=== PATIENT | male | born 1990 | race Caucasian/White ===

== ENCOUNTER 2018-01-08 21:09 | Emergency (ER) | payer OTHER, MEDICAID, SELFPAY ==
[2018-01-08 21:12] VITALS: BP 139/86; PULSE 100; RESP 16; TEMP 37.1; O2SAT 100; BMI 26.4
--- NOTE | 2018-01-08 21:18 | RAD_ITS ---
STUDY: X-RAY - LEFT FOOT CLINICAL: Male, 27 years old. Trauma. Twisted ankle. Pain TECHNIQUE: 3 view(s) of the foot. COMPARISON: None. FINDINGS: Normal talus, calcaneus, and tarsal bones. Normal visualized subtalar, talonavicular, calcaneocuboid, tarsal and tarsometatarsal articulations. Normal metatarsi. Normal metatarsophalangeal joint of the great toe. Normal tibial and fibular sesamoid bones. Normal interphalangeal joint of the great toe. Normal phalanges of the great toe. Normal second through fifth metatarsophalangeal joints. Normal interphalangeal joints and phalanges of the lesser toes. The soft tissue structures are unremarkable. RAD/Foot min 3 Views IMPRESSION: Normal x-ray examination of the foot. Electronically Signed: Zeferino Gant MD at 22:12 EDT Tel , Service support ,
[2018-01-08] MEDS: HYDROcodone Bitartrate/Apap 5/325 Tablet PO (21:25)
--- NOTE | 2018-01-08 21:30 | RAD_ITS ---
STUDY: X-RAY - LEFT ANKLE REASON FOR EXAM: Male, 27 years old. Trauma. Ankle pain TECHNIQUE: 3 view(s) of the ankle. COMPARISON: None. FINDINGS: Normal visualized distal tibia and fibula. Normal medial and lateral malleoli. Normal tibiotalar articulation and ankle mortise. Normal visualized talus and calcaneus. The visualized subtalar, talonavicular, calcaneocuboid and tarsal articulations are normal. The soft tissue structures are unremarkable. RAD/Ankle min 3 Views IMPRESSION: Normal x-ray examination of the ankle. Electronically Signed: Zeferino Gant MD at 22:03 EDT Tel , Service support ,
--- NOTE | 2018-01-08 21:56 | ED.VISSUMM ---
- ER Visit Summary Date of Service: 01/08/18 Chief Complaint: Left ankle injury History of Present Illness: The patient is a 27 M presents to the emergency department with left ankle injury. Patient was standing on a dumpster. He slipped down and inverted his left ankle. He did not fall or strike his head. Since then, he had a difficult time bearing weight because of pain. He has had prior neck fracture. He denies any other orthopedic injury. The patient is otherwise healthy and takes no daily medications. Physical Examination: Exam is relatively unremarkable. Patient has tenderness over the lateral malleolus. There is mild tenderness of the head of the fifth metatarsal. There is no proximal fibular pain. Pulses are 2+. Grajeda testing is negative. Skin is intact. Sensation is preserved distally. Test Results: [] Emergency Department Course and Treatment: The patient underwent plain films of the ankle and foot. There was no evidence of acute fracture dislocation. His pulses are normal. The patient was placed in an Aircast. Is given crutches. He will be given anti-inflammatories and outpatient orthopedic follow-up. He will be discharged home. Treatment Plan: [] Disposition: Charge Impression: 1. Left ankle sprain This note was generated with [employer] dictation software. It may contain incorrect words, spelling, and punctuation that were not noted in review of the chart prior to signing ED Disposition - Plan for ED Patient: Disposition: Home or Assisted Living Chief Complaint: Lower Extremity Injury Instructions: ED Sprain Ankle W X Ray Prescriptions: Naproxen [Naprosyn] 500 mg PO BID PRN #20 tab Referrals: Sam Olvera MD [Primary Care Provider] -
[2018-01-08 22:33] VITALS: BP 130/80; PULSE 85; RESP 16; O2SAT 98
== END 2018-01-08 22:34 | disposition home or self-care (01) ==
LOC: ED 21:42
PROVIDERS: Emergency Provider Emergency Medicine; Family Provider Family Medicine; PCP Family Medicine
DX: S93.402A Sprain of unspecified ligament of left ankle, initial encounter (principal); X50.1XXA Overexertion from prolonged static or awkward postures, initial encounter; Y93.89 Activity, other specified; Y92.89 Other specified places as the place of occurrence of the external cause; Y99.8 Other external cause status
CPT/HCPCS: 73610; 73630; 99284

== ENCOUNTER 2018-03-23 20:21 | Emergency (ER) | payer MEDICAID, SELFPAY ==
[2018-03-23 20:22] VITALS: BP 141/85; PULSE 107; RESP 18; TEMP 36.7; O2SAT 98; BMI 21.9
--- NOTE | 2018-03-23 22:02 | ED.VISSUMM ---
- ER Visit Summary Date of Service: 03/23/18 Chief Complaint: bruise on right arm History of Present Illness: The patient is a 28 M who presents for a bruise on his right upper arm of unknown origin. Patient states it has been there for about 2 weeks and has been gradually changing in color. He does not know how it happened. He is also been having intermittent episodes of dizziness when he stands for the last 3 weeks. He denies any other bruising. No bleeding gums. No blood in his urine or stool. He states he vomited today. He denies any fever, vision changes or any other symptoms. He is a daily drinker. He smokes tobacco. Denies drug use. No history of bleeding disorders. Physical Examination: Vital signs: afebrile, hemodynamically stable, no hypoxia on room air General: well nourished, well developed, in no distress Skin: warm, dry, no rash, no pallor, old yellowish brown bruise about the size of a thumb print on the inner right upper arm nontender, no other bruises or soft tissue injuries noted HEENT: normocephalic and atraumatic; PERRL, EOMI, moist mucous membranes Cardiovascular: regular rate and rhythm without murmurs, no peripheral edema, 2+ pulses all distal extremities Respiratory: No increased work of breathing, lungs are clear to auscultation bilaterally, no rales, rhonchi or wheezing Abdominal: Abdomen is soft, nontender with normoactive bowel sounds, no guarding or rebound, no masses MSK: Moves all extremities, no deformities, normal strength Neuro: Awake and alert, oriented ?4. No facial droop, sensation and motor function intact and symmetric Test Results: [] Emergency Department Course and Treatment: Patient was reassured that there was nothing concerning about the isolated bruise. The bruises in the end stages of healing. We discussed possible ways it could have happened, such as someone gripping his arm. Patient states that is possible that that happened 2 weeks ago. Patient's other symptoms are vague and intermittent over the last few weeks, and patient is very well-appearing at this time with normal vital signs and no findings on exam that are concerning for serious illness. Patient is to return if he notices further easy bruising or develops any worsening of his condition. Patient discharged home. Treatment Plan: [] Disposition: [] Impression: Right upper extremity contusion, healing This note was generated with [employer] dictation software. It may contain incorrect words, spelling, and punctuation that were not noted in review of the chart prior to signing ED Disposition - Plan for ED Patient: Disposition: Home or Assisted Living Chief Complaint: Weakness Instructions: ED Contusion Upper Ext Referrals: Sma Olvera MD [Primary Care Provider] - 3-5 Days if not improving Additional Instructions: Follow-up with your doctor as soon as possible or return to the emergency department if you begin to note bleeding gums, blood in your urine or stool, additional easy bruising without any injury, or any other concerning symptoms.
--- NOTE | 2018-03-23 22:05 | DCINST.ED_ITS ---
ED Disposition - Plan for ED Patient: Disposition: Home or Assisted Living Chief Complaint: Weakness Instructions: ED Contusion Upper Ext Referrals: Sam Olvera MD [Primary Care Provider] - 3-5 Days if not improving Additional Instructions: Follow-up with your doctor as soon as possible or return to the emergency department if you begin to note bleeding gums, blood in your urine or stool, additional easy bruising without any injury, or any other concerning symptoms.
[2018-03-23 22:22] VITALS: BP 146/77; PULSE 87; RESP 17; O2SAT 100
== END 2018-03-23 22:23 | disposition home or self-care (01) ==
PROVIDERS: Emergency Provider Emergency Medicine; Family Provider Family Medicine; PCP Family Medicine
DX: S40.021A Contusion of right upper arm, initial encounter (principal); F17.200 Nicotine dependence, unspecified, uncomplicated; X58.XXXA Exposure to other specified factors, initial encounter; Y93.9 Activity, unspecified; Y92.9 Unspecified place or not applicable; Y99.9 Unspecified external cause status
CPT/HCPCS: 99282

== ENCOUNTER 2019-04-23 10:24 | Emergency (ER) | payer OTHER, MEDICAID, SELFPAY ==
[2019-04-23 10:26] VITALS: BP 160/81; PULSE 85; RESP 16; TEMP 36.4; O2SAT 100; BMI 21.6
--- NOTE | 2019-04-23 10:27 | ED.RN ---
PAPER STATING INS[employer]ANCE [employer] REQUESTING DRUG SCREEN
--- NOTE | 2019-04-23 10:31 | ED.RN ---
[facility] STATES SHE WILL BE HERE IN APPROX 30 MIN
--- NOTE | 2019-04-23 10:40 | ED.VISSUMM ---
- ER Visit Summary Date of Service: 04/23/19 Chief Complaint: Hand lacerations x2 History of Present Illness: The patient is a 29 M right-hand dominant. No significant past medical or surgical history. States he was at work today was throwing out a trash can and he got caught on his hand causing a laceration to the left index finger all over the dorsum DIP joint region. And the left long finger on the palmar radial side proximally. He denies any other injuries. Tetanus is within the last year. Physical Examination: Well-appearing young male. Vital signs are stable afebrile. HEENT exam normal. Lungs clear. Heart regular rhythm no murmur. Abdomen soft nontender. Extremities moves all 4. Left wrist nontender. Normal radial pulse. Left hand he has a laceration on the dorsum of his left hand is diagonal over the PIP joint. No active bleeding. Left long finger on the medial radial side on the palmar aspect. Both involve skin and subcu tissue. There is no pulsatile bleeding. No signs of infection or foreign body. Both will need repaired. Neurologically is awake and alert with no focal motor deficits. Distally there is left index finger laceration on the radial side dorsum of the index fingertip there is decreased sensation past the laceration. He has full flexion extension however. The left long finger is neurovascularly intact with no decreased sensation. Test Results: The left index finger was deeper than I expected when with exploration. I then did a left index finger x-ray AP lateral view which showed no signs of fracture or air in the joint or joint involvement. Emergency Department Course and Treatment: Left hand laceration repair x2. Left index finger laceration over the dorsum PIP joint. Left index finger was cleaned with Shur-Clens explored and irrigated out with saline. Closed using 4 simple interrupted 5-0 Ethilon sutures. Proper hemostasis wound closure obtained. The depth of the wound was to the tendon sheath but did not lacerate tissue for the tendon. Did not involve the joint. His left long finger laceration was V-shaped. Approximately 3 cm. Involve the skin and subcu tissue. Was locally anesthetized, explored washed out. Closed using 4 simple interrupted 5-0 Ethilon sutures. Proper hemostasis wound closure was obtained. Treatment Plan: Wound care. Suture removal 10 days. Return with any signs of infection. He will be placed on Keflex 500 4 times daily for 5 days to try to prevent infection to the deeper wound on the index finger. Disposition: Discharge Impression: Left hand lacerations x2 Left long finger laceration repair 3 cm Left ring finger laceration repair 3 cm Left index finger nerve injury to the left distal index finger with paresthesia Worker's Comp. injuries This note was generated with [employer] dictation software. It may contain incorrect words, spelling, and punctuation that were not noted in review of the chart prior to signing ED Disposition - Plan for ED Patient: Referrals: Sam Olvera MD [NON-STAFF] -
--- NOTE | 2019-04-23 12:27 | RAD_ITS ---
STUDY: X-RAY - LEFT HAND, ATTENTION INDEX FINGER REASON FOR EXAM: Male, 29 years old. Laceration due to injury. TECHNIQUE: 3 view(s) of the finger were obtained. COMPARISON: None. FINDINGS: Normal metacarpal head. Normal metacarpophalangeal joint. Normal proximal phalanx. Findings suggestive of a tiny avulsion at the base of the middle phalanx. Normal distal phalanx. Normal proximal interphalangeal joint. Normal distal interphalangeal joint. Soft tissue swelling. RAD/Finger(s) Min 2 Views IMPRESSION: Findings suggestive of a tiny avulsion fracture at the base of the middle phalanx of the index finger with overlying soft tissue swelling Electronically Signed: Allan Lopez, at 12:46 EDT , Service support ,
--- NOTE | 2019-04-23 12:46 | ED.DEP ---
ED Disposition - Plan for ED Patient: Disposition: Home or Assisted Living Instructions: LACERATION, Hand Prescriptions: Cephalexin [Keflex] 500 mg PO Q6 #20 cap Prescription Printed Referrals: [facility] [GROUP OF PHYSICIANS] - 10 Day for suture removal Additional Instructions: Keep the finger clean and dry. Clean daily with proximal and water soap water apply antibiotic ointment. 10 days. Keflex 1 pill 4 times a day for 5 days to prevent infection. You probably have a nerve injury to the right index finger which is causing the numbness to the distal end of the right index finger. This may take months to heal and could potentially not heal and just leave it with some numbness there. Return if any signs of infection
[2019-04-23 13:08] VITALS: BP 135/74; PULSE 80; RESP 16; O2SAT 97
== END 2019-04-23 13:08 | disposition home or self-care (01) ==
PROVIDERS: Emergency Provider Emergency Medicine
DX: S61.213A Laceration without foreign body of left middle finger without damage to nail, initial encounter (principal); S61.211A Laceration without foreign body of left index finger without damage to nail, initial encounter; S61.215A Laceration without foreign body of left ring finger without damage to nail, initial encounter; R20.2 Paresthesia of skin; Z72.0 Tobacco use; W26.8XXA Contact with other sharp object(s), not elsewhere classified, initial encounter; Y93.89 Activity, other specified; Y92.89 Other specified places as the place of occurrence of the external cause; Y99.0 Civilian activity done for income or pay
CPT/HCPCS: 12002; 73140; 99284

== ENCOUNTER 2019-06-11 09:29 | Emergency (ER) | payer MEDICAID, SELFPAY ==
[2019-05-14 11:54] VITALS: BMI 21.6
[2019-06-11 09:30] VITALS: BP 113/76; PULSE 121; RESP 16; TEMP 36.6; O2SAT 100; BMI 23.1
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
[2019-06-11] MEDS: 0.9% Normal Saline 1,000 ML 1000 ML IV (10:22)
[2019-06-11] MEDS: Ondansetron 4 MG/2 ML Vial IV (10:23)
[2019-06-11] MEDS: Dicyclomine 20 MG/2 ML Vial IM (10:23)
[2019-06-11 11:15] VITALS: BP 114/74; PULSE 89; RESP 16; O2SAT 100
== END 2019-06-11 11:16 | disposition home or self-care (01) ==
PROVIDERS: Emergency Provider Emergency Medicine; PCP Family Medicine
DX: R19.7 Diarrhea, unspecified (principal); R11.2 Nausea with vomiting, unspecified; Z87.891 Personal history of nicotine dependence
CPT/HCPCS: 96361; 96372; 96374; 99283; J7030; A4216; J2405

== ENCOUNTER 2019-06-28 14:30 | Outpatient (RCR) | payer OTHER, SELFPAY ==
[2019-05-14 11:54] VITALS: BMI 21.6
--- NOTE | 2019-06-05 16:16 | HP.OTEVAL_ITS ---
Patient's Visit Information MAXWELL GODDARD is a 29 year old M, referred to Occupational Therapy by Ronaldo Street DO, with a diagnosis of left IF middle phalanx fx/laceration. Date of Evaluation: 05/30/19 Occupational Therapist: CARMELO Hurt/Luke, CHT - Subjective Subjective: This 29 year old male was seen for OT eval with dx of IF laceration. Pt states injury happened at work on 04/23/19. pts incision is healed and he is concerned with ROM and his strength. PT states he is limited with work tasks exspecially when objects he is moving are cold. pt states he does not tolerate cold temps with his left hand. - ADLs Comments: pt reports IND with ADLs and IADls- more concerns with work tasks as moving supplies, weakness and limited ROM - Pain left IF 4 Pain Intensity Range: 1, 6 - ROM MP: right IF 95 left 90 PIP: right IF +5/110 left -15/ 95 DIP: right IF 0/ 60 left IF 0/20 ROM Comments: pt demo with a decrease in left IF PIP and DIP ROM - Strength Salvage Supervisor: right 100# left 70# Lateral Pinch: right 14# left 10# Tripod Pinch: right 18# left 10# - Edema PIP: right 6.2 left 7.0 - Quick DASH-Disab of Arm,Shoulder& Hand Quick DASH Score: 11.6650 - Goals Goal:: pt will demo a incrase in left distance learning coordinator strength by 25# or greater to return pt to PLOF with work tasks by d/c. Goal:: pt will demo the ability to form a composite fist for ind. work tasks by d/c Goal:: pt will report no pain greater than 1/10 with use of left hand with work tasks by d/c Goal:: pt will demo understanding of scar mtg by end of 2nd session to decrease scar adhesions - Rehabilitation General Assessment: PT demo with a decrease in left IF ROM and strength limiting pts with work tasks. Pt would benefit from skilled OT services 1-2x week for 4 weeks to increase his strength, decrease sensitivity and return pt to his PLOF with work tasks. Today pt was ed. on end range stretch, scar mtg and desensitization. Therapy will initiate PRE next visit pt demo understanding and agree to POC. Rehabilitation Potential: Excellent - Anticipated Interventions Anticipated Interventions: A/AAROM/PROM, Strengthening, Scar Care, Desensi tization, Modalities, Orthoses, Joint Protection/Energy Conservation - Visit Plan Frequency: 1-2x /Week Duration: 4 Weeks General Plan: please ed. pt on scar desensitization, and start BTE TEXT: Thank you for the opportunity to evaluate your patient. For Medicare and Medicare HMO plans, please review the plan of care and approve it. It will need to be FAXED BACK to us at [phone] for Medicare purposes. Please let me know if there are questions or concerns regarding this plan of care. Physician Signature: Date:
--- NOTE | 2019-06-28 14:48 | HP.OTDCSUM_ITS ---
HP - OT D/C Summary It has been my pleasure to treat MAXWELL GODDARD under orders from Ronaldo Street DO, for the diagnosis of left IF middle phalanx fx/laceration for a total of 7 visit(s). Please see the following information for a summary of their discharge status. - Overall Improvement % Improvement: 60 - Objective Objective/Function: d/c OT pOC pt making great progress. - Goals Patient Goals: Regain Mobility, Regain Strength, Return to Work, Improve Fine Motor Skills, Use Hand/Wrist/Arm Normally Again Goal:: pt will demo a incrase in left vice president mission integration strength by 25# or greater to return pt to PLOF with work tasks by d/c. Goal:: pt will demo the ability to form a composite fist for ind. work tasks by d/c Goal:: pt will report no pain greater than 1/10 with use of left hand with work tasks by d/c Goal:: pt will demo understanding of scar mtg by end of 2nd session to decrease scar adhesions - Plan Plan: D/C OT POC - D/C Information Discharge Comments: Pt making great progress with OT goals. Pt vice president mission integration strength L hand 100#. Pt able to make composit fist L hand w/o any pain. Pt states 0/10 pain before and after exercises. Pt IF PIP flexion 100' before exercises and 104 after exercises. Pt no longer requires skilled OT services. Pt agress with OT. D/C OT POC. If there are questions or concerns regarding this patient's occupational therapy, please fell free to call me at [phone]. Thank you for the referral of this patient. Sincerely, Stacia Flores
== END 2019-06-28 19:00 | disposition home or self-care (01) ==
LOC: OT 14:30
PROVIDERS: Referring Provider Orthopaedic Surgery; Visit Provider Orthopaedic Surgery
DX: S62.651D Nondisplaced fracture of middle phalanx of left index finger, subsequent encounter for fracture with routine healing (principal); S61.412D Laceration without foreign body of left hand, subsequent encounter; S61.215D Laceration without foreign body of left ring finger without damage to nail, subsequent encounter; S61.213D Laceration without foreign body of left middle finger without damage to nail, subsequent encounter; S61.211D Laceration without foreign body of left index finger without damage to nail, subsequent encounter; S62.621D Displaced fracture of middle phalanx of left index finger, subsequent encounter for fracture with routine healing
CPT/HCPCS: 97110; 97166; 97530

== ENCOUNTER 2019-08-04 05:27 | Emergency (ER) | payer MEDICAID, SELFPAY ==
[2019-06-28 14:55] VITALS: BMI 23.1
[2019-08-04 05:27] VITALS: BP 97/45; PULSE 87; RESP 16; TEMP 36.4; O2SAT 96; BMI 25.0
--- NOTE | 2019-08-04 05:32 | ED.VIS.GEN ---
History of Present Illness Chief Complaint: Laceration Informant: Patient Narrative: Stated he injured the webspace between his fourth and fifth toe just prior to arrival. He accidentally kicked a plastic baby gate. Happened just before he came in. He suffered a laceration. Tetanus is up-to-date. Current severity is mild. Denies any toe pain. - Past Medical History (1) Acute pancreatitis Status: Acute (2) Fracture of middle phalanx of left index finger Status: Acute (3) Hematochezia Status: Acute (4) Laceration without foreign body of left hand, initial encounter Status: Acute (5) Laceration without foreign body of left index finger without damage to nail, initial encounter Status: Acute (6) Laceration without foreign body of left middle finger without damage to nail, initial encounter Status: Acute (7) Laceration without foreign body of left ring finger without damage to nail, initial encounter Status: Acute (8) Alcohol consumption binge drinking Status: Chronic (9) Family history of alcoholism Status: Chronic (10) Nicotine dependence Status: Chronic Past Medical History - Allergies and Home Meds Allergies/Adverse Reactions: Allergies Penicillins Allergy (Verified 08/04/19 05:30) Hives Primary Care Physician: Sam Olvera MD [Primary Care Provider] - Prior records reviewed: Yes Past Medical History: - - See problem list Surgical History: noncontributory, - Lives: With Family Smoking Status: Former smoker Alcohol: None Drugs: None - Family History Maternal Family History: Reports: - - there is a FH of Alcoholism Review of Systems General: Denies: Chills, Fever, Sweats Eyes: Denies: Visual changes - bilaterally, Diplopia ENT: Denies: Rhinorrhea, Sore throat Cardiovascular: Denies: Chest pain, Palpitations Respiratory: Denies: Dyspnea, Cough, Dyspnea on exertion Gastrointestinal: Denies: Abdominal pain, Nausea, Vomiting, Diarrhea, Melena, Hematochezia Genitourinary: Denies: Dysuria, Hematuria, Frequency Musculoskeletal: Denies: Back pain, Extremity Pain Skin: Reports: Rash, Wounds Neurological: Denies: Headache, Weakness, Numbness Physical Exam Vital Signs/Narrative: Vital Signs Temp Pulse Resp BP Pulse Ox 08/04/19 05:27 97.6 F L 87 16 97/45 L 96 General: Well nourished, Well developed, No Acute Distress Head: Normocephalic, Atraumatic Eyes: Perrl, EOMI ENT: Moist mucous membranes, No rhinorrhea Neck: Supple, Nontender Cardiovascular: Regular rate, Regular rhythm, No murmurs Respiratory: No distress, CTA bilaterally, Chest nontender Abdomen: Soft, Nontender, Nondistended, Normal bowel sounds Back: Nontender, Normal Inspection Extremities: Nontender, No edema Skin: - - 1 cm laceration in the webspace between the fourth and fifth toes on the right.. Negative for: Normal color, No rash Neurological: Alert, Oriented x3, Cranial nerves II-XII grossly intact, Normal Strength, Normal Sensation Psychological: Normal affect, Normal Mood Diagnostic/Tx/Re-eval - Medical Decision Making Wound was cleansed with chlorhexidine. Anesthetized with 1 cc of 1% lidocaine. Washed with 500 cc of saline. Closed with simple suture x3. Wound cleansed again. Bacitracin applied. Sutures will come out in 2 weeks as this will likely dehisce if it comes out sooner ED Disposition - Plan for ED Patient: Disposition: Home or Assisted Living Diagnosis: Toe laceration Instructions: LACERATION, All Referrals: Sam Olvera MD [Primary Care Provider] - Additional Instructions: Stitches out in 2 weeks
[2019-08-04] MEDS: BACITRACIN 15 GM Tube 1 APPLIC TOPICAL (05:49)
[2019-08-04 05:58] VITALS: BP 97/45; PULSE 87; RESP 18; O2SAT 97
== END 2019-08-04 06:00 | disposition home or self-care (01) ==
LOC: ED 06:00
PROVIDERS: Emergency Provider Emergency Medicine; Family Provider Family Medicine; PCP Family Medicine
DX: S91.311A Laceration without foreign body, right foot, initial encounter (principal); Z87.891 Personal history of nicotine dependence; W26.8XXA Contact with other sharp object(s), not elsewhere classified, initial encounter; Y93.89 Activity, other specified; Y92.009 Unspecified place in unspecified non-institutional (private) residence as the place of occurrence of the external cause; Y99.8 Other external cause status
CPT/HCPCS: 12001; 99284

== ENCOUNTER 2019-08-28 07:08 | Emergency (ER) | payer MEDICAID, SELFPAY ==
[2019-08-28 07:09] VITALS: BP 153/75; PULSE 93; RESP 16; TEMP 36.4; O2SAT 100; BMI 21.6
--- NOTE | 2019-08-28 07:23 | RAD_ITS ---
STUDY: X-RAY - LEFT SHOULDER REASON FOR EXAM: Male, 29 years old. fell on left shoulder yesterday, pain TECHNIQUE: 3 view(s) of the shoulder. COMPARISON: None. FINDINGS: Normal glenohumeral articulation. Normal acromioclavicular joint. Normal acromion. Normal humeral head and visualized proximal humerus. The soft tissue structures are unremarkable. Normal visualized pulmonary apex. RAD/Shoulder min 2 Views IMPRESSION: Normal x-ray examination of the shoulder. Electronically Signed: Parveen Villegas MD at 8:16 EST Tel , Service support ,
--- NOTE | 2019-08-28 08:11 | ED.VISSUMM ---
- ER Visit Summary Date of Service: 08/28/19 Chief Complaint: [Injury to left shoulder] History of Present Illness: The patient is a 29 M [presents to the emergency department chief complaint of injury to the left shoulder that occurred last evening around 10 PM. Patient states that he tripped over a box and try to brace himself as he went over the box injuring his left shoulder. Patient believes that he landed on the left shoulder. He denies striking his head or loss of consciousness. He denies any neck pain. Patient today having pain with range of motion. He denies any other injuries. He has no medical history. Patient is right-hand dominant.] Physical Examination: [HEENT-PERRLA, EOMI. Cranial nerves II through XII grossly intact. TMs clear. Mucous membranes moist. No adenopathy. Cardiovascular-regular rate and rhythm without murmur or ectopy Lungs-clear to auscultation, chest wall stable without crepitus or subcu emphysema Abdomen-normoactive bowel sounds, soft, nontender, no rebound or rigidity, no peritoneal signs. Extremities-intact ?4, normal range of motion, normal pulses, atraumatic. Left shoulder-there is no evidence of dislocation such as sulcus sign. No obvious deformity. She got diminished range of motion with pain attempting to place his hand behind his back and pain with abduction at the shoulder. He is neurovascular intact distally. No significant pain at the elbow. No deformity at the elbow and he has normal range of motion of the elbow.] Test Results: [X-rays of the left shoulder read by myself as no acute fractures or dislocations. Official report pending from radiology.] Emergency Department Course and Treatment: [Patient will be given a sling. Patient will be given a prescription for naproxen.] Treatment Plan: [Follow-up with primary care physician in 5 to 7 days.] Disposition: [Discharged home in stable condition] Impression: [Left shoulder sprain-possible internal derangement] This note was generated with [employer] dictation software. It may contain incorrect words, spelling, and punctuation that were not noted in review of the chart prior to signing ED Disposition - Plan for ED Patient: Referrals: Sam Olvera MD [Primary Care Provider] -
--- NOTE | 2019-08-28 08:14 | DCINST.ED_ITS ---
ED Disposition - Plan for ED Patient: Instructions: Shoulder Sprain Prescriptions: Naproxen [Naprosyn] 500 mg PO BID PRN #20 tab Transmission Status: Pending to [id number] Referrals: Sam Olvera MD [Primary Care Provider] - 5-7 Days
== END 2019-08-28 09:05 | disposition home or self-care (01) ==
LOC: ED 07:41
PROVIDERS: Emergency Provider Emergency Medicine; PCP Family Medicine
DX: S43.402A Unspecified sprain of left shoulder joint, initial encounter (principal); Z72.0 Tobacco use; W01.0XXA Fall on same level from slipping, tripping and stumbling without subsequent striking against object, initial encounter; Y93.89 Activity, other specified; Y92.89 Other specified places as the place of occurrence of the external cause; Y99.8 Other external cause status
CPT/HCPCS: 73030; 99283

== ENCOUNTER 2019-12-12 14:22 | Emergency (ER) | payer MEDICAID, SELFPAY ==
[2019-12-12 14:23] VITALS: BP 142/80; PULSE 77; PULSE 82; RESP 17; RESP 18; TEMP 36.6; O2SAT 100; BMI 24.6
--- NOTE | 2019-12-12 14:47 | RAD_ITS ---
STUDY: X-RAY - RIGHT HAND REASON FOR EXAM: Male, 29 years old. injury to right hand, crushed -- pain 3-5 MCP area TECHNIQUE: 3 view(s) of the hand. COMPARISON: None. FINDINGS: Normal radiocarpal articulation. Normal distal radioulnar joint. Normal visualized carpal bones. Normal carpal articulations Normal carpometacarpal articulation of the thumb. Normal second through fifth carpometacarpal joints. Normal metacarpi. Normal metacarpophalangeal joint of the thumb. Normal interphalangeal joint of the thumb. Normal proximal and distal phalanges of the thumb. Normal metacarpophalangeal joints of the second through fifth fingers. Normal proximal and distal interphalangeal joints of the second through fifth fingers. Normal phalanges of the second through fifth fingers. The soft tissue structures are unremarkable. RAD/Hand Min 3 Views IMPRESSION: Normal x-ray examination of the hand. Electronically Signed: Zeferino Gant, at 15:41 EDT Tel , Service support ,
--- NOTE | 2019-12-12 14:48 | ED.DCSUM_ITS ---
- ER Visit Summary Date of Service: 12/12/19 Chief Complaint: [Injury to right hand] History of Present Illness: The patient is a 29 M [presents the emergency department with complaint of an injury to the right hand that occurred yesterday. 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 Patient is right- hand dominant. He has no medical history.] Physical Examination: [Right hand-patient has soft tissue swelling as well as erythema some faint bruising noted over the dorsum of the third fourth and fifth MCP joints. No obvious deformity. He is got good range of motion of flexion- extension of the digits. He is neurovascular intact distally.] Test Results: [X-rays obtained of the right hand showed no evidence of fracture as read by myself.] Emergency Department Course and Treatment: [Patient will be given an Raul wrap. Patient advised use ibuprofen or Tylenol for discomfort. He is advised to use ice to the area for the next 2 days.] Treatment Plan: [Follow-up with primary care physician in 5 to 7 days.] Disposition: [Discharged home in stable condition] Impression: [Contusion right hand] This note was generated with [employer] dictation software. It may contain incorrect words, spelling, and punctuation that were not noted in review of the chart prior to signing ED Disposition - Plan for ED Patient: Referrals: Sam Olvera MD [Primary Care Provider] -
--- NOTE | 2019-12-12 15:10 | ED.DEP ---
ED Disposition - Plan for ED Patient: Instructions: ED HAND CONTUSION Referrals: Sam Olvera MD [Primary Care Provider] - 5-7 Days
[2019-12-12 15:18] VITALS: PULSE 73; RESP 14; O2SAT 99
== END 2019-12-12 15:18 | disposition home or self-care (01) ==
PROVIDERS: Emergency Provider Emergency Medicine; PCP Family Medicine
DX: S60.221A Contusion of right hand, initial encounter (principal); W23.0XXA Caught, crushed, jammed, or pinched between moving objects, initial encounter; Z72.0 Tobacco use
CPT/HCPCS: 73130; 99282

== ENCOUNTER 2020-01-16 09:03 | Emergency (ER) | payer MEDICAID, SELFPAY ==
[2020-01-16 09:04] VITALS: BP 156/69; PULSE 110; RESP 18; TEMP 36.4; O2SAT 97; BMI 24.8
--- NOTE | 2020-01-16 09:14 | EKG12_ITS ---
Test Reason : GEN ILLNESS Blood Pressure : / mmHG Vent. Rate : 101 BPM Atrial Rate : 101 BPM P-R Int : 118 ms QRS Dur : 086 ms QT Int : 310 ms P-R-T Axes : 080 080 059 degrees QTc Int : 401 ms Sinus tachycardia Otherwise normal ECG Confirmed by LUC SILVA ([id number]), image editor NAT MARTINEZ ([id number]) on 01/22/2020 8:03:04 AM Referred By: Confirmed By:LUC SILVA
--- NOTE | 2020-01-16 09:14 | RAD_ITS ---
STUDY: X-RAY CHEST REASON FOR EXAM: Male, 29 years old. COUGH X 3 DAYS W/ GENERAL ILLNESS TECHNIQUE: Single AP portable view of the chest. COMPARISON: 2011 FINDINGS: The lungs are clear and expanded. There is no demonstrated pleural abnormality. Normal size heart. Normal mediastinum and oanh. Normal visualized pulmonary arteries. Normal visualized aortic arch and descending thoracic aorta. Normal visualized thoracic spine. Normal visualized ribs, clavicles, and shoulders. There is no demonstrated abnormality of the visualized soft tissue structures of the upper abdomen. RAD/Chest 1 View (Portable) IMPRESSION: Normal x-ray examination of the chest. Electronically Signed: Sumit Knight MD at 10:13 EDT , Service support ,
--- NOTE | 2020-01-16 09:16 | ED.DCSUM_ITS ---
- ER Visit Summary Date of Service: 01/16/20 Chief Complaint: Fever, cough, diarrhea History of Present Illness: The patient is a 29 M presenting with multiple complaints. Patient complains of subjective fever and chills. He complains of sore throat with no difficulty swallowing. He has had a nonproductive cough. He has abdominal cramping and nausea. He denies vomiting. He has had diarrhea with dark-colored stools. He had 2 episodes of diarrhea today and 6 episodes of diarrhea yesterday. He has felt dizzy with no syncope. Denies chest pain or shortness of breath. Denies sick contacts. Physical Examination: Vitals are stable. Patient is afebrile. Alert no acute distress. HEENT exam mild pharyngeal erythema with no exudate, uvula midline Neck is supple. No meningismus Lungs are clear and equal bilaterally. Heart is regular rate and rhythm. Abdomen is soft mild LUQ tenderness with no rebound or guarding Extremities are unremarkable. Skin is warm and dry. No focal neurologic deficit. Remainder of exam is unremarkable. Emergency Department Course and Treatment: Patient was given IV fluids, Zofran. EKG is sinus tachycardia rate of 101. Chest x-ray shows no acute process. CBC, chemistries unremarkable. Liver lipase are normal. Rapid strep is negative. Stool is guaiac negative. On reevaluation he is feeling improved. He is concerned about possibility of COVID. He is unsure if he has had exposure. He was tested for COVID and this is pending. He is advised to follow-up with his primary care physician. Advised to continue wearing a mask and social distancing. Advised to return to the ED for worsening complaints. Disposition: Discharge home Impression: Viral syndrome, diarrhea This note was generated with [employer] dictation software. It may contain incorrect words, spelling, and punctuation that were not noted in review of the chart prior to signing ED Disposition - Plan for ED Patient: Referrals: Sam Olvera MD [Primary Care Provider] -
[2020-01-16] MEDS: 0.9% Normal Saline 1,000 ML 1000 ML IV (09:35)
[2020-01-16] MEDS: Ondansetron 4 MG/2 ML Vial IV (09:35)
[2020-01-16 09:42] LABS: Absolute Lymphocyte Count 0.47 X10^3/uL (0.83-4.51); Absolute Neutrophil Count 7.1 X10^3/uL (2.0-7.7); Basophil# 0.03 X10^3/uL; Basophil% 0.4 % (0-1); Eosinophil# 0.12 X10^3/uL; Eosinophils% 1.4 % (0-5); Hematocrit 41.8 % (40-54); Hemoglobin 14.3 g/dL (13.0-16.5); Lymphocyte # 0.47 X10^3/ul (4.0); Lymphocyte % 5.6 % (19-41); Mean Corp Hgb Conc 34.2 g/dL (32-36); Mean Corpuscular Hgb 29.4 pg (27.0-32.0); Mean Platelet Vol. 9.2 fl (6.2-12.0); Monocyte# 0.66 X10^3/uL; Monocyte% 7.8 % (0-10); NRBC Flagged by Analyzer 0 % (0-5); Neutrophil # 7.12 X10^3/uL (2.7-7.7); Neutrophil % 84.6 % (47-70); POSITIVE DIFFERENTIAL YES; Platelet Count 178 K/mm3 (150-450); RBC Distribution Width CV 11.6 % (11.6-14.6); RBC Distribution Width SD 36.3 fl (35.1-43.9); Red Blood Count 4.86 M/mm3 (4.6-6.2); White Blood Count 8.4 K/mm3 (4.4-11.0)
[2020-01-16 09:43] LABS: Differential Indicated SCAN CRITERIA MET
[2020-01-16 09:58] LABS: ALB/GLOB Ratio 1.2 RATIO (0.9-2.4); AST(SGOT) 11 U/L (15-37); Alanine Aminotransfer ALT/SGPT 19 U/L (16-61); Alkaline Phosphatase 66 U/L (45-117); Anion Gap 2 (5-15); BUN 15 mg/dL (7-18); BUN/Creat Ratio 14.6 RATIO (10-20); Calcium,Total 8.8 mg/dL (8.5-10.1); Chloride 108 mmol/L (98-107); Creatinine, Serum 1.03 mg/dL (0.70-1.30); EST Glomerular Filtration Rate 92 mL/min (>60); Est Glom Filt Rate - Afr Amer 111 mL/min (>60); Estimated Creatinine Clearance 97.21 ml/min; Globulin 3.2 g/dL (2.2-4.2); Glucose 97 mg/dL (74-106); Lipase 181 U/L (73-393); Potassium 4.1 mmol/L (3.5-5.1); Protein, Total 7.2 g/dL (6.4-8.2); Sodium Level 140 mmol/L (136-145)
[2020-01-16 10:36] LABS: Differential Comment SCANNED
--- NOTE | 2020-01-16 11:18 | ED.DEP ---
ED Disposition - Plan for ED Patient: Instructions: ED Viral Syndrome Referrals: Sma Olvera MD [Primary Care Provider] -
[2020-01-16 11:29] VITALS: BP 131/65; PULSE 74; RESP 16; O2SAT 98
[2020-01-16 12:44] LABS: Probe Check PASS; Specimen Processing Control PASS
== END 2020-01-16 11:30 | disposition home or self-care (01) ==
LOC: ED 09:44
PROVIDERS: Emergency Provider Emergency Medicine; PCP Family Medicine
DX: B34.9 Viral infection, unspecified (principal); R19.7 Diarrhea, unspecified; Z72.0 Tobacco use
CPT/HCPCS: 71045; 80053; 82274; 83690; 85025; 87635; 87880; 93005; 96361; 96374; 99283; G2023; J7030; A4216; J2405; U0003

== ENCOUNTER 2020-06-30 10:17 | Emergency (ER) | payer MEDICAID, SELFPAY ==
[2020-06-30 10:18] VITALS: BP 147/95; PULSE 85; RESP 18; TEMP 36.6; O2SAT 100; BMI 23.6
--- NOTE | 2020-06-30 10:34 | ED.VIS.GEN ---
History of Present Illness Chief Complaint: Shortness of Breath Informant: Patient Onset: Days Context: Gradual Onset Timing: Continuous Current Severity: Moderate Maximum Severity: Moderate Narrative: Patient is a 30-year-old male is otherwise healthy who presents to the emergency department multiple complaints. Patient states that for the past 3 days, he has had some generalized malaise. He states he has had some abdominal cramping and some loose watery diarrhea. Today, he states he woke with a mild sore throat and scant cough. He denies any sick contacts. He does not think he had fever or chills. He has no history of immunosuppression. He is otherwise been in his normal state of health. Prior similar symptoms: No Recent Illness/Hospitalization: No Past Medical History - Allergies and Home Meds Allergies/Adverse Reactions: Allergies Penicillins Allergy (Verified 06/30/20 10:20) Hives Primary Care Physician: Sam Olvera MD [Primary Care Provider] - Prior records reviewed: Yes Past Medical History: None Surgical History: noncontributory, - Smoking Status: Current some day smoker - Family History Maternal Family History: Reports: - - there is a FH of Alcoholism Review of Systems General: Denies: Chills, Fever, Sweats Eyes: Denies: Visual changes - bilaterally, Diplopia ENT: Reports: Sore throat. Denies: Rhinorrhea Cardiovascular: Denies: Chest pain, Palpitations Respiratory: Reports: Cough. Denies: Dyspnea, Dyspnea on exertion Gastrointestinal: Reports: Nausea, Diarrhea. Denies: Abdominal pain, Vomiting, Melena, Hematochezia Genitourinary: Denies: Dysuria, Hematuria, Frequency Musculoskeletal: Denies: Back pain, Extremity Pain Skin: Denies: Rash, Wounds Neurological: Denies: Headache, Weakness, Numbness Physical Exam Vital Signs/Narrative: Vital Signs Temp Pulse Resp BP Pulse Ox 06/30/20 10:18 97.9 F 85 18 147/95 H 100 Inital Vital Signs reviewed: Yes General: Well nourished, Well developed, No Acute Distress Head: Normocephalic, Atraumatic Eyes: Perrl, EOMI ENT: Moist mucous membranes, No rhinorrhea Neck: Supple, Nontender Cardiovascular: Regular rate, Regular rhythm, No murmurs Respiratory: No distress, CTA bilaterally, Chest nontender Abdomen: Soft, Nontender, Nondistended, Normal bowel sounds Back: Nontender, Normal Inspection Extremities: Nontender, No edema Skin: Normal color, No rash Neurological: Alert, Oriented x3, Cranial nerves II-XII grossly intact, Normal Strength, Normal Sensation Psychological: Normal affect, Normal Mood Diagnostic/Tx/Re-eval - Medical Decision Making Patient presents with mild fatigue, sore throat, nausea, and abdominal cramping. In light of the pandemic, Covid was obtained. This was negative. Rapid strep was also obtained. This is negative. Patient is not hypoxic, febrile, or tachycardic. He was treated with oral medications with improvement. At this point, I do feel that he safe for outpatient therapy. He was counseled on concerning symptoms and reasons to return. He will be discharged home. Impression 1. Viral illness ED Disposition - Plan for ED Patient: Instructions: ED Viral Syndrome (Adult) Prescriptions: Dicyclomine HCl [Bentyl] 20 mg PO TIDAC #20 cap Prescription Printed Ondansetron [Zofran Odt] 4 mg PO Q8H PRN PRN #10 tab PRN Reason: Nausea Prescription Printed Referrals: Sam Olvera MD [Primary Care Provider] -
[2020-06-30] MEDS: Dicyclomine 10 MG Capsule 20 MG PO (11:10)
[2020-06-30] MEDS: Ondansetron ODT 4 MG Tablet PO (11:10)
[2020-06-30 13:00] VITALS: RESP 17
== END 2020-06-30 13:01 | disposition home or self-care (01) ==
LOC: ED 10:58
PROVIDERS: Emergency Provider Emergency Medicine; PCP Family Medicine
DX: J06.9 Acute upper respiratory infection, unspecified (principal); F17.200 Nicotine dependence, unspecified, uncomplicated
CPT/HCPCS: 87426; 87880; 99283

== ENCOUNTER 2020-12-31 10:39 | Emergency (ER) | payer MEDICAID, SELFPAY ==
[2020-12-31 10:40] VITALS: BP 134/81; PULSE 89; RESP 15; TEMP 37; O2SAT 96; BMI 21.9
[2020-12-31 10:42] VITALS: BP 134/81; PULSE 89; RESP 15; TEMP 37; O2SAT 96
--- NOTE | 2020-12-31 11:05 | EDS_ITS ---
HPI History of Present Illness Chief Complaint: Nausea/Vomiting Informant: patient Onset/Context/Timing Onset: Yesterday Context: Gradual Onset Timing: Intermittent Quality: Cramping, stabbing Location: Diffuse Worsened by: Nothing Relieved by: Nothing Narrative Narrative: Patient presents with abdominal pain, chest pain, shortness of breath, nausea, and vomiting that began yesterday. Patient states he had a fever of 101 yesterday at home. Patient also admits to some blurred vision, rhinorrhea, and sore throat. Patient states his pain is diffuse over his stomach. Patient states he also has a frontal headache. Patient admits to nausea and vomiting. Patient denies any hematemesis or coffee-ground emesis. Patient denies any diarrhea, melena, or hematochezia. Patient denies any dysuria or hematuria. PFSH PFS Home Medications NK 12/31/20 [History Last Taken Unknown] Allergy/AdvReac Type Severity Reaction Status Date / Time Penicillins Allergy Hives Verified 12/31/20 10:42 Social History Smoking Status: Current some day smoker tobacco type: cigarettes and e- cigarettes alcohol intake: current ROS ROS ED Constitutional Constitutional ED: Reports fever(s); Denies chills Eyes Eyes: Reports blurry vision and change in vision ENT ENT ED: Reports rhinorrhea and sore throat Cardiovascular Cardiovascular: Reports chest pain; Denies palpitations Respiratory/Chest Respiratory/Chest: Reports cough and dyspnea Gastrointestinal Gastrointestinal: Reports abdominal pain, nausea and vomiting Genitourinary Genitourinary ED: Denies dysuria or hematuria Musculoskeletal Musculoskeletal: Reports neck pain; Denies back pain Integumentary Denies abscess or rash Neurologic Neurologic: Reports headache(s); Denies weakness Allergic/Immunologic Allergic/Immunologic ED: Denies mouth swelling or urticaria EXAM Physical Exam Const Vital Signs: 12/31/20 10:40 12/31/20 10:42 Temperature 98.6 F 98.6 F Temperature Source Oral Oral Pulse Rate 89 89 Respiratory Rate 15 15 Blood Pressure 134/81 H 134/81 H Blood Pressure Mean 98 98 Pulse Ox 96 96 Oxygen Delivery Method Room Air Room Air Positive well nourished, well developed and obese General Appearance ED: well developed Nutritional Appearance: obese HEENT normocephalic and atraumatic Eyes PERRL and EOMs intact bilaterally Neck supple and no JVD Chest Wall palpation of chest normal Resp normal respiratory effort and clear to auscultation bilaterally Effort and Inspection: Negative for respiratory distress Cardio regular rate, regular rhythm and no murmurs GI normal to inspection, nondistended, normoactive bowel sounds, soft to palpation and non-distended Palpation: soft and tender periumbilical; Negative for guarding or rebound tenderness present Extremity normal to inspection General Extremety ED: Negative for edema or tenderness General Extremity: Negative for edema Neuro oriented x3, CN's II-XII intact bilaterally and no sensory deficits noted Sensorium / Orientation: awake and alert Motor Exam: strength 5/5 throughout Psych mental status grossly normal MDM MDM MDM Narrative Medical decision making narrative: Patient was given IV fluids and Zofran. COVID-19 rapid antigen was obtained and was negative. CBC and comprehensive metabolic profile were within normal limits. Patient is feeling better on reevaluation. Patient was instructed to drink plenty of fluids. Patient was instructed to follow-up with a primary care physician in 5 to 7 days. Patient understood and was agreeable with the plan. All questions were answered. Lab Data Attestation: I reviewed the patient's lab results. Labs: Laboratory Results - last 24 hr 12/31/20 12/31/20 11:15 11:15 WBC 5.5 RBC 5.10 Hgb 14.7 Hct 42.7 MCV 83.7 MCH 28.8 MCHC 34.4 RDW Std Deviation 36.1 RDW Coeff of [place] 11.9 Plt Count 204 MPV 8.7 Immature Gran % (Auto) 0.200 Neut % (Auto) 61.9 Lymph % (Auto) 27.5 [place] % (Auto) 7.9 Eos % (Auto) 2.0 Baso % (Auto) 0.5 Absolute Neuts (auto) 3.4 Absolute Lymphs (auto) 1.50 Nucleated RBC % 0 Sodium 143 Potassium 4.0 Chloride 108 H Carbon Dioxide 32.0 Anion Gap 3 L BUN 10 Creatinine 1.09 Estim Creat Clear Calc 88.04 Est GFR (MDRD) Af Amer 103 Est GFR (MDRD) Non-Af 85 BUN/Creatinine Ratio 9.2 L Glucose 95 Calcium 8.8 Total Bilirubin 0.50 AST 10 L ALT 18 Alkaline Phosphatase 66 Total Protein 6.9 Albumin 3.9 Globulin 3.0 Albumin/Globulin Ratio 1.3 Discharge Plan Triage Chief Complaint: Nausea/Vomiting ED Provider: Rhett Yung Dx/Rx/DC Orders Clinical Impression: Viral illness Instructions: ED Viral Syndrome (Adult) Prescriptions: No Action NK RF: 0 Stand Alone Forms: ED Work / School Excuse Primary Care Provider: Care Physician,No Primary Referrals: Sam Olvera MD [[facility]] - 5-7 Days Disposition Disposition: Home, self care
[2020-12-31] MEDS: Ondansetron 4 MG/2 ML Vial IV (11:25)
[2020-12-31] MEDS: 0.9% Normal Saline 1,000 ML 1000 ML IV (11:25)
[2020-12-31 11:26] LABS: Absolute Neutrophil Count 3.4 X10^3/uL (2.0-7.7); Basophil# 0.03 X10^3/uL; Basophil% 0.5 % (0-1); Eosinophil# 0.11 X10^3/uL; Hematocrit 42.7 % (40-54); Hemoglobin 14.7 g/dL (13.0-16.5); Lymphocyte % 27.5 % (19-41); Mean Corp Hgb Conc 34.4 g/dL (32-36); Mean Corpuscular Hgb 28.8 pg (27.0-32.0); Mean Corpuscular Volume 83.7 fL (80-94); Mean Platelet Vol. 8.7 fl (6.2-12.0); Monocyte# 0.43 X10^3/uL; Monocyte% 7.9 % (0-10); NRBC Flagged by Analyzer 0 % (0-5); Neutrophil # 3.38 X10^3/uL (2.7-7.7); Neutrophil % 61.9 % (47-70); Platelet Count 204 K/mm3 (150-450); RBC Distribution Width CV 11.9 % (11.6-14.6); RBC Distribution Width SD 36.1 fl (35.1-43.9); White Blood Count 5.5 K/mm3 (4.4-11.0)
[2020-12-31 11:41] LABS: ALB/GLOB Ratio 1.3 RATIO (0.9-2.4); AST(SGOT) 10 U/L (15-37); Alanine Aminotransfer ALT/SGPT 18 U/L (16-61); Albumin, Serum 3.9 g/dL (3.2-5.0); Alkaline Phosphatase 66 U/L (45-117); Anion Gap 3 (5-15); BUN 10 mg/dL (7-18); BUN/Creat Ratio 9.2 RATIO (10-20); Calcium,Total 8.8 mg/dL (8.5-10.1); Chloride 108 mmol/L (98-107); Creatinine, Serum 1.09 mg/dL (0.70-1.30); EST Glomerular Filtration Rate 85 mL/min (>60); Est Glom Filt Rate - Afr Amer 103 mL/min (>60); Estimated Creatinine Clearance 88.04 ml/min; Glucose 95 mg/dL (74-106); Protein, Total 6.9 g/dL (6.4-8.2); Sodium Level 143 mmol/L (136-145)
[2020-12-31 13:23] VITALS: PULSE 92; RESP 16; O2SAT 98
== END 2020-12-31 13:24 | disposition home or self-care (01) ==
PROVIDERS: Emergency Provider Emergency Medicine
DX: B34.9 Viral infection, unspecified (principal); F17.210 Nicotine dependence, cigarettes, uncomplicated; E66.9 Obesity, unspecified
CPT/HCPCS: 80053; 85025; 87426; 96361; 96374; 99283; J7030; A4216; J2405

== ENCOUNTER 2021-02-24 14:46 | Emergency (ER) | payer OTHER, MEDICAID, SELFPAY ==
[2021-02-24 14:47] VITALS: BP 134/79; PULSE 86; RESP 16; TEMP 36.6; O2SAT 98; BMI 22.6
--- NOTE | 2021-02-24 14:57 | EDS_ITS ---
HPI History of Present Illness Chief Complaint: Upper Extremity Injury Informant: patient Narrative Narrative: 30-year-old male states that last night he was at work lifting boxes from the ground to chest height when he began to have pain in the right bicep tendon region. He notes more painful today. He notes painful range of motion. No direct trauma to the area from a fall [facility] Home Medications naproxen 500 mg PO BID #20 tab 02/24/21 [Rx Last Taken Unknown] Allergy/AdvReac Type Severity Reaction Status Date / Time Penicillins Allergy Hives Verified 02/24/21 14:49 Social History Smoking Status: Current some day smoker tobacco type: cigarettes and e- cigarettes alcohol intake: current ROS ROS ED Constitutional Constitutional ED: Denies chills or weight loss Eyes Eyes: Denies change in vision or diplopia ENT ENT ED: Denies ear pain, rhinorrhea or sore throat Cardiovascular Cardiovascular: Denies chest pain, orthopnea, palpitations or racing heartbeat Respiratory/Chest Respiratory/Chest: Denies cough, dyspnea or orthopnea Gastrointestinal Gastrointestinal: Denies abdominal pain, diarrhea, nausea or vomiting Genitourinary Genitourinary ED: Denies dysuria, hematuria or urinary frequency Musculoskeletal Musculoskeletal: Reports other Details: See history of present illness ; Denies arthralgias or myalgias Integumentary Denies abscess or rash Neurologic Neurologic: Denies headache(s) or weakness Psychiatric Psychiatric: Denies anxiety, depression, suicidal ideation or suicidal thoughts Endocrine Endocrinology: Denies polydipsia, polyphagia or polyuria Allergic/Immunologic Allergic/Immunologic ED: Denies mouth swelling, tongue swelling or urticaria EXAM Physical Exam Const Vital Signs: 02/24/21 14:47 Temperature 98 F Temperature Source Temporal Pulse Rate 86 Respiratory Rate 16 Blood Pressure 134/79 H Blood Pressure Mean 97 Pulse Ox 98 Oxygen Delivery Method Room Air Positive well nourished and well developed General Appearance ED: well developed HEENT Reports normocephalic, head/scalp atraumatic and moist mucous membranes normocephalic and atraumatic Eyes PERRL and EOMs intact bilaterally Neck no lymphadenopathy, supple and no JVD Resp normal respiratory effort and clear to auscultation bilaterally Cardio regular rate, regular rhythm and no murmurs GI normal to inspection, nondistended, normoactive bowel sounds and non-tender Palpation: soft Back/Spine no CVA tenderness and normal ROM Extremity Extremity Narrative: Patient is limited range of motion secondary to pain. His point tenderness over the short head of the biceps tendon and coracobrachialis tendon. General Extremety ED: Negative for edema General Extremity: Negative for edema Neuro oriented x3 and CN's II-XII intact bilaterally Sensorium / Orientation: alert Motor Exam: strength 5/5 throughout Psych mental status grossly normal Mood & Affect: Negative for depressed or tearful Skin no rashes or lesions noted and no wounds MDM MDM MDM Narrative Medical decision making narrative: Patient be given a shot of Kenalog. Would recommend anti-inflammatories. Work restrictions will be given. Follow-up with Workmen's Comp. Discharge Plan Triage Chief Complaint: Upper Extremity Injury ED Provider: Jose Trinidad Dx/Rx/DC Orders Clinical Impression: Biceps tendinitis of right shoulder Instructions: Biceps Tendonitis Proximal Prescriptions: New naproxen 500 MG tablet 500 mg PO BID Qty: 20 RF: 0 Primary Care Provider: Care Physician,No Primary Referrals: Care Physician,No Primary [Primary Care Provider] - Clinic,NOW [NON-STAFF] - As soon as possible Disposition Disposition: Home, Self Care
[2021-02-24] MEDS: Triamcinolone Acetonide 40 MG/ML Vial IM (15:05)
[2021-02-24 15:11] VITALS: RESP 16
--- NOTE | 2021-02-24 15:20 | ED.RN ---
SHOT TIME OBSERVED FOR 15 MIN NO REACTION NOTED BY THIS RN, PT D/C.
== END 2021-02-24 15:21 | disposition home or self-care (01) ==
LOC: ED 15:15
PROVIDERS: Emergency Provider Emergency Medicine
DX: M75.21 Bicipital tendinitis, right shoulder (principal); F17.210 Nicotine dependence, cigarettes, uncomplicated
CPT/HCPCS: 96372; 99283

== ENCOUNTER 2021-04-11 11:24 | Emergency (ER) | payer MEDICAID, SELFPAY ==
[2021-04-11 11:24] VITALS: BP 129/85; PULSE 53; RESP 16; TEMP 36.6; O2SAT 95; BMI 19.9
--- NOTE | 2021-04-11 11:42 | EDS_ITS ---
HPI History of Present Illness Chief Complaint: General Illness Informant: patient Onset/Context/Timing Onset: Yesterday Context: Gradual Onset Timing: Continuous Quality: fatigue Location: all over Current Severity: Severe Maximum Severity: Severe Worsened by: nothing Relieved by: nothing Associated Symptoms Associated Symptoms: subj fevers, cough, sore throat, lost taste/smell, myalgias Associated Symptoms ED: cough Narrative Narrative: Patient started having symptoms yesterday. He is on vaccinated for Covid. [place], so he was in contact with a lot of people there but no known Covid contacts that he knows of. He is healthy otherwise. [facility] Medical History (Updated 04/11/21 @ 12:[address] Lasha Rand MD) Acute pancreatitis Family history of alcoholism History of cervical fracture Home Medications NK 04/11/21 [History Last Taken Unknown] Allergy/AdvReac Type Severity Reaction Status Date / Time Penicillins Allergy Hives Verified 02/27/21 16:06 Social History Smoking Status: Current some day smoker tobacco type: cigarettes and e- cigarettes alcohol intake: current ROS ROS ED Constitutional Constitutional ED: Reports body ache(s), chills, fatigue, fever(s), headache(s) and malaise Eyes Eyes: Denies change in vision or diplopia ENT ENT ED: Denies rhinorrhea or sore throat Cardiovascular Cardiovascular: Denies chest pain or palpitations Respiratory/Chest Respiratory/Chest: Reports cough; Denies dyspnea Gastrointestinal Gastrointestinal: Reports diarrhea; Denies abdominal pain, nausea or vomiting Genitourinary Genitourinary ED: Denies dysuria or hematuria Musculoskeletal Musculoskeletal: Denies back pain or neck pain Integumentary Denies abscess or rash Neurologic Neurologic: Reports headache(s); Denies paresthesias or weakness Psychiatric Psychiatric: Denies anxiety or suicidal thoughts EXAM Physical Exam Const Vital Signs: 04/11/21 11:24 04/11/21 12:22 Temperature 97.9 F Temperature Source Temporal Pulse Rate 53 L Respiratory Rate 16 Respiratory Effort Normal Respiratory Pattern Normal Blood Pressure 129/85 H Blood Pressure Mean 99 Pulse Ox 95 Oxygen Delivery Method Room Air Positive well nourished and well developed Constitutional Narrative: Well-appearing, no distress General Appearance ED: well developed and NAD HEENT Reports moist mucous membranes normocephalic and atraumatic Eyes PERRL and EOMs intact bilaterally Neck full ROM and supple Resp normal respiratory effort and clear to auscultation bilaterally Cardio regular rate, regular rhythm and no murmurs Rate: Negative for tachycardic GI non-tender and non-distended Auscultation: normoactive bowel sounds Palpation: soft Back/Spine no CVA tenderness General Back: other FROM Extremity normal to inspection and no calf tenderness General Extremety ED: Negative for edema, pulses abnormal or tenderness General Extremity: Negative for edema or pulses abnormal Neuro oriented x3, CN's II-XII intact bilaterally and no sensory deficits noted Sensorium / Orientation: awake and alert Motor Exam: strength 5/5 throughout Skin no rashes or lesions noted and no wounds MDM MDM MDM Narrative Medical decision making narrative: Rapid Covid returned negative. My suspicion is that this is a false negative, I am highly suspicious for this to be Covid. He was still advised to isolate, we sent off a send out PCR, he was advised to isolate until that returns and if negative he may return to work if they will allow it. Supportive care advised, his vital signs are normal. Discharge Plan Triage Chief Complaint: General Illness ED Provider: Lasha Rand Dx/Rx/DC Orders Clinical Impression: Viral URI with cough, Suspected 2019-nCoV infection Prescriptions: No Action NK RF: 0 Stand Alone Forms: ED Work / School Excuse Primary Care Provider: Care Physician,No Primary Referrals: Virginia Casey [NON-STAFF] - 10-14 Days if not better Care Physician,No Primary [Primary Care Provider] - Disposition Disposition: Home, Self Care
[2021-04-11] MEDS: Ondansetron ODT 4 MG Tablet 8 MG PO (11:57)
[2021-04-11] MEDS: Mag Hydrox/Al Hydrox/Simeth 30 ML UDC PO (11:57)
--- NOTE | 2021-04-11 13:32 | ED.RN ---
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 ADDRESS IS CORRECT WITHIN SYSTEM. VERIFIED WITH PT.
[2021-04-11 13:37] VITALS: PULSE 77; RESP 16; O2SAT 100
== END 2021-04-11 13:39 | disposition home or self-care (01) ==
PROVIDERS: Emergency Provider Emergency Medicine
DX: J06.9 Acute upper respiratory infection, unspecified (principal); F17.210 Nicotine dependence, cigarettes, uncomplicated
CPT/HCPCS: 87426; 87635; 99282; U0005; U0003

== ENCOUNTER 2021-05-12 10:57 | Emergency (ER) | payer OTHER, MEDICAID, SELFPAY ==
[2021-05-12 10:58] VITALS: BP 115/74; PULSE 95; RESP 18; TEMP 36.1; O2SAT 97; BMI 23.6
--- NOTE | 2021-05-12 11:09 | RAD_ITS ---
STUDY: X-RAY - THORACIC SPINE REASON FOR EXAM: Male, 31 years old. Pain from lifting injury TECHNIQUE: 3 view(s) of the thoracic spine were obtained. COMPARISON: None. FINDINGS: Normal kyphosis of the thoracic spine. There is no substantial scoliosis. There is multilevel endplate spondylosis of the thoracic vertebrae. There is multilevel disc space narrowing of the thoracic spine. The soft tissue structures are unremarkable. RAD/Thoracic Spine 3 Views IMPRESSION: Multilevel disc space narrowing and spondylosis. Electronically Signed: Allan Lopez MD at 11:30 EDT , Service support ,
--- NOTE | 2021-05-12 11:29 | ED.RN ---
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
--- NOTE | 2021-05-12 14:12 | EDS_ITS ---
HPI History of Present Illness Chief Complaint: Back Narrative Narrative: Patient is a 31-year-old male who states he was at work this afternoon when he was lifting a heavy box off the top of a shelf. He reports the box began to slip and he bent and twisted and awkward direction to try to keep it from falling. He states when he did this he noticed pain in his left low back. He denies any loss of bowel or bladder control or IV drug use. He denies any hematuria or dysuria. He reports he has pain with motion and with concern for injury to his back was sent in for evaluation. [facility] Medical History Acute pancreatitis Family history of alcoholism History of cervical fracture Home Medications methocarbamol 500 mg PO Q6H PRN #40 tab 05/12/21 [Rx Last Taken Unknown] Allergy/AdvReac Type Severity Reaction Status Date / Time Penicillins Allergy Hives Verified 05/12/21 10:58 Social History Smoking Status: Current some day smoker tobacco type: cigarettes and e- cigarettes alcohol intake: current ROS ROS ED Constitutional Constitutional ED: Denies chills or fever(s) ENT ENT ED: Denies sore throat Cardiovascular Cardiovascular: Denies chest pain Respiratory/Chest Respiratory/Chest: Denies cough or dyspnea Gastrointestinal Gastrointestinal: Denies abdominal pain, diarrhea, nausea or vomiting Genitourinary Genitourinary ED: Denies dysuria Musculoskeletal Musculoskeletal: Reports back pain; Denies myalgias Integumentary Denies rash Neurologic Neurologic: Denies headache(s) Hematologic/Lymphatic Hematologic/Lymphatic: Denies easy bleeding or easy bruising EXAM Physical Exam Const Vital Signs: 05/12/21 10:58 Temperature 97 F L Temperature Source Temporal Pulse Rate 95 Respiratory Rate 18 Blood Pressure 115/74 Blood Pressure Mean 87 Pulse Ox 97 Oxygen Delivery Method Room Air Positive well nourished and well developed General Appearance ED: well developed Eyes PERRL and EOMs intact bilaterally Neck supple Resp normal respiratory effort and clear to auscultation bilaterally Cardio regular rate and regular rhythm GI non-tender, non-distended and no masses Auscultation: normoactive bowel sounds Palpation: soft Back/Spine Back/Spine Narrative: No bony deformity or step-off of the thoracic or lumbar spine. However there is midline pain with palpation of the lower thoracic/upper lumbar region. There is also tenderness and spasm noted in the left paralumbar region that worsens with extension and rotation. Negative straight leg raise. No clonus or Babinski. No saddle anesthesia. Patellar reflexes are plus 2 out of 4 bilaterally Extremity normal to inspection Neuro oriented x3 and CN's II-XII intact bilaterally Sensorium / Orientation: alert Motor Exam: strength 5/5 throughout Psych mental status grossly normal Skin no rashes or lesions noted MDM MDM MDM Narrative Medical decision making narrative: Patient presented to the ER with a extension/twisting injury. He had no obvious bony deformity or step-off of his thoracic or lumbar spine and no signs of cauda equina or epidural abscess. However with concern for possible compression fracture x-rays were obtained. X- rays were negative and therefore his symptoms are most consistent with a lumbosacral strain. He will be placed on Robaxin for symptom control and is otherwise safe for discharge Radiography Diagnostic Testing: Clinical Impression(s) from Imaging Studies Thoracic Spine X-Ray 05/12/21 11:09 IMPRESSION: Multilevel disc space narrowing and spondylosis. Electronically Signed: Allan Lopez MD at 11:30 EDT , Service support , Lumbar Spine X-Ray 05/12/21 14:35 IMPRESSION: Exaggeration of the lumbar lordosis. Electronically Signed: Allan Lopez MD at 14:46 EDT , Service support , Discharge Plan Triage Chief Complaint: Back ED Provider: Vincent Nazraio Dx/Rx/DC Orders Clinical Impression: Acute lumbosacral myofascial strain Instructions: Back Safety: Lifting, ED Back Sprain/Strain Prescriptions: New methocarbamol 500 mg tablet 500 mg PO Q6H PRN (Reason: Muscle pain/spasm) Qty: 40 RF: 0 Primary Care Provider: Care Physician,No Primary Referrals: Care Physician,No Primary [Primary Care Provider] - Clinic,NOW [NON-STAFF] - 1-2 Days if not improving Disposition Disposition: Home, Self Care
--- NOTE | 2021-05-12 14:35 | RAD_ITS ---
STUDY: X-RAY - LUMBAR SPINE REASON FOR EXAM: Male, 31 years old. Pain TECHNIQUE: 2 view(s) of the lumbar spine were obtained. COMPARISON: None FINDINGS: There is an exaggerated lumbar lordosis. There is a minimal dextroscoliosis of the lumbar spine. There is a normal alignment of the vertebrae. Normal vertebral bodies and endplates. Normal disc space heights. The soft tissue structures are unremarkable. RAD/Lumbar Spine 2 or 3 Views IMPRESSION: Exaggeration of the lumbar lordosis. Electronically Signed: Allan Lopez MD at 14:46 EDT , Service support ,
== END 2021-05-12 15:54 | disposition home or self-care (01) ==
PROVIDERS: Emergency Provider Emergency Medicine
DX: S39.012A Strain of muscle, fascia and tendon of lower back, initial encounter (principal); F17.210 Nicotine dependence, cigarettes, uncomplicated; X50.1XXA Overexertion from prolonged static or awkward postures, initial encounter; Y93.89 Activity, other specified; Y92.89 Other specified places as the place of occurrence of the external cause; Y99.0 Civilian activity done for income or pay
CPT/HCPCS: 72072; 72100; 99281; 99282

== ENCOUNTER 2021-07-06 13:21 | Emergency (ER) | payer MEDICAID, SELFPAY ==
[2021-07-06 13:22] VITALS: BP 110/89; PULSE 104; RESP 14; TEMP 36.5; O2SAT 97; BMI 21.7
--- NOTE | 2021-07-06 16:16 | EDS_ITS ---
HPI HPI - URI History of Present Illness Chief Complaint: Cough Detail of Chief Complaint: Onset of illness 2 days ago, upper respiratory and GI Informant: patient Onset/Context/Timing Onset: Days (Onset 2 days ago) Context: Sudden Onset Timing: Continuous Quality: Upper respiratory and GI Location: Upper respiratory, GI and generalized Current Severity: Moderate Maximum Severity: Severe Worsened by: Not Worsened By Swallowing, Eating Solids and Drinking Liquids Relieved by: Not Relieved By Tylenol and NSAIDs Associated Symptoms Associated Symptoms: Positive for Nasal Congestion, Headache, Myalgias, Nausea, Vomiting, Shortness of Breath and Nonproductive cough; Negative for Sinus Pr essure, Diarrhea, Chest Pain, Hemoptysis and Productive Cough Narrative Narrative: Patient is a 31-year-old male who works at [employer]. He presents because of upper respiratory and GI symptoms with systemic complaints as well. He reports headache without photophobia, neck pain or neck stiffness. He denies ringing in his ears, decreased hearing or drainage from his ears. He does report rhinorrhea, congestion postnasal drainage. He does report sore throat. He denies loss of taste or smell. He does have a cough which is nonproductive. He denies dyspnea on exertion. Denies chest pain. He does complain of mild abdominal pain with nausea and vomiting. He denies urologic symptoms. He denies rash. He does report myalgias and arthralgias. Onset of his symptoms 2 days ago. He has no ill contacts to his knowledge. Prior similar symptoms: No Recent Illness/Hospitalization: No ROS ROS ED Constitutional Constitutional ED: Reports fever(s) and subjective; Denies chills, sweats or weight loss Eyes Eyes: Denies blurry vision or change in vision ENT ENT ED: Denies ear pain, rhinorrhea or sore throat Cardiovascular Cardiovascular: Reports palpitations; Denies chest pain, orthopnea, paroxysmal nocturnal dyspnea or racing heartbeat Respiratory/Chest Respiratory/Chest: Reports cough and dyspnea; Denies dyspnea on exertion, orthopnea, paroxysmal nocturnal dyspnea or sputum Gastrointestinal Gastrointestinal: Reports abdominal pain, nausea and vomiting; Denies constipation or diarrhea Genitourinary Genitourinary ED: Denies dysuria, hematuria or urinary frequency Musculoskeletal Musculoskeletal: Denies arthralgias, myalgias or neck pain Integumentary Denies rash Neurologic Neurologic: Reports weakness; Denies headache(s) or paresthesias Endocrine Endocrinology: Denies polydipsia, polyphagia or polyuria [facility] Medical History Acute pancreatitis Family history of alcoholism History of cervical fracture Home Medications methocarbamol 500 mg PO Q6H PRN #40 tab 05/12/21 [Rx Last Taken Unknown] Allergy/AdvReac Type Severity Reaction Status Date / Time Penicillins Allergy Hives Verified 07/06/21 13:22 Social History (Updated 07/06/21 @ 16:[address] Abelardo Beverly MD) household members: none Smoking Status: Current some day smoker tobacco type: cigarettes and e- cigarettes alcohol intake: current substance use type: does not use EXAM Physical Exam Const Vital Signs: 07/06/21 13:22 Temperature 97.7 F L Temperature Source Temporal Pulse Rate 104 H Respiratory Rate 14 Blood Pressure 110/89 H Blood Pressure Mean 96 Pulse Ox 97 Oxygen Delivery Method Room Air Positive well nourished and well developed General Appearance ED: well developed and other Patient appears ill. He does not appear toxic. ; Negative for cyanotic, diaphoretic, NAD or pallor HEENT Reports TM's clear and dry mucous membranes normocephalic and atraumatic Face and Sinus: Negative for sinus tenderness or facial tenderness External Ear: external ears normal and no preauricular adenopathy; Negative for mastoids normal External Auditory Canal: EAC's normal Tympanic Membrane ED: Yes TM's clear Mouth ED: Yes dry mucous membranes Mouth: dry mucous membranes Eyes PERRL and EOMs intact bilaterally General Eye ED: Negative for pale conjunctiva or scleral icterus Neck no lymphadenopathy, supple, no meningeal signs and no JVD General: Negative for anterior neck swelling or lymphadenopathy Resp normal respiratory effort and clear to auscultation bilaterally Cardio S1 normal heart sound, S2 normal heart sound and no murmurs Rate: regular rate Rhythm: regular rhythm GI non-tender, non-distended and no masses Auscultation: normoactive bowel sounds Palpation: soft Back/Spine no CVA tenderness and normal ROM Extremity normal to inspection and full ROM General Extremety ED: Negative for cyanosis General Extremity: Negative for cyanosis Neuro oriented x3, CN's II-XII intact bilaterally and no sensory deficits noted Sensorium / Orientation: alert Motor Exam: strength 5/5 throughout Psych mental status grossly normal Skin General Skin Exam: Negative for jaundice or pallor Lesions: no lesions Rashes: no rashes MDM MDM MDM Narrative Medical decision making narrative: Patient has symptoms consistent with upper viral respiratory infection. Covid test was obtained. Covid test is positive. Patient was informed of his results. Is given a work excuse. Discharge Plan Triage Chief Complaint: Cough ED Provider: Abelardo Beverly Dx/Rx/DC Orders Clinical Impression: COVID-19 virus infection Instructions: Coronavirus Disease 2019 (COVID-19): Caring for Yourself or Others Prescriptions: No Action methocarbamol 500 mg tablet 500 mg PO Q6H PRN (Reason: Muscle pain/spasm) Qty: 40 RF: 0 Primary Care Provider: Care Physician,No Primary Referrals: Virginia Casey [NON-STAFF] - As Needed Care Physician,No Primary [Primary Care Provider] - Disposition Disposition: Home, Self Care
== END 2021-07-06 16:35 | disposition home or self-care (01) ==
PROVIDERS: Emergency Provider Emergency Medicine
DX: U07.1 COVID-19 (principal); F17.210 Nicotine dependence, cigarettes, uncomplicated
CPT/HCPCS: 87426; 99282

== ENCOUNTER 2022-02-01 05:56 | Observation (INO) | payer MEDICAID, SELFPAY ==
[2022-02-01] VITALS (7 sets, daily range): BP systolic 116–130; BP diastolic 57–79; PULSE 53–95; RESP 16; TEMP 35.8–37.3; O2SAT 99–100; BMI 21.9; BMI 21.5
--- NOTE | 2022-02-01 06:05 | CT_ITS ---
STUDY: CT ABDOMEN AND PELVIS WITH CONTRAST REASON FOR EXAM: Male, 31 years old. Abd pain RADIATION DOSAGE (If Supplied By Facility): CTDIvol = ( 7.5 ) mGy, DLP = ( 232.01 ) mGycm TECHNIQUE: Transaxial images were obtained from the dome of the diaphragm to the symphysis pubis without oral contrast. IV 100mL Isovue-300 was administered. Sagittal and coronal images were reconstructed. Individualized dose optimization techniques were used for this CT. COMPARISON: July 21, 2012 CT abdomen and pelvis FINDINGS: The visualized lung bases are unremarkable. The visualized portions of the heart are within normal limits. Normal liver. Normal gallbladder and extrahepatic biliary system. Normal spleen. Normal pancreas. Normal bilateral adrenal glands. Normal right kidney. Normal left kidney. Normal visualized stomach. Normal small intestine. There is abundant stool in the colon. The appendix is visualized and appears normal. Normal abdominal aorta. Normal inferior vena cava. Normal retroperitoneum. Normal urinary bladder. Normal visualized prostate gland. Normal abdominal wall. There is visualized wedging and Schmorl''s nodes at the level of T11-T12 and L1. CT/Abdomen/Pelvis W IV Cont ONLY IMPRESSION: Constipation. No appendicitis. Stable wedging and Schmorl''s node of the lower thoracic spine compatible with Scheuermann''s disease. Electronically Signed: Michelle Gee MD at 6:58 EDT ,
--- NOTE | 2022-02-01 06:09 | ED.VIS.GI ---
HPI HPI - GI History of Present Illness Chief Complaint: Abd Pain Informant: patient Narrative Narrative: Progressive pain left side abdomen radiating to his left thigh since yesterday evening. States pain is sharp in nature. Nausea vomit x1 with streaks of blood. Normal bowel movement this morning. No fevers. No urinary symptoms. He does admit to occasional alcohol use. He had pancreatitis in the past however he cannot recall when. No abdominal surgeries in the past. Allergies to penicillin. Denies taking daily medicines. Reports pain is a 9.7 out of 10. Denies any family history of Crohn's disease or ulcerative colitis. Prior similar symptoms: No PFSH PFSH Medical History Acute pancreatitis Family history of alcoholism History of cervical fracture Smoker Allergy/AdvReac Type Severity Reaction Status Date / Time Penicillins Allergy Hives Verified 07/06/21 13:22 Social History (Updated 07/06/21 @ 16:[address] Abelardo Beverly MD) household members: none Smoking Status: Current some day smoker tobacco type: cigarettes and e-cigarettes alcohol intake: current substance use type: does not use ROS ROS ED Constitutional Constitutional ED: Denies chills, fever(s) or sweats Eyes Eyes: Denies change in vision ENT ENT ED: Denies dysphagia or sore throat Cardiovascular Cardiovascular: Denies chest pain, leg edema, palpitations or racing heartbeat Respiratory/Chest Respiratory/Chest: Denies cough, dyspnea or dyspnea on exertion Gastrointestinal Gastrointestinal: Reports abdominal pain, nausea and vomiting; Denies diarrhea Genitourinary Genitourinary ED: Denies dysuria, hematuria or urinary frequency Musculoskeletal Musculoskeletal: Denies back pain, extremity pain or neck pain Integumentary Denies rash or wounds Neurologic Neurologic: Denies headache(s), paresthesias or weakness EXAM Physical Exam Const Vital Signs: 02/01/22 05:56 02/01/22 06:08 Temperature 96.4 F L Temperature Source Temporal Pulse Rate 65 66 Respiratory Rate 16 16 Blood Pressure 130/73 H 127/71 H Blood Pressure Mean 92 89 Pulse Ox 99 99 Oxygen Delivery Method Room Air Room Air Positive well nourished and well developed General Appearance ED: well developed and NAD HEENT Reports moist mucous membranes normocephalic and atraumatic Eyes PERRL, EOMs intact bilaterally and conjunctivae normal General Eye ED: Yes normal appearance of both eyes Neck no lymphadenopathy and supple General: Negative for tenderness Chest Wall Chest: Negative for tenderness Resp normal respiratory effort and normal air movement Effort and Inspection: symmetric chest movement; Negative for respiratory distress Cardio regular rate, regular rhythm and no murmurs Peripheral Pulses: pulses 2+ throughout GI normal to inspection, nondistended, normoactive bowel sounds GI Narrative: Tenderness mid epigastric region. Negative Greene's or McBurney's tenderness. Palpation: Negative for guarding or rebound tenderness present Back/Spine no CVA tenderness and no thoracic nor lumbar tenderness Extremity normal to inspection General Extremety ED: Negative for edema or tenderness General Extremity: Negative for edema Neuro oriented x3 and no sensory deficits noted Sensorium / Orientation: awake and alert Skin no rashes or lesions noted and no wounds MDM MDM MDM Narrative Medical decision making narrative: Patient with mid abdominal tenderness. Vital stable. Reports pain is 9.7 hours of 10. Will check abdominal labs, will obtain a CT scan for further evaluation. Morphine Zofran Pepcid ordered for symptom control. IV fluids ordered. Labs positive for acute pancreatitis lipase 1176. Liver enzymes normal. White count normal. CT scan results normal appendix, no acute process noted. Reevaluation symptoms were improving however still there. We will continue IV fluids. Will discuss with hospitalist service for admission. 0705: Discussed with Dr. Simona Horta for admission. Lab Data Attestation: I reviewed the patient's lab results. Labs: Laboratory Results - last 24 hr 02/01/22 02/01/22 06:12 06:12 WBC 7.3 RBC 4.58 L Hgb 13.5 Hct 39.9 L MCV 87.1 MCH 29.5 MCHC 33.8 RDW Std Deviation 38.5 RDW Coeff of [place] 12.1 Plt Count 206 MPV 8.8 Immature Gran % (Auto) 0.300 Neut % (Auto) 69.0 Lymph % (Auto) 22.9 [place] % (Auto) 6.0 Eos % (Auto) 1.4 Baso % (Auto) 0.4 Absolute Neuts (auto) 5.0 Absolute Lymphs (auto) 1.67 Nucleated RBC % 0 Sodium 144 Potassium 4.0 Chloride 110 H Carbon Dioxide 30.0 Anion Gap 4 L BUN 17 Creatinine 0.79 Estim Creat Clear Calc 120.60 Est GFR (MDRD) Af Amer 149 Est GFR (MDRD) Non-Af 123 BUN/Creatinine Ratio 21.6 H Glucose 102 Calcium 8.6 Total Bilirubin 0.20 Direct Bilirubin 0.08 AST 11 L ALT 20 Alkaline Phosphatase 53 Total Protein 6.4 Albumin 3.4 Globulin 3.0 Lipase 1176 H Radiography Diagnostic Testing: Clinical Impression(s) from Imaging Studies Abdomen/Pelvis CT 02/01/22 06:05 IMPRESSION: Constipation. No appendicitis. Stable wedging and Schmorl''s node of the lower thoracic spine compatible with Scheuermann''s disease. Electronically Signed: Michelle Gee MD at 6:58 EDT , Discharge Plan Dx/Rx/DC Orders Clinical Impression: Acute alcoholic pancreatitis, Abdominal pain, Nausea & vomiting Disposition Disposition: Acute Care [facility]
[2022-02-01] MEDS: Morphine 4 MG/ML Syringe IV (06:13)
[2022-02-01] MEDS: Ondansetron 4 MG/2 ML Vial IV (06:13)
[2022-02-01] MEDS: 0.9% Normal Saline 1,000 ML 1000 ML IV (06:13)
[2022-02-01] MEDS: Famotidine 200 MG/20 ML MDV 20 MG in 0.9% Normal Saline (Pres. free 8 ML 300 MG IV (06:16)
[2022-02-01 06:45] LABS: AST(SGOT) 11 U/L (15-37); Alanine Aminotransfer ALT/SGPT 20 U/L (16-61); Albumin, Serum 3.4 g/dL (3.2-5.0); Alkaline Phosphatase 53 U/L (45-117); Anion Gap 4 (5-15); BUN 17 mg/dL (7-18); BUN/Creat Ratio 21.6 RATIO (10-20); Bilirubin, Direct 0.08 mg/dL (0.00-0.30); Calcium,Total 8.6 mg/dL (8.5-10.1); Chloride 110 mmol/L (98-107); Creatinine, Serum 0.79 mg/dL (0.70-1.30); EST Glomerular Filtration Rate 123 mL/min (>60); Est Glom Filt Rate - Afr Amer 149 mL/min (>60); Glucose 102 mg/dL (74-106); Lipase 1176 U/L (73-393); Protein, Total 6.4 g/dL (6.4-8.2); Sodium Level 144 mmol/L (136-145)
[2022-02-01 06:46] LABS: Absolute Lymphocyte Count 1.67 X10^3/uL (0.83-4.51); Basophil# 0.03 X10^3/uL; Basophil% 0.4 % (0-1); Eosinophils% 1.4 % (0-5); Hematocrit 39.9 % (40-54); Hemoglobin 13.5 g/dL (13.0-16.5); Lymphocyte # 1.67 X10^3/ul (0.83-4.51); Lymphocyte % 22.9 % (19-41); Mean Corp Hgb Conc 33.8 g/dL (32-36); Mean Corpuscular Hgb 29.5 pg (27.0-32.0); Mean Corpuscular Volume 87.1 fL (80-94); Mean Platelet Vol. 8.8 fl (6.2-12.0); Monocyte# 0.44 X10^3/uL; NRBC Flagged by Analyzer 0 % (0-5); Neutrophil # 5.03 X10^3/uL (2.7-7.7); Platelet Count 206 K/mm3 (150-450); RBC Distribution Width CV 12.1 % (11.6-14.6); RBC Distribution Width SD 38.5 fl (35.1-43.9); Red Blood Count 4.58 M/mm3 (4.6-6.2); White Blood Count 7.3 K/mm3 (4.4-11.0)
--- NOTE | 2022-02-01 07:14 | HP.PCM.HOS_ITS ---
HPI - General General Date of Admission: 02/01/22 Date of Service: 02/01/22 Chief Complaint: Abdominal pain/nausea/vomiting HPI Narrative MAXWELL GODDARD, is a 31 M who presented to the emergency department [facility] on 02/01/2022 with a chief complaint of abdominal pain/nausea/vomiting. The patient reports that his pain started last evening and is predominantly in the epigastrium and left upper quadrant however he compl ains of diffuse abdominal pain. He has had persistent nausea since that time it started with 1 episode of emesis this morning. He does report he had a red color to his emesis. He denies fever or chills. His last bowel movement was the morning of admission. He admitted to alcohol use and states he drinks about 4 beers on Tuesday prior to admission. He does have a previous pancreatitis in 2014 which was prompted by heavy alcohol use. His pain is currently improved since being given pain medication in the emergency department. Vital signs upon presentation showed a temperature of 97.9, blood pressure 116/79, pulse is 87, respiratory rate of 16, oxygen saturations 100% on room air. CBC is overall unremarkable with a normal white count hemoglobin, and platelet count. Chemistry panel showed mildly elevated chloride but a normal BUN and creatinine, liver functions. His lipase was elevated 1176. CT of his abdomen pelvis showed constipation, no appendicitis, stable wedging and Schmorl nodes in the lower thoracic spine. No evidence of pancreatitis was noted on the CT scan. In the emergency department he was aggressively hydrated and treated with pain medications and antiemetics. Patient was admitted as observation as I do anticipate likely a quick recovery based on severity of presentation. PFSH Medical History COVID-19 virus infection Family history of alcoholism Fracture of middle phalanx of left index finger History of cervical fracture Pancreatitis Smoker Allergy/AdvReac Type Severity Reaction Status Date / Time Penicillins Allergy Hives Verified 07/06/21 13:22 no significant family history no surgical history Social History (Updated 02/01/22 @ 07:[address] Erma Horta DO) household members: family and none current occupational status: employed current occupation: [employer] Smoking Status: Current some day smoker tobacco type: e-cigarettes alcohol intake: current alcohol intake frequency: a few times a week substance use type: does not use ROS Constitutional Constitutional: Denies anorexia, change in weight, chills, fatigue, fever(s), malaise, night sweats, weakness or other Eyes Eyes: Denies blurry vision, change in eye color, change in vision, discharge from eye(s), double vision, erythema, eye pain, loss of vision or other ENT HEENT: Denies abnormal hearing, dysphagia, ear pain, epistaxis, headache(s), he aring loss, nasal congestion, nasal discharge, post nasal drip, sinus pressure, sore throat or other Cardiovascular Cardiovascular: Denies chest pain, claudication, dyspnea on exertion, edema, lightheadedness, orthopnea, palpitations, paroxysmal nocturnal dyspnea, rapid heart rate, syncope or other Respiratory/Chest Respiratory/Chest: Denies cough, dyspnea, excessive phlegm production, hemoptysis, productive cough, shortness of breath at rest, shortness of breath with exertion, wheezing or other Gastrointestinal Gastrointestinal: Reports abdominal pain, hematemesis, nausea and vomiting; Denies coffee ground emesis, constipation, diarrhea, dyspepsia, hematochezia, loose stools, melena or other Genitourinary Genitourinary: Denies burning urination, difficulty urinating, dysuria, hematuria, nocturia, urinary frequency, urinary hesitancy, urinary incontinence, urinary urgency or other Musculoskeletal Musculoskeletal: Denies arthralgias, back pain, joint pain, joint stiffness, joint swelling, myalgias, neck pain or other Neurologic Neurologic: Denies abnormal gait, abnormal speech, confusion, disequilibrium, dizziness, focal weakness, headache(s), numbness, paresthesias, seizure-like activity, seizures, syncope, tingling, tremor(s) or other Psychiatric Psychiatric: Denies anxiety, depression, homicidal ideation, suicidal ideation or other Endocrine Endocrinology: Denies change in body appearance, cold intolerance, excessive sweating, heat intolerance, polydipsia, polyuria or other Hematologic/Lymphatic Hematologic/Lymphatic: Denies anemia, easy bleeding, easy bruising, lymphadenopathy or other Allergic/Immunologic Allergic/Immunologic: Denies rhinitis, hives, eczemia, asthma or other Vital Signs Vital Signs Vital Signs: 02/01/22 05:56 02/01/22 06:08 Temperature 96.4 F L Temperature Source Temporal Pulse Rate 65 66 Respiratory Rate 16 16 Blood Pressure 130/73 H 127/71 H Blood Pressure Mean 92 89 Pulse Ox 99 99 Oxygen Delivery Method Room Air Room Air Weight Weight: 61.8 kg Body Mass Index (BMI) 21.9 Physical Exam Const alert, oriented x3, no apparent distress, average body habitus, healthy appearin g and well nourished Constitutional Narrative: Young white male sitting up in bed, currently appears comfortable nontoxic General Appearance: cooperative HEENT normocephalic, head/scalp atraumatic and hearing grossly normal bilaterally HEENT Narrative: Dentition is good, Mallampati 2, no thrush Eyes PERRL, EOMs intact bilaterally and conjunctivae normal Eyes Narrative: No scleral icterus Neck no lymphadenopathy, supple and no JVD Neck Narrative: Acute midline, no thyroid enlargement Resp normal respiratory effort, no retractions, no use of accessory muscles and clear to auscultation bilaterally Auscultation: Negative for crackles, rales, rhonchi or wheezes Cardio regular rate, regular rhythm, S1 normal heart sound, S2 normal heart sound, no murmurs, no rub, no gallops, no clicks and no JVD GI soft to palpation and non-distended; Negative for hepatosplenomegaly GI Narrative: Bowel sounds are slightly hypoactive, tenderness diffusely but most prominent in the epigastric and left upper quadrant region Palpation: tender Extremity no clubbing, cyanosis or edema Extremity Narrative: 2+ pedal pulses Skin no rashes or lesions noted, no wounds, skin turgor normal, no jaundice, no petechiae and no mottling Neuro oriented x3, CN's II-XII intact bilaterally, moves all extremities and no focal motor deficits Sensorium / Orientation: awake, alert, oriented to person, oriented to place and oriented to time Motor Exam: strength 5/5 throughout Psych affect normal Psych Narrative: Very pleasant, good eye contact, appropriately interactive Results Lab / Micro Data Attestation: I reviewed the patient's lab results. Result Diagrams: 02/01/22 06:12 02/01/22 06:12 Labs: Laboratory Results - last 24 hr 02/01/22 06:12: Sodium 144, Potassium 4.0, Chloride 110 H, Carbon Dioxide 30.0, Anion Gap 4 L, BUN 17, Creatinine 0.79, Estim Creat Clear Calc 120.60, Est GFR (MDRD) Af Amer 149, Est GFR (MDRD) Non-Af 123, BUN/Creatinine Ratio 21.6 H, Glucose 102, Calcium 8.6, Total Bilirubin 0.20, Direct Bilirubin 0.08, AST 11 L, ALT 20, Alkaline Phosphatase 53, Total Protein 6.4, Albumin 3.4, Globulin 3.0, Lipase 1176 H 02/01/22 06:12: WBC 7.3, RBC 4.58 L, Hgb 13.5, Hct 39.9 L, MCV 87.1, MCH 29.5, MCHC 33.8, RDW Std Deviation 38.5, RDW Coeff of [place] 12.1, Plt Count 206, MPV 8.8, Immature Gran % (Auto) 0.300, Neut % (Auto) 69.0, Lymph % (Auto) 22.9, [place] % (Auto) 6.0, Eos % (Auto) 1.4, Baso % (Auto) 0.4, Absolute Neuts (auto) 5.0, Absolute Lymphs (auto) 1.67, Nucleated RBC % 0 Radiology Impression Abdomen/Pelvis CT 02/01/22 06:05 IMPRESSION: Constipation. No appendicitis. Stable wedging and Schmorl''s node of the lower thoracic spine compatible with Scheuermann''s disease. Electronically Signed: Michelle Gee MD at 6:58 EDT Reading Location ID and State: [facility] / [place] Tel , Service support , Assessment & Plan Assessment/Plan (1) Acute pancreatitis: (2) Nicotine dependence: (3) Hematochezia: (4) Abdominal pain: (5) Nausea & vomiting: (6) Hematemesis: (7) Constipation: PLAN: Plan Mild acute pancreatitis -No suggestion of pancreatitis on imaging however lipase is markedly elevated -Lipase on admission 1176 -Has had 1 previous episode of pancreatitis in 2014 -Admits to drinking approximately 4 beers on Tuesday -Start aggressive hydration with LR 200 cc/h -IV pain medication -N.p.o. except for p.o. meds -LFTs normal on admission will repeat in a.m. -Check lipids Constipation -CT is suggestive of constipation -Start MiraLAX twice daily Hematemesis -Patient reports 1 episode of emesis and reported it was red -Hemoglobin is stable -Repeat H&H later today -May need to consider GI consult if hemoglobin drops or recurrent episodes occur -Add IV PPI while patient is n.p.o. Tobacco abuse -Patient's medical states he smokes intermittently but not cigarettes -Denies need for nicotine replacement therapy at this time -Recommend cessation DVT prophylaxis -Low risk -Early ambulation protocol CODE STATUS Full code Charges/Coding Visit Charges OBSV E&M: 24760 Initial observation care L3
[2022-02-01] MEDS: 0.9% Normal Saline 1,000 ML 150 ML IV (07:43)
[2022-02-01 08:26] LABS: Cholesterol 139 mg/dL (200); High Density Lipoprotein 52 mg/dL; Triglycerides 55 mg/dL; Very Low Density Lipoprotein 11 mg/dL (5-40)
[2022-02-01] MEDS: Polyethylene Glycol 3350 17 GM PACKET PO ×2 (09:45→21:55)
[2022-02-01] MEDS: Lactated Ringers 1,000 ML 200 ML IV ×3 (09:46→19:47)
[2022-02-01 12:33] LABS: Hemoglobin 13.6 g/dL (13.0-16.5)
[2022-02-01 15:51] LABS: Mucous, Urine 0 SEEN /hpf (<or=2+); Red Blood Cells-Urine 0 SEEN /hpf (0-5); Squamous Epithelial Cells - UA 0 SEEN /hpf (0-5); White Blood Cells 0 SEEN /hpf (0-5)
[2022-02-01 16:03] LABS: Color, Urine Yellow (Yellow); Glucose, Dipstick Normal (Normal); Ketone-Dipstick Negative (Negative); Leukocyte Esterase-Dipstick Negative /ul (Negative); Nitrite-Dipstick Negative (Negative); Occult Blood-Urine Negative /ul (Negative); Protein-Dipstick Negative (Negative); Specific Gravity, Urine 1.015 (1.002-1.030); Urine Bilirubin Dipstick Negative (Negative); Urine Clarity Clear (Clear); Urine Urobilinogen Normal (Normal); Urine pH 6.5 (5.0 - 8.0)
[2022-02-01 16:10] LABS: Bacteria 1+ /hpf (None Seen)
[2022-02-01] MEDS: HYDROmorphone 1 MG/ML Syringe IV (19:47)
[2022-02-02] MEDS: Lactated Ringers 1,000 ML 200 ML IV ×3 (01:19→10:59)
[2022-02-02 02:00] VITALS: BP 114/71; PULSE 59; RESP 16; TEMP 36.8; O2SAT 98
[2022-02-02 04:37] LABS: Absolute Lymphocyte Count 1.79 X10^3/uL (0.83-4.51); Absolute Neutrophil Count 3.3 X10^3/uL (2.0-7.7); Basophil# 0.03 X10^3/uL; Basophil% 0.5 % (0-1); Eosinophil# 0.09 X10^3/uL; Eosinophils% 1.6 % (0-5); Hematocrit 39.2 % (40-54); Hemoglobin 13.5 g/dL (13.0-16.5); Lymphocyte # 1.79 X10^3/ul (0.83-4.51); Mean Corp Hgb Conc 34.4 g/dL (32-36); Mean Corpuscular Hgb 29.5 pg (27.0-32.0); Mean Corpuscular Volume 85.6 fL (80-94); Mean Platelet Vol. 8.6 fl (6.2-12.0); Monocyte# 0.39 X10^3/uL; NRBC Flagged by Analyzer 0 % (0-5); Neutrophil # 3.27 X10^3/uL (2.7-7.7); Neutrophil % 58.5 % (47-70); Platelet Count 152 K/mm3 (150-450); RBC Distribution Width CV 11.9 % (11.6-14.6); RBC Distribution Width SD 37.2 fl (35.1-43.9); Red Blood Count 4.58 M/mm3 (4.6-6.2); White Blood Count 5.6 K/mm3 (4.4-11.0)
[2022-02-02 05:30] LABS: ALB/GLOB Ratio 1.2 RATIO (0.9-2.4); AST(SGOT) 14 U/L (15-37); Alanine Aminotransfer ALT/SGPT 18 U/L (16-61); Albumin, Serum 3.1 g/dL (3.2-5.0); Alkaline Phosphatase 54 U/L (45-117); Anion Gap 6 (5-15); BUN 10 mg/dL (7-18); BUN/Creat Ratio 11.1 RATIO (10-20); Calcium,Total 8.2 mg/dL (8.5-10.1); Chloride 106 mmol/L (98-107); EST Glomerular Filtration Rate 105 mL/min (>60); Est Glom Filt Rate - Afr Amer 127 mL/min (>60); Estimated Creatinine Clearance 103.81 ml/min; Globulin 2.5 g/dL (2.2-4.2); Glucose 78 mg/dL (74-106); Magnesium 1.9 mg/dL (1.6-2.6); Phosphorus 3.8 mg/dL (2.5-4.9); Potassium 3.7 mmol/L (3.5-5.1); Protein, Total 5.6 g/dL (6.4-8.2); Sodium Level 141 mmol/L (136-145); Thyroid Stim Hormone (TSH) 4.07 uIU/mL (0.358-3.74)
[2022-02-02 08:02] VITALS: BP 135/74; PULSE 71; RESP 16; TEMP 36.9; O2SAT 99
[2022-02-02] MEDS: Polyethylene Glycol 3350 17 GM PACKET PO (08:36)
--- NOTE | 2022-02-02 11:22 | PCM.DC.SUM ---
Providers Date of Admission: 02/01/22 Date of Discharge: 02/02/22 Primary Care Physician: No Primary Care Phys Reason For Visit: PANCREATITIS Diagnosis Discharge Diagnosis (1) Acute pancreatitis: Status: Acute Code(s): K85.90 - Acute pancreatitis without necrosis or infection, unspecified (2) Nicotine dependence: Status: Chronic Code(s): F17.200 - Nicotine dependence, unspecified, uncomplicated (3) Hematochezia: Status: Deleted Code(s): K92.1 - Melena (4) Abdominal pain: Status: Acute Code(s): R10.9 - Unspecified abdominal pain (5) Nausea & vomiting: Status: Acute Code(s): R11.2 - Nausea with vomiting, unspecified (6) Hematemesis: Status: Acute Code(s): K92.0 - Hematemesis (7) Constipation: Status: Acute Code(s): K59.00 - Constipation, unspecified Medications at Discharge Home Medications polyethylene glycol 3350 17 gram oral powder packet 17 g PO DAILY #100 ea 02/02/22 Hospital Course Operations None Procedures - (CT abdomen pelvis) Summary of Care Provided Minutes Spent on Discharge: 38 Hospital Course: Mr. Uribe is a 31-year-old white male who presented to the emergency department at [facility] on 02/01/2022 with a chief complaint of abdominal pain/nausea/vomiting. The patient reported that his pain started last evening and was predominantly in the epigastrium and left upper quadrant although he did complain of diffuse abdominal pain. He indicated he had persistent nausea since the time it started and 1 episode of emesis on the morning of admission. He did report he had some red color to his emesis but his hemoglobin was stable throughout his hospitalization. He denied fever or chills and his last bowel movement was reportedly the morning of admission. He admitted to alcohol use on Tuesday and reported that he drank proximately 3-4 beers. He had a history of previous pancreatitis with mild lipase elevations in the thousands in 2014 which was prompted by heavy alcohol use. His vital signs upon presentation showed a temperature of 97.9, blood pressure 116/79, pulse is 87, respiratory rate of 16, oxygen saturations 100% on room air.? CBC is overall unremarkable with a normal white count hemoglobin, and platelet count.? Chemistry panel showed mildly elevated chloride but a normal BUN and creatinine, liver functions.? His lipase was elevated 1176.? CT of his abdomen pelvis showed constipation, no appendicitis, stable wedging and Schmorl nodes in the lower thoracic spine.? No evidence of pancreatitis was noted on the CT scan. He was admitted to the medical floor and aggressively hydrated, treated with pain medication and antiemetics. He had no emesis and improved nausea through the night and was started on a clear liquid diet on the a.m. of 02/02/2022 and tolerated this without any issues. His diet was then advanced to a regular diet he had no issues. His CT showed significant constipation and therefore we started him on MiraLAX 17 g daily to be continued until he is having daily bowel movements that are soft but not liquid. I suspect any residual abdominal pain that he was complaining of of the day of discharge was more related to constipation especially since his CT did not show any signs of pancreatitis. I recommend he follow-up with an outpatient primary care physician but he has not yet established with one. Discharge diagnoses: Mild acute pancreatitis Constipation Hematemesis-stable hemoglobin Tobacco abuse Physical Exam Narrative Patient complains of only left lower quadrant pain with resolved epigastric pain. Considerable constipation noted on CT of his chest. No bowel movement since admission. No further nausea or vomiting. Const alert, no apparent distress, average body habitus and no limitations Constitutional Narrative: Young white male standing up in his room girlfriend is in his bed, appears comfortable nontoxic General Appearance: cooperative, comfortable, well kempt and well developed Orientation / Consciousness: awake Exam Limitations: no limitations HEENT normocephalic, head/scalp atraumatic, hearing grossly normal bilaterally and moist oral mucous membranes HEENT Narrative: Dentition is good, Mallampati 2, no thrush Eyes PERRL, EOMs intact bilaterally and conjunctivae normal Eyes Narrative: No scleral icterus Neck no lymphadenopathy, supple and no JVD Neck Narrative: Trachea midline, no thyroid enlargement Resp normal respiratory effort, no retractions, no use of accessory muscles and clear to auscultation bilaterally Auscultation: Negative for crackles, rales, rhonchi or wheezes Cardio regular rhythm, S1 normal heart sound, S2 normal heart sound, no murmurs, no rub, no gallops, no clicks and no JVD GI normal to inspection, nondistended, normoactive bowel sounds, soft to palpation and non-distended; Negative for hepatosplenomegaly GI Narrative: Very mild tenderness left lower quadrant Extremity no clubbing, cyanosis or edema Extremity Narrative: Bilateral inguinal lymph nodes palpated but no significant enlargement and symmetrical Skin no rashes or lesions noted, no wounds, skin turgor normal and no jaundice Neuro oriented x3, CN's II-XII intact bilaterally, moves all extremities, no focal motor deficits and no sensory deficits noted Sensorium / Orientation: awake, alert, oriented to person, oriented to place and oriented to time Speech: speech normal Motor Exam: strength 5/5 throughout Psych affect normal Weight / BMI Weight Weight: 60.6 kg Body Mass Index (BMI) 21.5 ABG / Lab / Microbiology Data Result Diagrams: 02/02/22 04:28 02/02/22 04:28 Laboratory: Laboratory Results - last 24 hr 02/01/22 12:20: Hgb 13.6 02/01/22 15:40: Urine Color Yellow, Urine Clarity Clear, Urine pH 6.5, Ur Specific [place] 1.015, Urine Protein Negative, Urine Glucose (UA) Normal, Urine Ketones Negative, Urine Occult Blood Negative, Urine Nitrite Negative, Urine Bilirubin Negative, Urine Urobilinogen Normal, Ur Leukocyte Esterase Negative, Urine RBC 0 SEEN, Urine WBC 0 SEEN, Ur Squamous Epith Cells 0 SEEN, Urine Bacteria 1+, Urine Mucus 0 SEEN 02/02/22 04:28: WBC 5.6, RBC 4.58 L, Hgb 13.5, Hct 39.2 L, MCV 85.6, MCH 29.5, MCHC 34.4, RDW Std Deviation 37.2, RDW Coeff of [place] 11.9, Plt Count 152, MPV 8.6, Immature Gran % (Auto) 0.400, Neut % (Auto) 58.5, Lymph % (Auto) 32.0, [place] % (Auto) 7.0, Eos % (Auto) 1.6, Baso % (Auto) 0.5, Absolute Neuts (auto) 3.3, Absolute Lymphs (auto) 1.79, Nucleated RBC % 0 02/02/22 04:28: Sodium 141, Potassium 3.7, Chloride 106, Carbon Dioxide 29.0, Anion Gap 6, BUN 10, Creatinine 0.90, Estim Creat Clear Calc 103.81, Est GFR (MDRD) Af Amer 127, Est GFR (MDRD) Non-Af 105, BUN/Creatinine Ratio 11.1, Glucose 78, Calcium 8.2 L, Phosphorus 3.8, Magnesium 1.9, Total Bilirubin 0.50, AST 14 L, ALT 18, Alkaline Phosphatase 54, Total Protein 5.6 L, Albumin 3.1 L, Globulin 2.5, Albumin/Globulin Ratio 1.2, TSH 4.07 H D/C Instructions Discharge Diet: No restrictions Meaningful Use Info Meaningful Use Diagnoses (Choose all that apply): None applicable Discharge Plan Admission Admit Date/Time: 02/01/22 07:07 Primary Reason for Your Visit: Abdominal pain Attending Provider: Erma Horta Primary Care Provider: Care PhysicianMary Primary Instructions Forms: Work / School Excuse Additional Instructions / Restrictions: 1. Your CAT scan showed significant constipation. Continue MiraLAX daily until having daily soft formed bowel movements and increase fruits and vegetables in your diet. Discharge Orders/Prescriptions Prescriptions: New polyethylene glycol 3350 17 gram Powder In Packet 17 g PO DAILY Qty: 100 0RF Rx Instructions: Take daily until having soft formed bowel movements on a daily basis Referrals / Follow Up: Care Physician,No Primary [Primary Care Provider] - Disposition Disposition (needs filled in before D/C Order can be placed): Home, Self Care Charges/Coding Visit Charges Inpatient E&M: 82921 Disch Hosp
== END 2022-02-02 12:06 | disposition home or self-care (01) ==
LOC: ED 07:02 → MS3 07:44
PROVIDERS: Admitting Provider Internal Medicine; Emergency Provider Emergency Medicine; Visit Provider Internal Medicine
DX: K85.90 Acute pancreatitis without necrosis or infection, unspecified (principal); K92.0 Hematemesis; F17.210 Nicotine dependence, cigarettes, uncomplicated; K59.00 Constipation, unspecified; Z86.16 Personal history of COVID-19
CPT/HCPCS: 36415; 74177; 80048; 80053; 80061; 80076; 81001; 83690; 83735; 84100; 84443; 85018; 85025; 96361; 96365; 96366; 96375; 99218; 99251; 99284; 99406; J7030; J7120; Q9967; A4216; G0378; G0463; J2405; J3490

== ENCOUNTER 2022-02-04 12:32 | Emergency (ER) | payer MEDICAID, SELFPAY ==
[2022-02-04 12:33] VITALS: BP 140/79; PULSE 104; RESP 16; TEMP 37.2; O2SAT 96; BMI 22.6
--- NOTE | 2022-02-04 12:43 | EX.ED.DYSGE1 ---
HPI <RODERICK Carlos - Last Filed: 02/04/22 13:28> History of Present Illness Chief Complaint: Abd Pain Narrative Narrative: Patient was just discharged on 02/02 after his second bout of pancreatitis. 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 He has no fever or chills. Normal bladder and bowel movements. Has denies drinking alcohol since he left. PFSH <RODERICK Carlos - Last Filed: 02/04/22 13:28> PFSH Medical History Alcohol abuse COVID-19 virus infection Depression Family history of alcoholism Fracture of middle phalanx of left index finger History of cervical fracture Pancreatitis Smoker Allergy/AdvReac Type Severity Reaction Status Date / Time Penicillins Allergy Hives Verified 02/04/22 12:34 Social History (Updated 02/01/22 @ 07:[address] Erma Horta, DO) household members: family and none current occupational status: employed current occupation: [employer] Smoking Status: Current some day smoker tobacco type: e-cigarettes alcohol intake: current alcohol intake frequency: a few times a week substance use type: does not use ROS <RODERICK Carlso Last Filed: 02/04/22 13:28> ROS ED ROS Narrative Constitutional: Negative for fever, chills, malaise. Eyes: Negative for visual change. ENT: Negative for sore throat, ear pain, rhinorrhea. CVS: Negative for palpitations, chest pain, syncope. Respiratory: Negative for shortness of breath, cough, orthopnea. GI: Positive for abdominal pain. Negative for nausea, vomiting, diarrhea, constipation, melena, hematochezia. : Negative for dysuria, hematuria or frequency. Neuro: Negative for headache, motor/sensory dysfunction. Skin: Negative for rash, abscess, or wound. Musc: Negative for joint pain, swelling, trauma. Heme: Negative for easy bruising, bleeding, lymphadenopathy. EXAM <RODERICK Carlos Last Filed: 02/04/22 13:28> Physical Exam Narrative Exam Narrative: CONST: Patient sitting in no acute distress. EYES: Normal inspection. NECK: Normal inspection. RESP: No respiratory distress, CTAB. CVS: Regular rate and rhythm, no murmur, no gallop. ABD: Soft with mild midline epigastric tenderness, no guarding or rebound. No RUQ tenderness/negative Greene sign. SKIN: Color normal, no rash, warm, dry, intact. EXTREMITIES: Normal appearance, no pedal edema. NEURO: Oriented x4. PSYCH: Normal affect. Const Vital Signs: 02/04/22 12:33 02/04/22 13:05 Temperature 98.9 F Temperature Source Temporal Pulse Rate 104 H 95 Respiratory Rate 16 16 Blood Pressure 140/79 H 128/73 H Blood Pressure Mean 99 91 Pulse Ox 96 97 Oxygen Delivery Method Room Air Room Air <Dr. Girma Burnham DO - Last Filed: 02/04/22 13:31> Physical Exam Const Vital Signs: 02/04/22 12:33 02/04/22 13:05 Temperature 98.9 F Temperature Source Temporal Pulse Rate 104 H 95 Respiratory Rate 16 16 Blood Pressure 140/79 H 128/73 H Blood Pressure Mean 99 91 Pulse Ox 96 97 Oxygen Delivery Method Room Air Room Air MDM <RODERICK Carlos - Last Filed: 02/04/22 13:28> [facility] Narrative Medical decision making narrative: Patient was discharged after having pancreatitis 2 days ago and today after lifting at work had increased epigastric pain. He has been able to eat a normal diet and had no vomiting or pain with eating. He appears well and nontoxic. Vital signs unremarkable. He does have slight midline epigastric and left upper quadrant tenderness but no guarding or rebound. Labs overall look normal lipase significantly improved at 138. Prior was over 1100. He was treated with Toradol and is feeling better here and comfortable taking [id number] analgesia. He was discharged in stable condition. 1. Abdominal pain I have personally performed a face to face assessment of the patient and have reviewed the PATRICK Note. I performed a substantive portion of the visit including all aspects of the following. My ellis findings include: History is [patient presents with abdominal pain that started today while at work. Patient describes pain in the upper left side of his abdomen. Patient states he was discharged 2 days ago from our hospital and was treated for pancreatitis. Patient had had pancreatitis prior. 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 Patient states that he did vomit once while at work. He denies any fever. Currently rates his pain a 6 out of 10. Patient denies urinary symptoms. Patient has not had prior abdominal surgeries.] Exam is [HEENT-PERRLA, EOMI. Cranial nerves II through XII grossly intact. TMs clear. Mucous membranes moist. No adenopathy. Cardiovascular-regular rate and rhythm without murmur or ectopy Lungs-clear to auscultation, chest wall stable without crepitus or subcu emphysema Abdomen-normoactive bowel sounds, soft. Patient has tenderness palpation over the epigastric region and left upper quadrant. There is no rebound, rigidity, or previous signs. Extremities-intact ?4, normal range of motion, normal pulses, atraumatic] Medical Decison Making [ ] Other additions or changes: [None] Lab Data Labs: Laboratory Results - last 24 hr 02/04/22 02/04/22 12:43 12:43 WBC 7.8 RBC 4.92 Hgb 14.6 Hct 40.9 MCV 83.1 MCH 29.7 MCHC 35.7 RDW Std Deviation 36.0 RDW Coeff of [place] 11.9 Plt Count 234 MPV 8.9 Immature Gran % (Auto) 0.400 Neut % (Auto) 74.0 H Lymph % (Auto) 19.5 Brooks % (Auto) 4.9 Eos % (Auto) 0.8 Baso % (Auto) 0.4 Absolute Neuts (auto) 5.7 Absolute Lymphs (auto) 1.51 Nucleated RBC % 0 Sodium 139 Potassium 3.8 Chloride 105 Carbon Dioxide 30.0 Anion Gap 4 L BUN 9 Creatinine 0.96 Estim Creat Clear Calc 101.98 Est GFR (MDRD) Af Amer 118 Est GFR (MDRD) Non-Af 98 BUN/Creatinine Ratio 9.4 L Glucose 117 H Calcium 9.4 Total Bilirubin 0.60 AST 21 ALT 21 Alkaline Phosphatase 64 Total Protein 7.4 Albumin 4.0 Globulin 3.4 Albumin/Globulin Ratio 1.2 Lipase 138 <Dr. Girma Burnham, DO - Last Filed: 02/04/22 13:31> [facility] Narrative Medical decision making narrative: Patient was discharged after having pancreatitis 2 days ago and today after lifting at work had increased epigastric pain. He has been able to eat a normal diet and had no vomiting or pain with eating. He appears well and nontoxic. Vital signs unremarkable. He does have slight midline epigastric and left upper quadrant tenderness but no guarding or rebound. Labs overall look normal lipase significantly improved at 138. Prior was over 1100. He was treated with Toradol and is feeling better here and comfortable taking [id number]-jtn-[id number] analgesia. He was discharged in stable condition. 1. Abdominal pain I have personally performed a face to face assessment of the patient and have reviewed the PATRICK Note. I performed a substantive portion of the visit including all aspects of the following. My ellis findings include: History is [patient presents with abdominal pain that started today while at work. Patient describes pain in the upper left side of his abdomen. Patient states he was discharged 2 days ago from our hospital and was treated for pancreatitis. Patient had had pancreatitis prior. 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 Patient states that he did vomit once while at work. He denies any fever. Currently rates his pain a 6 out of 10. Patient denies urinary symptoms. Patient has not had prior abdominal surgeries.] Exam is [HEENT-PERRLA, EOMI. Cranial nerves II through XII grossly intact. TMs clear. Mucous membranes moist. No adenopathy. Cardiovascular-regular rate and rhythm without murmur or ectopy Lungs-clear to auscultation, chest wall stable without crepitus or subcu emphysema Abdomen-normoactive bowel sounds, soft. Patient has tenderness palpation over the epigastric region and left upper quadrant. There is no rebound, rigidity, or previous signs. Extremities-intact ?4, normal range of motion, normal pulses, atraumatic] Medical Decison Making [patient had lab work performed which showed normal white count as well as normal LFTs and normal lipase. Patient had a CT scan of the abdomen pelvis 3 days ago and will feel any further imaging is indicated given normal labs. Suspect patient may have an abdominal wall strain from work today. Patient will take Tylenol at home. He did have Toradol given to him in the department and that seemed to help his pain. Patient will be advised to return if worsening pain, fever, vomiting, or condition should worsen anyway.] Other additions or changes: [None] Lab Data Labs: Laboratory Results - last 24 hr 02/04/22 02/04/22 12:43 12:43 WBC 7.8 RBC 4.92 Hgb 14.6 Hct 40.9 MCV 83.1 MCH 29.7 MCHC 35.7 RDW Std Deviation 36.0 RDW Coeff of [place] 11.9 Plt Count 234 MPV 8.9 Immature Gran % (Auto) 0.400 Neut % (Auto) 74.0 H Lymph % (Auto) 19.5 Brooks % (Auto) 4.9 Eos % (Auto) 0.8 Baso % (Auto) 0.4 Absolute Neuts (auto) 5.7 Absolute Lymphs (auto) 1.51 Nucleated RBC % 0 Sodium 139 Potassium 3.8 Chloride 105 Carbon Dioxide 30.0 Anion Gap 4 L BUN 9 Creatinine 0.96 Estim Creat Clear Calc 101.98 Est GFR (MDRD) Af Amer 118 Est GFR (MDRD) Non-Af 98 BUN/Creatinine Ratio 9.4 L Glucose 117 H Calcium 9.4 Total Bilirubin 0.60 AST 21 ALT 21 Alkaline Phosphatase 64 Total Protein 7.4 Albumin 4.0 Globulin 3.4 Albumin/Globulin Ratio 1.2 Lipase 138 Discharge Plan Triage Chief Complaint: Abd Pain ED Midlevel Provider: Ines Aggarwal ED Provider: Girma Burnham Dx/Rx/DC Orders Clinical Impression: Abdominal pain Instructions: Abdominal Pain Primary Care Provider: Care Physician,No Primary Referrals: Care Physician,No Primary [Primary Care Provider] - Activity Restrictions/Additional Instructions: Take Tylenol ibuprofen as needed and follow-up with your primary care doctor Disposition Disposition: Home, Self Care
[2022-02-04] MEDS: Ketorolac 15 MG/ML Vial IV (12:47)
[2022-02-04 13:02] LABS: Absolute Lymphocyte Count 1.51 X10^3/uL (0.83-4.51); Absolute Neutrophil Count 5.7 X10^3/uL (2.0-7.7); Basophil# 0.03 X10^3/uL; Basophil% 0.4 % (0-1); Eosinophil# 0.06 X10^3/uL; Eosinophils% 0.8 % (0-5); Hematocrit 40.9 % (40-54); Hemoglobin 14.6 g/dL (13.0-16.5); Lymphocyte # 1.51 X10^3/ul (0.83-4.51); Lymphocyte % 19.5 % (19-41); Mean Corp Hgb Conc 35.7 g/dL (32-36); Mean Corpuscular Hgb 29.7 pg (27.0-32.0); Mean Corpuscular Volume 83.1 fL (80-94); Mean Platelet Vol. 8.9 fl (6.2-12.0); Monocyte# 0.38 X10^3/uL; Monocyte% 4.9 % (0-10); NRBC Flagged by Analyzer 0 % (0-5); Neutrophil # 5.74 X10^3/uL (2.7-7.7); Platelet Count 234 K/mm3 (150-450); RBC Distribution Width CV 11.9 % (11.6-14.6); Red Blood Count 4.92 M/mm3 (4.6-6.2); White Blood Count 7.8 K/mm3 (4.4-11.0)
[2022-02-04 13:05] VITALS: BP 128/73; PULSE 95; RESP 16; O2SAT 97
[2022-02-04 13:19] LABS: ALB/GLOB Ratio 1.2 RATIO (0.9-2.4); AST(SGOT) 21 U/L (15-37); Alanine Aminotransfer ALT/SGPT 21 U/L (16-61); Alkaline Phosphatase 64 U/L (45-117); Anion Gap 4 (5-15); BUN 9 mg/dL (7-18); BUN/Creat Ratio 9.4 RATIO (10-20); Calcium,Total 9.4 mg/dL (8.5-10.1); Chloride 105 mmol/L (98-107); Creatinine, Serum 0.96 mg/dL (0.70-1.30); EST Glomerular Filtration Rate 98 mL/min (>60); Est Glom Filt Rate - Afr Amer 118 mL/min (>60); Estimated Creatinine Clearance 101.98 ml/min; Globulin 3.4 g/dL (2.2-4.2); Glucose 117 mg/dL (74-106); Lipase 138 U/L (73-393); Potassium 3.8 mmol/L (3.5-5.1); Protein, Total 7.4 g/dL (6.4-8.2); Sodium Level 139 mmol/L (136-145)
[2022-02-04 13:55] VITALS: PULSE 92; RESP 16; O2SAT 97
== END 2022-02-04 13:56 | disposition home or self-care (01) ==
PROVIDERS: Physician Assistant; Emergency Provider Emergency Medicine; Visit Provider Emergency Medicine
DX: K85.90 Acute pancreatitis without necrosis or infection, unspecified (principal); F17.210 Nicotine dependence, cigarettes, uncomplicated; F10.10 Alcohol abuse, uncomplicated
CPT/HCPCS: 80053; 83690; 85025; 96374; 99283; A4216

== ENCOUNTER 2022-04-21 14:18 | Emergency (ER) | payer MEDICAID, SELFPAY ==
[2022-04-21 14:18] VITALS: BP 135/54; PULSE 95; PULSE 97; RESP 15; RESP 16; TEMP 36.2; O2SAT 100; O2SAT 98; BMI 22.8
--- NOTE | 2022-04-21 14:48 | EX.ED.DYSGE1 ---
HPI History of Present Illness Chief Complaint: Anxiety Informant: patient Onset/Context/Timing Onset: Today Context: Sudden Onset Timing: Intermittent and Lasts (Approximately 15 minutes) Quality: Sharp Location: Chest Worsened by: Nothing Relieved by: Nothing Narrative Narrative: Patient presents with anxiety attack that occurred today while he was at work. Patient states it came on rather suddenly. Patient states it lasted approximately 15 minutes. Patient admits to some sharp pain in his left chest. Patient states nothing makes it worse and nothing makes it better. Patient states it has improved since she arrived here in the emergency department. Patient states that he works with his ex-girlfriend which caused the panic attack today. Patient denies any suicidal homicidal ideations. Patient is on fluoxetine for anxiety and depression. PFSH PFSH Medical History Alcohol abuse Constipation COVID-19 virus infection Depression Family history of alcoholism Fracture of middle phalanx of left index finger History of cervical fracture Nicotine dependence Pancreatitis Smoker Home Medications fluoxetine 20 mg capsule 20 mg PO DAILY 04/21/22 [History Last Taken Unknown] Allergy/AdvReac Type Severity Reaction Status Date / Time Penicillins Allergy Hives Verified 04/21/22 14:24 Social History household members: family and none current occupational status: employed current occupation: [email or web address] Smoking Status: Current some day smoker tobacco type: e-cigarettes alcohol intake: current alcohol intake frequency: a few times a week substance use type: does not use ROS ROS ED Constitutional Constitutional ED: Denies chills or fever(s) Eyes Eyes: Denies blurry vision or change in vision ENT ENT ED: Reports sore throat; Denies rhinorrhea Cardiovascular Cardiovascular: Reports chest pain; Denies palpitations Respiratory/Chest Respiratory/Chest: Reports dyspnea; Denies cough Gastrointestinal Gastrointestinal: Denies nausea or vomiting Genitourinary Genitourinary ED: Denies dysuria or hematuria Musculoskeletal Musculoskeletal: Reports neck pain; Denies back pain Integumentary Denies abscess or rash Neurologic Neurologic: Denies headache(s) or weakness Psychiatric Psychiatric: Reports anxiety; Denies suicidal ideation or suicidal thoughts Allergic/Immunologic Allergic/Immunologic ED: Denies mouth swelling or urticaria EXAM Physical Exam Const Vital Signs: 04/21/22 14:18 04/21/22 14:18 04/21/22 15:35 Temperature 97.2 F L Temperature Source Oral Pulse Rate 97 95 Pulse Rate [Sitting (for 1 minute prior to obtaining)] 78 Pulse Rate [Standing (for 1 minute prior to obtaining)] 96 Respiratory Rate 16 15 Blood Pressure 135/54 H 135/54 H Blood Pressure [Lying] 116/59 L Blood Pressure [Sitting (for 1 minute prior to obtaining)] 127/66 H Blood Pressure [Standing (for 1 minute prior to obtaining)] 123/69 H Blood Pressure Mean 81 81 Blood Pressure Mean [Lying] 78 Blood Pressure Mean [Sitting (for 1 minute prior to obtaining)] 86 Blood Pressure Mean [Standing (for 1 minute prior to obtaining)] 87 Pulse Ox 98 100 Oxygen Delivery Method Room Air Room Air Positive well nourished and well developed General Appearance ED: well developed and NAD HEENT Reports moist mucous membranes Neck supple and no JVD Resp normal respiratory effort and clear to auscultation bilaterally Cardio regular rate, regular rhythm and no murmurs GI normal to inspection, nondistended, normoactive bowel sounds and non-tender Palpation: soft Extremity normal to inspection General Extremety ED: Negative for edema or tenderness General Extremity: Negative for edema Neuro oriented x3, CN's II-XII intact bilaterally and no sensory deficits noted Sensorium / Orientation: alert Motor Exam: strength 5/5 throughout Psych mental status grossly normal Skin no rashes or lesions noted MDM MDM MDM Narrative Medical decision making narrative: EKG was obtained. On my interpretation, it showed a normal sinus rhythm with a rate of 76. [place] interval, QRS interval, and QTc intervals were all normal. [place] was normal. There are no acute ST or T wave changes. Patient was given a dose of Vistaril here. Patient is feeling better on reevaluation. Patient was instructed to continue his fluoxetine as prescribed. Patient was instructed to follow-up with his primary care physician for further management of his panic attacks. Patient understood and was agreeable with the plan. All questions were answered. Discharge Plan Triage Chief Complaint: Anxiety ED Provider: Rhett Yung Dx/Rx/DC Orders Clinical Impression: Panic attack, Anxiety Instructions: ED Panic Attack Prescriptions: No Action fluoxetine 20 mg capsule 20 mg PO DAILY Primary Care Provider: Care Physician,No Primary Referrals: Virginia Casey [Non-Staff] - 3-5 Days Care Physician,No Primary [Primary Care Provider] - Disposition Disposition: Home, Self Care
--- NOTE | 2022-04-21 14:50 | EKG12_ITS ---
Test Reason : CP Blood Pressure : / mmHG Vent. Rate : 076 BPM Atrial Rate : 076 BPM P-R Int : 118 ms QRS Dur : 088 ms QT Int : 348 ms P-R-T Axes : 083 089 075 degrees QTc Int : 391 ms Normal sinus rhythm Normal ECG Confirmed by ELVA GARDNER, XU ([id number]), newspaper managing editor NAT MARTINEZ ([id number]) on 04/22/2022 1:00:35 PM Referred By: Confirmed By:EUNICE STEVENSON MD
[2022-04-21] MEDS: hydrOXYzine PAM 25 MG Capsule PO (15:23)
[2022-04-21 15:35] VITALS: BP 116/59; BP 123/69; BP 127/66; PULSE 78; PULSE 96
[2022-04-21 15:38] VITALS: BP 123/69; PULSE 71; RESP 15; O2SAT 100
== END 2022-04-21 15:38 | disposition home or self-care (01) ==
PROVIDERS: Emergency Provider Emergency Medicine; Visit Provider Emergency Medicine
DX: F41.0 Panic disorder [episodic paroxysmal anxiety] (principal); F32.A Depression, unspecified; F17.290 Nicotine dependence, other tobacco product, uncomplicated
CPT/HCPCS: 93005; 99284

== ENCOUNTER 2022-11-16 06:05 | Emergency (ER) | payer MEDICAID, SELFPAY ==
[2022-11-16 06:05] VITALS: BP 132/63; PULSE 83; RESP 18; TEMP 36.6; O2SAT 96; BMI 22.1
[2022-11-16] MEDS: 0.9% Normal Saline 1,000 ML 999 ML IV (06:33)
[2022-11-16] MEDS: Mag Hydrox/Al Hydrox/Simeth 30 ML UDC PO (06:33)
[2022-11-16] MEDS: Ondansetron 4 MG/2 ML Vial IV (06:33)
[2022-11-16] MEDS: Famotidine 200 MG/20 ML MDV 20 MG in 0.9% Normal Saline (Pres. free 8 ML 300 MG IV (06:35)
--- NOTE | 2022-11-16 06:36 | EX.ED.DYSGE1 ---
HPI History of Present Illness Chief Complaint: Abd Pain Informant: patient Narrative Narrative: Patient is a 32-year-old male with remote history of pancreatitis secondary to alcohol abuse. He states that beginning Tuesday he developed upper abdominal pain with bouts of nausea vomiting and loose stool/diarrhea. He denies any known sick contacts. He states he has remote history of pancreatitis but otherwise denies any history of intestinal disorder such as ulcerative colitis Crohn's disease or IBS. He states he was evaluated in urgent care where he was placed on Zofran which has helped reduce his nausea and vomiting. However he was advised that if symptoms persist he should go to an ER for further evaluation. Patient states that symptoms have improved but not completely resolved and he will have intermittent bouts of upper abdominal pain and secondary to this comes in for evaluation. Patient states that there has been no recent drinking episodes that could have led to a possible pancreatitis PFSH PFSH Medical History Alcohol abuse Constipation COVID-19 virus infection Depression Family history of alcoholism Fracture of middle phalanx of left index finger History of cervical fracture Nicotine dependence Pancreatitis Smoker Home Medications fluoxetine 20 mg capsule 20 mg PO DAILY 04/21/22 [History Last Taken Unknown] famotidine 20 mg tablet (Pepcid) 20 mg PO BID #60 tabs 11/16/22 [Rx Last Taken Unknown] promethazine 25 mg tablet 25 mg PO TID PRN nausea and vomiting #21 tabs 11/16/22 [Rx Last Taken Unknown] sucralfate 1 gram tablet (Carafate) 1 g PO TID 10 days #30 tabs 11/16/22 [Rx Last Taken Unknown] Allergy/AdvReac Type Severity Reaction Status Date / Time Penicillins Allergy Hives Verified 04/21/22 14:24 Social History household members: family and none current occupational status: employed current occupation: [employer] Smoking Status: Current some day smoker tobacco type: e-cigarettes alcohol intake: current alcohol intake frequency: a few times a week substance use type: does not use ROS ROS ED Constitutional Constitutional ED: Denies chills or fever(s) ENT ENT ED: Denies sore throat Cardiovascular Cardiovascular: Denies chest pain Respiratory/Chest Respiratory/Chest: Denies cough or dyspnea Gastrointestinal Gastrointestinal: Reports abdominal pain, diarrhea, nausea and vomiting Genitourinary Genitourinary ED: Denies dysuria or hematuria Musculoskeletal Musculoskeletal: Denies myalgias Integumentary Denies rash Neurologic Neurologic: Denies headache(s) Hematologic/Lymphatic Hematologic/Lymphatic: Denies easy bleeding or easy bruising EXAM Physical Exam Const Vital Signs: 11/16/22 06:05 Temperature 97.8 F Temperature Source Temporal Pulse Rate 83 Respiratory Rate 18 Blood Pressure 132/63 H Blood Pressure Mean 86 Pulse Ox 96 Oxygen Delivery Method Room Air Positive well nourished and well developed General Appearance ED: well developed HEENT Reports moist mucous membranes HEENT Narrative: No signs of infection noted in the posterior pharynx Eyes PERRL and EOMs intact bilaterally General Eye ED: Negative for scleral icterus Neck supple Resp normal respiratory effort and clear to auscultation bilaterally Cardio regular rate and regular rhythm Rate: other Other Details: Radial pulses are plus 2 out of 4 bilaterally are equal and symmetric GI non-distended GI Narrative: Abdomen is soft and nondistended with hyperactive bowel sounds. There is pain with palpation in the midepigastric and right upper quadrant region. No voluntary guarding or rigidity. No pulsatile mass. No fluid wave. Negative Greene sign. No hernia palpated Auscultation: hyperactive bowel sounds Palpation: soft Extremity normal to inspection Neuro oriented x3 and CN's II-XII intact bilaterally Sensorium / Orientation: alert Psych Psych Narrative: Patient has a nervous/anxious affect Skin no rashes or lesions noted General Skin Exam: Negative for jaundice MDM MDM MDM Narrative Medical decision making narrative: Patient presented to the ER with stable vitals and a soft nonsurgical abdomen. Therefore I felt no need for emergent imaging studies. Differential includes viral gastroenteritis pancreatitis biliary colic or infectious versus inflammatory colitis. With the location of his pain being greatest in the midepigastric region there is concern he could have repeat pancreatitis however patient denies any recent alcohol use which could have exacerbated his symptoms. There is also pain present over the right upper quadrant but he is not jaundiced there is no scleral icterus and the pain is randomly intermittent and does not correlate with food ingestion going against possible biliary colic. Basic blood work will be obtained looking for elevated lipase or liver enzymes or electrolyte derangement. Patient be given a liter of fluid IV Zofran and Pepcid and a GI cocktail. The patient reported resolution of symptoms with treatment and since work-up is negative he is otherwise safe for discharge History & Record Review Discussion w/independent historian: Patient Lab Data Attestation: I reviewed the patient's lab results. Labs: Laboratory Results - last 24 hr 11/16/22 11/16/22 06:10 06:10 WBC 6.4 RBC 5.01 Hgb 14.6 Hct 42.8 MCV 85.4 MCH 29.1 MCHC 34.1 RDW Std Deviation 37.5 RDW Coeff of [place] 12.0 Plt Count 228 MPV 8.7 Immature Gran % (Auto) 0.300 Neut % (Auto) 64.4 Lymph % (Auto) 23.1 [place] % (Auto) 9.3 Eos % (Auto) 2.4 Baso % (Auto) 0.5 Absolute Neuts (auto) 4.1 Absolute Lymphs (auto) 1.47 Nucleated RBC % 0 Sodium 139 Potassium 3.8 Chloride 107 Carbon Dioxide 29.0 Anion Gap 3 L BUN 9 Creatinine 0.92 Estim Creat Clear Calc 103.62 Est GFR (MDRD) Af Amer 123 Est GFR (MDRD) Non-Af 102 BUN/Creatinine Ratio 9.8 L Glucose 100 Calcium 8.6 Total Bilirubin 0.20 Direct Bilirubin 0.09 AST 12 L ALT 23 Alkaline Phosphatase 76 Total Protein 6.9 Albumin 3.6 Globulin 3.3 Lipase 39 Discharge Plan Triage Chief Complaint: Abd Pain ED Provider: Vincent Nazario Dx/Rx/DC Orders Clinical Impression: Nausea vomiting and diarrhea, Gastritis Instructions: ED Gastritis (Adult), ED Gastroenteritis, Viral (Adult) Prescriptions: New promethazine 25 mg tablet 25 mg PO TID PRN (Reason: nausea and vomiting) Qty: 21 0RF famotidine [Pepcid] 20 mg tablet 20 mg PO BID Qty: 60 0RF sucralfate [Carafate] 1 gram tablet 1 g PO TID 10 Days Qty: 30 0RF No Action fluoxetine 20 mg capsule 20 mg PO DAILY Stand Alone Forms: ED Work / School Excuse Primary Care Provider: Sam Olvera Referrals: Sam Olvera MD [Primary Care Provider] - Activity Restrictions/Additional Instructions: Please keep yourself well-hydrated. Your history and exam indicates that you have a viral stomach infection which will last on average 3 days and this is led to increased stomach acid causing increased intermittent bouts of abdominal pain. Take the medication as directed to help control your symptoms and return to the ER should you have any further concerns Disposition Disposition: Home, Self Care
[2022-11-16 06:37] LABS: Absolute Lymphocyte Count 1.47 X10^3/uL (0.83-4.51); Absolute Neutrophil Count 4.1 X10^3/uL (2.0-7.7); Basophil# 0.03 X10^3/uL; Basophil% 0.5 % (0-1); Eosinophil# 0.15 X10^3/uL; Eosinophils% 2.4 % (0-5); Hematocrit 42.8 % (40-54); Hemoglobin 14.6 g/dL (13.0-16.5); Lymphocyte # 1.47 X10^3/ul (0.83-4.51); Lymphocyte % 23.1 % (19-41); Mean Corp Hgb Conc 34.1 g/dL (32-36); Mean Corpuscular Hgb 29.1 pg (27.0-32.0); Mean Corpuscular Volume 85.4 fL (80-94); Mean Platelet Vol. 8.7 fl (6.2-12.0); Monocyte# 0.59 X10^3/uL; Monocyte% 9.3 % (0-10); NRBC Flagged by Analyzer 0 % (0-5); Neutrophil # 4.09 X10^3/uL (2.7-7.7); Neutrophil % 64.4 % (47-70); Platelet Count 228 K/mm3 (150-450); RBC Distribution Width SD 37.5 fl (35.1-43.9); Red Blood Count 5.01 M/mm3 (4.6-6.2); White Blood Count 6.4 K/mm3 (4.4-11.0)
[2022-11-16 06:52] LABS: AST(SGOT) 12 U/L (15-37); Alanine Aminotransfer ALT/SGPT 23 U/L (16-61); Albumin, Serum 3.6 g/dL (3.2-5.0); Alkaline Phosphatase 76 U/L (45-117); Anion Gap 3 (5-15); BUN 9 mg/dL (7-18); BUN/Creat Ratio 9.8 RATIO (10-20); Bilirubin, Direct 0.09 mg/dL (0.00-0.30); Calcium,Total 8.6 mg/dL (8.5-10.1); Chloride 107 mmol/L (98-107); Creatinine, Serum 0.92 mg/dL (0.70-1.30); EST Glomerular Filtration Rate 102 mL/min (>60); Est Glom Filt Rate - Afr Amer 123 mL/min (>60); Estimated Creatinine Clearance 103.62 ml/min; Globulin 3.3 g/dL (2.2-4.2); Glucose 100 mg/dL (74-106); Lipase 39 U/L (13-75); Potassium 3.8 mmol/L (3.5-5.1); Protein, Total 6.9 g/dL (6.4-8.2); Sodium Level 139 mmol/L (136-145)
[2022-11-16 08:39] VITALS: BP 127/80; PULSE 82; RESP 16; O2SAT 100
== END 2022-11-16 08:41 | disposition home or self-care (01) ==
PROVIDERS: Emergency Provider Emergency Medicine; PCP Family Medicine; Visit Provider Emergency Medicine
DX: K29.70 Gastritis, unspecified, without bleeding (principal); F17.290 Nicotine dependence, other tobacco product, uncomplicated
CPT/HCPCS: 80048; 80076; 83690; 85025; 96361; 96374; 96375; 99284; J7030; A4216; J2405; J3490

== ENCOUNTER 2022-12-10 11:38 | Emergency (ER) | payer MEDICAID, SELFPAY ==
[2022-12-10 11:38] VITALS: BP 116/56; PULSE 85; RESP 16; TEMP 36.8; O2SAT 98; BMI 22.8
--- NOTE | 2022-12-10 12:00 | EX.ED.DYSGE1 ---
HPI <RODERICK Rabago - Last Filed: 12/10/22 15:33> History of Present Illness Chief Complaint: Chest Other Narrative Narrative: Patient presenting today with concerns that he pulled a muscle in his abdomen yesterday while at work. He reports pain in his right and left upper quadrants with bending, lifting, and sitting up. He denies having any symptoms while lying still. He denies any injury to the area, chest pain, shortness of breath, nausea, vomiting, and diarrhea. PFSH <RODERICK Rabago - Last Filed: 12/10/22 15:33> PFSH Medical History Alcohol abuse Constipation COVID-19 virus infection Depression Family history of alcoholism Fracture of middle phalanx of left index finger History of cervical fracture Nicotine dependence Pancreatitis Smoker Home Medications fluoxetine 20 mg capsule 20 mg PO DAILY 04/21/22 [History Last Taken Unknown] famotidine 20 mg tablet (Pepcid) 20 mg PO BID #60 tabs 11/16/22 [Rx Last Taken Unknown] promethazine 25 mg tablet 25 mg PO TID PRN nausea and vomiting #21 tabs 11/16/22 [Rx Last Taken Unknown] sucralfate 1 gram tablet (Carafate) 1 g PO TID 10 days #30 tabs 11/16/22 [Rx Last Taken Unknown] naproxen 500 mg tablet (Naprosyn) 500 mg PO BID PRN pain #14 tabs 12/10/22 [Rx Last Taken Unknown] Allergy/AdvReac Type Severity Reaction Status Date / Time Penicillins Allergy Hives Verified 12/10/22 11:40 Social History household members: family and none current occupational status: employed current occupation: [employer] Smoking Status: Current some day smoker tobacco type: e-cigarettes alcohol intake: current alcohol intake frequency: a few times a week substance use type: does not use ROS <RODERICK Rabago - Last Filed: 12/10/22 15:33> ROS ED Constitutional Constitutional ED: Denies chills or fever(s) Cardiovascular Cardiovascular: Denies chest pain Respiratory/Chest Respiratory/Chest: Denies cough or dyspnea Gastrointestinal Gastrointestinal: Denies abdominal pain, diarrhea, nausea or vomiting Musculoskeletal Musculoskeletal: Reports myalgias; Denies arthralgias or back pain Integumentary Denies rash Neurologic Neurologic: Denies weakness EXAM <RODERICK Rabago - Last Filed: 12/10/22 15:33> Physical Exam Const Vital Signs: 12/10/22 11:38 Temperature 98.3 F Temperature Source Temporal Pulse Rate 85 Respiratory Rate 16 Blood Pressure 116/56 L Blood Pressure Mean 76 Pulse Ox 98 Oxygen Delivery Method Room Air Positive well nourished, well developed and no apparent distress General Appearance ED: well developed HEENT Reports normocephalic and head/scalp atraumatic Mouth ED: Yes moist mucous membranes normal Eyes PERRL and EOMs intact bilaterally Neck full ROM and supple Chest Wall inspection of chest normal Resp normal respiratory effort and clear to auscultation bilaterally Cardio regular rate and regular rhythm GI soft to palpation, non-tender, non-distended and no masses Back/Spine normal ROM and normal to inspection Extremity normal to inspection and full ROM Neuro oriented x3, CN's II-XII intact bilaterally, moves all extremities, no focal motor deficits and no sensory deficits noted Sensorium / Orientation: awake and alert Psych mental status grossly normal and thought process normal Skin no rashes or lesions noted and no wounds <Lewis Hednrickson MD - Last Filed: 12/10/22 15:37> Physical Exam Const Vital Signs: 12/10/22 11:38 Temperature 98.3 F Temperature Source Temporal Pulse Rate 85 Respiratory Rate 16 Blood Pressure 116/56 L Blood Pressure Mean 76 Pulse Ox 98 Oxygen Delivery Method Room Air MDM <RODERICK Rabago - Last Filed: 12/10/22 15:33> [facility] Narrative Medical decision making narrative: Patient presenting today with concerns that he pulled a muscle in his abdomen as he is reporting left upper quadrant and right upper quadrant pain that is worse on the left side. He is well-appearing and in no acute distress, vital signs are unremarkable. He has this pain with sitting up, bending, and lifting items. He states that he just started a job at [email or web address] recently and does a lot of heavy lifting with boxes. He is well-appearing and in no acute distress. Patient does have reproducible pain in his left upper quadrant and right upper quadrant with sitting up in the examination bed. Otherwise, his abdomen is soft and nontender, I do not feel that there is any acute abdominal etiology. Symptoms are consistent with muscle strain of the abdominal wall. He has been given supportive care measures as well as a prescription for naproxen. He has asked for a work note for today and tomorrow. He has been given return instructions. He will be discharged home in stable condition and is comfortable with plan. <Lewis Hendrickson MD - Last Filed: 12/10/22 15:37> [facility] Narrative Medical decision making narrative: Patient presenting today with concerns that he pulled a muscle in his abdomen as he is reporting left upper quadrant and right upper quadrant pain that is worse on the left side. He is well-appearing and in no acute distress, vital signs are unremarkable. He has this pain with sitting up, bending, and lifting items. He states that he just started a job at [employer] and does a lot of heavy lifting with boxes. He is well-appearing and in no acute distress. Patient does have reproducible pain in his left upper quadrant and right upper quadrant with sitting up in the examination bed. Otherwise, his abdomen is soft and nontender, I do not feel that there is any acute abdominal etiology. Symptoms are consistent with muscle strain of the abdominal wall. He has been given supportive care measures as well as a prescription for naproxen. He has asked for a work note for today and tomorrow. He has been given return instructions. He will be discharged home in stable condition and is comfortable with plan. I have personally performed a face to face assessment of the patient and have reviewed the PATRICK Note. I performed a substantive portion of the visit including all aspects of the following. My ellis findings include: History is left upper quadrant abdominal pain and abdominal wall pain, worse with movement since yesterday. No nausea or vomiting, no fevers or chills, no dysuria or hematuria or problems with bowel movements Exam is afebrile. Vital signs noted. Tenderness to palpation along the abdominal wall musculature on left and at insertion. Abdomen soft otherwise with normal active bowel sounds. Positive pain with half sit up. Medical Decision Making I do not feel laboratory testing is indicated nor do I feel that imaging is indicated. I do feel that he has more of a mechanical abdominal wall strain based on his history, he does have a mechanism for this. He will be prescribed analgesics and muscle relaxers and given a note to be off work today and tomorrow. He will follow-up with a primary care provider. Return instructions to the emergency department were reviewed. I do not feel that he requires observation either. I do not feel he requires narcotic pain medication. Disposition is discharged home in stable condition. Other additions or changes: [None] Discharge Plan Triage Chief Complaint: Chest Other ED Midlevel Provider: Marcie Barajas ED Provider: Lewis Hendrickson Dx/Rx/DC Orders Clinical Impression: Muscle strain Instructions: Self-Care for Strains and Sprains Prescriptions: New naproxen [Naprosyn] 500 mg tablet 500 mg PO BID PRN (Reason: pain) Qty: 14 0RF No Action fluoxetine 20 mg capsule 20 mg PO DAILY promethazine 25 mg tablet 25 mg PO TID PRN (Reason: nausea and vomiting) Qty: 21 0RF famotidine [Pepcid] 20 mg tablet 20 mg PO BID Qty: 60 0RF sucralfate [Carafate] 1 gram tablet 1 g PO TID 10 Days Qty: 30 0RF Stand Alone Forms: ED Work / School Excuse Primary Care Provider: Sam Olvera Referrals: Sam Olvera MD [Primary Care Provider] - 3-5 Days if not improving Activity Restrictions/Additional Instructions: Follow-up with your PCP and return for any worsening of symptoms. You can take anti-inflammatories to help with the pain. Disposition Disposition: Home, Self Care Discharge Date/Time: 12/10/22 12:27
== END 2022-12-10 12:27 | disposition home or self-care (01) ==
PROVIDERS: Emergency Provider Emergency Medicine; PCP Family Medicine; Visit Provider Emergency Medicine
DX: S39.011A Strain of muscle, fascia and tendon of abdomen, initial encounter (principal); F17.290 Nicotine dependence, other tobacco product, uncomplicated; X50.0XXA Overexertion from strenuous movement or load, initial encounter; Y99.0 Civilian activity done for income or pay
CPT/HCPCS: 99282

== ENCOUNTER 2023-02-11 08:38 | Emergency (ER) | payer MEDICAID, SELFPAY ==
[2023-02-11 08:39] VITALS: BP 126/75; PULSE 77; RESP 14; TEMP 36.6; O2SAT 98; BMI 22.8
--- NOTE | 2023-02-11 09:15 | RAD_ITS ---
STUDY: X-RAY - RIGHT SHOULDER REASON FOR EXAM: Male, 32 years old. Injury. Pain. TECHNIQUE: 4 view(s) of the shoulder. COMPARISON: None. FINDINGS: Normal glenohumeral articulation. Normal acromioclavicular joint. Normal acromion. Deformity of the distal clavicle from prior injury. Normal humeral head and visualized proximal humerus. Normal soft tissues. Normal visualized pulmonary apex. RAD/Shoulder min 2 Views IMPRESSION: No acute abnormality or erosive changes. Electronically Signed: Alejo Torres MD at 9:36 EDT ,
--- NOTE | 2023-02-11 09:15 | RAD_ITS ---
STUDY: X-RAY - RIGHT ELBOW REASON FOR EXAM: Male, 32 years old. Injury. Pain. TECHNIQUE: 3 view(s) of the elbow. COMPARISON: None. FINDINGS: Separate ossification center for the coronoid process with cortication. Normal radiocapitellar and ulnotrochlear articulations. Normal soft tissues. RAD/Elbow min 3 Views IMPRESSION: No acute abnormality or erosive changes of the right elbow. Electronically Signed: lAejo Torres MD at 9:29 EDT ,
--- NOTE | 2023-02-11 11:23 | EDS_ITS ---
HPI History of Present Illness Chief Complaint: Upper Extremity Injury Narrative Narrative: 32-year-old male presenting with right shoulder pain. He states he slipped and fell yesterday walking into a restaurant. He denies head injury or LOC. He states he landed on his right shoulder. He has pain with motion of the right shoulder. He has not tried any ibuprofen or Tylenol. He has not tried ice or heat. No numbness or tingling. PFSH PFSH Medical History Alcohol abuse Constipation COVID-19 virus infection Depression Family history of alcoholism Fracture of middle phalanx of left index finger History of cervical fracture Nicotine dependence Pancreatitis Smoker Home Medications fluoxetine 20 mg capsule 20 mg PO DAILY 04/21/22 [History Last Taken Unknown] famotidine 20 mg tablet (Pepcid) 20 mg PO BID #60 tabs 11/16/22 [Rx Last Taken Unknown] promethazine 25 mg tablet 25 mg PO TID PRN nausea and vomiting #21 tabs 11/16/22 [Rx Last Taken Unknown] sucralfate 1 gram tablet (Carafate) 1 g PO TID 10 days #30 tabs 11/16/22 [Rx Last Taken Unknown] naproxen 500 mg tablet (Naprosyn) 500 mg PO BID PRN pain #14 tabs 12/10/22 [Rx Last Taken Unknown] cyclobenzaprine 10 mg tablet 10 mg PO TID PRN Muscle Spasm #20 TABLETS 02/11/23 [Rx Last Taken Unknown] Allergy/AdvReac Type Severity Reaction Status Date / Time Penicillins Allergy Hives Verified 02/11/23 08:39 Social History household members: family and none current occupational status: employed current occupation: [employer] Smoking Status: Current some day smoker tobacco type: e-cigarettes alcohol intake: current alcohol intake frequency: a few times a week substance use type: does not use ROS ROS ED Constitutional Constitutional ED: Denies chills, fever(s) or sweats Eyes Eyes: Denies blurry vision or change in vision ENT ENT ED: Denies ear pain or sore throat Cardiovascular Cardiovascular: Denies chest pain, palpitations or racing heartbeat Respiratory/Chest Respiratory/Chest: Denies cough, dyspnea or sputum Gastrointestinal Gastrointestinal: Denies abdominal pain, constipation, diarrhea, nausea or vomiting Genitourinary Genitourinary ED: Denies dysuria, hematuria or urinary frequency Musculoskeletal Musculoskeletal: Reports other Details: Right shoulder pain ; Denies arthralgias, myalgias or neck pain Integumentary Denies abscess, Abrasions or rash Neurologic Neurologic: Denies headache(s), paresthesias or weakness Psychiatric Psychiatric: Denies anxiety, depression, suicidal ideation or suicidal thoughts Endocrine Endocrinology: Denies polydipsia or polyuria EXAM Physical Exam Const Vital Signs: 02/11/23 08:39 Temperature 98 F Temperature Source Temporal Pulse Rate 77 Respiratory Rate 14 Blood Pressure 126/75 H Blood Pressure Mean 92 Pulse Ox 98 Oxygen Delivery Method Room Air Positive well nourished General Appearance ED: NAD HEENT Reports moist mucous membranes normocephalic and atraumatic Eyes PERRL and EOMs intact bilaterally Neck full ROM Resp normal respiratory effort Cardio regular rate and regular rhythm Extremity Extremity Narrative: Tenderness to palpation of the right trapezius and AC joint. Right shoulder is tender to palpation over the deltoid however there is no bruising, swelling, deformity. Patient able to range the right shoulder without difficulty. This does elicit pain Neuro oriented x3 and CN's II-XII intact bilaterally Sensorium / Orientation: alert Psych mental status grossly normal MDM MDM MDM Narrative Medical decision making narrative: Patient has right shoulder contusion from falling. He does state that the symptoms radiate into the elbow although his elbow exam is normal. I obtained images of the right shoulder elbow which show no acute fracture my interpretation. Patient counseled findings. 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 He was given cyclobenzaprine and counseled to use Tylenol ibuprofen at home. Return precautions discussed. Impression: 1. Mechanical fall 2. Right shoulder contusion 3. Right elbow contusion Radiography Diagnostic Testing: Clinical Impression(s) from Imaging Studies Elbow X-Ray 02/11/23 09:15 IMPRESSION: No acute abnormality or erosive changes of the right elbow. Electronically Signed: Alejo Torres MD at 9:29 EDT , Shoulder X-Ray 02/11/23 09:15 IMPRESSION: No acute abnormality or erosive changes. Electronically Signed: Alejo Torres MD at 9:36 EDT , Discharge Plan Triage Chief Complaint: Upper Extremity Injury ED Provider: Tony Blum Dx/Rx/DC Orders Instructions: ED Shoulder Sprain Prescriptions: New cyclobenzaprine 10 mg tablet 10 mg PO TID PRN (Reason: Muscle Spasm) Qty: 20 0RF No Action fluoxetine 20 mg capsule 20 mg PO DAILY promethazine 25 mg tablet 25 mg PO TID PRN (Reason: nausea and vomiting) Qty: 21 0RF famotidine [Pepcid] 20 mg tablet 20 mg PO BID Qty: 60 0RF sucralfate [Carafate] 1 gram tablet 1 g PO TID 10 Days Qty: 30 0RF naproxen [Naprosyn] 500 mg tablet 500 mg PO BID PRN (Reason: pain) Qty: 14 0RF Stand Alone Forms: ED Work / School Excuse Primary Care Provider: Sam Olvera Referrals: Sam Olvera MD [Primary Care Provider] - Disposition Disposition: Home, Self Care Discharge Date/Time: 02/11/23 10:46
== END 2023-02-11 10:46 | disposition home or self-care (01) ==
PROVIDERS: Emergency Provider Student in an Organized Health Care Education/Training Program; PCP Family Medicine; Visit Provider Student in an Organized Health Care Education/Training Program
DX: S40.011A Contusion of right shoulder, initial encounter (principal); S50.01XA Contusion of right elbow, initial encounter; F17.290 Nicotine dependence, other tobacco product, uncomplicated; W01.0XXA Fall on same level from slipping, tripping and stumbling without subsequent striking against object, initial encounter; Y92.511 Restaurant or cafe as the place of occurrence of the external cause
CPT/HCPCS: 73030; 73080; 99282

== ENCOUNTER 2023-03-18 13:13 | Emergency (ER) | payer MEDICAID, SELFPAY ==
[2023-03-18 13:16] VITALS: BP 122/84; PULSE 99; RESP 22; TEMP 36; O2SAT 99
--- NOTE | 2023-03-18 13:18 | RAD_ITS ---
STUDY: X-RAY CHEST REASON FOR EXAM: Male, 32 years old. Chest pain. TECHNIQUE: Single frontal view of the chest. COMPARISON: Chest dated December 2019. FINDINGS: The lungs are clear and expanded. There is no demonstrated pleural abnormality. Normal size heart. Normal mediastinum and oanh. Normal visualized pulmonary arteries. Normal visualized aortic arch and descending thoracic aorta. Normal visualized thoracic spine. Normal visualized ribs, clavicles, and shoulders. No abnormality of the visualized soft tissue structures of the upper abdomen. RAD/Chest 1 View (Portable) IMPRESSION: No interval change. Normal chest. Electronically Signed: Alejo Torres MD at 14:01 EDT ,
--- NOTE | 2023-03-18 13:31 | ED.RN ---
PT. ANXIOUS AND HYPERVENTILATING IN TRIAGE 2. 2L NC PLACED FOR COMFORT, PT. SITTING UP WITH BREATHING BETTER CONTROLLED. STATES CHEST PAIN AND SOB IS GETTING BETTER.
[2023-03-18 13:39] LABS: Absolute Neutrophil Count 6.7 X10^3/uL (2.0-7.7); Basophil# 0.04 X10^3/uL; Basophil% 0.4 % (0-1); Eosinophil# 0.09 X10^3/uL; Eosinophils% 0.9 % (0-5); Hematocrit 42.7 % (40-54); Hemoglobin 15.4 g/dL (13.0-16.5); Lymphocyte % 27.9 % (19-41); Mean Corp Hgb Conc 36.1 g/dL (32-36); Mean Corpuscular Hgb 30.1 pg (27.0-32.0); Mean Corpuscular Volume 83.6 fL (80-94); Mean Platelet Vol. 8.6 fl (6.2-12.0); Monocyte# 0.68 X10^3/uL; Monocyte% 6.5 % (0-10); NRBC Flagged by Analyzer 0 % (0-5); Neutrophil # 6.66 X10^3/uL (2.7-7.7); Neutrophil % 64.1 % (47-70); Platelet Count 287 K/mm3 (150-450); RBC Distribution Width CV 11.6 % (11.6-14.6); RBC Distribution Width SD 35.3 fl (35.1-43.9); Red Blood Count 5.11 M/mm3 (4.6-6.2); White Blood Count 10.4 K/mm3 (4.4-11.0)
[2023-03-18 13:57] LABS: Anion Gap 5 (5-15); BUN 14 mg/dL (7-18); BUN/Creat Ratio 12.1 RATIO (10-20); Chloride 105 mmol/L (98-107); Creatinine, Serum 1.16 mg/dL (0.70-1.30); EST Glomerular Filtration Rate 78 mL/min (>60); Est Glom Filt Rate - Afr Amer 94 mL/min (>60); Glucose 111 mg/dL (74-106); Sodium Level 138 mmol/L (136-145); Troponin-I HS (w/2H Reflex) < 3 pg/mL (3.0-78.0)
--- NOTE | 2023-03-18 14:11 | EDS_ITS ---
HPI History of Present Illness Chief Complaint: Chest Pain Informant: patient Narrative Narrative: 32-year-old male presenting with left lower rib cage pain mostly anteriorly that started yesterday gradually, much worse today hurts to move and breathe. Denies any coughing or tierney dyspnea. He states yesterday it started when he was chasing a bat out of his apartment. He states he may have bumped into something is really not quite sure, but pain was not severe suddenly, it really became worse today. No history of DVT or PE, no leg pain or swelling or recent travel out of the area or long immobilization, no recent surgery or hospitalization. PFSH PFSH Medical History Alcohol abuse Constipation COVID-19 virus infection Depression Family history of alcoholism Fracture of middle phalanx of left index finger History of cervical fracture Nicotine dependence Pancreatitis Smoker Home Medications fluoxetine 20 mg capsule 20 mg PO DAILY 04/21/22 [History Last Taken Unknown] famotidine 20 mg tablet (Pepcid) 20 mg PO BID #60 tabs 11/16/22 [Rx Last Taken Unknown] promethazine 25 mg tablet 25 mg PO TID PRN nausea and vomiting #21 tabs 11/16/22 [Rx Last Taken Unknown] sucralfate 1 gram tablet (Carafate) 1 g PO TID 10 days #30 tabs 11/16/22 [Rx Last Taken Unknown] cyclobenzaprine 10 mg tablet 10 mg PO TID PRN Muscle Spasm #20 TABLETS 02/11/23 [Rx Last Taken Unknown] naproxen 500 mg tablet (Naprosyn) 500 mg PO BID PRN pain #14 tabs 03/18/23 [Rx Last Taken Unknown] Allergy/AdvReac Type Severity Reaction Status Date / Time Penicillins Allergy Hives Verified 02/11/23 08:39 Social History household members: family and none current occupational status: employed current occupation: [employer] Smoking Status: Current some day smoker tobacco type: e-cigarettes alcohol intake: current alcohol intake frequency: a few times a week substance use type: does not use ROS ROS ED Constitutional Constitutional ED: Denies chills or fever(s) Eyes Eyes: Denies change in vision or diplopia ENT ENT ED: Denies rhinorrhea or sore throat Cardiovascular Cardiovascular: Reports as per HPI and chest pain; Denies palpitations Respiratory/Chest Respiratory/Chest: Denies cough or dyspnea Gastrointestinal Gastrointestinal: Denies abdominal pain, diarrhea, nausea or vomiting Genitourinary Genitourinary ED: Denies dysuria or hematuria Musculoskeletal Musculoskeletal: Denies back pain or neck pain Integumentary Denies abscess or rash Neurologic Neurologic: Denies headache(s), paresthesias or weakness Psychiatric Psychiatric: Denies suicidal ideation or suicidal thoughts EXAM Physical Exam Const Vital Signs: 03/18/23 13:16 Temperature 96.8 F L Temperature Source Temporal Pulse Rate 99 Respiratory Rate 22 H Blood Pressure 122/84 H Blood Pressure Mean 96 Pulse Ox 99 Oxygen Delivery Method Room Air Positive well nourished and well developed General Appearance ED: well developed and NAD HEENT Reports moist mucous membranes normocephalic and atraumatic Eyes PERRL and EOMs intact bilaterally Neck full ROM and supple Chest Wall inspection of chest normal Chest Narrative: Tender throughout left lower anterior chest wall, and into the left upper quadrant superficially. The area of tenderness includes the lower 5 palpable ribs, and intercostal spaces, including a patch of chest wall that is approxi mately 6 inches in diameter. No crepitance, subcutaneous emphysema, or flail or any other abnormal palpation. Resp normal respiratory effort and clear to auscultation bilaterally Cardio regular rate, regular rhythm and no murmurs GI non-tender and non-distended Auscultation: normoactive bowel sounds Palpation: soft Back/Spine no CVA tenderness General Back: other FROM Extremity normal to inspection General Extremety ED: Negative for edema, pulses abnormal or tenderness General Extremity: Negative for edema or pulses abnormal Neuro oriented x3, CN's II-XII intact bilaterally and no sensory deficits noted Sensorium / Orientation: awake and alert Motor Exam: strength 5/5 throughout Psych Mood & Affect: anxious and tearful Skin no rashes or lesions noted and no wounds Heart Score History: Slightly/Non-Suspicious ECG: Normal Age: </= 45 years Risk Factors: 1 or 2 Risk Factors (vaping) Troponin: </= Normal Limit Score: 1 MDM MDM MDM Narrative Medical decision making narrative: This is clearly chest wall pain. He is oxygenation is excellent, he is not tachycardic, and I do not think he needs further work-up for pulmonary embolus. I can reproduce all of his symptoms with light palpation and he is extremely anxious about it. We will place him on NSAIDs so that he can continue to work, which is where he came from today for the evaluation of this. He also wants to make sure he gets a work note. Chest x-ray 1 view on my interpretation shows no signs of pneumothorax or rib fracture in the ribs that are visualized which is almost all of them, except for the lower posterior ones. Radiology interpretation noted. His EKG is normal, his troponin is normal, and he is stable for discharge. Lab Data Attestation: I reviewed the patient's lab results. Labs: Laboratory Results - last 24 hr 03/18/23 13:29 WBC 10.4 RBC 5.11 Hgb 15.4 Hct 42.7 MCV 83.6 MCH 30.1 MCHC 36.1 H RDW Std Deviation 35.3 RDW Coeff of [place] 11.6 Plt Count 287 MPV 8.6 Immature Gran % (Auto) 0.200 Neut % (Auto) 64.1 Lymph % (Auto) 27.9 [place] % (Auto) 6.5 Eos % (Auto) 0.9 Baso % (Auto) 0.4 Absolute Neuts (auto) 6.7 Absolute Lymphs (auto) 2.90 Nucleated RBC % 0 Sodium 138 Potassium 4.0 Chloride 105 Carbon Dioxide 28.0 Anion Gap 5 BUN 14 Creatinine 1.16 Est GFR (MDRD) Af Amer 94 Est GFR (MDRD) Non-Af 78 BUN/Creatinine Ratio 12.1 Glucose 111 H Calcium 10.0 Troponin I High Sens < 3 L Radiography Diagnostic Testing: Clinical Impression(s) from Imaging Studies Chest X-Ray 03/18/23 13:18 IMPRESSION: No interval change. Normal chest. Electronically Signed: Alejo Torres MD at 14:01 EDT , Rhythm Strip Rhythm Strip: Sinus Rhythm Rate: 90 Ectopy: None EKG Initial EKG: Attestation: I personally reviewed and interpreted this EKG as follows: Interpretation: Sinus Rhythm and No Acute Injury Pattern Comments: nml EKG Discharge Plan Triage Chief Complaint: Chest Pain ED Provider: Keyona,Lasha Dx/Rx/DC Orders Clinical Impression: Chest wall muscle strain Instructions: ED Chest Wall Strain Prescriptions: Continued fluoxetine 20 mg capsule 20 mg PO DAILY promethazine 25 mg tablet 25 mg PO TID PRN (Reason: nausea and vomiting) Qty: 21 0RF famotidine [Pepcid] 20 mg tablet 20 mg PO BID Qty: 60 0RF sucralfate [Carafate] 1 gram tablet 1 g PO TID 10 Days Qty: 30 0RF cyclobenzaprine 10 mg tablet 10 mg PO TID PRN (Reason: Muscle Spasm) Qty: 20 0RF naproxen [Naprosyn] 500 mg tablet 500 mg PO BID PRN (Reason: pain) Qty: 14 0RF Stand Alone Forms: Work / School Excuse Primary Care Provider: Sam Olvera Referrals: Sam Olvera MD [Primary Care Provider] - 3-5 Days if not improving Disposition Disposition: Home, Self Care
[2023-03-18] MEDS: Ketorolac 30 MG/ML Syringe IV (14:20)
[2023-03-18 14:22] VITALS: BP 134/84; PULSE 69; RESP 16; O2SAT 98
[2023-03-18 14:35] VITALS: BP 141/84; PULSE 85; RESP 16; O2SAT 99
[2023-03-18 15:32] LABS: Reflex Troponin-HS? (from REC) Y
== END 2023-03-18 14:36 | disposition home or self-care (01) ==
PROVIDERS: Emergency Provider Emergency Medicine; PCP Family Medicine; Visit Provider Emergency Medicine
DX: S29.011A Strain of muscle and tendon of front wall of thorax, initial encounter (principal); F17.290 Nicotine dependence, other tobacco product, uncomplicated; X58.XXXA Exposure to other specified factors, initial encounter
CPT/HCPCS: 71045; 80048; 84484; 85025; 93005; 96374; 99285; A4216

== ENCOUNTER 2023-04-21 13:52 | Emergency (ER) | payer MEDICAID, SELFPAY ==
[2023-04-21 13:54] VITALS: BP 148/83; PULSE 98; RESP 18; TEMP 36.5; O2SAT 96; BMI 22.6
== END 2023-04-21 14:48 | disposition left against medical advice (07) ==
LOC: ED 14:48
PROVIDERS: PCP Family Medicine
DX: Z53.21 Procedure and treatment not carried out due to patient leaving prior to being seen by health care provider (principal)

== ENCOUNTER 2023-04-22 07:58 | Emergency (ER) | payer MEDICAID, SELFPAY ==
[2023-04-22 07:59] VITALS: BP 133/76; PULSE 85; RESP 16; TEMP 36.7; O2SAT 97; BMI 21.6
--- NOTE | 2023-04-22 08:12 | EDS_ITS ---
HPI History of Present Illness Chief Complaint: Chest Other Informant: patient Narrative Narrative: Patient seen 3 or 4 weeks ago, for the same thing. Symptoms persistent. Pain in the left lower anterolateral ribs, he states he was chasing a bat out of his apartment and he accidentally backed into a shelf that hit this area. He states whenever he he bends over or lifts something heavy, it increases the pain acutely, it makes him feel a little dyspneic as a result. Other than that, he has had no dyspnea without trigger, or other symptoms except for yesterday after eating he was nauseated and vomited but it did not give him any abdominal pain or changes in the rib pain. He was seen in urgent care initially, he states because of issues with lifting his job keeps encouraging him to get evaluated again, urgent care referred him here. PFSH PFSH Medical History Alcohol abuse Constipation COVID-19 virus infection Depression Family history of alcoholism Fracture of middle phalanx of left index finger History of cervical fracture Nicotine dependence Pancreatitis Smoker Home Medications fluoxetine 20 mg capsule 20 mg PO DAILY 04/21/22 [History Last Taken Unknown] famotidine 20 mg tablet (Pepcid) 20 mg PO BID #60 tabs 11/16/22 [Rx Last Taken Unknown] promethazine 25 mg tablet 25 mg PO TID PRN nausea and vomiting #21 tabs 11/16/22 [Rx Last Taken Unknown] sucralfate 1 gram tablet (Carafate) 1 g PO TID 10 days #30 tabs 11/16/22 [Rx Last Taken Unknown] cyclobenzaprine 10 mg tablet 10 mg PO TID PRN Muscle Spasm #20 TABLETS 02/11/23 [Rx Last Taken Unknown] naproxen 500 mg tablet (Naprosyn) 500 mg PO BID PRN pain #14 tabs 03/18/23 [Rx Last Taken Unknown] Allergy/AdvReac Type Severity Reaction Status Date / Time Penicillins Allergy Hives Verified 04/21/23 13:53 Social History household members: family and none current occupational status: employed current occupation: [employer] Smoking Status: Current some day smoker tobacco type: e-cigarettes alcohol intake: current alcohol intake frequency: a few times a week substance use type: does not use ROS ROS ED Constitutional Constitutional ED: Denies chills or fever(s) Eyes Eyes: Denies change in vision or diplopia ENT ENT ED: Denies rhinorrhea or sore throat Cardiovascular Cardiovascular: Reports as per HPI and chest pain; Denies palpitations Respiratory/Chest Respiratory/Chest: Reports as per HPI and dyspnea; Denies cough Gastrointestinal Gastrointestinal: Denies abdominal pain, diarrhea, nausea or vomiting Genitourinary Genitourinary ED: Denies dysuria or hematuria Musculoskeletal Musculoskeletal: Denies back pain or neck pain Integumentary Denies abscess or rash Neurologic Neurologic: Denies headache(s), paresthesias or weakness Psychiatric Psychiatric: Denies anxiety or suicidal thoughts EXAM Physical Exam Const Vital Signs: 04/22/23 07:59 04/22/23 08:54 Temperature 98.1 F Temperature Source Oral Pulse Rate 85 Respiratory Rate 16 Respiratory Effort Normal Non-Labored Blood Pressure 133/76 H Blood Pressure Mean 95 Pulse Ox 97 Oxygen Delivery Method Room Air Positive well nourished and well developed General Appearance ED: well developed and NAD HEENT Reports moist mucous membranes normocephalic and atraumatic Eyes PERRL and EOMs intact bilaterally Neck full ROM and supple Chest Wall inspection of chest normal Chest Narrative: Point tender in one of the ribs in the left lower mid axillary line along with the intercostal space just above and below that particular area, as well as the costal margin anteriorly. No abdominal tenderness. Mild tenderness in the ribs 1 and 2 levels below/posterior to this. No subcutaneous emphysema. No signs of hematoma or step-off palpable, equal breath sounds bilaterally Resp normal respiratory effort and clear to auscultation bilaterally Cardio regular rate, regular rhythm and no murmurs Rate: Negative for tachycardic GI non-tender and non-distended Auscultation: normoactive bowel sounds Palpation: soft Back/Spine General Back: other FROM Extremity normal to inspection General Extremety ED: Negative for edema, pulses abnormal or tenderness General Extremity: Negative for edema or pulses abnormal Neuro oriented x3, CN's II-XII intact bilaterally and no sensory deficits noted Sensorium / Orientation: awake and alert Motor Exam: strength 5/5 throughout Skin no rashes or lesions noted and no wounds MDM MDM MDM Narrative Medical decision making narrative: This clearly is chest wall in etiology. Patient is very thin, I can see and palpate his ribs, and it is very easy to reproduce the pain and it is at specific points in his chest wall. His symptoms of dyspnea are only when he has a sudden increase in pain, he has no symptoms of pneumothorax, hemothorax, or GI injury. I suspect that he probably has a nondisplaced rib fracture that did not show up on the initial plain chest x-ray which would explain his persistent symptoms in this timeframe. We performed a left rib series with the PA chest. 5 views on my interpretation appears to show a minimally displaced single rib fracture. This explains the patient's symptoms. He is reassured, continue supportive care is advised and I am happy to give him lifting restrictions for work that are temporary. Later radiology interpretation was reviewed, reviewed as unremarkable. I discussed with the radiologist, he thinks this might be artifact from overlying clothing. I think the patient has the most appropriate information, as I do feel this is chest wall in etiology and should resolve with time. Radiography Diagnostic Testing: Clinical Impression(s) from Imaging Studies Ribs w/Chest X-Ray 04/22/23 08:38 IMPRESSION: RIBS: Normal x-ray examination of the ribs. CHEST: Increased markings in the left mid lung suggestive of either atelectasis and/or infiltrate. Electronically Signed: Allan Lopez MD at 9:07 EDT , Management Discussion w/another healthcare provider: Radiologist Discharge Plan Triage Chief Complaint: Chest Other ED Provider: Lasha Rand Dx/Rx/DC Orders Clinical Impression: Closed fracture of rib of left side Instructions: Rib Fracture (Broken Rib) Prescriptions: No Action fluoxetine 20 mg capsule 20 mg PO DAILY promethazine 25 mg tablet 25 mg PO TID PRN (Reason: nausea and vomiting) Qty: 21 0RF famotidine [Pepcid] 20 mg tablet 20 mg PO BID Qty: 60 0RF sucralfate [Carafate] 1 gram tablet 1 g PO TID 10 Days Qty: 30 0RF cyclobenzaprine 10 mg tablet 10 mg PO TID PRN (Reason: Muscle Spasm) Qty: 20 0RF naproxen [Naprosyn] 500 mg tablet 500 mg PO BID PRN (Reason: pain) Qty: 14 0RF Stand Alone Forms: Work Status Form Primary Care Provider: Sam Olvera Referrals: Sam Olvera MD [Primary Care Provider] - Disposition Disposition: Home, Self Care Discharge Date/Time: 04/22/23 09:09
--- NOTE | 2023-04-22 08:38 | RAD_ITS ---
STUDY: X-RAY - UNILATERAL RIBS ( LEFT ) WITH CHEST REASON FOR EXAM: Male, 33 years old. Pain, injury 3 wks ago TECHNIQUE - RIBS: 4 view(s) of the ribs. TECHNIQUE - CHEST: Comparison is made with prior chest radiograph dated March 18, 2023. COMPARISON: None. FINDINGS - RIBS: Normal visualized ribs without a demonstrated fracture. FINDINGS - CHEST: Focal increased markings in the left midlung. This may represent either an infiltrate and/or atelectasis. There is no demonstrated pleural abnormality. Normal size heart. Normal mediastinum and oanh. Normal visualized pulmonary arteries. Normal visualized aortic arch and descending thoracic aorta. Normal visualized thoracic spine. Normal visualized ribs, clavicles, and shoulders. There is no demonstrated abnormality of the visualized soft tissue structures of the upper abdomen. RAD/Ribs Uni Min 3V w/PA Chest IMPRESSION: RIBS: Normal x-ray examination of the ribs. CHEST: Increased markings in the left mid lung suggestive of either atelectasis and/or infiltrate. Electronically Signed: Allan Lopez MD at 9:07 EDT ,
== END 2023-04-22 09:09 | disposition home or self-care (01) ==
PROVIDERS: Emergency Provider Emergency Medicine; PCP Family Medicine; Visit Provider Emergency Medicine
DX: S22.32XA Fracture of one rib, left side, initial encounter for closed fracture (principal); R06.00 Dyspnea, unspecified; F17.290 Nicotine dependence, other tobacco product, uncomplicated; R11.2 Nausea with vomiting, unspecified; X58.XXXA Exposure to other specified factors, initial encounter
CPT/HCPCS: 71101; 99282

== ENCOUNTER 2023-09-23 01:30 | Emergency (ER) | payer SELFPAY ==
[2023-09-23 01:31] VITALS: BP 143/79; PULSE 97; RESP 15; TEMP 37.3; O2SAT 100; BMI 23.6
--- OUTSIDE RECORDS SUMMARY | 2023-09-23 02:01 | XMS RPT_ITS | CCD ---
Author Name Unknown Address [address] [place] [address] Organization [facility] Care Team Providers Care Material Crew Supervisor Name Role Phone Meghan [employer].Nilsa BUCK Primary Care Provider NILSA GROVES Primary Care Unavailable NILSA GROVES Primary Care Unavailable NILSA GROVES Primary Care Unavailable NILSA GROVES Primary Care Unavailable NILSA GROVES Primary Care Unavailable Meghan [employer].Nilsa BUCK Primary Care Provider NILSA GROVES Referring Unavailable NILSA GROVES Attending Unavailable NILSA GROVES Primary Care Unavailable Allergies Allergy Classification Reported Allergen(s) Allergy Type Date of Onset Reaction(s) Facility (17 sources) Penicillins; Translations: [PENICILLINS] Drug Allergy 05-24-2005 [facility] (17 sources) raNITIdine; Translations: [RANITIDINE] Drug Allergy 06-10-2005 [facility] Medications Completed/Discontinued Medications Medication Drug Class(es) Dates Sig (Normalized) Sig (Original) FLUoxetine 40 mg oral capsule (19 sources) Serotonin Reuptake Inhibitor Start: 05-26-2023 take 1 capsule by mouth once daily FLUoxetine (PROZAC) 40 mg capsule Take 1 capsule by mouth once daily. 90 capsule 0 06/23/2023 Active Problems Active Problems Problem Classification Problem Date Documented Da te Episodic/Chronic Administrative/social admission (1 source) Repeated prescription; Translations: [Encounter for issue of repeat prescription] 06-23-2023 Episodic Conditions associated with dizziness or vertigo (1 source) Lightheadedness; Translations: [Dizziness and giddiness] 04-21-2023 Episodic Mood disorders (20 sources) Severe recurrent major depression without psychotic features; Translations: [Major depressive disorder, recurrent severe without psychotic features] Onset: 10-31-2008 Chronic Nausea and vomiting (1 source) Nausea and vomiting; Translations: [Nausea with vomiting, unspecified] Episodic Other lower respiratory disease (1 source) Dyspnea; Translations: [Shortness of breath] 04-21-2023 Episodic Other lower respiratory disease (1 source) Rib pain; Translations: [Pleurodynia] 04-21-2023 Episodic Other upper respiratory infections (1 source) Pharyngitis; Translations: [Acute pharyngitis, unspecified] Episodic Viral infection (1 source) Viral disease; Translations: [Viral infection, unspecified] Episodic Past or Other Problems Problem Classification Problem Date Documented Da te Episodic/Chronic Immunizations and screening for infectious disease (12 sources) Patient encounter status; Translations: [Encounter for screening for other viral diseases] Onset: 10-07-2022 Episodic Other fractures (15 sources) Fracture of cervical spine; Translations: [Fracture of neck, unspecified, initial encounter] Onset: 04-05-2014 04-05-2014 Episodic Other screening for suspected conditions (not mental disorders or infectious disease) (4 sources) Encounter for screening for diseases of the blood and blood-forming organs and certain disorders involving the immune mechanism; Translations: [Encounter for screening for diabetes mellitus] Onset: 10-07-2022 Episodic Results Test Name Value Interpretation Reference Range Facil ity Vital Signs Date Time Vital Sign Value Performing Clinician Gerald willoughby 06-23-2023 14:59-0500 Body temperature 97.39 [degF] Kaila Espinoza APRN.PEER COUNSELOR Work Phone: [facility] 06-23-2023 14:59-0500 Body weight 64.05 kg Kaila Espinoza APRN.PEER COUNSELOR Work Phone: [facility] 06-23-2023 14:59-0500 Diastolic blood pressure 77 mm[Hg] Kaila Espinoza APRN.PEER COUNSELOR Work Phone: [facility] 06-23-2023 14:59-0500 Heart rate 110 /min Kaila Espinoza APRNLARRY Work Phone: [facility] 06-23-2023 14:59-0500 Respiratory rate 18 /min Kaila Espinoza [employer]PEER COUNSELOR Work Phone: [facility] 06-23-2023 14:59-0500 SaO2% (BldA) [Mass fraction] 97 % Kaila Espinoza [employer].PEER COUNSELOR Work Phone: [facility] 06-23-2023 14:59-0500 Systolic blood pressure 121 mm[Hg] Kaila Espinoza [employer].PEER COUNSELOR Work Phone: [facility] 11-13-2022 14:13-0400 Body temperature 97.2 [degF] Mary Federico [employer].PEER COUNSELOR Work Phone: [facility] 11-13-2022 14:13-0400 Body weight 62.23 kg Mary Federico [employer]PEER COUNSELOR Work Phone: [facility] 11-13-2022 14:13-0400 Diastolic blood pressure 82 mm[Hg] Mary Federico [employer]PEER COUNSELOR Work Phone: [facility] 11-13-2022 14:13-0400 Heart rate 64 /min Mary Federico [employer]PEER COUNSELOR Work Phone: [facility] 11-13-2022 14:13-0400 Respiratory rate 20 /min Mary Federico [employer]PEER COUNSELOR Work Phone: [facility] 11-13-2022 14:13-0400 SaO2% (BldA) [Mass fraction] 100 % Mary Federico [employer].PEER COUNSELOR Work Phone: [facility] 11-13-2022 14:13-0400 Systolic blood pressure 140 mm[Hg] Mary Federico [employer].PEER COUNSELOR Work Phone: [facility] 10-07-2022 13:28-0400 Body height 171.5 cm Nilsa Meghan [employer].PEER COUNSELOR Work Phone: [facility] 10-07-2022 13:28-0400 Body temperature 98.2 [degF] Nilsa Meghan [employer].PEER COUNSELOR Work Phone: [facility] 10-07-2022 13:28-0400 Body weight 61.69 kg Nilsa Meghan [employer].PEER COUNSELOR Work Phone: [facility] 10-07-2022 13:28-0400 Diastolic blood pressure 66 mm[Hg] Nilsa Meghan [employer].PEER COUNSELOR Work Phone: [facility] 10-07-2022 13:28-0400 Heart rate 75 /min Nilsa Meghan [employer].PEER COUNSELOR Work Phone: [facility] 10-07-2022 13:28-0400 Respiratory rate 16 /min Nilsa Meghan [employer].PEER COUNSELOR Work Phone: [facility] 10-07-2022 13:28-0400 SaO2% (BldA) [Mass fraction] 99 % Nilsa Meghan [employer].PEER COUNSELOR Work Phone: [facility] 10-07-2022 13:28-0400 Systolic blood pressure 118 mm[Hg] Nilsa Meghan [employer].PEER COUNSELOR Work Phone: [facility] 07-28-2022 15:01-0500 Body temperature 99.5 [degF] Sam Pendlebury [employer].PEER COUNSELOR Work Phone: [facility] 07-28-2022 15:01-0500 Body weight 59.69 kg Sam Pendlebury [employer]PEER COUNSELOR Work Phone: [facility] 07-28-2022 15:01-0500 Diastolic blood pressure 72 mm[Hg] Sam Pendlebury [employer]PEER COUNSELOR Work Phone: [facility] 07-28-2022 15:01-0500 Heart rate 94 /min Sam Pendlebury [employer].PEER COUNSELOR Work Phone: [facility] 07-28-2022 15:01-0500 Respiratory rate 18 /min Sam Pendlebury [employer]PEER COUNSELOR Work Phone: [facility] 07-28-2022 15:01-0500 SaO2% (BldA) [Mass fraction] 98 % Sam Pendlebury [employer].PEER COUNSELOR Work Phone: [facility] 07-28-2022 15:01-0500 Systolic blood pressure 120 mm[Hg] Sam Fuller [employer].PEER COUNSELOR Work Phone: [facility] 04-08-2022 13:09-0400 Body height 171.5 cm Nilsa Meghan [employer].PEER COUNSELOR Work Phone: [facility] 04-08-2022 13:09-0400 Body temperature 98.2 [degF] Nilsa Meghan [employer].PEER COUNSELOR Work Phone: [facility] 04-08-2022 13:09-0400 Body weight 60.42 kg Nilsa Meghan [employer].PEER COUNSELOR Work Phone: [facility] 04-08-2022 13:09-0400 Diastolic blood pressure 70 mm[Hg] Nilsa Meghan [employer].PEER COUNSELOR Work Phone: [facility] 04-08-2022 13:09-0400 Heart rate 69 /min Nilsa Meghan [employer].PEER COUNSELOR Work Phone: [facility] 04-08-2022 13:09-0400 Respiratory rate 18 /min Nilsa Meghan [employer].PEER COUNSELOR Work Phone: [facility] 04-08-2022 13:09-0400 SaO2% (BldA) [Mass fraction] 99 % Nilsa Meghan [employer].PEER COUNSELOR Work Phone: [facility] 04-08-2022 13:09-0400 Systolic blood pressure 110 mm[Hg] Nilsa Meghan [employer].PEER COUNSELOR Work Phone: [facility] 03-01-2022 14:50-0400 Body height 171.5 cm Nilsa Meghan [employer].PEER COUNSELOR Work Phone: [facility] 03-01-2022 14:50-0400 Body temperature 97.2 [degF] Nilsa Meghan [employer].PEER COUNSELOR Work Phone: [facility] 03-01-2022 14:50-0400 Body weight 60.06 kg Nilsa Meghan [employer].PEER COUNSELOR Work Phone: [facility] 03-01-2022 14:50-0400 Diastolic blood pressure 70 mm[Hg] Nilsa Groves APRN.PEER COUNSELOR Work Phone: [facility] 03-01-2022 14:50-0400 Heart rate 80 /min Nilsa Groves APRN.PEER COUNSELOR Work Phone: [facility] 03-01-2022 14:50-0400 Respiratory rate 18 /min Nilsa Groves APRN.PEER COUNSELOR Work Phone: [facility] 03-01-2022 14:50-0400 SaO2% (BldA) [Mass fraction] 97 % Nilsa Groves APRN.PEER COUNSELOR Work Phone: [facility] 03-01-2022 14:50-0400 Systolic blood pressure 128 mm[Hg] Nilsa Groves APRN.PEER COUNSELOR Work Phone: [facility] Encounters Encounter Date Encounter Type Care Provider Facility Start: 06-30-2023 Telephone encounter Nilsa Groves APRN.HEBER Work Phone: [facility] Procedures Date Procedure Procedure Detail Performing Clinician Start: 07-28-2022 COVID WITH FLUA+B, ROUTINE Sam Fuller APRN.CNP Work Phone: Start: 07-28-2022 STREP A MOLECULAR (POC) Sam Fuller APRN.CNP Work Phone: Plan of Treatment Date Care Activity Detail Author Start: 10-08-2023 Urine microalbumin profile [facility] Immunizations Immunization Date Immunization Notes Care Provider Fa cili 03-10-2009 meningococcal polysaccharide (groups A, C, Y and W-135) diphtheria toxoid conjugate vaccine (MCV4P) Nilsa Groves APRN.PEER COUNSELOR Work Phone: [facility] 03-10-2009 tetanus toxoid, redu eren diphtheria toxoid, and acellular pertussis vaccine, adsorbed Nilsa Groves APRN.PEER COUNSELOR Work Phone: [facility] 03-15-2005 measles, mumps and rubella virus vaccine Nilsa Meghan [employer]PEER COUNSELOR Work Phone: [facility] 01-01-1997 diphtheria, tetanus toxoids and acellular pertussis vaccine, unspecified formulation Nilsa Meghan [employer].PEER COUNSELOR Work Phone: [facility] 01-01-1997 trivalent poliovirus vaccine, live, oral Nilsa Meghan [employer].PEER COUNSELOR Work Phone: [facility] 09-21-1993 diphtheria, tetanus toxoids and acellular pertussis vaccine, unspecified formulation Nilsa Meghan [employer].PEER COUNSELOR Work Phone: [facility] 09-21-1993 trivalent poliovirus vaccine, live, oral Nilsa Meghan [employer].PEER COUNSELOR Work Phone: [facility] 06-22-1993 haemophilus influenz ae type b vaccine, conjugate unspecified formulation Nilsa Meghan [employer].PEER COUNSELOR Work Phone: [facility] 06-22-1993 measles, mumps and rubella virus vaccine Nilsa Meghan [employer].PEER COUNSELOR Work Phone: [facility] 1992 hepatitis B vaccine, pediatric or pediatric/adolescent dosage Nilsa Meghan [employer].PEER COUNSELOR Work Phone: [facility] 1992 diphtheria, tetanus toxoids and pertussis vaccine Nilsa Meghan [employer].PEER COUNSELOR Work Phone: [facility] 1992 haemophilus influenz ae type b vaccine, conjugate unspecified formulation Nilsa Meghan [employer].PEER COUNSELOR Work Phone: [facility] 1992 diphtheria, tetanus toxoids and pertussis vaccine Nilsa Meghan [employer].PEER COUNSELOR Work Phone: [facility] 1992 haemophilus influenz ae type b vaccine, conjugate unspecified formulation Nilsa Meghan [employer].PEER COUNSELOR Work Phone: [facility] 1992 trivalent poliovirus vaccine, live, oral Nilsa Meghan [employer].PEER COUNSELOR Work Phone: [facility] 1992 diphtheria, tetanus toxoids and pertussis vaccine Nilsa Groves [employer].PEER COUNSELOR Work Phone: [facility] 1992 haemophilus influenz ae type b vaccine, conjugate unspecified formulation Nilsa Groves [employer].PEER COUNSELOR Work Phone: [facility] 1992 trivalent poliovirus vaccine, live, oral Nilsaalicia Groves [employer].PEER COUNSELOR Work Phone: [facility] 1992 hepatitis B vaccine, pediatric or pediatric/adolescent dosage Nilsa Meghan [employer].PEER COUNSELOR Work Phone: [facility] 1992 hepatitis B vaccine, pediatric or pediatric/adolescent dosage Nilsa Meghan [employer].PEER COUNSELOR Work Phone: [facility] Payers Date Payer Category Payer Medicaid [id number] 2022 Medicaid [id number] 2016 Medicaid [id number] 2016 Medicaid [id number] Social History Date Type Detail Facility Start: 02-09-2019 End: 07-28-2022 Tobacco smoking status NHIS Ex-smoker [facility] History of tobacco use Current smoker [facility] [place] History of tobacco use Cigarette Smoker [facility] Start: 02-09-2019 End: 10-07-2022 Tobacco use and exposure Smokeless tobacco non-user [facility] Start: 03-04-2022 Alcohol intake Lifetime non-d teri (finding) [facility] Start: 1990 Sex Assigned At Not on file [facility] Start: 02-19-2022 End: 04-08-2022 Exposure to SARS-CoV-2 (event) Not sure [facility] Start: 04-08-2022 End: 06-23-2023 Alcohol intake Current drinker of alcohol (finding) [facility] Start: 04-08-2022 History SDOH Alcohol Comment social [facility] Start: 07-28-2022 Tobacco Comment Father smokes outsid e [facility] Start: 10-07-2022 Tobacco smoking stat us NHIS Smokes tobacco daily [facility] Start: 11-13-2022 End: 06-30-2023 History of Social function [facility] Start: 11-13-2022 End: 06-30-2023 Tobacco use panel [facility] Adult Depression Scr eening Assessment 5 [facility] Clinical Notes 03-01-2022 to 06-30-2023 Telephone Encounter - Maria L Ambrosio - 06/30/2023 11:24 AM Kaila Zayas APRN.CNP - 06/23/2023 3:05 PM ESTTelephone Encounter - Rosalind Nava - 05/27/2023 11:19 AM EDTPatient Instructions Note Date & Type Note Facility 06-30-2023 Miscellaneous Notes No Show Documentation Isma Uribe no showed for an appointment on 06/30/23 with Nilsa Groves APRN.PEER COUNSELOR at 11:00 am. He was scheduled for a follow up appointment. I called and spoke with the patient regarding his missed appointment. Isma stated the reason that he missed his appointment was because the patient wants to renew his insurance . Resources discussed/offered to patient: to call to reschedule when ready. No show determined to be fault of patient: Yes This is the patients first no show in the last 12 months. Patient was rescheduled for n/a. Letter mailed : Yes Is this the Third or Fourth No Show ? No Maria L Ambrosio June 30, 2023 11:24 AM documented in this encounter [facility] 06-23-2023 Note HNO ID: [id number] Author: Kaila Espinoza APRN.CNP Service: ? Author Type: Nurse Practitioner Type: Progress Notes Filed: 06/23/2023 3:12 PM Note Text: This note was created using Atoshoriter. Subjective Isma Uribe is a 33 year old male. 33 year old male with PMH depression presents for complaints of medication refill. Acute onset of symptoms was yesterday States that he takes Prozac daily for his depression Has taken for a year. Prozac 40 mg daily, prescribed by CHIDI Groves. Endorses his last dosage was yesterday. States that the pharmacy endorses he has no refill. Referred to come here Denies increase anxiety, depression Denies suicidal thoughts The history is provided by the patient. No language instructor was used. PAST MEDICAL HISTORY Diagnosis Date Depression Fracture of C6 vertebra, closed (HCC) 02/22/2014 Fracture of left knee region 02/22/2014 Nasal fracture 02/22/2014 PTSD (post-traumatic stress disorder) PAST SURGICAL HISTORY Procedure Laterality Date REPAIR NASAL SEPTAL FRACTURE 02/2014 ALLERGIES Penicillins and Ranitidine MEDICATIONS FLUoxetine (PROZAC) 40 mg capsule Take 1 capsule by mouth once daily. FLUoxetine (PROZAC) 40 mg capsule Take 1 capsule by mouth once daily. ondansetron orally disintegrating (ZOFRAN ODT) 8 mg disintegrating tablet Take 1 tablet by mouth every 8 hours as needed for nausea/vomiting. (Patient not taking: Reported on 06/23/2023) polyethylene glycol 3350 (MIRALAX, GLYCOLAX) 17 gram packet DISSOLVE 1 (ONE) PACKET (17G) DIRECTED ONCE DAILY UNTIL SOFT FORMED BOWEL MOVEMENTS ON A DAILY BASIS (Patient not taking: Reported on 06/23/2023) FAMILY HISTORY Problem Relation Age of Onset No Known Problems Father Social History Tobacco Use Smoking status: Every Day Types: Cigarettes Smokeless tobacco: Never Tobacco comments: Father smokes outside Substance Use Topics Alcohol use: Yes Comment: social Drug use: Never Review of Systems Constitutional: Negative for activity change, appetite change, chills and diaphoresis. Eyes: Negative for pain, discharge and itching. Respiratory: Negative for apnea, choking and chest tightness. Cardiovascular: Negative for chest pain, palpitations and leg swelling. Gastrointestinal: Negative for abdominal pain, diarrhea, nausea and vomiting. Musculoskeletal: Negative for arthralgias and back pain. Skin: Negative for color change and pallor. Allergic/Immunologic: Negative for environmental allergies, food allergies and immunocompromised state. Neurological: Negative for dizziness, facial asymmetry and headaches. Hematological: Negative for adenopathy. Does not bruise/bleed easily. Psychiatric/Behavioral: Negative for agitation and behavioral problems. Objective BP 121/77 Pulse 110 Temp 36.3 ?C (97.4 ?F) Resp 18 Wt 64 kg (141 lb 3.2 oz) SpO2 97% BMI 21.79 kg/m? Physical Exam Vitals and nursing note reviewed. Constitutional: General: He is not in acute distress. Appearance: Normal appearance. He is not ill-appearing, toxic-appearing or diaphoretic. HENT: Head: Normocephalic and atraumatic. Right Ear: External ear normal. Left Ear: External ear normal. Nose: Nose normal. No congestion or rhinorrhea. Mouth/Throat: Mouth: Mucous membranes are moist. Pharynx: Oropharynx is clear. No oropharyngeal exudate or posterior oropharyngeal erythema. Eyes: General: Right eye: No discharge. Left eye: No discharge. Extraocular Movements: Extraocular movements intact. Conjunctiva/sclera: Conjunctivae normal. Pupils: Pupils are equal, round, and reactive to light. Cardiovascular: Rate and Rhythm: Normal rate and regular rhythm. Pulses: Normal pulses. Heart sounds: Normal heart sounds. No murmur heard. No friction rub. No gallop. Pulmonary: Effort: Pulmonary effort is normal. No respiratory distress. Breath sounds: Normal breath sounds. No stridor. No wheezing, rhonchi or rales. Chest: Chest wall: No tenderness. Abdominal: General: Abdomen is flat. There is no distension. Palpations: Abdomen is soft. There is no mass. Tenderness: There is no abdominal tenderness. There is no guarding or rebound. Hernia: No hernia is present. Musculoskeletal: General: No swelling, tenderness, deformity or signs of injury. Normal range of motion. Cervical back: Normal range of motion and neck supple. No rigidity or tenderness. Right lower leg: No edema. Left lower leg: No edema. Lymphadenopathy: Cervical: No cervical adenopathy. Skin: General: Skin is warm and dry. Capillary Refill: Capillary refill takes less than 2 seconds. Coloration: Skin is not jaundiced or pale. Findings: No bruising, lesion or rash. Neurological: General: No focal deficit present. Mental Status: He is alert and oriented to person, place, and time. Cranial Nerves: No cranial nerve deficit. Sensory: No sensory deficit. Motor: No weakness. Co (more content not included)... [facility] 06-23-2023 History of Presen t illness Narrative This note was created using NoteWriter. Subjective Isma Uribe is a 33 year old male. 33 year old male with PMH depression presents for complaints of medication refill. Acute onset of symptoms was yesterday States that he takes Prozac daily for his depression Has taken for a year. Prozac 40 mg daily, prescribed by CHIDI Groves. Endorses his last dosage was yesterday. States that the pharmacy endorses he has no refill. Referred to come here Denies increase anxiety, depression Denies suicidal thoughts The history is provided by the patient. No language instructor was used. PAST MEDICAL HISTORY Diagnosis Date Depression Fracture of C6 vertebra, closed (HCC) 02/22/2014 Fracture of left knee region 02/22/2014 Nasal fracture 02/22/2014 PTSD (post-traumatic stress disorder) PAST SURGICAL HISTORY Procedure Laterality Date REPAIR NASAL SEPTAL FRACTURE 02/2014 ALLERGIES Penicillins and Ranitidine MEDICATIONS FLUoxetine (PROZAC) 40 mg capsule Take 1 capsule by mouth once daily. FLUoxetine (PROZAC) 40 mg capsule Take 1 capsule by mouth once daily. ondansetron orally disintegrating (ZOFRAN ODT) 8 mg disintegrating tablet Take 1 tablet by mouth every 8 hours as needed for nausea/vomiting. (Patient not taking: Reported on 06/23/2023) polyethylene glycol 3350 (MIRALAX, GLYCOLAX) 17 gram packet DISSOLVE 1 (ONE) PACKET (17G) DIRECTED ONCE DAILY UNTIL SOFT FORMED BOWEL MOVEMENTS ON A DAILY BASIS (Patient not taking: Reported on 06/23/2023) FAMILY HISTORY Problem Relation Age of Onset No Known Problems Father Social History Tobacco Use Smoking status: Every Day Types: Cigarettes Smokeless tobacco: Never Tobacco comments: Father smokes outside Substance Use Topics Alcohol use: Yes Comment: social Drug use: Never Review of Systems Constitutional: Negative for activity change, appetite change, chills and diaphoresis. Eyes: Negative for pain, discharge and itching. Respiratory: Negative for apnea, choking and chest tightness. Cardiovascular: Negative for chest pain, palpitations and leg swelling. Gastrointestinal: Negative for abdominal pain, diarrhea, nausea and vomiting. Musculoskeletal: Negative for arthralgias and back pain. Skin: Negative for color change and pallor. Allergic/Immunologic: Negative for environmental allergies, food allergies and immunocompromised state. Neurological: Negative for dizziness, facial asymmetry and headaches. Hematological: Negative for adenopathy. Does not bruise/bleed easily. Psychiatric/Behavioral: Negative for agitation and behavioral problems. Objective BP 121/77 Pulse 110 Temp 36.3 C (97.4 F) Resp 18 Wt 64 kg (141 lb 3.2 oz) SpO2 97% BMI 21.79 kg/m Physical Exam Vitals and nursing note reviewed. Constitutional: General: He is not in acute distress. Appearance: Normal appearance. He is not ill-appearing, toxic-appearing or diaphoretic. HENT: Head: Normocephalic and atraumatic. Right Ear: External ear normal. Left Ear: External ear normal. Nose: Nose normal. No congestion or rhinorrhea. Mouth/Throat: Mouth: Mucous membranes are moist. Pharynx: Oropharynx is clear. No oropharyngeal exudate or posterior oropharyngeal erythema. Eyes: General: Right eye: No discharge. Left eye: No discharge. Extraocular Movements: Extraocular movements intact. Conjunctiva/sclera: Conjunctivae normal. Pupils: Pupils are equal, round, and reactive to light. Cardiovascular: Rate and Rhythm: Normal rate and regular rhythm. Pulses: Normal pulses. Heart sounds: Normal heart sounds. No murmur heard. No friction rub. No gallop. Pulmonary: Effort: Pulmonary effort is normal. No respiratory distress. Breath sounds: Normal breath sounds. No stridor. No wheezing, rhonchi or rales. Chest: Chest wall: No tenderness. Abdominal: General: Abdomen is flat. There is no distension. Palpations: Abdomen is soft. There is no mass. Tenderness: There is no abdominal tenderness. There is no guarding or rebound. Hernia: No hernia is present. Musculoskeletal: General: No swelling, tenderness, deformity or signs of injury. Normal range of motion. Cervical back: Normal range of motion and neck supple. No rigidity or tenderness. Right lower leg: No edema. Left lower leg: No edema. Lymphadenopathy: Cervical: No cervical adenopathy. Skin: General: Skin is warm and dry. Capillary Refill: Capillary refill takes less than 2 seconds. Coloration: Skin is not jaundiced or pale. Findings: No bruising, lesion or rash. Neurological: General: No focal deficit present. Mental Status: He is alert and oriented to person, place, and time. Cranial Nerves: No cranial nerve deficit. Sensory: No sensory deficit. Motor: No weakness. Coordination: Coordination normal. Gait: Gait normal. Deep Tendon Reflexes: Reflexes normal. Psychiatric: Mood and Affect: Mood normal. Behavior: Behavior normal. Thought Content: Thought content normal. Assessment and Plan ASSESSMENT/PLAN: 1. Encounter for medication refill - ICD9: V68.1, ICD10: Z76.0 Requesting refill Prozac Has been on for a year related to his hx depression Last dosage yesterday Endorses he went to pharmacy, but they state no refill EXTRACTOR PULLER Meghan oversees his medicines X 90 day refill provided Follow up with PCP Kaila Espinoza APRN.PEER COUNSELOR documented in this encounter [facility] 05-27-2023 Miscellaneous Notes Spoke with pt to schedule a gun barrel finisher appt. Gave pt date and time of new appt . Pt agreed documented in this encounter [facility] 04-26-2023 Note Patient Outreach (AG FAMPLE) ISMA URIBE ([id number]) 1990 M Date Time Provider Department 04/26/23 PEG CHANDRA During your visit today, we recorded the following information about you: Peg Chandra MA 04/26/2023 9:10 AM Signed ED Follow Up: Patient discharged from [facility] ED on 04/22/2023. 1. How are you feeling since your ED visit? NA Have your symptoms improved or resolved? Not applicable 2. Were you prescribed any medications while in the ED or advised to stop any medication? Not applicable - If yes, were you able to fill your prescriptions? Not applicable -if stopped medication, what was the medication? NA 3. Were you advised to schedule a follow up appointment with your provider? Not applicable - If no, Do you feel like you need an appointment scheduled? Not applicable - If yes, Do you need this scheduled now or has this already been scheduled? Not applicable 4. Were you able to contact the office or home care liaison provider prior to your ED visit? Not applicable 5. Is there anything else I can do for you today? Not applicable Called lm on pt. Vm to contact office if he needs anything or would like to make a follow up apt. Peg Chandra MA Allergies As of Date: 04/26/2023 Noted Allergy Reaction PENICILLINS 05/24/2005 4 - Hives RANITIDINE 06/10/2005 4 - Hives Date Reviewed: 11/13/2022 Reviewed by: Mary Caballero APRN.PEER COUNSELOR - Fully Assessed Reason for Visit: ED OUTREACH [Other] Cmt: ED OUTREACH Prescriptions as of 04/26/2023 - ondansetron orally disintegrating (ZOFRAN ODT) 8 mg disintegrating tablet Take 1 tablet by mouth every 8 hours as needed for nausea/vomiting. - FLUoxetine (PROZAC) 20 mg capsule Take 1 capsule by mouth once daily. - polyethylene glycol 3350 (MIRALAX, GLYCOLAX) 17 gram packet DISSOLVE 1 (ONE) PACKET (17G) DIRECTED ONCE DAILY UNTIL SOFT FORMED BOWEL MOVEMENTS ON A DAILY BASIS Problem List As Of Date 04/26/2023 Noted Resolved Cervical spine fracture (HCC) [S12.9XXA] 04/05/2014 Encounter for wellness examination [Z00.00] 03/01/2022 Depression [F32.A] 03/01/2022 Depressive disorder, not elsewhere classified [*10/31/2008 Encounter Status:Closed by PEG CHANDRA on 04/26/23 [facility] 04-26-2023 Note HNO ID: [id number] Author: Peg Chandra MA Service: ? Author Type: Tank Operator Type: Progress Notes Filed: 04/26/2023 9:10 AM Note Text: ED Follow Up: Patient discharged from [facility] ED on 04/22/2023. 1. How are you feeling since your ED visit? NA Have your symptoms improved or resolved? Not applicable 2. Were you prescribed any medications while in the ED or advised to stop any medication? Not applicable - If yes, were you able to fill your prescriptions? Not applicable -if stopped medication, what was the medication? NA 3. Were you advised to schedule a follow up appointment with your provider? Not applicable - If no, Do you feel like you need an appointment scheduled? Not applicable - If yes, Do you need this scheduled now or has this already been scheduled? Not applicable 4. Were you able to contact the office or home care liaison provider prior to your ED visit? Not applicable 5. Is there anything else I can do for you today? Not applicable Called lm on pt. Vm to contact office if he needs anything or would like to make a follow up apt. Peg Chandra MA [facility] 04-22-2023 Note HNO ID: [id number] Author: Estefania Jimenez PA-C Service: ? Author Type: Physician Field Horticultural Specialty Grower Type: Progress Notes Filed: 04/22/2023 7:57 AM Note Text: Patient presented again today for left-sided chest pain, shortness of breath and lightheadedness. He feels like he may pass out. He was sent to the ER yesterday from here from triage and went over there for 3 hours. He was not seen there, he eloped. I discussed with patient again that we do not evaluate chest pain with lightheadedness and feeling syncopal here. He also was seen there on 03/18 for this chest pain. Had not followed up with primary doctor. Discussed follow-up with PCP or ER. Patient upset saying so you're just going to let me pass out here. I said if you are feeling like you need to pass out especially need to be seen in the emergency department. Patient then left. [facility] 04-21-2023 Note HNO ID: [id number] Author: Brian Brandon APRN.HEBER Service: ? Author Type: Nurse Practitioner Type: Progress Notes Filed: 04/21/2023 2:01 PM Note Text: Patient triaged at [facility]. Here today with worsening left cp/rib pain, lightheaded, and sob since left rib injury few weeks ago. I will refer to ER. Patient in no visible distress at time of triage. [facility] 04-21-2023 History of Presen t illness Narrative Patient triaged at [facility]. Here today with worsening left cp/rib pain, lightheaded, and sob since left rib injury few weeks ago. I will refer to ER. Patient in no visible distress at time of triage. documented in this encounter [facility] 2023 Note Patient Outreach (AG INTMLW) ISMA URIBE ([id number]) 1990 M Date Time Provider Department 03/22/23 ZENOBIA MENCHACA AGINTMLW During your visit today, we recorded the following information about you: Zenobia Menchaca MA 2023 10:49 AM Signed ED Follow Up: Patient discharged from [facility] ED on 03/18/23. 1. How are you feeling since your ED visit? Pt is feeling better Have your symptoms improved or resolved? Yes 2. Were you prescribed any medications while in the ED or advised to stop any medication? No - If yes, were you able to fill your prescriptions? Not applicable -if stopped medication, what was the medication? NA 3. Were you advised to schedule a follow up appointment with your provider? Yes - If no, Do you feel like you need an appointment scheduled? Not applicable - If yes, Do you need this scheduled now or has this already been scheduled? No 4. Were you able to contact the office or home care liaison provider prior to your ED visit? No 5. Is there anything else I can do for you today? No Allergies As of Date: 2023 Noted Allergy Reaction PENICILLINS 05/24/2005 4 - Hives RANITIDINE 06/10/2005 4 - Hives Date Reviewed: 11/13/2022 Reviewed by: Mary Caballero APRN.PEER COUNSELOR - Fully Assessed Prescriptions as of 2023 - ondansetron orally disintegrating (ZOFRAN ODT) 8 mg disintegrating tablet Take 1 tablet by mouth every 8 hours as needed for nausea/vomiting. - FLUoxetine (PROZAC) 20 mg capsule Take 1 capsule by mouth once daily. - polyethylene glycol 3350 (MIRALAX, GLYCOLAX) 17 gram packet DISSOLVE 1 (ONE) PACKET (17G) DIRECTED ONCE DAILY UNTIL SOFT FORMED BOWEL MOVEMENTS ON A DAILY BASIS Problem List As Of Date 2023 Noted Resolved Cervical spine fracture (HCC) [S12.9XXA] 04/05/2014 Encounter for wellness examination [Z00.00] 03/01/2022 Depression [F32.A] 03/01/2022 Depressive disorder, not elsewhere classified [*10/31/2008 Encounter Status:Closed by ZENOBIA MENCHACA on 03/22/23 [facility] 2023 Note HNO ID: [id number] Author: Zenobia Menchaca MA Service: ? Author Type: Tank Operator Type: Progress Notes Filed: 2023 10:49 AM Note Text: ED Follow Up: Patient discharged from [facility] ED on 03/18/23. 1. How are you feeling since your ED visit? Pt is feeling better Have your symptoms improved or resolved? Yes 2. Were you prescribed any medications while in the ED or advised to stop any medication? No - If yes, were you able to fill your prescriptions? Not applicable -if stopped medication, what was the medication? NA 3. Were you advised to schedule a follow up appointment with your provider? Yes - If no, Do you feel like you need an appointment scheduled? Not applicable - If yes, Do you need this scheduled now or has this already been scheduled? No 4. Were you able to contact the office or home care liaison provider prior to your ED visit? No 5. Is there anything else I can do for you today? No [facility] 2023 History of Presen t illness Narrative ED Follow Up: Patient discharged from [facility] ED on 03/18/23. 1. How are you feeling since your ED visit? Pt is feeling better Have your symptoms improved or resolved? Yes 2. Were you prescribed any medications while in the ED or advised to stop any medication? No - If yes, were you able to fill your prescriptions? Not applicable -if stopped medication, what was the medication? NA 3. Were you advised to schedule a follow up appointment with your provider? Yes - If no, Do you feel like you need an appointment scheduled? Not applicable - If yes, Do you need this scheduled now or has this already been scheduled? No 4. Were you able to contact the office or home care liaison provider prior to your ED visit? No 5. Is there anything else I can do for you today? No documented in this encounter [facility] 02-14-2023 Note HNO ID: [id number] Author: Peg Chandra MA Service: ? Author Type: Tank Operator Type: Progress Notes Filed: 02/14/2023 3:45 PM Note Text: ED Follow Up: Patient discharged from [facility] ED on 02/11/2023 . 1. How are you feeling since your ED visit? Fine Have your symptoms improved or resolved? Yes 2. Were you prescribed any medications while in the ED or advised to stop any medication? No - If yes, were you able to fill your prescriptions? Not applicable -if stopped medication, what was the medication? na 3. Were you advised to schedule a follow up appointment with your provider? Yes - If no, Do you feel like you need an appointment scheduled? No - If yes, Do you need this scheduled now or has this already been scheduled? No 4. Were you able to contact the office or home care liaison provider prior to your ED visit? Not applicable 5. Is there anything else I can do for you today? No Patient declined apt. At this time . States he is better. Peg Chandra MA [facility] 02-14-2023 Note Patient Outreach (AG FAMPLE) ISMA URIBE ([id number]) 1990 M Date Time Provider Department 02/14/23 PEG CHANDRA During your visit today, we recorded the following information about you: Peg Chandra MA 02/14/2023 3:45 PM Signed ED Follow Up: Patient discharged from [facility] ED on 02/11/2023 . 1. How are you feeling since your ED visit? Fine Have your symptoms improved or resolved? Yes 2. Were you prescribed any medications while in the ED or advised to stop any medication? No - If yes, were you able to fill your prescriptions? Not applicable -if stopped medication, what was the medication? na 3. Were you advised to schedule a follow up appointment with your provider? Yes - If no, Do you feel like you need an appointment scheduled? No - If yes, Do you need this scheduled now or has this already been scheduled? No 4. Were you able to contact the office or home care liaison provider prior to your ED visit? Not applicable 5. Is there anything else I can do for you today? No Patient declined apt. At this time . States he is better. Peg Chandra MA Allergies As of Date: 02/14/2023 Noted Allergy Reaction PENICILLINS 05/24/2005 4 - Hives RANITIDINE 06/10/2005 4 - Hives Date Reviewed: 11/13/2022 Reviewed by: Mary Caballero APRN.PEER COUNSELOR - Fully Assessed Reason for Visit: ED OUTREACH [Other] Cmt: ED OUTREACH Prescriptions as of 02/14/2023 - ondansetron orally disintegrating (ZOFRAN ODT) 8 mg disintegrating tablet Take 1 tablet by mouth every 8 hours as needed for nausea/vomiting. - FLUoxetine (PROZAC) 20 mg capsule Take 1 capsule by mouth once daily. - polyethylene glycol 3350 (MIRALAX, GLYCOLAX) 17 gram packet DISSOLVE 1 (ONE) PACKET (17G) DIRECTED ONCE DAILY UNTIL SOFT FORMED BOWEL MOVEMENTS ON A DAILY BASIS Problem List As Of Date 02/14/2023 Noted Resolved Cervical spine fracture (HCC) [S12.9XXA] 04/05/2014 Encounter for wellness examination [Z00.00] 03/01/2022 Depression [F32.A] 03/01/2022 Depressive disorder, not elsewhere classified [*10/31/2008 Encounter Status:Closed by PEG CHANDRA on 02/14/23 [facility] 02-14-2023 Miscellaneous Notes Received 02/11/2023 from [facility]. Placed in provider's inbox for review. Route to SD for scanning. Impression Mechanical fall Right shoulder contusion Right elbow contusion Elbow x-ray No acute abnormality or erosive changes of the right elbow. Right shoulder No acute abnormality or erosive changes Shoulder sprain Cyclobenzaprine 10 mg TID PRN Discharge home documented in this encounter [facility] 12-17-2022 Note Patient Outreach (AG INTMLW) ISMA URIBE ([id number]) 1990 M Date Time Provider Department 12/17/22 NILSA GROVES AGINTMLW During your visit today, we recorded the following information about you: Jermaine Daily MA 12/17/2022 12:00 PM Signed ED Follow Up: Patient discharged from [facility] ED on 12/10/22. 1. How are you feeling since your ED visit? States it is doing better Have your symptoms improved or resolved? Yes 2. Were you prescribed any medications while in the ED or advised to stop any medication? Yes - If yes, were you able to fill your prescriptions? Yes -if stopped medication, what was the medication? N/A 3. Were you advised to schedule a follow up appointment with your provider? Yes - If no, Do you feel like you need an appointment scheduled? Not applicable - If yes, Do you need this scheduled now or has this already been scheduled? No and declined appointment 4. Were you able to contact the office or home care liaison provider prior to your ED visit? No 5. Is there anything else I can do for you today? Not applicable Jermaine Daily MA Allergies As of Date: 12/17/2022 Noted Allergy Reaction PENICILLINS 05/24/2005 4 - Hives RANITIDINE 06/10/2005 4 - Hives Date Reviewed: 11/13/2022 Reviewed by: Mary Caballero APRN.PEER COUNSELOR - Fully Assessed Reason for Visit: ER F/U [41] Prescriptions as of 12/17/2022 - ondansetron orally disintegrating (ZOFRAN ODT) 8 mg disintegrating tablet Take 1 tablet by mouth every 8 hours as needed for nausea/vomiting. - FLUoxetine (PROZAC) 20 mg capsule Take 1 capsule by mouth once daily. - polyethylene glycol 3350 (MIRALAX, GLYCOLAX) 17 gram packet DISSOLVE 1 (ONE) PACKET (17G) DIRECTED ONCE DAILY UNTIL SOFT FORMED BOWEL MOVEMENTS ON A DAILY BASIS Problem List As Of Date 12/17/2022 Noted Resolved Cervical spine fracture (HCC) [S12.9XXA] 04/05/2014 Encounter for wellness examination [Z00.00] 03/01/2022 Depression [F32.A] 03/01/2022 Depressive disorder, not elsewhere classified [*10/31/2008 Encounter Status:Closed by JERMAINE DAILY on 12/17/22 [facility] 12-17-2022 Note HNO ID: [id number] Author: Jermaine Daily MA Service: ? Author Type: Tank Operator Type: Progress Notes Filed: 12/17/2022 12:00 PM Note Text: ED Follow Up: Patient discharged from [facility] ED on 12/10/22. 1. How are you feeling since your ED visit? States it is doing better Have your symptoms improved or resolved? Yes 2. Were you prescribed any medications while in the ED or advised to stop any medication? Yes - If yes, were you able to fill your prescriptions? Yes -if stopped medication, what was the medication? N/A 3. Were you advised to schedule a follow up appointment with your provider? Yes - If no, Do you feel like you need an appointment scheduled? Not applicable - If yes, Do you need this scheduled now or has this already been scheduled? No and declined appointment 4. Were you able to contact the office or home care liaison provider prior to your ED visit? No 5. Is there anything else I can do for you today? Not applicable Jermaine Daily MA [facility] 11-22-2022 Note HNO ID: [id number] Author: Jermaine Daily MA Service: ? Author Type: Tank Operator Type: Progress Notes Filed: 11/22/2022 3:59 PM Note Text: ED Follow Up: Patient discharged from [facility] ED on 11/16/22. 1. How are you feeling since your ED visit? Left message inquiring how patient is doing since recent ER visit and recommended calling back if he needs anything. Have your symptoms improved or resolved? Left message 2. Were you prescribed any medications while in the ED or advised to stop any medication? Left message - If yes, were you able to fill your prescriptions? Left message -if stopped medication, what was the medication? Left message 3. Were you advised to schedule a follow up appointment with your provider? Left message - If no, Do you feel like you need an appointment scheduled? Left message - If yes, Do you need this scheduled now or has this already been scheduled? Left message 4. Were you able to contact the office or home care liaison provider prior to your ED visit? left message 5. Is there anything else I can do for you today? Left message Jermaine Daily MA [facility] 11-22-2022 History of Presen t illness Narrative ED Follow Up: Patient discharged from [facility] ED on 11/16/22. 1. How are you feeling since your ED visit? Left message inquiring how patient is doing since recent ER visit and recommended calling back if he needs anything. Have your symptoms improved or resolved? Left message 2. Were you prescribed any medications while in the ED or advised to stop any medication? Left message - If yes, were you able to fill your prescriptions? Left message -if stopped medication, what was the medication? Left message 3. Were you advised to schedule a follow up appointment with your provider? Left message - If no, Do you feel like you need an appointment scheduled? Left message - If yes, Do you need this scheduled now or has this already been scheduled? Left message 4. Were you able to contact the office or home care liaison provider prior to your ED visit? left message 5. Is there anything else I can do for you today? Left message Jermaine Daily MA documented in this encounter [facility] 05-01-2023 Note Patient Outreach (AG INTMLW) ISMA URIBE ([id number]) 1990 M Date Time Provider Department 11/22/22 NILSA GROVES AGINTMLW During your visit today, we recorded the following information about you: Jermaine Daily MA 11/22/2022 3:59 PM Signed ED Follow Up: Patient discharged from [facility] ED on 11/16/22. 1. How are you feeling since your ED visit? Left message inquiring how patient is doing since recent ER visit and recommended calling back if he needs anything. Have your symptoms improved or resolved? Left message 2. Were you prescribed any medications while in the ED or advised to stop any medication? Left message - If yes, were you able to fill your prescriptions? Left message -if stopped medication, what was the medication? Left message 3. Were you advised to schedule a follow up appointment with your provider? Left message - If no, Do you feel like you need an appointment scheduled? Left message - If yes, Do you need this scheduled now or has this already been scheduled? Left message 4. Were you able to contact the office or home care liaison provider prior to your ED visit? left message 5. Is there anything else I can do for you today? Left message Jermaine Daily MA Allergies As of Date: 11/22/2022 Noted Allergy Reaction PENICILLINS 05/24/2005 4 - Hives RANITIDINE 06/10/2005 4 - Hives Date Reviewed: 11/13/2022 Reviewed by: Mary Caballero APRN.PEER COUNSELOR - Fully Assessed Reason for Visit: ER F/U [41] Prescriptions as of 11/22/2022 - ondansetron orally disintegrating (ZOFRAN ODT) 8 mg disintegrating tablet Take 1 tablet by mouth every 8 hours as needed for nausea/vomiting. - FLUoxetine (PROZAC) 20 mg capsule Take 1 capsule by mouth once daily. - polyethylene glycol 3350 (MIRALAX, GLYCOLAX) 17 gram packet DISSOLVE 1 (ONE) PACKET (17G) DIRECTED ONCE DAILY UNTIL SOFT FORMED BOWEL MOVEMENTS ON A DAILY BASIS Problem List As Of Date 11/22/2022 Noted Resolved Cervical spine fracture (HCC) [S12.9XXA] 04/05/2014 Encounter for wellness examination [Z00.00] 03/01/2022 Depression [F32.A] 03/01/2022 Depressive disorder, not elsewhere classified [*10/31/2008 Encounter Status:Closed by JERMAINE DAILY on 11/22/22 [facility] 11-13-2022 Note HNO ID: [id number] Author: Mary Caballero APRN.PEER COUNSELOR Service: ? Author Type: Nurse Practitioner Type: Progress Notes Filed: 11/13/2022 2:29 PM Note Text: Subjective The history is provided by the patient. No language instructor was used. HPI Isma Uribe is a 32 year old male who presents today for CC of nausea and vomiting this morning. States he has had 3 episodes. States he was kept some liquids down, voiding twice in 8 hours. He denies any bloody stool or emesis, no abdominal surgeries, or recent antibiotic use. No known exposure to farm or zoo animals BP 140/82 Pulse 64 Temp 36.2 ?C (97.2 ?F) Resp 20 Wt 62.2 kg (137 lb 3.2 oz) SpO2 100% BMI 21.17 kg/m? Social History Tobacco Use Smoking status: Every Day Types: Cigarettes Smokeless tobacco: Never Tobacco comments: Father smokes outside Substance Use Topics Alcohol use: Yes Comment: social Drug use: Never PAST MEDICAL HISTORY Diagnosis Date Depression Fracture of C6 vertebra, closed (HCC) 02/22/2014 Fracture of left knee region 02/22/2014 Nasal fracture 02/22/2014 PTSD (post-traumatic stress disorder) I have confirmed and edited as necessary, the [facility] Review of Systems Constitutional: Negative for chills, fever and malaise/fatigue. HENT: Negative for congestion and sore throat. Respiratory: Negative for cough. Gastrointestinal: Positive for nausea and vomiting. Negative for abdominal pain and diarrhea (looser than normal). Genitourinary: Negative for dysuria, flank pain, frequency, hematuria and urgency. Objective Physical Exam Vitals and nursing note reviewed. Constitutional: Appearance: He is not toxic-appearing. HENT: Head: Normocephalic and atraumatic. Right Ear: Tympanic membrane, ear canal and external ear normal. Left Ear: Tympanic membrane, ear canal and external ear normal. Nose: No mucosal edema, congestion or rhinorrhea. Right Sinus: No maxillary sinus tenderness or frontal sinus tenderness. Left Sinus: No maxillary sinus tenderness or frontal sinus tenderness. Mouth/Throat: Pharynx: Uvula midline. No oropharyngeal exudate or posterior oropharyngeal erythema. Tonsils: No tonsillar abscesses. Cardiovascular: Rate and Rhythm: Normal rate and regular rhythm. Heart sounds: Normal heart sounds. Pulmonary: Effort: Pulmonary effort is normal. Breath sounds: Normal breath sounds. No decreased breath sounds, wheezing, rhonchi or rales. Abdominal: General: Abdomen is flat. Bowel sounds are increased. There is no distension. Tenderness: There is generalized abdominal tenderness. Lymphadenopathy: Head: Right side of head: No submental, submandibular, tonsillar or preauricular adenopathy. Left side of head: No submental, submandibular, tonsillar or preauricular adenopathy. Cervical: No cervical adenopathy. Right cervical: No superficial cervical adenopathy. Left cervical: No superficial cervical adenopathy. Neurological: Mental Status: He is alert. ASSESSMENT/PLAN: 1. Nausea and vomiting, unspecified vomiting type - ICD9: 787.01, ICD10: R11.2 Zofran as discussed Clear liquids, advance diet as tolerated, as discussed see patient instructions. When to seek higher level of care discussed. Diagnosis and treatment plan were discussed and questions were answered to the patient's satisfaction. Pt acknowledged understanding of concepts and follow up plan. Specific signs and symptoms that would indicate the need for higher level of care were discussed in detail warranting prompt ER evaluation. Mary Caballero APRN.CNP [facility] 11-13-2022 Instructions Mary Caballero APRN.HEBER - 11/13/2022 2:24 PM EDT Zofran 8 mg ODT - wait 30 min to eat after taking Drink small sips of clear fluids to begin with. Advance to other liquids as tolerated. If tolerating liquids for several hours without vomiting, then you can try bland foods such as toast, crackers, etc. Advance to full diet when nausea/vomiting has completely resolved but avoid greasy, fatty, spicy foods for next several days. To ER for worsening symptoms, increased pain, fevers, vomiting, decreased urine output, blood in her urine blood in her stools or dark tarry stools. documented in this encounter [facility] 11-13-2022 History of Presen t illness Narrative Subjective The history is provided by the patient. No language instructor was used. HPI Isma Uribe is a 32 year old male who presents today for CC of nausea and vomiting this morning. States he has had 3 episodes. States he was kept some liquids down, voiding twice in 8 hours. He denies any bloody stool or emesis, no abdominal surgeries, or recent antibiotic use. No known exposure to farm or zoo animals BP 140/82 Pulse 64 Temp 36.2 C (97.2 F) Resp 20 Wt 62.2 kg (137 lb 3.2 oz) SpO2 100% BMI 21.17 kg/m Social History Tobacco Use Smoking status: Every Day Types: Cigarettes Smokeless tobacco: Never Tobacco comments: Father smokes outside Substance Use Topics Alcohol use: Yes Comment: social Drug use: Never PAST MEDICAL HISTORY Diagnosis Date Depression Fracture of C6 vertebra, closed (HCC) 02/22/2014 Fracture of left knee region 02/22/2014 Nasal fracture 02/22/2014 PTSD (post-traumatic stress disorder) I have confirmed and edited as necessary, the [facility] Review of Systems Constitutional: Negative for chills, fever and malaise/fatigue. HENT: Negative for congestion and sore throat. Respiratory: Negative for cough. Gastrointestinal: Positive for nausea and vomiting. Negative for abdominal pain and diarrhea (looser than normal). Genitourinary: Negative for dysuria, flank pain, frequency, hematuria and urgency. Objective Physical Exam Vitals and nursing note reviewed. Constitutional: Appearance: He is not toxic-appearing. HENT: Head: Normocephalic and atraumatic. Right Ear: Tympanic membrane, ear canal and external ear normal. Left Ear: Tympanic membrane, ear canal and external ear normal. Nose: No mucosal edema, congestion or rhinorrhea. Right Sinus: No maxillary sinus tenderness or frontal sinus tenderness. Left Sinus: No maxillary sinus tenderness or frontal sinus tenderness. Mouth/Throat: Pharynx: Uvula midline. No oropharyngeal exudate or posterior oropharyngeal erythema. Tonsils: No tonsillar abscesses. Cardiovascular: Rate and Rhythm: Normal rate and regular rhythm. Heart sounds: Normal heart sounds. Pulmonary: Effort: Pulmonary effort is normal. Breath sounds: Normal breath sounds. No decreased breath sounds, wheezing, rhonchi or rales. Abdominal: General: Abdomen is flat. Bowel sounds are increased. There is no distension. Tenderness: There is generalized abdominal tenderness. Lymphadenopathy: Head: Right side of head: No submental, submandibular, tonsillar or preauricular adenopathy. Left side of head: No submental, submandibular, tonsillar or preauricular adenopathy. Cervical: No cervical adenopathy. Right cervical: No superficial cervical adenopathy. Left cervical: No superficial cervical adenopathy. Neurological: Mental Status: He is alert. ASSESSMENT/PLAN: 1. Nausea and vomiting, unspecified vomiting type - ICD9: 787.01, ICD10: R11.2 Zofran as discussed Clear liquids, advance diet as tolerated, as discussed see patient instructions. When to seek higher level of care discussed. Diagnosis and treatment plan were discussed and questions were answered to the patient's satisfaction. Pt acknowledged understanding of concepts and follow up plan. Specific signs and symptoms that would indicate the need for higher level of care were discussed in detail warranting prompt ER evaluation. Mary Caballero APRN.HEBER documented in this encounter [facility] 10-07-2022 Note HNO ID: [id number] Author: Nilsa Groves APRN.CNP Service: ? Author Type: Nurse Practitioner Type: Progress Notes Filed: 10/12/2022 7:38 AM Note Text: This note was created using Atoshoriter. Subjective Isma Uribe is a 32 year old male here today for follow up on his depression and anxiety. Patient denies changes in health since last office visit. Reports feeling well. Denies concerns or complaints today. Depression and anxiety: He was started on prozac 10 mg 03/01/22 and was increased to 20 mg at last ov on 04/08/22. He reports he has been feeling great. Much better than he did at last ov. States he feels the prozac is very effective. He denies thoughts of suicide. Denies feeling depressed. Anxiety well controlled. Reports he is sleeping better. He is able to concentrate better now too. I reviewed her past medical, surgical, social, and family histories today and updated chart. Allergies, chronic medications, and supplements were also reviewed and her list is now up to date. ALLERGIES Allergen Reactions Penicillins Hives Ranitidine Hives Current Outpatient Medications Medication Sig Dispense Refill FLUoxetine (PROZAC) 20 mg capsule Take 1 capsule by mouth once daily. 30 capsule 5 polyethylene glycol 3350 (MIRALAX, GLYCOLAX) 17 gram packet DISSOLVE 1 (ONE) PACKET (17G) DIRECTED ONCE DAILY UNTIL SOFT FORMED BOWEL MOVEMENTS ON A DAILY BASIS methocarbamol (ROBAXIN) 500 mg tablet Take 1 tablet by mouth every 6 hours as needed. predniSONE (DELTASONE) 20 mg tablet Take 1 tablet by mouth once daily. (Patient not taking: No sig reported) 5 tablet 0 No current facility-administered medications for this visit. ACTIVE PROBLEM LIST Cervical Spine Fracture ([facility]) Encounter for Wellness Examination Depression Depressive Disorder, Not Elsewhere Classified PAST MEDICAL HISTORY Diagnosis Date Depression Fracture of C6 vertebra, closed ([facility]) 02/22/2014 Fracture of left knee region 02/22/2014 Nasal fracture 02/22/2014 PTSD (post-traumatic stress disorder) PAST SURGICAL HISTORY Procedure Laterality Date REPAIR NASAL SEPTAL FRACTURE 02/2014 Social History Tobacco Use Smoking status: Every Day Types: Cigarettes Smokeless tobacco: Never Tobacco comments: Father smokes outside Substance Use Topics Alcohol use: Yes Comment: social Drug use: Never Family History Problem Relation Age of Onset No Known Problems Father Feeling nervous, anxious, or on edge 0 Not at all sure Not being able to stop or control worrying 0 Not at all sure Worrying too much about different things 0 Not at all sure Trouble relaxing 1 Several days Being so restless that it's hard to sit still 0 Not at all sure Being easily annoyed or irritable 2 Over half the days Feeling afraid as if something awful might happen 0 Not at all sure OTILIO-7 Anxiety Score 3 If you checked off any problems, how difficult have these problems made it for you to do your work, take care of things at home, or get along with other people? Not difficult at all THE LAST 2 WEEKS, HAVE YOU BEEN BOTHERED BY ANY OF THE FOLLOWING? - Little interest or pleasure in doing things 0 NOT AT ALL Feeling down, depressed, or hopeless 1 Trouble falling or staying asleep, or sleeping too much 0 Feeling tired or having little energy 0 Poor appetite or overeating 0 Feeling bad yourself-you are a failure or have let yourself or others 0 Trouble concentrating, like reading the paper or watching TV 0 Moving/speaking slowly (others notice) OR being more fidgety/restless 0 Thoughts that you would be better off or of hurting yourself 0 PHQ TOTAL SCORE = 1 PHQ problems effect on difficulty of work, home, and social activity: 1 - NOT DIFFICULT AT ALL Review of Systems Constitutional: Negative for activity change, appetite change, chills, diaphoresis, fatigue, fever and unexpected weight change. Respiratory: Negative for cough, shortness of breath and wheezing. Cardiovascular: Negative for chest pain, palpitations and leg swelling. Gastrointestinal: Negative for diarrhea, nausea and vomiting. Genitourinary: Negative. Musculoskeletal: Negative. Neurological: Negative for dizziness and headaches. Psychiatric/Behavioral: Negative for behavioral problems, confusion, dysphoric mood, self-injury, sleep disturbance and suicidal ideas. The patient is not nervous/anxious. Objective BP 118/66 Pulse 75 Temp 36.8 ?C (98.2 ?F) Resp 16 Ht 171.5 cm (5' 7.5 ) Wt 61.7 kg (136 lb) SpO2 99% BMI 20.99 kg/m? Physical Exam Vitals and nursing note reviewed. Constitutional: Appearance: Normal appearance. HENT: Head: Normocephalic and atraumatic. Cardiovascular: Rate and Rhythm: Normal rate and regular rhythm. Pulses: Normal pulses. Heart sounds: Normal heart sounds. No murmur heard. Pulmonary: Effort: Pulmonary effort is normal. No respiratory distress. Breath sounds: Normal breath sounds (more content not included)... [facility] 10-07-2022 History of Presen t illness Narrative This note was created using Atoshoriter. Subjective Isma Uribe is a 32 year old male here today for follow up on his depression and anxiety. Patient denies changes in health since last office visit. Reports feeling well. Denies concerns or complaints today. Depression and anxiety: He was started on prozac 10 mg 03/01/22 and was increased to 20 mg at last ov on 04/08/22. He reports he has been feeling great. Much better than he did at last ov. States he feels the prozac is very effective. He denies thoughts of suicide. Denies feeling depressed. Anxiety well controlled. Reports he is sleeping better. He is able to concentrate better now too. I reviewed her past medical, surgical, social, and family histories today and updated chart. Allergies, chronic medications, and supplements were also reviewed and her list is now up to date. ALLERGIES Allergen Reactions Penicillins Hives Ranitidine Hives Current Outpatient Medications Medication Sig Dispense Refill FLUoxetine (PROZAC) 20 mg capsule Take 1 capsule by mouth once daily. 30 capsule 5 polyethylene glycol 3350 (MIRALAX, GLYCOLAX) 17 gram packet DISSOLVE 1 (ONE) PACKET (17G) DIRECTED ONCE DAILY UNTIL SOFT FORMED BOWEL MOVEMENTS ON A DAILY BASIS methocarbamol (ROBAXIN) 500 mg tablet Take 1 tablet by mouth every 6 hours as needed. predniSONE (DELTASONE) 20 mg tablet Take 1 tablet by mouth once daily. (Patient not taking: No sig reported) 5 tablet 0 No current facility-administered medications for this visit. ACTIVE PROBLEM LIST Cervical Spine Fracture (Hcc) Encounter for Wellness Examination Depression Depressive Disorder, Not Elsewhere Classified PAST MEDICAL HISTORY Diagnosis Date Depression Fracture of C6 vertebra, closed ([facility]) 02/22/2014 Fracture of left knee region 02/22/2014 Nasal fracture 02/22/2014 PTSD (post-traumatic stress disorder) PAST SURGICAL HISTORY Procedure Laterality Date REPAIR NASAL SEPTAL FRACTURE 02/2014 Social History Tobacco Use Smoking status: Every Day Types: Cigarettes Smokeless tobacco: Never Tobacco comments: Father smokes outside Substance Use Topics Alcohol use: Yes Comment: social Drug use: Never Family History Problem Relation Age of Onset No Known Problems Father Review of Systems Constitutional: Negative for activity change, appetite change, chills, diaphoresis, fatigue, fever and unexpected weight change. Respiratory: Negative for cough, shortness of breath and wheezing. Cardiovascular: Negative for chest pain, palpitations and leg swelling. Gastrointestinal: Negative for diarrhea, nausea and vomiting. Genitourinary: Negative. Musculoskeletal: Negative. Neurological: Negative for dizziness and headaches. Psychiatric/Behavioral: Negative for behavioral problems, confusion, dysphoric mood, self-injury, sleep disturbance and suicidal ideas. The patient is not nervous/anxious. Objective BP 118/66 Pulse 75 Temp 36.8 C (98.2 F) Resp 16 Ht 171.5 cm (5' 7.5 ) Wt 61.7 kg (136 lb) SpO2 99% BMI 20.99 kg/m Physical Exam Vitals and nursing note reviewed. Constitutional: Appearance: Normal appearance. HENT: Head: Normocephalic and atraumatic. Cardiovascular: Rate and Rhythm: Normal rate and regular rhythm. Pulses: Normal pulses. Heart sounds: Normal heart sounds. No murmur heard. Pulmonary: Effort: Pulmonary effort is normal. No respiratory distress. Breath sounds: Normal breath sounds. No wheezing, rhonchi or rales. Skin: General: Skin is warm and dry. Neurological: Mental Status: He is alert and oriented to person, place, and time. Psychiatric: Attention and Perception: Attention and perception normal. Mood and Affect: Mood normal. Affect is flat. Speech: Speech normal. Behavior: Behavior normal. Behavior is cooperative. Thought Content: Thought content normal. Cognition and Memory: Cognition and memory normal. Judgment: Judgment normal. Comments: Poor eye contact ASSESSMENT/PLAN: 1. Moderate episode of recurrent major depressive disorder (HCC) - ICD9: 296.32, ICD10: F33.1 (primary diagnosis) - Chronic, controlled on Prozac 20 mg daily. Support provided. Instructed to call if syptoms persist or worsen or thoughts of suicide. - FLUOXETINE 20 MG CAPSULE 2. Screening for deficiency anemia - ICD9: V78.1, ICD10: Z13.0 - CBC 3. Encounter for screening for diabetes mellitus - ICD9: V77.1, ICD10: Z13.1 - COMP METABOLIC PANEL 4. Screening for lipid disorders - ICD9: V77.91, ICD10: Z13.220 - LIPID PANEL BASIC 5. Screening for thyroid disorder - ICD9: V77.0, ICD10: Z13.29 - TSH BLD 6. Screening for HIV (human immunodeficiency virus) - ICD9: V73.89, ICD10: Z11.4 - HIV 1 2 COMBO(AG/AB),WITH REFLEX TO DIFFERENTIATION 7. Encounter for hepatitis C screening test for low risk patient - ICD9: V73.89, ICD10: Z11.59 - HEP C AB IA W/CONF SCRN Nilsa Groves APRN.PEER COUNSELOR documented in this encounter [facility] 07-29-2022 Miscellaneous Notes Faxed covid results to patient's employer- [employer], per patient request. documented in this encounter [facility] 07-28-2022 Influenza virus A and B RNA and SARS-CoV-2 (COVID-19) N gene panel PAKO+probe (Resp) COVID 19 RESULT: SARS-CoV-2 (Agent of COVID-19) Detected by RT-PCR or equivalent method. [id number] (JACQUELINE)_EUA This test was developed and its performance characteristics determined by [facility] [place]. This test has been authorized by FDA under an Emergency Use Authorization (EUA). This test has been validated in accordance with the FDA's Guidance Document Policy for Diagnostics Testing in Laboratories Certified to Perform High Complexity Testing under CLIA prior to Emergency use Authorization for Coronavirus Disease 2019 during the Public Health Emergency issued on September 22, 2019. Test performed by [facility], [facility] [place], [address] [place] [address]. INFLUENZA A PCR: Negative for Influenza A by RT-PCR INFLUENZA B PCR: Negative for Influenza B by RT-PCR [facility] Diagnosis Moderate episode of recurrent major depressive disorder (HCC)- Primary [facility]* Diagnosis Pharyngitis, unspecified etiology- Primary Viral illness Unspecified viral infection, in conditions classified elsewhere and of unspecified site [facility]* Diagnosis Moderate episode of recurrent major depressive disorder (HCC)- Primary Screening for deficiency anemia Screening for other and unspecified deficiency anemia Encounter for screening for diabetes mellitus Screening for diabetes mellitus Screening for lipid disorders Screening for thyroid disorder Screening for HIV (human immunodeficiency virus) Special screening examination for other specified viral diseases Encounter for hepatitis C screening test for low risk patient [facility] Diagnosis Nausea and vomiting, unspecified vomiting type- Primary documented in this encounter [facility] note* Diagnosis SOB (shortness of breath)- Primary Shortness of breath Light headed Dizziness and giddiness Rib pain on left side Chest pain, unspecified [facility] Diagnosis Encounter for medication refill- Primary Issue of repeat prescriptions documented in this encounter [facility] Reason for Referral Specialty Diagnoses / Procedures Referred By Contac t Referred To Contact Diagnoses Severe episode of recurrent major depressive disorder, without psychotic features (HCC) Procedures CONSULT TO PSYCHIATRY OFFICE/OUTPATIENT [facility] 60-74 MINUTES Nilsa Groves APRN.PEER COUNSELOR [address] [place] [address] Referral ID Status Reason Start Date Expiration Date Visits Requested Visits Authorized [id number] Pending Review PCP Requested Referral 03/01/2022 03/01/2023 1 1 Specialty Diagnoses / Procedures Referred By Contac t Referred To Contact Diagnoses Severe episode of recurrent major depressive disorder, without psychotic features (HCC) Nilsa Groves APRN.PEER COUNSELOR [address] [place] [address] Referral ID Status Reason Start Date Expiration Date Visits Re quested Visits Authorized [id number] Closed 1 1 Specialty Diagnoses / Procedures Referred By Contac t Referred To Contact Diagnoses Moderate episode of recurrent major depressive disorder (HCC) Nilsa Groves APRN.PEER COUNSELOR [address] [place] [address] Referral ID Status Reason Start Date Expiration Date V isits Requested Visits Authorized [id number] Pending Review 1 1 Health Concerns Infection Onset Date Last Indicated Resolved Time COVID-19 Rule-Out 07/28/2022 07/28/2022 07/29/2022 2:43 AM EST Infection Onset Date Last Indicated Resolved Time COVID-19 Rule-Out 07/28/2022 07/28/2022 07/29/2022 2:43 AM EST COVID-19 Confirmed 07/28/2022 07/28/2022 Summary Purpose Family History No Family History Records FoundNo Family History Records Found Advance Directives No Advanced Directives Records FoundNo Advanced Directives Records Found Additional Source Comments Source Comments (unrecognize d section and content) In the event this informatio n is protected by the Federal Confidentiality of Alcohol and Drug Abuse Patient Records regulations: The Federal rules restrict any use of the information to criminally investigate or prosecute any alcohol or drug abuse patient.[facility] the event this information is protected by the Federal Confidentiality of Alcohol and Drug Abuse Patient Records regulations: The Federal rules restrict any use of the information to criminally investigate or prosecute any alcohol or drug abuse patient.[facility] the event this information is protected by the Federal Confidentiality of Alcohol and Drug Abuse Patient Records regulations: The Federal rules restrict any use of the information to criminally investigate or prosecute any alcohol or drug abuse patient.[facility] the event this information is protected by the Federal Confidentiality of Alcohol and Drug Abuse Patient Records regulations: The Federal rules restrict any use of the information to criminally investigate or prosecute any alcohol or drug abuse patient.[facility] the event this information is protected by the Federal Confidentiality of Alcohol and Drug Abuse Patient Records regulations: The Federal rules restrict any use of the information to criminally investigate or prosecute any alcohol or drug abuse patient.[facility] the event this information is protected by the Federal Confidentiality of Alcohol and Drug Abuse Patient Records regulations: The Federal rules restrict any use of the information to criminally investigate or prosecute any alcohol or drug abuse patient.[facility] the event this information is protected by the Federal Confidentiality of Alcohol and Drug Abuse Patient Records regulations: The Federal rules restrict any use of the information to criminally investigate or prosecute any alcohol or drug abuse patient.[facility] the event this information is protected by the Federal Confidentiality of Alcohol and Drug Abuse Patient Records regulations: The Federal rules restrict any use of the information to criminally investigate or prosecute any alcohol or drug abuse patient.[facility] the event this information is protected by the Federal Confidentiality of Alcohol and Drug Abuse Patient Records regulations: The Federal rules restrict any use of the information to criminally investigate or prosecute any alcohol or drug abuse patient.[facility] the event this information is protected by the Federal Confidentiality of Alcohol and Drug Abuse Patient Records regulations: The Federal rules restrict any use of the information to criminally investigate or prosecute any alcohol or drug abuse patient.[facility] the event this information is protected by the Federal Confidentiality of Alcohol and Drug Abuse Patient Records regulations: The Federal rules restrict any use of the information to criminally investigate or prosecute any alcohol or drug abuse patient.[facility] the event this information is protected by the Federal Confidentiality of Alcohol and Drug Abuse Patient Records regulations: The Federal rules restrict any use of the information to criminally investigate or prosecute any alcohol or drug abuse patient.[facility] the event this information is protected by the Federal Confidentiality of Alcohol and Drug Abuse Patient Records regulations: The Federal rules restrict any use of the information to criminally investigate or prosecute any alcohol or drug abuse patient.[facility] the event this information is protected by the Federal Confidentiality of Alcohol and Drug Abuse Patient Records regulations: The Federal rules restrict any use of the information to criminally investigate or prosecute any alcohol or drug abuse patient.[facility] the event this information is protected by the Federal Confidentiality of Alcohol and Drug Abuse Patient Records regulations: The Federal rules restrict any use of the information to criminally investigate or prosecute any alcohol or drug abuse patient.[facility] Reason for Visit (unrecogniz ed section and content) Reason Comments Referral Request Behavioral Health Reason Onset Date Comments ER F/U 04/30/2022 Reason Comments Sore Throat HULL, vomiting x1 day Reason Comments Faxed results Reason Comments F/U 6 Month Depression and anxie ty Reason Comments Vomiting Fever x 1 day Reason Onset Date Comments ER F/U 11/22/2022 Reason Comments Received Outside Medical Records [facility] ER Summary 02/11/2023 Slipped and fell landed on right shoulder Reason Comments Appointment Reason Comments Medication Request Prozac 40mg Reason Comments No Show First no show in 365 days. Care Teams (unrecognized sec tion and content) Material Crew Supervisor Relationship Specialty Start Date End Date Nilsa Groves, [employer]PEER COUNSELOR [address] [facility] [place] [address] PCP - General Internal Medicine 03/01/22 Material Crew Supervisor Relationship Specialty Start Date End Date Nilas Groves, [employer] COUNSELOR [address] [facility] [place] [address] PCP - General Internal Medicine 03/01/22 Material Crew Supervisor Relationship Specialty Start Date End Date Nilsa Groves, [employer] COUNSELOR [address] [facility] [place] [address] PCP - General Internal Medicine 03/01/22 Material Crew Supervisor Relationship Specialty Start Date End Date Nilsa Groves, [employer] COUNSELOR [address] [facility] [place] [address] PCP - General Internal Medicine 03/01/22 Material Crew Supervisor Relationship Specialty Start Date End Date Nilsa Groves, [employer] COUNSELOR [address] [facility] [place] [address] PCP - General Internal Medicine 03/01/22 Material Crew Supervisor Relationship Specialty Start Date End Date Nilsa Groves, [employer].PEER COUNSELOR [address] [place] [address] PCP - General Internal Medicine 03/01/22 Material Crew Supervisor Relationship Specialty Start Date End Date Nilsa Groves, [employer].PEER COUNSELOR [address] [place] [address] PCP - General Internal Medicine 03/01/22 Material Crew Supervisor Relationship Specialty Start Date End Date Nilsa Groves, [employer].PEER COUNSELOR [address] [place], [place] [id number] PCP - General Internal Medicine 03/01/22 Material Crew Supervisor Relationship Specialty Start Date End Date Nilsa Groves, [employer].PEER COUNSELOR [address] [place], [place] [id number] PCP - General Internal Medicine 03/01/22 Material Crew Supervisor Relationship Specialty Start Date End Date Nilsa Groves, [employer].PEER COUNSELOR [address] [place] [address] PCP - General Internal Medicine 03/01/22 Material Crew Supervisor Relationship Specialty Start Date End Date Nilsa Groves, [employer].PEER COUNSELOR [address] [place] [address] PCP - General Internal Medicine 03/01/22 Material Crew Supervisor Relationship Specialty Start Date End Date Nilsa Groves, [employer].PEER COUNSELOR [address] [place] [address] PCP - General Internal Medicine 03/01/22 (unrecognized sect ion and content) No Status Records FoundNo Status Records Found INFORMATION SOURCE (unrecogn ized section and content) DATE CREATED AUTHOR AUTHOR'S ORGANIZ ATION 07/02/2023 [facility] FOR RECORDS PERTAINING TO PATIENTS WHO ARE OR HAVE BEEN ENROLLED IN A CHEMICAL DEPENDENCY/SUBSTANCEABUSE PROGRAM, SOME INFORMATION MAY BE OMITTED. This clinical summary was aggregated from multiple sources. Caution should be exercised in using it in the provision of clinical care. This summary normalizes information from multiple sources, and as a consequence, information in this document may materially change the coding, format and clinical context of patient data. In addition, data may be omitted in some cases. CLINICAL DECISIONS SHOULD BE BASED ON THE PRIMARY CLINICAL RECORDS. [facility]. provides no warranty or guarantee of the accuracy or completeness of information in this document.
[2023-09-23 02:05] LABS: Absolute Lymphocyte Count 1.07 X10^3/uL (0.83-4.51); Absolute Neutrophil Count 3.9 X10^3/uL (2.0-7.7); Basophil# 0.03 X10^3/uL; Basophil% 0.5 % (0-1); Eosinophil# 0.04 X10^3/uL; Eosinophils% 0.7 % (0-5); Hemoglobin 12.7 g/dL (13.0-16.5); Lymphocyte # 1.07 X10^3/ul (0.83-4.51); Lymphocyte % 19.6 % (19-41); Mean Corp Hgb Conc 34.3 g/dL (32-36); Mean Corpuscular Hgb 29.1 pg (27.0-32.0); Mean Corpuscular Volume 84.7 fL (80-94); Mean Platelet Vol. 8.7 fl (6.2-12.0); Monocyte# 0.45 X10^3/uL; Monocyte% 8.2 % (0-10); NRBC Flagged by Analyzer 0 % (0-5); Neutrophil # 3.86 X10^3/uL (2.7-7.7); Neutrophil % 70.6 % (47-70); Platelet Count 220 K/mm3 (150-450); RBC Distribution Width CV 11.7 % (11.6-14.6); RBC Distribution Width SD 35.8 fl (35.1-43.9); Red Blood Count 4.37 M/mm3 (4.6-6.2); White Blood Count 5.5 K/mm3 (4.4-11.0)
--- NOTE | 2023-09-23 02:13 | EDS_ITS ---
HPI History of Present Illness Chief Complaint: Mental Health Narrative Narrative: Patient is a 33-year-old male with reported past medical history of anxiety/depression. He states that he stopped taking his mental health medications quite a while ago . This evening he reports that he was hearing things around his apartment and secondary to this he called 911. According to EMS he had called 911 multiple times and secondary to the recurrent call she was brought in for evaluation. The patient denies any alcohol or illicit drug use. He denies any homicidal or suicidal ideations. PFSH PFSH Medical History Alcohol abuse Constipation COVID-19 virus infection Depression Family history of alcoholism Fracture of middle phalanx of left index finger History of cervical fracture Nicotine dependence Pancreatitis Smoker Home Medications fluoxetine 20 mg capsule 20 mg PO DAILY 04/21/22 [History Last Taken Unknown] famotidine 20 mg tablet (Pepcid) 20 mg PO BID #60 tabs 11/16/22 [Rx Last Taken Unknown] promethazine 25 mg tablet 25 mg PO TID PRN nausea and vomiting #21 tabs 11/16/22 [Rx Last Taken Unknown] sucralfate 1 gram tablet (Carafate) 1 g PO TID 10 days #30 tabs 11/16/22 [Rx Last Taken Unknown] cyclobenzaprine 10 mg tablet 10 mg PO TID PRN Muscle Spasm #20 TABLETS 02/11/23 [Rx Last Taken Unknown] naproxen 500 mg tablet (Naprosyn) 500 mg PO BID PRN pain #14 tabs 03/18/23 [Rx Last Taken Unknown] Allergy/AdvReac Type Severity Reaction Status Date / Time Penicillins Allergy Hives Verified 09/23/23 01:31 Social History household members: family and none current occupational status: employed current occupation: [employer] Smoking Status: Current some day smoker tobacco type: e-cigarettes alcohol intake: current alcohol intake frequency: a few times a week substance use type: does not use ROS ROS ED Constitutional Constitutional ED: Denies chills or fever(s) Eyes Eyes: Denies change in vision ENT ENT ED: Denies sore throat Cardiovascular Cardiovascular: Denies chest pain Respiratory/Chest Respiratory/Chest: Denies cough or dyspnea Gastrointestinal Gastrointestinal: Denies abdominal pain, diarrhea, nausea or vomiting Genitourinary Genitourinary ED: Denies dysuria Musculoskeletal Musculoskeletal: Denies myalgias Integumentary Denies rash Neurologic Neurologic: Denies headache(s) Psychiatric Psychiatric: Denies suicidal ideation or suicidal thoughts Hematologic/Lymphatic Hematologic/Lymphatic: Denies easy bleeding or easy bruising EXAM Physical Exam Const Vital Signs: 09/23/23 01:31 09/23/23 03:31 Temperature 99.2 F H Temperature Source Temporal Pulse Rate 97 Respiratory Rate 15 15 Blood Pressure 143/79 H Blood Pressure Mean 100 Pulse Ox 100 Oxygen Delivery Method Room Air Positive well nourished and well developed General Appearance ED: well developed; Negative for pallor HEENT Reports moist mucous membranes HEENT Narrative: No signs of infection noted in the posterior pharynx No airway edema or compromise No signs of depressed or basilar skull fracture Eyes EOMs intact bilaterally Eyes Narrative: Pupils are dilated and sluggish to respond to light Neck supple Neck Narrative: No nuchal rigidity or meningeal signs Resp normal respiratory effort and clear to auscultation bilaterally Cardio regular rate and regular rhythm GI normal to inspection, nondistended, normoactive bowel sounds, non-tender, non- distended and no masses Auscultation: normoactive bowel sounds Palpation: soft Extremity normal to inspection Neuro oriented x3 and CN's II-XII intact bilaterally Sensorium / Orientation: alert Psych Psych Narrative: Patient has a depressed/flat affect but denies homicidal or suicidal ideation Skin no rashes or lesions noted General Skin Exam: Negative for jaundice or pallor MDM MDM MDM Narrative Medical decision making narrative: Patient arrived to the ER overall with stable vitals. He reported hearing noises at his apartment which reportedly were not there according to EMS. Based on his paranoia/delusions and dilated pupils there is concern for alcohol use/abuse versus drug ingestion as a cause. A basic workup was obtained that showed his alcohol level was normal but that his toxin is positive for marijuana/THC. His paranoia and dilated pupils and flat affect can definitely be related to THC use or toxicity. As he is not homicidal or suicidal I did not feel there was emergent need to contact crisis center. Patient was watched in the ER for multiple hours and on repeat evaluation he has had improvement in his mental status and at this time he does acknowledge that he used a gummy last night. Therefore his paranoia and hallucinations dilated pupils and slowness to respond to questions all correlate with THC overdose. As the THC is now metabolized throughout his system and he has had improvement in his mental status and he is not homicidal or suicidal and his paranoia/delusions have resolved I do not feel the need to contact crisis center or admit the patient and he otherwise safe for discharge History & Record Review Discussion w/independent historian: EMS personnel and Patient Lab Data Attestation: I reviewed the patient's lab results. Labs: Laboratory Results - last 24 hr 09/23/23 09/23/23 01:55 02:57 WBC 5.5 RBC 4.37 L Hgb 12.7 L Hct 37.0 L MCV 84.7 MCH 29.1 MCHC 34.3 RDW Std Deviation 35.8 RDW Coeff of [place] 11.7 Plt Count 220 MPV 8.7 Immature Gran % (Auto) 0.400 Neut % (Auto) 70.6 H Lymph % (Auto) 19.6 [place] % (Auto) 8.2 Eos % (Auto) 0.7 Baso % (Auto) 0.5 Absolute Neuts (auto) 3.9 Absolute Lymphs (auto) 1.07 Nucleated RBC % 0 Sodium 142 Potassium 4.0 Chloride 111 H Carbon Dioxide 29.0 Anion Gap 2 L BUN 13 Creatinine 0.98 Estim Creat Clear Calc 98.56 Est GFR (MDRD) Af Amer 115 Est GFR (MDRD) Non-Af 95 BUN/Creatinine Ratio 13.3 Glucose 109 H Calcium 8.7 Total Bilirubin 0.30 AST 13 L ALT 16 Alkaline Phosphatase 67 Total Protein 6.8 Albumin 3.6 Globulin 3.2 Albumin/Globulin Ratio 1.1 Salicylates < 1.7 L Urine Opiates Screen NEGATIVE Urine Methadone Screen NEGATIVE Acetaminophen < 2.0 L Ur Barbiturates Screen NEGATIVE Ur Phencyclidine Scrn NEGATIVE Ur Amphetamines Screen NEGATIVE MDMA (Ecstasy) Screen NEGATIVE U Benzodiazepines Scrn NEGATIVE Urine Cocaine Screen NEGATIVE U Cannabinoids Screen POSITIVE H Ur Drug Screen Comment Ethyl Alcohol < 3.0 Discharge Plan Triage Chief Complaint: Mental Health ED Provider: Vincent Nazario Dx/Rx/DC Orders Clinical Impression: Accidental marijuana overdose Instructions: Understanding Synthetic Marijuana, ED Marijuana Abuse Prescriptions: No Action fluoxetine 20 mg capsule 20 mg PO DAILY promethazine 25 mg tablet 25 mg PO TID PRN (Reason: nausea and vomiting) Qty: 21 0RF famotidine [Pepcid] 20 mg tablet 20 mg PO BID Qty: 60 0RF sucralfate [Carafate] 1 gram tablet 1 g PO TID 10 Days Qty: 30 0RF cyclobenzaprine 10 mg tablet 10 mg PO TID PRN (Reason: Muscle Spasm) Qty: 20 0RF naproxen [Naprosyn] 500 mg tablet 500 mg PO BID PRN (Reason: pain) Qty: 14 0RF Primary Care Provider: Sam Olvera Referrals: Sam Olvera MD [Primary Care Provider] - Disposition Disposition: Home, Self Care
[2023-09-23 02:24] LABS: ALB/GLOB Ratio 1.1 RATIO (0.9-2.4); AST(SGOT) 13 U/L (15-37); Alanine Aminotransfer ALT/SGPT 16 U/L (16-61); Albumin, Serum 3.6 g/dL (3.2-5.0); Alkaline Phosphatase 67 U/L (45-117); Anion Gap 2 (5-15); BUN 13 mg/dL (7-18); BUN/Creat Ratio 13.3 RATIO (10-20); Calcium,Total 8.7 mg/dL (8.5-10.1); Chloride 111 mmol/L (98-107); Creatinine, Serum 0.98 mg/dL (0.70-1.30); EST Glomerular Filtration Rate 95 mL/min (>60); Est Glom Filt Rate - Afr Amer 115 mL/min (>60); Estimated Creatinine Clearance 98.56 ml/min; Globulin 3.2 g/dL (2.2-4.2); Glucose 109 mg/dL (74-106); Protein, Total 6.8 g/dL (6.4-8.2); Sodium Level 142 mmol/L (136-145)
[2023-09-23 02:31] LABS: Acetaminophen (Tylenol) Level < 2.0 ug/mL (10.0-30.0); Alcohol, Blood (Medical)-Serum < 3.0 mg/dL; Salicylate < 1.7 mg/dL (2.8-20.0)
[2023-09-23 03:21] LABS: Amphetamine Urine VISTA NEGATIVE (<1000 ng/mL); Barbiturate Urine VISTA NEGATIVE (< 200 ng/mL); Benzodiazepine Urine VISTA NEGATIVE (< 200 ng/mL); Cocaine Urine VISTA NEGATIVE (< 300 ng/mL); Ecstacy Urine VISTA NEGATIVE (< 500 ng/mL); Methadone Urine VISTA NEGATIVE (< 300 ng/mL); PCP Urine VISTA NEGATIVE (< 25 ng/mL); THC Urine VISTA POSITIVE (< 50 ng/mL); Vista UDS pH Range 6
[2023-09-23 03:31] VITALS: RESP 15
[2023-09-23 05:00] VITALS: RESP 14
[2023-09-23 06:31] VITALS: BP 121/63; PULSE 81; RESP 17; O2SAT 98
== END 2023-09-23 06:47 | disposition home or self-care (01) ==
PROVIDERS: Emergency Provider Emergency Medicine; PCP Family Medicine; Visit Provider Emergency Medicine
DX: H57.04 Mydriasis (principal); F22 Delusional disorders; F17.290 Nicotine dependence, other tobacco product, uncomplicated; F41.9 Anxiety disorder, unspecified; F32.A Depression, unspecified; T40.711A Poisoning by cannabis, accidental (unintentional), initial encounter
CPT/HCPCS: 80053; 80307; 80320; 80329; 85025; 87811; 99282; G0480

== ENCOUNTER 2023-11-22 18:37 | Emergency (ER) | payer SELFPAY ==
[2023-11-22 18:37] VITALS: BP 130/83; PULSE 109; RESP 18; TEMP 36.1; O2SAT 96; BMI 22.7
--- NOTE | 2023-11-22 18:53 | RAD_ITS ---
STUDY: X-RAY - RIGHT ANKLE REASON FOR EXAM: Male, 33 years old. Pain TECHNIQUE: 3 view(s) of the ankle. COMPARISON: None. FINDINGS: Normal visualized distal tibia and fibula. Normal medial and lateral malleoli. Normal tibiotalar articulation and ankle mortise. Normal visualized talus and calcaneus. The visualized subtalar, talonavicular, calcaneocuboid and tarsal articulations are normal. The soft tissue structures are unremarkable. RAD/Ankle min 3 Views IMPRESSION: Normal x-ray examination of the ankle. Electronically Signed: Suresh Oliver MD at 19:13 EDT ,
--- NOTE | 2023-11-22 19:41 | ED.VIS.LOWEX ---
HPI History of Present Illness Chief Complaint: Lower Extremity Injury Detail of Chief Complaint: Injury to right ankle Informant: patient Onset/Context/Timing Onset: Days (2 days ago) Context: Sudden Onset Timing: Continuous Quality of Pain: Throbbing Location: Lateral right ankle Current Severity: Mild Maximum Severity: Moderate Worsened by: Movement and weightbearing Relieved by: Nothing Associated Symptoms Associated Symptoms: Negative for Parasthesia, Weakness or Loss of Funtion Narrative Narrative: Patient is a 33-year-old male had a plantar inversion mechanism injury 2 days ago. States this occurred at work. He denies paresthesia, anesthesia medics. Denies prior history of trauma. Prior similar symptoms: No Recent Illness/Hospitalization: No PFSH PFSH Medical History Alcohol abuse Constipation COVID-19 virus infection Depression Family history of alcoholism Fracture of middle phalanx of left index finger History of cervical fracture Nicotine dependence Pancreatitis Smoker Home Medications fluoxetine 20 mg capsule 20 mg PO DAILY 04/21/22 [History Last Taken Unknown] famotidine 20 mg tablet (Pepcid) 20 mg PO BID #60 tabs 11/16/22 [Rx Last Taken Unknown] promethazine 25 mg tablet 25 mg PO TID PRN nausea and vomiting #21 tabs 11/16/22 [Rx Last Taken Unknown] sucralfate 1 gram tablet (Carafate) 1 g PO TID 10 days #30 tabs 11/16/22 [Rx Last Taken Unknown] cyclobenzaprine 10 mg tablet 10 mg PO TID PRN Muscle Spasm #20 TABLETS 02/11/23 [Rx Last Taken Unknown] naproxen 500 mg tablet (Naprosyn) 500 mg PO BID PRN pain #14 tabs 03/18/23 [Rx Last Taken Unknown] Allergy/AdvReac Type Severity Reaction Status Date / Time Penicillins Allergy Hives Verified 11/22/23 18:38 Social History household members: family and none current occupational status: employed current occupation: [employer] Smoking Status: Current some day smoker tobacco type: e-cigarettes alcohol intake: current alcohol intake frequency: a few times a week substance use type: does not use ROS ROS ED Musculoskeletal Musculoskeletal: Denies arthralgias or myalgias Neurologic Neurologic: Denies paresthesias or weakness Hematologic/Lymphatic Hematologic/Lymphatic: Denies easy bleeding or easy bruising EXAM Physical Exam Const Vital Signs: 11/22/23 18:37 Temperature 97 F L Temperature Source Temporal Pulse Rate 109 H Respiratory Rate 18 Blood Pressure 130/83 H Blood Pressure Mean 98 Pulse Ox 96 Oxygen Delivery Method Room Air Positive well nourished and well developed General Appearance ED: well developed and NAD HEENT normocephalic and atraumatic Resp normal respiratory effort Cardio regular rate and regular rhythm Extremity full ROM; Negative for normal to inspection Extremity Narrative: Patient has pain outpatient with the anterior talofibular wound with mild swelling. There is minimal discomfort of the lateral malleolus. Is no pain posterior lateral malleolus. There is no pain to palpation over the medial malleolus. No pain to palpation over the base of the fifth metatarsal. There is no laxity with drawer testing. DP pulses palpable. Neuro oriented x3 and CN's II-XII intact bilaterally Sensorium / Orientation: alert Psych mental status grossly normal Skin no wounds Lesions: no lesions Rashes: no rashes MDM MDM MDM Narrative Medical decision making narrative: X-ray per nurse protocol was obtained. Differential is sprain versus fracture. Radiography Chest X-Ray - ED: Read by ED Physician (Three-view x-ray of the right ankle reveals no fracture, subluxation dislocation. There is no soft tissue swelling. There is no widening of the mortise. This is a medically reviewed interpreted by me.) Diagnostic Testing: Clinical Impression(s) from Imaging Studies Ankle X-Ray 11/22/23 18:53 IMPRESSION: Normal x-ray examination of the ankle. Electronically Signed: Suresh Oliver MD at 19:13 EDT , Discharge Plan Triage Chief Complaint: Lower Extremity Injury ED Provider: Abelardo Beverly Dx/Rx/DC Orders Clinical Impression: Sprain of anterior talofibular ligament of right ankle Instructions: ED Ankle Sprain (Adult) Prescriptions: No Action fluoxetine 20 mg capsule 20 mg PO DAILY promethazine 25 mg tablet 25 mg PO TID PRN (Reason: nausea and vomiting) Qty: 21 0RF famotidine [Pepcid] 20 mg tablet 20 mg PO BID Qty: 60 0RF sucralfate [Carafate] 1 gram tablet 1 g PO TID 10 Days Qty: 30 0RF cyclobenzaprine 10 mg tablet 10 mg PO TID PRN (Reason: Muscle Spasm) Qty: 20 0RF naproxen [Naprosyn] 500 mg tablet 500 mg PO BID PRN (Reason: pain) Qty: 14 0RF Primary Care Provider: Sam Olvera Referrals: Sam Olvera MD [Primary Care Provider] - 1 Week if not improving Activity Restrictions/Additional Instructions: 1. Apply ice 6-10 times a day to your right ankle 2. Draw the alphabet with your foot 4-6 times a day. 3. Take either ibuprofen or Aleve for your pain Disposition Disposition: Home, Self Care
[2023-11-22 19:47] VITALS: BP 135/99; PULSE 80; RESP 16; TEMP 36.3; O2SAT 100
== END 2023-11-22 19:49 | disposition home or self-care (01) ==
PROVIDERS: Emergency Provider Emergency Medicine; PCP Family Medicine; Visit Provider Emergency Medicine
DX: S93.491A Sprain of other ligament of right ankle, initial encounter (principal); F17.200 Nicotine dependence, unspecified, uncomplicated; X50.9XXA Other and unspecified overexertion or strenuous movements or postures, initial encounter; Y99.0 Civilian activity done for income or pay
CPT/HCPCS: 73610; 99282

== ENCOUNTER 2024-02-13 09:54 | Emergency (ER) | payer MEDICAID, SELFPAY ==
[2024-02-13 09:55] VITALS: BP 113/60; PULSE 86; RESP 16; TEMP 36.3; O2SAT 99; BMI 22.1
--- NOTE | 2024-02-13 10:27 | EX.ED.DYSGE1 ---
HPI History of Present Illness Chief Complaint: Dizziness Informant: patient and spouse/S.O. Narrative Narrative: 33-year-old male presenting to the emergency room with muscle cramps and possible dehydration. Patient states that he spent the weekend camping at a music festival in [place] ([facility]). He states that he thought he was drinking enough water family states no. He states that last night he was shaking complaining of significant discomfort in the left posterior leg. He states he feels exhausted. He feels lightheaded when he ambulates and moves. He states he is not on any medications. He notes that he only drank about 2 beers all weekend. [facility] Medical History Alcohol abuse Depression Constipation Pancreatitis Smoker COVID-19 virus infection History of cervical fracture Fracture of middle phalanx of left index finger Family history of alcoholism Nicotine dependence Home Medications ?Medication ?Instructions ?Recorded ?Last Taken ?Type NK 02/13/24 Unknown History Allergy/AdvReac Type Severity Reaction Status Date / Time Penicillins Allergy Hives Verified 02/13/24 09:54 Social History household members: family and none current occupational status: employed current occupation: [employer] Smoking Status: Current some day smoker tobacco type: e-cigarettes alcohol intake: current alcohol intake frequency: a few times a week substance use type: does not use ROS ROS ED ROS Narrative Lightheadedness muscle cramps Constitutional Constitutional ED: Reports chills and sweats; Denies fever(s) or weight loss Eyes Eyes: Denies change in vision or diplopia ENT ENT ED: Denies ear pain, rhinorrhea or sore throat Cardiovascular Cardiovascular: Denies chest pain, orthopnea, palpitations or racing heartbeat Respiratory/Chest Respiratory/Chest: Denies cough, dyspnea or orthopnea Gastrointestinal Gastrointestinal: Denies abdominal pain, diarrhea, nausea or vomiting Genitourinary Genitourinary ED: Denies dysuria, hematuria or urinary frequency Musculoskeletal Musculoskeletal: Denies arthralgias or myalgias Integumentary Denies abscess or rash Neurologic Neurologic: Denies headache(s) or weakness Psychiatric Psychiatric: Denies anxiety, depression, suicidal ideation or suicidal thoughts Endocrine Endocrinology: Denies polydipsia, polyphagia or polyuria Allergic/Immunologic Allergic/Immunologic ED: Denies mouth swelling, tongue swelling or urticaria EXAM Physical Exam Narrative Exam Narrative: Patient appears fatigued Const Vital Signs: 02/13/24 09:55 02/13/24 11:54 02/13/24 13:00 Temperature 97.3 F L Temperature Source Temporal Pulse Rate 86 76 82 Respiratory Rate 16 16 18 Blood Pressure 113/60 136/82 H 138/86 H Blood Pressure Mean 77 100 103 Pulse Ox 99 98 99 Oxygen Delivery Method Room Air Room Air Room Air Positive well nourished and well developed General Appearance ED: well developed HEENT Reports normocephalic, head/scalp atraumatic and moist mucous membranes Eyes PERRL and EOMs intact bilaterally Neck no lymphadenopathy, supple and no JVD Resp normal respiratory effort and clear to auscultation bilaterally Cardio regular rate, regular rhythm and no murmurs GI normal to inspection, nondistended, normoactive bowel sounds and non-tender Palpation: soft Back/Spine no CVA tenderness and normal ROM Extremity normal to inspection General Extremety ED: Negative for edema General Extremity: Negative for edema Neuro oriented x3 and CN's II-XII intact bilaterally Sensorium / Orientation: alert Motor Exam: strength 5/5 throughout Psych mental status grossly normal Mood & Affect: Negative for depressed or tearful Skin no rashes or lesions noted and no wounds MDM MDM MDM Narrative Medical decision making narrative: Differential diagnosis includes but not limited to dehydration electrolyte abnormalities rhabdomyolysis anemia renal failure liver dysfunction Patient received 2 L of IV fluids. CBC BMP magnesium liver enzymes within normal limits. Urinalysis showed a specific gravity 1.025 no overt infection. Negative for occult blood making rhabdomyolysis unlikely. Patient overall feels better. She will be discharged home with supportive care return if worsening or concerns History & Record Review Discussion w/independent historian: Patient and Significant other Lab Data Attestation: I reviewed the patient's lab results. Labs: Laboratory Results - last 24 hr 02/13/24 02/13/24 10:35 11:40 WBC 7.5 RBC 4.51 L Hgb 13.2 Hct 38.4 L MCV 85.1 MCH 29.3 MCHC 34.4 RDW Std Deviation 36.2 RDW Coeff of [place] 11.9 Plt Count 207 MPV 8.6 Immature Gran % (Auto) 0.100 Neut % (Auto) 73.1 H Lymph % (Auto) 18.8 L [place] % (Auto) 6.3 Eos % (Auto) 1.3 Baso % (Auto) 0.4 Absolute Neuts (auto) 5.5 Absolute Lymphs (auto) 1.41 Nucleated RBC % 0 Sodium 143 Potassium 3.9 Chloride 106 Carbon Dioxide 33.0 H Anion Gap 4 L BUN 18 Creatinine 1.04 Estim Creat Clear Calc 90.66 Est GFR (MDRD) Af Amer 107 Est GFR (MDRD) Non-Af 88 BUN/Creatinine Ratio 17.3 Glucose 91 Calcium 8.7 Magnesium 2.3 Total Bilirubin 0.20 Direct Bilirubin 0.11 AST 11 L ALT 18 Alkaline Phosphatase 70 Total Protein 6.6 Albumin 3.5 Globulin 3.1 Urine Color Yellow Urine Clarity Clear Urine pH 6.0 Ur Specific [place] 1.025 Urine Protein 30 H Urine Glucose (UA) Normal Urine Ketones 5 H Urine Occult Blood Negative Urine Nitrite Negative Urine Bilirubin Negative Urine Urobilinogen 1 H Ur Leukocyte Esterase 25 H Urine RBC 0 SEEN Urine WBC 0-5 SEEN Ur Squamous Epith Cells 0 SEEN Calcium Oxalate Crystal 1+ Urine Bacteria 1+ Urine Mucus 1+ Discharge Plan Triage Chief Complaint: Dizziness ED Provider: Jose Trinidad Dx/Rx/DC Orders Clinical Impression: Acute dehydration, Muscle cramps Instructions: ED Dehydration (Adult), ED Heat Cramps Prescriptions: No Action NK Primary Care Provider: Sam Olvera Referrals: Sam Olvera MD [Primary Care Provider] - As Needed Print Language: Indonesian Disposition Disposition: Home, Self Care
[2024-02-13] MEDS: 0.9% Normal Saline (1000mL) 1,000 ML 1000 ML IV ×2 (10:40→11:23)
[2024-02-13 10:44] LABS: Absolute Lymphocyte Count 1.41 X10^3/uL (0.83-4.51); Absolute Neutrophil Count 5.5 X10^3/uL (2.0-7.7); Basophil# 0.03 X10^3/uL; Basophil% 0.4 % (0-1); Eosinophils% 1.3 % (0-5); Hematocrit 38.4 % (40-54); Hemoglobin 13.2 g/dL (13.0-16.5); Lymphocyte # 1.41 X10^3/ul (0.83-4.51); Lymphocyte % 18.8 % (19-41); Mean Corp Hgb Conc 34.4 g/dL (32-36); Mean Corpuscular Hgb 29.3 pg (27.0-32.0); Mean Corpuscular Volume 85.1 fL (80-94); Mean Platelet Vol. 8.6 fl (6.2-12.0); Monocyte# 0.47 X10^3/uL; Monocyte% 6.3 % (0-10); NRBC Flagged by Analyzer 0 % (0-5); Neutrophil # 5.47 X10^3/uL (2.7-7.7); Neutrophil % 73.1 % (47-70); Platelet Count 207 K/mm3 (150-450); RBC Distribution Width CV 11.9 % (11.6-14.6); RBC Distribution Width SD 36.2 fl (35.1-43.9); Red Blood Count 4.51 M/mm3 (4.6-6.2); White Blood Count 7.5 K/mm3 (4.4-11.0)
[2024-02-13 11:17] LABS: AST(SGOT) 11 U/L (15-37); Alanine Aminotransfer ALT/SGPT 18 U/L (16-61); Albumin, Serum 3.5 g/dL (3.2-5.0); Alkaline Phosphatase 70 U/L (45-117); Anion Gap 4 (5-15); BUN 18 mg/dL (7-18); BUN/Creat Ratio 17.3 RATIO (10-20); Bilirubin, Direct 0.11 mg/dL (0.00-0.30); Calcium,Total 8.7 mg/dL (8.5-10.1); Chloride 106 mmol/L (98-107); Creatinine, Serum 1.04 mg/dL (0.70-1.30); EST Glomerular Filtration Rate 88 mL/min (>60); Est Glom Filt Rate - Afr Amer 107 mL/min (>60); Estimated Creatinine Clearance 90.66 ml/min; Globulin 3.1 g/dL (2.2-4.2); Glucose 91 mg/dL (74-106); Magnesium 2.3 mg/dL (1.6-2.6); Potassium 3.9 mmol/L (3.5-5.1); Protein, Total 6.6 g/dL (6.4-8.2); Sodium Level 143 mmol/L (136-145)
[2024-02-13 11:46] LABS: Red Blood Cells-Urine 0 SEEN /hpf (0-5); Squamous Epithelial Cells - UA 0 SEEN /hpf (0-5)
[2024-02-13 11:51] LABS: Color, Urine Yellow (Yellow); Glucose, Dipstick Normal (Normal); Ketone-Dipstick 5 mg/dl (Negative); Leukocyte Esterase-Dipstick 25 /ul (Negative); Nitrite-Dipstick Negative (Negative); Occult Blood-Urine Negative /ul (Negative); Protein-Dipstick 30 mg/dl (Negative); Specific Gravity, Urine 1.025 (1.002-1.030); Urine Bilirubin Dipstick Negative (Negative); Urine Clarity Clear (Clear); Urine Urobilinogen 1 mg/dl (Normal)
[2024-02-13 11:54] VITALS: BP 136/82; PULSE 76; RESP 16; O2SAT 98
[2024-02-13 11:58] LABS: Bacteria 1+ /hpf (None Seen); Calcium Oxalate Crystals Ur 1+ /hpf (<or=2+); Mucous, Urine 1+ /hpf (<or=2+); White Blood Cells 0-5 SEEN /hpf (0-5)
[2024-02-13 13:00] VITALS: BP 138/86; PULSE 82; RESP 18; O2SAT 99
[2024-02-13 13:09] VITALS: BP 127/92; PULSE 85; RESP 16; TEMP 36.9; O2SAT 99
== END 2024-02-13 13:10 | disposition home or self-care (01) ==
PROVIDERS: Emergency Provider Emergency Medicine; PCP Family Medicine; Visit Provider Emergency Medicine
DX: E86.0 Dehydration (principal); R42 Dizziness and giddiness; F17.290 Nicotine dependence, other tobacco product, uncomplicated; R25.2 Cramp and spasm
CPT/HCPCS: 80048; 80076; 81001; 83735; 85025; 96360; 96361; 99283; J7030; A4216

== ENCOUNTER 2024-06-12 20:08 | Emergency (ER) | payer SELFPAY ==
[2024-06-12 20:09] VITALS: BP 148/83; PULSE 94; RESP 16; TEMP 37.7; O2SAT 99; BMI 22.8
[2024-06-12 20:59] LABS: Absolute Neutrophil Count 5.6 X10^3/uL (2.0-7.7); Basophil# 0.04 X10^3/uL; Basophil% 0.5 % (0-1); Eosinophil# 0.14 X10^3/uL; Eosinophils% 1.7 % (0-5); Hematocrit 39.2 % (40-54); Hemoglobin 13.8 g/dL (13.0-16.5); Lymphocyte % 18.5 % (19-41); Mean Corp Hgb Conc 35.2 g/dL (32-36); Mean Corpuscular Hgb 29.1 pg (27.0-32.0); Mean Corpuscular Volume 82.7 fL (80-94); Mean Platelet Vol. 8.6 fl (6.2-12.0); Monocyte# 0.83 X10^3/uL; Monocyte% 10.2 % (0-10); NRBC Flagged by Analyzer 0 % (0-5); Neutrophil # 5.58 X10^3/uL (2.7-7.7); Neutrophil % 68.9 % (47-70); Platelet Count 200 K/mm3 (150-450); RBC Distribution Width CV 11.6 % (11.6-14.6); RBC Distribution Width SD 35.4 fl (35.1-43.9); Red Blood Count 4.74 M/mm3 (4.6-6.2); White Blood Count 8.1 K/mm3 (4.4-11.0)
[2024-06-12 21:22] LABS: AST(SGOT) 14 U/L (15-37); Alanine Aminotransfer ALT/SGPT 13 U/L (16-61); Albumin, Serum 3.6 g/dL (3.2-5.0); Alkaline Phosphatase 64 U/L (45-117); Anion Gap 3 (5-15); BUN 15 mg/dL (7-18); BUN/Creat Ratio 15.9 RATIO (10-20); Calcium,Total 8.7 mg/dL (8.5-10.1); Chloride 107 mmol/L (98-107); Creatinine, Serum 0.94 mg/dL (0.70-1.30); EST Glomerular Filtration Rate 99 mL/min (>60); Est Glom Filt Rate - Afr Amer 119 mL/min (>60); Estimated Creatinine Clearance 101.81 ml/min; Globulin 3.5 g/dL (2.2-4.2); Glucose 117 mg/dL (74-106); Protein, Total 7.1 g/dL (6.4-8.2); Sodium Level 138 mmol/L (136-145)
[2024-06-12 21:30] VITALS: BP 133/77; PULSE 82; RESP 16; TEMP 36.8; O2SAT 98
[2024-06-12 22:00] VITALS: BP 142/80; PULSE 70; RESP 16; TEMP 36.9; O2SAT 99
[2024-06-12] MEDS: 0.9% Normal Saline (1000mL) 1,000 ML 999 ML IV (22:41)
[2024-06-12 22:44] LABS: Bacteria 0 SEEN /hpf (None Seen); Mucous, Urine 0 SEEN /hpf (<or=2+); Red Blood Cells-Urine 0 SEEN /hpf (0-5); Squamous Epithelial Cells - UA 0 SEEN /hpf (0-5)
[2024-06-12] MEDS: Ondansetron 4 MG/2 ML Vial IV (22:57)
[2024-06-12] MEDS: dexAMETHasone 10 MG/ML Vial IV (22:57)
[2024-06-12] MEDS: Ketorolac 30 MG/ML Syringe IV (22:57)
[2024-06-12 23:00] VITALS: BP 124/82; PULSE 89; RESP 16; TEMP 36.9; O2SAT 99
[2024-06-12 23:01] LABS: Color, Urine Yellow (Yellow); Glucose, Dipstick Normal (Normal); Ketone-Dipstick 5 mg/dl (Negative); Leukocyte Esterase-Dipstick Negative /ul (Negative); Nitrite-Dipstick Negative (Negative); Occult Blood-Urine Negative /ul (Negative); Protein-Dipstick 30 mg/dl (Negative); Specific Gravity, Urine 1.015 (1.002-1.030); Urine Bilirubin Dipstick Negative (Negative); Urine Clarity Clear (Clear); Urine Urobilinogen 4 mg/dl (Normal)
[2024-06-12 23:10] LABS: White Blood Cells 0-5 SEEN /hpf (0-5)
--- NOTE | 2024-06-12 23:34 | EDS_ITS ---
HPI History of Present Illness Chief Complaint: GI Bleed Informant: patient and spouse/S.O. Narrative Narrative: Patient is a 34-year-old male who states that over the last 3 days he has had fatigue with lightheadedness and nausea. He reports today he developed bouts of vomiting as well as left-sided abdominal discomfort and had a bowel movement that was normal except for there was mixed in bright red blood. He states that he does not have a history of bleeding disorder nor does he take blood thinners. He denies any known sick contacts. He states there has been no recent travel outside the country livestock exposure or antibiotic use. He states that he feels ago symptoms have worsened and secondary to that comes in for evaluation [facility] Medical History Alcohol abuse Depression Constipation Pancreatitis Smoker COVID-19 virus infection History of cervical fracture Fracture of middle phalanx of left index finger Family history of alcoholism Nicotine dependence Home Medications ?Medication ?Instructions ?Recorded ?Last Taken ?Type dicyclomine 20 mg tablet 20 mg PO 4X/DAY PRN Abdominal 06/12/24 Unknown Rx pain/spasm #28 tabs ondansetron 4 mg disintegrating 4 mg PO TID PRN nausea and 06/12/24 Unknown Rx tablet vomiting #21 tabs Allergy/AdvReac Type Severity Reaction Status Date / Time Penicillins Allergy Hives Verified 06/12/24 20:11 Social History household members: family and none current occupational status: employed current occupation: [employer] Smoking Status: Current every day smoker tobacco type: e-cigarettes alcohol intake: current alcohol intake frequency: a few times a week substance use type: does not use ROS ROS ED Constitutional Constitutional ED: Denies chills or fever(s) ENT ENT ED: Denies sore throat Cardiovascular Cardiovascular: Denies chest pain Respiratory/Chest Respiratory/Chest: Denies cough or dyspnea Gastrointestinal Gastrointestinal: Reports abdominal pain, nausea, vomiting and other Details: Positive hematochezia ; Denies diarrhea Genitourinary Genitourinary ED: Denies dysuria or hematuria Musculoskeletal Musculoskeletal: Denies myalgias Integumentary Denies rash Neurologic Neurologic: Denies headache(s) Hematologic/Lymphatic Hematologic/Lymphatic: Denies easy bleeding or easy bruising EXAM Physical Exam Const Vital Signs: 06/12/24 20:09 06/12/24 21:30 06/12/24 22:00 Temperature 100 F H 98.3 F 98.5 F Temperature Source Oral Oral Oral Pulse Rate 94 82 70 Respiratory Rate 16 16 16 Blood Pressure 148/83 H 133/77 H 142/80 H Blood Pressure Mean 104 95 100 Pulse Ox 99 98 99 Oxygen Delivery Method Room Air Room Air Room Air 06/12/24 23:00 06/12/24 23:40 Temperature 98.4 F 98.4 F Temperature Source Oral Pulse Rate 89 67 Respiratory Rate 16 16 Blood Pressure 124/82 H 124/82 H Blood Pressure Mean 96 96 Pulse Ox 99 99 Oxygen Delivery Method Room Air Positive well nourished and well developed General Appearance ED: well developed; Negative for pallor HEENT Reports dry mucous membranes HEENT Narrative: Mucous membranes are dry and tacky No tongue or lip swelling no oral lesions no airway edema or compromise Mouth ED: Yes dry mucous membranes Mouth: dry mucous membranes Eyes PERRL and EOMs intact bilaterally General Eye ED: Negative for scleral icterus Neck supple Resp normal respiratory effort and clear to auscultation bilaterally Cardio regular rate and regular rhythm Rate: other Other Details: Regular rate and rhythm without murmurs rubs or gallops Radial and carotid pulses are equal and symmetric GI non-distended and no masses GI Narrative: Abdomen is soft and nondistended with hyperactive bowel sounds. There is pain on palpation along the left upper to mid abdomen without voluntary guarding or rigidity or pulsatile mass. Auscultation: hyperactive bowel sounds Palpation: soft Narrative: Patient deferred Back/Spine no CVA tenderness Extremity normal to inspection Neuro oriented x3, CN's II-XII intact bilaterally and no sensory deficits noted Sensorium / Orientation: alert Motor Exam: strength 5/5 throughout Psych mental status grossly normal Skin no rashes or lesions noted Skin Narrative: Skin turgor is slightly increased General Skin Exam: Negative for jaundice or pallor MDM MDM MDM Narrative Medical decision making narrative: Patient presented to the ER with a soft nonsurgical abdomen. He reported increasing left-sided abdominal discomfort with bright red blood mixed in with a normal bowel movement. We discussed that this could be related to an internal versus external hemorrhoid versus anal fissure and he states that his sign ificant other already looked and he does not want me to check at this time. As there is also concern this could be a systemic infection such as colitis/diverticulitis or with the bleed he could have acute blood loss anemia I did like to perform basic laboratory studies. White count was normal at 8.1 without left shift going against a stomach infection and H&H is stable. Also his BUN is normal going against internal bleeding. His physical exam did show mild dehydration and he had ketones in his urine consistent with this. After receiving IV hydration and Zofran ER he had no bouts of vomiting and reported feeling better. On reevaluation his abdomen remains soft and nonsurgical. He does have a history of alcohol abuse but his pain is of the left abdomen not midepigastric going against pancreatitis. Also with a history of myalgias and lightheadedness I feel this is most likely viral in nature. As the stomach is soft and nonsurgical and vital stable and he has not had any further bouts of vomiting in the ER I do not feel there is need for further workup and he can be discharged home with symptomatic care History & Record Review Discussion w/independent historian: Patient Lab Data Attestation: I reviewed the patient's lab results. Labs: Laboratory Results - last 24 hr 06/12/24 06/12/24 20:51 22:28 WBC 8.1 RBC 4.74 Hgb 13.8 Hct 39.2 L MCV 82.7 MCH 29.1 MCHC 35.2 RDW Std Deviation 35.4 RDW Coeff of [place] 11.6 Plt Count 200 MPV 8.6 Immature Gran % (Auto) 0.200 Neut % (Auto) 68.9 Lymph % (Auto) 18.5 L [place] % (Auto) 10.2 H Eos % (Auto) 1.7 Baso % (Auto) 0.5 Absolute Neuts (auto) 5.6 Absolute Lymphs (auto) 1.50 Nucleated RBC % 0 Sodium 138 Potassium 4.0 Chloride 107 Carbon Dioxide 29.0 Anion Gap 3 L BUN 15 Creatinine 0.94 Estim Creat Clear Calc 101.81 Est GFR (MDRD) Af Amer 119 Est GFR (MDRD) Non-Af 99 BUN/Creatinine Ratio 15.9 Glucose 117 H Calcium 8.7 Total Bilirubin 0.30 AST 14 L ALT 13 L Alkaline Phosphatase 64 Total Protein 7.1 Albumin 3.6 Globulin 3.5 Albumin/Globulin Ratio 1.0 Urine Color Yellow Urine Clarity Clear Urine pH 6.0 Ur Specific [place] 1.015 Urine Protein 30 H Urine Glucose (UA) Normal Urine Ketones 5 H Urine Occult Blood Negative Urine Nitrite Negative Urine Bilirubin Negative Urine Urobilinogen 4 H Ur Leukocyte Esterase Negative Urine RBC 0 SEEN Urine WBC 0-5 SEEN Ur Squamous Epith Cells 0 SEEN Urine Bacteria 0 SEEN Urine Mucus 0 SEEN Discharge Plan Triage Chief Complaint: GI Bleed Other Complaint: Constipation ED Provider: Vincent Nazario Dx/Rx/DC Orders Clinical Impression: Nausea & vomiting, Nonspecific abdominal pain, Mild dehydration Instructions: Abdominal Pain, ED Gastroenteritis, Viral (Adult) Prescriptions: New dicyclomine 20 mg tablet 20 mg PO 4X/DAY PRN (Reason: Abdominal pain/spasm) Qty: 28 0RF ondansetron 4 mg tablet,disintegrating 4 mg PO TID PRN (Reason: nausea and vomiting) Qty: 21 0RF Stand Alone Forms: ED Work / School Excuse Primary Care Provider: Sam Olvera Referrals: Sam Olvera MD [Primary Care Provider] - Activity Restrictions/Additional Instructions: Your symptoms are most consistent with a viral stomach infection that will last anywhere from 1 to 7 days with the average being 3 days. Take the prescribed medication as directed to help control your symptoms and return to the ER should you have any further concerns Print Language: Maltese Disposition Disposition: Home, Self Care Discharge Date/Time: 06/12/24 23:46
[2024-06-12 23:40] VITALS: BP 124/82; PULSE 67; RESP 16; TEMP 36.9; O2SAT 99
== END 2024-06-12 23:46 | disposition home or self-care (01) ==
PROVIDERS: Emergency Provider Emergency Medicine; PCP Family Medicine; Visit Provider Emergency Medicine
DX: R11.2 Nausea with vomiting, unspecified (principal); E86.0 Dehydration; R10.9 Unspecified abdominal pain; Z86.16 Personal history of COVID-19; F17.210 Nicotine dependence, cigarettes, uncomplicated
CPT/HCPCS: 80053; 81001; 85025; 96361; 96374; 96375; 99283; J7030; A4216; J2405

== ENCOUNTER 2025-05-02 17:30 | Emergency (ER) | payer SELFPAY ==
[2025-05-02 17:31] VITALS: BP 146/74; PULSE 80; RESP 18; TEMP 37; O2SAT 98; BMI 25.2
--- NOTE | 2025-05-02 17:39 | CT_ITS ---
PROCEDURE: ABDOMEN/PELVIS W IV CONT ONLY 05/02/2025 REASON FOR EXAM: PAIN, NAUSEA AND VOMITING TECHNIQUE: Procedure Code: [id number] Modality: CT Procedure: ABDOMEN/PELVIS W IV CONT ONLY Coronal and Sagittal reconstruction series were provided. One or more dose reduction techniques were used (e.g., Automated exposure control, adjustment of the mA and/or kV according to patient size, use of iterative reconstruction technique. FINDINGS: Lung bases are clear. Liver, gallbladder, spleen, pancreas, and adrenal glands are unremarkable. Kidneys demonstrate no hydronephrosis, calculi, or focal lesions. Abdominal aorta is normal in caliber. No free air or free fluid. Bowel loops are nondilated with no wall thickening or inflammatory change. Appendix is normal. No lymphadenopathy. Urinary bladder is unremarkable. Pelvic organs are within normal limits. Moderate dense colonic stool is present, suspicious for constipation. Osseous structures demonstrate mild degenerative changes without acute abnormality. CT/Abdomen/Pelvis W IV Cont ONLY IMPRESSION: No acute intra-abdominal or pelvic abnormality. Dense colonic stool suspicious for constipation. Reading Location: [id number]
--- NOTE | 2025-05-02 17:40 | ED.VIS.GI ---
HPI HPI - GI History of Present Illness Chief Complaint: Abd Pain Narrative Narrative: 35-year-old male who denies significant past medical history presents with abdominal pain that he has had over the last 2 days. States his symptoms began on Tuesday, after going to [employer]. He had boneless wings. He started to feel nauseated and have diffuse abdominal pain. He stopped eating. Since then he has had few episodes of nausea and vomiting without hematemesis. He denies any diarrhea or problems with bowel movements. He complains of diffuse abdominal pain. No prior abdominal surgeries. He felt feverish but denies chills. No exacerbating or alleviating factors. He states he also feels lightheaded and he was sitting playing video games and was near syncopal. [facility] Medical History Alcohol abuse Depression Constipation Pancreatitis Smoker COVID-19 virus infection History of cervical fracture Fracture of middle phalanx of left index finger Family history of alcoholism Nicotine dependence Home Medications ?Medication ?Instructions ?Recorded ?Last Taken ?Type NK 05/02/25 Unknown History Allergy/AdvReac Type Severity Reaction Status Date / Time Penicillins Allergy Hives Verified 05/02/25 17:32 Social History household members: family and none current occupational status: employed current occupation: [employer] Smoking Status: Current every day smoker tobacco type: e-cigarettes alcohol intake: current alcohol intake frequency: a few times a week substance use type: does not use ROS ROS ED ROS Narrative Review of systems positive for diffuse abdominal pain in epigastrium and left lower quadrant mainly. Positive nausea and vomiting. Positive lightheadedness. Subjective fever. No exacerbating or alleviating factors. EXAM Physical Exam Narrative Exam Narrative: Afebrile. Vital signs noted. Nontoxic-appearing. Cardiovascular semination feels regular rate and rhythm. Lungs are clear to auscultation bilaterally. Abdomen is soft with diffuse tenderness to palpation in both epigastrium and left lower quadrant. Negative Greene sign. No rebound or guarding. Neurological examination nonfocal, nonlateralizing. Const Vital Signs: 05/02/25 17:31 05/02/25 19:31 Temperature 98.6 F 97.6 F L Temperature Source Oral Oral Pulse Rate 80 69 Respiratory Rate 18 17 Blood Pressure 146/74 H 121/56 H Blood Pressure Mean 98 77 Pulse Ox 98 100 Oxygen Delivery Method Room Air Room Air MDM MDM MDM Narrative Medical decision making narrative: Differential diagnosis includes but not limited to gastritis versus gastroenteritis versus pancreatitis versus diverticulitis versus nonspecific abdominal pain. I have low suspicion for any bowel obstruction because a history and physical does not support this. Patient administered normal saline as well as morphine and ondansetron for analgesia. CBC, CMP, and lipase obtained as well as CT imaging and UA. I reviewed his laboratory work and he has a normal white count of 10.3 with hemoglobin normal at 13.8, platelet count normal at 229. CMP is grossly unremarkable with normal sodium and potassium, glucose 85, BUN of 11 and creatinine 0.88. Lipase is normal at 33 so I doubt pancreatitis. LFTs are grossly normal. Urinalysis negative for ketones, nitrites, and leukocytes. Microanalysis is pending, but I feel this is most likely negative and he is not having dysuria and that antibiotics are not indicated. I reviewed his microanalysis and is negative for infection with 0-5 WBCs. I do not feel antibiotics are indicated. CT of the abdomen and pelvis radiology report reviewed there is no acute intra-abdominal pathology/abnormality. He does have dense stool consistent with constipation. His is at the bedside. I do not feel that further narcotic pain medication is indicated. Instead he was given Toradol. I do not think he should be given Bentyl as this would slow his gastric motility. He was told to start an [id number] stool softener and gentle laxative. His states that he only has a bowel movement every few days. He was told to increase the fiber in his diet as well. At this point in time, I do feel he can be discharged to follow-up. He will follow-up with his primary care provider, Dr. De Jesus. Return instructions to the emergency department were reviewed. Disposition is discharged home in stable condition. History & Record Review Discussion w/independent historian: Patient Additional record(s) reviewed:: Prior ED visit (Last ED visit in 2023) Lab Data Attestation: I reviewed the patient's lab results. Labs: Laboratory Results - last 24 hr 05/02/25 05/02/25 18:14 19:19 WBC 10.3 RBC 4.78 Hgb 13.8 Hct 39.1 L MCV 81.8 MCH 28.9 MCHC 35.3 RDW Std Deviation 34.8 L RDW Coeff of [place] 11.7 Plt Count 229 MPV 8.7 Immature Gran % (Auto) 0.300 Neut % (Auto) 75.1 H Lymph % (Auto) 18.4 L [place] % (Auto) 4.5 Eos % (Auto) 1.1 Baso % (Auto) 0.6 Absolute Neuts (auto) 7.8 H Absolute Lymphs (auto) 1.90 Nucleated RBC % 0 Sodium 143 Potassium 3.7 Chloride 105 Carbon Dioxide 27.8 Anion Gap 10 BUN 11 Creatinine 0.88 Estim Creat Clear Calc 107.74 Est GFR (MDRD) Non-Af 117 BUN/Creatinine Ratio 12.3 Glucose 85 Calcium 8.8 Total Bilirubin 0.26 AST 22 ALT 12 Alkaline Phosphatase 71 Total Protein 7.1 Albumin 4.4 Globulin 2.7 Albumin/Globulin Ratio 1.7 Lipase 33 Urine Color Yellow Urine Clarity Clear Urine pH 7.0 Ur Specific [place] 1.010 Urine Protein Negative Urine Glucose (UA) Normal Urine Ketones Negative Urine Occult Blood Negative Urine Nitrite Negative Urine Bilirubin Negative Urine Urobilinogen Normal Ur Leukocyte Esterase Negative Urine RBC 0-5 SEEN Urine WBC 0-5 SEEN Ur Squamous Epith Cells 0-5 SEEN Urine Bacteria 0 SEEN Urine Mucus 0 SEEN Radiography Diagnostic Testing: Clinical Impression(s) from Imaging Studies Abdomen/Pelvis CT 05/02/25 17:39 IMPRESSION: No acute intra-abdominal or pelvic abnormality. Dense colonic stool suspicious for constipation. Reading Location: [address] Discharge Plan Triage Chief Complaint: Abd Pain ED Provider: Lewis Hendrickson Dx/Rx/DC Orders Clinical Impression: Abdominal pain, Near syncope, Constipation Instructions: ED Constipation (Adult), ED Near-Fainting, Uncertain Cause, ED Abdominal Pain Unkn Cause Male... Prescriptions: No Action NK Primary Care Provider: Sam Olvera Referrals: Sam Olvera MD [Primary Care Provider, Family Practice] Activity Restrictions/Additional Instructions: Follow-up with your primary care provider. You may want to start an [id number] gentle laxative like MiraLAX daily. Start a stool softener. Follow-up with your primary care provider. Return with increased pain, fever, new or worsening symptoms. Print Language: Eritrean Disposition Disposition: Home, Self Care
[2025-05-02] MEDS: 0.9% Normal Saline (1000mL) 1,000 ML 999 ML IV (18:21)
[2025-05-02 18:38] LABS: Hematocrit 39.1 % (40-54); Hemoglobin 13.8 g/dL (13.0-16.5); Immature Granulocytes Count 0.030 X10^3/uL (0.0-0.0); Mean Corp Hgb Conc 35.3 g/dL (32-36); Mean Corpuscular Volume 81.8 fL (80-94); Mean Platelet Vol. 8.7 fl (6.2-12.0); NRBC Flagged by Analyzer 0 % (0-5); Platelet Count 229 K/mm3 (150-450); RBC Distribution Width CV 11.7 % (11.6-14.6); RBC Distribution Width SD 34.8 fl (35.1-43.9); Red Blood Count 4.78 M/mm3 (4.6-6.2); White Blood Count 10.3 K/mm3 (4.4-11.0)
[2025-05-02 18:47] LABS: Lipase 33 U/L (13-75)
[2025-05-02 18:58] LABS: AST(SGOT) 22 U/L (<=37); Alanine Aminotransfer ALT/SGPT 12 U/L (<=46); Albumin, Serum 4.4 g/dL (3.5-5.0); Alkaline Phosphatase 71 U/L (40-129); Anion Gap 10 (5-15); BUN 11 mg/dL (4-19); BUN/Creat Ratio 12.3 RATIO (10-20); Calcium,Total 8.8 mg/dL (7.6-11.0); Carbon Dioxide 27.8 mmol/L (21.0-32.0); Chloride 105 mmol/L (98-108); Estimated Creatinine Clearance 107.74 ml/min (50-250); Globulin 2.7 g/dL (2.2-4.2); Glucose 85 mg/dL (70-99); Potassium 3.7 mmol/L (3.3-5.1)
[2025-05-02 19:31] VITALS: BP 121/56; PULSE 69; RESP 17; TEMP 36.4; O2SAT 100
[2025-05-02 19:34] LABS: Mucous, Urine 0 SEEN /hpf (<or=2+)
[2025-05-02 19:54] LABS: Color, Urine Yellow (Yellow); Glucose, Dipstick Normal (Normal); Ketone-Dipstick Negative (Negative); Leukocyte Esterase-Dipstick Negative /ul (Negative); Nitrite-Dipstick Negative (Negative); Occult Blood-Urine Negative /ul (Negative); Protein-Dipstick Negative (Negative); Specific Gravity, Urine 1.010 (1.002-1.030); Urine Bilirubin Dipstick Negative (Negative)
[2025-05-02] MEDS: Ketorolac 30 MG/ML Syringe IV (20:30)
[2025-05-02 21:00] VITALS: BP 114/48; PULSE 74; RESP 16; TEMP 36.5; O2SAT 99
[2025-05-02 21:25] LABS: Red Blood Cells-Urine 0-5 SEEN /hpf (0-5); Squamous Epithelial Cells - UA 0-5 SEEN /hpf (0-5)
== END 2025-05-02 21:51 | disposition home or self-care (01) ==
PROVIDERS: Emergency Provider Emergency Medicine; PCP Family Medicine; Visit Provider Emergency Medicine
DX: R10.9 Unspecified abdominal pain (principal); K59.00 Constipation, unspecified; R11.2 Nausea with vomiting, unspecified; F17.290 Nicotine dependence, other tobacco product, uncomplicated; R42 Dizziness and giddiness
CPT/HCPCS: 74177; 80053; 81001; 83690; 85025; 96361; 96374; 96375; 99283; Q9967; A4216; J2405

== ENCOUNTER 2025-07-08 17:59 | Emergency (ER) | payer OTHER, SELFPAY ==
[2025-07-08 18:00] VITALS: BP 147/85; PULSE 82; RESP 16; TEMP 36.6; O2SAT 98; BMI 24.6
--- NOTE | 2025-07-08 20:20 | EDS_ITS ---
HPI History of Present Illness Chief Complaint: Head Injury [facility] Medical History Alcohol abuse Depression Constipation Pancreatitis Smoker COVID-19 virus infection History of cervical fracture Fracture of middle phalanx of left index finger Family history of alcoholism Nicotine dependence Home Medications ?Medication ?Instructions ?Recorded ?Last Taken ?Type NK 05/02/25 Unknown History Allergy/AdvReac Type Severity Reaction Status Date / Time Penicillins Allergy Hives Verified 07/08/25 18:03 Social History household members: family and none current occupational status: employed current occupation: [employer] Smoking Status: Current every day smoker tobacco type: e-cigarettes alcohol intake: current alcohol intake frequency: a few times a week substance use type: does not use EXAM Physical Exam Const Vital Signs: 07/08/25 18:00 Temperature 97.8 F Temperature Source Oral Pulse Rate 82 Respiratory Rate 16 Blood Pressure 147/85 H Blood Pressure Mean 105 Pulse Ox 98 MDM MDM MDM Narrative Medical decision making narrative: HISTORY OF PRESENT ILLNESS: Chief complaint: Head trauma 35-year-old male presents after a milk crate fell on his forehead. Notes laceration of the right eye. Patient notes the [place] was empty. He notes a small wound over his right eyebrow. He denies loss of consciousness neck pain vomiting or focal numbness weakness or loss of sensation. REVIEW OF SYSTEMS: Pertinent positives: Head trauma, head laceration Pertinent negatives: LOC, vomiting, focal weakness numbness or loss sensation PHYSICAL EXAM: Nursing triage notes reviewed, Vital signs reviewed Constitutional: please see mdm HENT: MMM, there is a small approximately 2 cm V shaped laceration noted just above the right eyebrow, no cephalhematoma, there is no gaping with 2 finger apposition Eyes: Pupils equal round and reactive to light, Extraocular muscles intact, no ocular involvement noted Neck: No stridor, no JVD, full neck ROM, no midline step-offs or deformities to the CTL spine Lungs: Clear to auscultation, No wheezing or rales. No increased work of breathing, no conversational dyspnea, no accessory muscle use, no nasal flaring. No respiratory distress noted Heart: Regular rate and rhythm, No murmurs, No rubs and No gallops, 2+ distal pulses (radial, femoral, posterior tibial) in all extremities Abdomen: Soft, there is no tenderness, rigidity, rebound or guarding, no obvious peritoneal signs, no palpable pulsatile abdominal masses, no auscultated abdominal bruit Extremities: No edema, no gross deformities, moves all upper and lower extremity joints are full range of motion without any pain. Neuro: Alert and oriented x3, neuro exam at baseline, cranial nerves II through XII are intact. No pain with extraocular muscle movement. There is negative test of skew. 5 of 5 strength in upper and lower extremities in flexion extension. Intact sensation to light touch in upper and lower extremity dermatomes. No truncal or extremity ataxia. No dysdiadochokinesia. Normal gait. 2+ reflexes in upper and lower extremities. No meningeal signs. Negative Babinski. NIH of 0. Skin: Abrasion noted as above MEDICAL DECISION MAKING: Chief Complaint: please see HPI External records reviewed: Reviewed prior imaging studies. No recent Chang imaging of the head or neck. Factors affecting care: Constipation Social determinants of health: Depression, alcohol abuse, tobacco abuse History obtained from others: none Consults: none MDM Narrative: The patient was initially hemodynamically stable, afebrile and nontoxic- appearing. Exam with superficial abrasion noted to the right eyebrow. Otherwise no cephalhematoma or signs of other trauma. I considered the following differential diagnosis: ICH, cervical spine fracture, concussion/closed head injury Patient is greater than 16, is not on blood thinners, no seizure after injury, GCS was stable 2 hours postinjury, no depressed skull fracture, no evidence of basilar skull fracture, no vomiting. Age less than 65, no retrograde amnesia and mechanism is not dangerous. CT scan of the head is not indicated at this time. There is no focal neurologic deficit present, no midline spinal tenderness, no altered level conscious, no intoxication, no distracting injury. Next criteria suggest no need for advanced imaging of the cervical spine. Wound was cleansed. It was explored. There is a superficial abrasion. There is no laceration to repair. Wound care was provided. Workmen's Compensation paperwork filled out. Work note provided. The patient and/or family, caregivers express understanding. The patient and/or family, caregivers agrees with the plan. Shared decision making: I will have a discussion with the patient and or visitors regarding risk/benefits of further testing or admission. They will be made aware of of the risk/benefits inherent in this decision they will be given the opportunity to voice understanding. Total critical care time today provided was at least 0 minutes. This excludes separately billable procedures. Critical care time (if documented) is secondary to the patient having high probability of clinically significant/life threatening deterioration in the patient's condition which required my urgent intervention. Impression: 1. Closed head injury 2. Facial abrasion Dispo: Discharge home This note was generated with [employer] dictation software. It may contain incorrect words, spelling, and punctuation that were not noted in review of the chart prior to signing. Discharge Plan Triage Chief Complaint: Head Injury ED Provider: Félix Stephens/Rx/DC Orders Instructions: ED Concussion Prescriptions: No Action NK Stand Alone Forms: ED Work / School Excuse Primary Care Provider: Care Physician,No Primary Referrals: Sam Olvera MD [Non-Staff, Family Practice] Activity Restrictions/Additional Instructions: Thank you for trusting us with your care today! Please take Tylenol (2 pills, 650 mg), ibuprofen (2 pills, 400 mg) every 6 hours as needed for pain and fever control. Please return to the emergency department if your symptoms change or worsen. Please follow with your primary care physician for further outpatient evaluation and management. Print Language: Luxembourgish Disposition Disposition: Home, Self Care
--- OUTSIDE RECORDS SUMMARY | 2025-07-08 20:51 | XMS RPT_ITS | CCD ---
Author Organization [facility] Care Team Providers Care Coffee Brewer Name Role Phone Care Physician, No Primary Primary Care Provider Unavailable Dr. Eldon Paulino Emergency Provider Dr. Erma Horta Admit Provider Dr. Erma Horta Attending Provider [phone] Erma Horta Other Provider Germain TELEPHONE SOLICITOR.Richardson BUCKe M Primary Care Provider Germain TELEPHONE SOLICITOR.Richardson BUCKe M Primary Care Provider Germain TELEPHONE SOLICITOR.Richardson BUCKe M Primary Care Provider ROCKY SCHRADER Referring Unavailable GERMAIN, NILSA M Primary Care Unavailable GERMAIN, NILSA M Primary Care Unavailable SAM FULLER Attending Unavailable GERMAIN, NILSA M Primary Care Unavailable GERMAIN, NILSA M Primary Care Unavailable ROCKY SCHRADER Referring Unavailable GERMAIN, NILSA M Primary Care Unavailable ROCKY SCHRADER Attending Unavailable GERMAIN, NILSA M Primary Care Unavailable Lewis Hendrickson Attending Unavailable Sam Olvera Primary Care Unavailable Vincent Nazario Attending Unavailable Sam Olvera Primary Care Unavailable Dr. Sam Olvera MD Primary Care Physician [phone] Lewis Hendrickson MD Attending Physician [phone] Lewis Hendrickson MD Emergency Department Physician Allergies Allergy Classification Reported Allergen(s) Allergy Type Date of Onset Reaction(s) Facility Penicillins (antibiotic) (1 source) Penicillins Drug Allergy 05-24-2005 [facility] raNITIdine (1 source) raNITIdine Drug Allergy 06-10-2005 [facility] (20 sources) Penicillins; Translations: [PENICILLINS] Allergy to substance 05-24-2005 [facility] (20 sources) raNITIdine; Translations: [RANITIDINE] Drug Allergy 06-10-2005 [facility] Medications Current Medications Medication Drug Class(es) Dates Sig (Normalized) Sig (Original) [place] (Nk) (1 source) Start: 05-02-2025 [place] (Nk) A ctive May 02, 2025 12:00am Completed/Discontinued Medications Medication Drug Class(es) Dates Sig (Normalized) Sig (Original) cephalexin 500 mg oral capsule (10 sources) Cephalosporin Antibacterial Start: 04-23-2019 End: 05-04-2019 take 1 capsule by mouth every six hours Cephalexin 500 MG capsule Discontinued 500 mg PO EVERY 6 HOURS 20 0 April 23, 2019 12:00am May 04, 2019 9:01am cyclobenzaprine hydrochloride 10 mg oral tablet (5 sources) Muscle Relaxant Start: 02-11-2023 End: 02-13-2024 take 1 tablet by mouth three times daily as needed for muscle spasms Cyclobenzaprine 10 mg tablet Discontinued 10 mg PO THREE TIMES A DAY as needed for Muscle Spasm 20 0 February 11, 2023 12:00am February 13, 2024 9:59am dicyclomine hydrochloride 20 mg oral tablet (1 source) Anticholinergic Start: 06-12-2024 End: 05-02-2025 take 1 tablet by mouth four times daily as needed for pain Dicyclomine 20 mg tablet Discontinued 20 mg PO 4 TIMES DAILY as needed for Abdominal pain/spasm 0 June 13, 2024 12:35am May 02, 2025 6:25pm famotidine 20 mg oral tablet (6 sources) Histamine-2 Receptor Antagonist Start: 11-16-2022 End: 02-13-2024 take 1 tablet by mouth twice daily Famotidine (Pepcid) 20 mg tablet Discontinued 20 mg PO TWICE A DAY 60 0 November 16, 2022 12:00am February 13, 2024 9:59am FLUoxetine 40 mg oral capsule (20 sources) Serotonin Reuptake Inhibitor Start: 05-26-2023 End: 05-25-2024 take 1 capsule by mouth once daily FLUoxetine (PROZAC) 40 mg capsule Take 1 capsule by mouth once daily. 30 capsule 1 05/26/2023 05/25/2024 Discontinued (Other) Start: 04-08-2022 End: 02-13-2024 take 1 capsule by mouth once daily Fluoxetine 20 mg capsule Discontinued 20 mg PO DAILY April 21, 2022 12:00am February 13, 2024 9:59am Start: 03-01-2022 End: 04-08-2022 take 1 capsule by mouth once daily FLUoxetine (PROZAC) 10 mg capsule Indications: Severe episode of recurrent major depressive disorder, without psychotic features (HCC) Take 1 capsule by mouth once daily. 30 capsule 2 03/01/2022 04/08/2022 Discontinued Comment on above: Take 1 capsule by mo [facility] once daily. methocarbamol 500 mg oral tablet (8 sources) Muscle Relaxant Start: 05-12-20 End: 11-14-19 take 1 tablet by mouth every six hours as needed methocarbamol (ROBAXIN) 500 mg tablet Take 1 tablet by mouth every 6 hours as needed. 0 05/12/2021 11/13/2022 Discontinued (Course of therapy completed) Comment on above: Take 1 tablet by [facility] every 6 hours as needed. naproxen 500 mg oral tablet (10 sources) Nonsteroidal Anti-inflammatory Drug Start: 12-11-19 End: 02-13-20 take 1 tablet by mouth twice daily as needed for pain Naproxen (Naprosyn) 500 mg tablet Discontinued 500 mg PO TWICE A DAY as needed for pain 14 0 March 18, 2023 2:17pm February 13, 2024 9:59am ondansetron 4 mg disintegrating oral tablet (11 sources) Serotonin-3 Receptor Antagonist Start: 06-12-20 End: 05-02-20 take 1 tablet by mouth three times daily as needed for nausea and vomiting Ondansetron 4 mg tablet,disintegratin g Discontinued 4 mg PO THREE TIMES A DAY as needed for nausea and vomiting 21 0 June 13, 2024 12:36am May 02, 2025 6:25pm Start: 11-13-2022 End: 02-13-2024 take 1 tablet by mouth every eight hours as needed ondansetron orally disintegrating (ZOFRAN ODT) 8 mg disintegrating tablet Take 1 tablet by mouth every 8 hours as needed for nausea/vomiting. 6 tablet 0 11/13/2022 02/13/2024 Discontinued (Other) Comment on above: Take 1 tablet by jean claude th every 8 hours as needed for nausea/vomiting. polyethylene glycol 3350 74891 mg powder for oral solution (18 sources) Osmotic Laxative Start: End: polyethylene glycol 3350 (MIRALAX, GLYCOLAX) 17 gram packet DISSOLVE 1 (ONE) PACKET (17G) DIRECTED ONCE DAILY UNTIL SOFT FORMED BOWEL MOVEMENTS ON A DAILY BASIS 0 02/02/2022 02/13/2024 Discontinued (Other) Comment on above: DISSOLVE 1 (ONE) PAC KET (17G) DIRECTED ONCE DAILY UNTIL SOFT FORMED BOWEL MOVEMENTS ON A DAILY BASIS predniSONE 20 mg oral tablet (8 sources) Start: End: take 1 tablet by mouth once daily predniSONE (DELTASONE) 20 mg tablet Indications: Lumbar back pain Take 1 tablet by mouth once daily. 5 tablet 0 06/20/2021 11/13/2022 Discontinued (Course of therapy completed) Comment on above: Take 1 tablet by jean claude once daily. promethazine hydrochloride 25 mg oral tablet (6 sources) Phenothiazine Start: End: take 1 tablet by mouth three times daily as needed for nausea and vomiting Promethazine 25 mg tablet Discontinued 25 mg PO THREE TIMES A DAY as needed for nausea and vomiting November 16, 2022 12:00am February 13, 2024 9:59am sucralfate 1000 mg oral tablet (6 sources) Aluminum Complex Start: End: take 1 tablet by mouth three times daily Sucralfate (Carafate) 1 gram tablet Discontinued 1 g PO THREE TIMES A DAY 30 November 16, 2022 12:00am February 13, 2024 9:59am Problems Active Problems Problem Classification Problem Date Documented Da te Episodic/Chronic Abdominal pain (20 sources) Abdominal pain; Translations: [Unspecified abdominal pain] Onset: 05-09-2025 Episodic Administrative/social admission (1 source) Repeated prescription; Translations: [Encounter for issue of repeat prescription] 06-23-2023 Episodic Anxiety disorders (14 sources) Anxiety; Translations: [Anxiety disorder, unspecified] 04-29-2022 Chronic Conditions associated with dizziness or vertigo (2 sources) Lightheadedness; Translations: [Dizziness and giddiness] 04-21-2023 Episodic Fluid and electrolyte disorders (2 sources) Dehydration; Translations: [Dehydration] 02-21-2024 Episodic Fracture of upper limb (10 sources) Fracture of phalanx of index finger; Translations: [Displaced fracture of middle phalanx of left index finger, initial encounter for closed fracture] 02-01-2022 Episodic Gastritis and duodenitis (6 sources) Gastritis; Translations: [Gastritis, unspecified, without bleeding] 11-16-2022 Episodic Immunizations and screening for infectious disease (10 sources) Patient encounter status; Translations: [Encounter for screening for other viral diseases] Episodic Mood disorders (20 sources) Severe recurrent major depression without psychotic features; Translations: [Major depressive disorder, recurrent severe without psychotic features] Onset: 10-31-2008 Chronic Nausea and vomiting (20 sources) Nausea, vomiting and diarrhea; Translations: [Nausea with vomiting, unspecified] Episodic Open wounds of extremities (10 sources) Laceration of toe; Translations: [Laceration without foreign body of unspecified toe without damage to nail, initial encounter] 08-05-2019 Episodic Other connective tissue disease (1 source) Cramp in lower limb; Translations: [Cramp and spasm] 02-13-2024 Episodic Other connective tissue disease (1 source) Other symptoms and signs involving the musculoskeletal system; Translations: [Other musculoskeletal symptoms referable to limbs] 02-13-2024 Episodic Other connective tissue disease (4 sources) Pain in right foot; Translations: [Pain in right foot] 03-04-2024 Episodic Other connective tissue disease (1 source) Cramp; Translations: [Cramp and spasm] 02-21-2024 Episodic Other fractures (4 sources) Closed fracture of rib; Translations: [Fracture of one rib, left side, initial encounter for closed fracture] 04-22-2023 Episodic Other gastrointestinal disorders (4 sources) Constipation; Translations: [Constipation, unspecified] 05-10-2025 Episodic Other gastrointestinal disorders (3 sources) Constipation, unspecified; Translations: [Constipation, unspecified] Episodic Other injuries and conditions due to external causes (5 sources) Muscle strain; Translations: [Other injury of unspecified body region, initial encounter] 12-18-2022 Episodic Other lower respiratory disease (1 source) Dyspnea; Translations: [Shortness of breath] 04-21-2023 Episodic Other lower respiratory disease (5 sources) Rib pain; Translations: [Pleurodynia] 04-21-2023 Episodic Other non-traumatic joint disorders (2 sources) Acute ankle pain; Translations: [Pain in right ankle and joints of right foot] 03-04-2024 Episodic Other upper respiratory infections (12 sources) Viral upper respiratory tract infection; Translations: [Acute upper respiratory infection, unspecified] Episodic Pancreatic disorders (not diabetes) (14 sources) Acute pancreatitis; Translations: [Acute pancreatitis without necrosis or infection, unspecified] Episodic Poisoning by psychotropic agents (3 sources) Accidental cannabis overdose; Translations: [Accidental cannabis overdose] 09-23-2023 Episodic Residual codes; unclassified (10 sources) Family history of alcoholism; Translations: [Family history of alcohol abuse and dependence] 04-11-2021 Episodic Sprains and strains (17 sources) Lower back injury; Translations: [Strain of muscle, fascia and tendon of lower back, initial encounter] 05-20-2021 Episodic Substance-related disorders (6 sources) Nicotine dependence; Translations: [Nicotine dependence, unspecified, uncomplicated] Chronic Syncope (2 sources) Syncope and collapse; Translations: [Near syncope] Onset: 05-02-2025 05-10-2025 Episodic Viral infection (11 sources) Disease caused by 2019-nCoV; Translations: [COVID-19] Episodic Past or Other Problems Problem Classification Problem Date Documented Da te Episodic/Chronic Gastrointestinal hemorrhage (15 sources) Hematemesis; Translations: [Hematemesis] Onset: 07-09-2024 Episodic Other connective tissue disease (1 source) Pain in right foot; Translations: [Foot pain, right] Onset: 05-25-2024 Episodic Other fractures (20 sources) Fracture of cervical spine; Translations: [Fracture of neck, unspecified, initial encounter] Onset: 04-05-2014 04-05-2014 Episodic Other lower respiratory disease (1 source) Pleurodynia; Translations: [Rib pain on left side] Onset: 06-11-2025 Episodic Results Test Name Value Interpretation Reference Range Facility Abdomen/Pelvis W IV Cont ONL Yon 05-02-2025 Abdomen/Pelvis W IV Cont ONLY [facility] [address] [place] [address] Abdomen/Pelvis W IV Cont ONLY MR#: [id number] Acct: [id number] Name: ISMA URIBE Rep #: [id number] : 1990 M 35 From: Kemal Ramirez MD PCP: Dr. Sam Olvera MD Status: REG ER Study: Abdomen/Pelvis W IV Cont ONLY Date of Exam: Exam# [id number] Ordering Dr: Lewis Hendrickson MD PROCEDURE: ABDOMEN/PELVIS W IV CONT ONLY 05/02/2025 REASON FOR EXAM: PAIN, NAUSEA AND VOMITING TECHNIQUE: Procedure Code: [id number] Modality: CT Procedure: ABDOMEN/PELVIS W IV CONT ONLY Coronal and Sagittal reconstruction series were provided. One or more dose reduction techniques were used (e.g., Automated exposure control, adjustment of the mA and/or kV according to patient size, use of iterative reconstruction technique. FINDINGS: Lung bases are clear. Liver, gallbladder, spleen, pancreas, and adrenal glands are unremarkable. Kidneys demonstrate no hydronephrosis, calculi, or focal lesions. Abdominal aorta is normal in caliber. No free air or free fluid. Bowel loops are nondilated with no wall thickening or inflammatory change. Appendix is normal. No lymphadenopathy. Urinary bladder is unremarkable. Pelvic organs are within normal limits. Moderate dense colonic stool is present, suspicious for constipation. Osseous structures demonstrate mild degenerative changes without acute abnormality. CT/Abdomen/Pelvis W IV Cont ONLY IMPRESSION: No acute intra-abdominal or pelvic abnormality. Dense colonic stool suspicious for constipation. Reading Location: [address] CC: Dr. Lewis Hendrickson MD; Dr. Sam Olvera MD Engineering Mathematician: Signed Normal [facility] Absolute lymphocyte countOrd ered By: Lewis Hendrickson on 05-02-2025 Lymphocytes Auto (Unsp spec) [#/Vol] 1.90 10*3/uL 0.83-4.[address] [facility] Absolute neutrophil countOrd ered By: Lewis Hendrickson on 05-02-2025 Neutrophils (Bld) [#/Vol] 7.8 10*3/uL High 2.0-7.[address] [facility] Anion gap in Serum or Plasma Ordered By: Lewis Hendrickson on 05-02-2025 Anion gap [Moles/Vol] 10 mmol/L 5-15 [facility] Automated lymphocyte count a s percentage of total leukocytesOrdered By: Lewis Hendrickson on 05-02-2025 Lymphocytes/100 WBC Auto (Unsp spec) 18.4 % Low 19- [facility] BUN/creatinine ratioOrdered By: Lewis Hendrickson on 05-02-2025 Urea nitrogen/Creatinine [Mass ratio] 12.3 mg/mg 10- [facility] Basophil percentageOrdered B y: Lewis Hendrickson on 05-02-2025 Basophils/100 WBC (Bld) 0.6 % 0-1 [facility] Bilirubin Test strip Ql (U)O rdered By: Lewis Hendrickson on 05-02-2025 Bilirubin Ql (U) Negative Negative [facility] Bilirubin, totalOrdered By: Lewis Hendrickson on 05-02-2025 Bilirubin [Mass/Vol] 0.26 mg/dL 0.00-1.30 [facility] CBC W/Diff, Automatedon 10- Absolute Lymph 1.90 X10 3/uL Normal 0.83-4.[address] [facility] Comment on above: Performed By: #### L 100.0100, L500.4050, L501.2450 #### [facility] [address] [place], [address] Absolute Neut 7.8 X10 3/uL High 2.0-7.[address] [facility] Comment on above: Performed By: #### L 100.0100, L500.4050, L501.2450 #### [facility] [address] [place], [address] Basophils/100 WBC (Bld) 0.6 % Normal 0-1 [facility] Comment on above: Performed By: #### L 100.0100, L500.4050, L501.2450 #### [facility] [address] [place], [address] Eosinophils/100 WBC (Bld) 1.1 % Normal 0-[address] [facility] Comment on above: Performed By: #### L 100.0100, L500.4050, L501.2450 #### [facility] [address] [place], [address] Erythrocyte distribution width (RBC) [Ratio] 11.7 % Normal 11.6-14.[address] [facility] Comment on above: Performed By: #### L 100.0100, L500.4050, L501.2450 #### [facility] [address] [place], [address] Hematocrit (Bld) [Volume fraction] 39.1 % Low 40-[address] [facility] Comment on above: Performed By: #### L 100.0100, L500.4050, L501.2450 #### [facility] [address] [place], [address] Hemoglobin (Bld) [Mass/Vol] 13.8 g/dL Normal 13.0-16.[address] [facility] Comment on above: Performed By: #### L 100.0100, L500.4050, L501.2450 #### [facility] [address] [place], [address] IG% 0.300 Normal 0.0-0.[address] [facility] Comment on above: Result Comment: IG% - Immature Granulocytes (promyelocytes, myelocytes and metamyelocytes) > 1% indicates that a LEFT SHIFT is Present. Performed By: #### L 100.0100, L500.4050, L501.2450 #### [facility] [address] [place], [address] Lymphocytes/100 WBC (Bld) 18.4 % Low 19-[address] [facility] Comment on above: Performed By: #### L 100.0100, L500.4050, L501.2450 #### [facility] [address] [place], [address] MCH (RBC) [Entitic mass] 28.9 pg Normal 27.0-32.[address] [facility] Comment on above: Performed By: #### L 100.0100, L500.4050, L501.2450 #### [facility] [address] [place], [address] MCHC (RBC) [Mass/Vol] 35.3 g/dL Normal 32-36 [facility] Comment on above: Performed By: #### L 100.0100, L500.4050, L501.2450 #### [facility] [address] [place], [address] MCV (RBC) [Entitic vol] 81.8 fL Normal 80-94 [facility] Comment on above: Performed By: #### L 100.0100, L500.4050, L501.2450 #### [facility] [address] [place], [address] Monocytes/100 WBC (Bld) 4.5 % Normal 0-10 [facility] Comment on above: Performed By: #### L 100.0100, L500.4050, L501.2450 #### [facility] [address] [place], [address] Neutrophils/100 WBC (Bld) 75.1 % High 47-[address] [facility] Comment on above: Performed By: #### L 100.0100, L500.4050, L501.2450 #### [facility] [address] [place], [address] Nucleated RBC (Bld) [#/Vol] 0 10*3/uL Normal 0-[address] [facility] Comment on above: Performed By: #### L 100.0100, L500.4050, L501.2450 #### [facility] [address] [place], [address] Platelet mean volume (Bld) [Entitic vol] 8.7 fL Normal 6.2-12.[address] [facility] Comment on above: Performed By: #### L 100.0100, L500.4050, L501.2450 #### [facility] [address] [place], [address] Platelets (Bld) [#/Vol] 229 10*3/uL Normal 150-[address] [facility] Comment on above: Performed By: #### L 100.0100, L500.4050, L501.2450 #### [facility] [address] [place], [address] RBC (Bld) [#/Vol] 4.78 10*6/uL Normal 4.6-6.2 [facility] Comment on above: Performed By: #### L 100.0100, L500.4050, L501.2450 #### [facility] [address] [place], [address] RDW SD 34.8 fl Low 35.1-43.[address] [facility] Comment on above: Performed By: #### L 100.0100, L500.4050, L501.2450 #### [facility] [address] [place], [address] WBC (Bld) [#/Vol] 10.3 10*3/uL Normal 4.4-11.0 [facility] Comment on above: Performed By: #### L 100.0100, L500.4050, L501.2450 #### [facility] [address] [place], [address] CNOVon 05-02-2025 CNOV Office Visit ([facility]) -------- ISMA URIBE ([id number]) 1990 M Date Time Provider Department 05/02/25 5:00 PM SAM FULLER During your visit today, we recorded the following information about you: Temperature Pulse Respiration Blood pressure 97.2 degrees 78/minute 18/minute 120/73 Weight 69.2 kg Sam Fuller, JOHN.SIGNAL MANAGER 05/02/2025 5:20 PM Signed [facility] Subjective Isam Uribe is a 35 year old male. Patient presents with: Abdominal Pain: Generalized abd pain, vomiting, nausea, feeling full without eating much x3 days HPI Nontoxic-appearing 35-year-old male presents urgent care chief complaint abdominal pain and syncopal episode. States has had episodic abdominal pain and vomiting for 3 days. Has had multiple episodes of syncope. Episodes lasting 5 to to 20 minutes of syncope. States has had a headache and dizziness. Denies any other concerns Review of Systems Constitutional: Negative for chills, diaphoresis, fatigue and fever. HENT: Negative for congestion, ear discharge, ear pain, rhinorrhea, sinus pressure, sinus pain, sneezing and sore throat. Eyes: Negative for pain, discharge, redness, itching and visual disturbance. Respiratory: Negative for cough, chest tightness, shortness of breath and wheezing. Cardiovascular: Negative for chest pain. Gastrointestinal: Positive for abdominal pain and vomiting. Negative for constipation, diarrhea and nausea. Musculoskeletal: Negative for joint swelling, neck pain and neck stiffness. Skin: Negative for rash. Neurological: Positive for dizziness and syncope. Negative for weakness and headaches. Objective BP 120/73 Pulse 78 Temp 36.2 ?C (97.2 ?F) Resp 18 Wt 69.2 kg (152 lb 8.9 oz) SpO2 99% BMI 23.54 kg/m? Physical Exam Constitutional: Appearance: Normal appearance. HENT: Head: Normocephalic. Nose: Nose normal. No congestion or rhinorrhea. Mouth/Throat: Mouth: Mucous membranes are moist. Pharynx: Oropharynx is clear. Uvula midline. No pharyngeal swelling, oropharyngeal exudate, posterior oropharyngeal erythema or uvula swelling. Eyes: Conjunctiva/sclera: Conjunctivae normal. Cardiovascular: Rate and Rhythm: Normal rate. Pulmonary: Effort: Pulmonary effort is normal. Breath sounds: Normal breath sounds. No wheezing, rhonchi or rales. Abdominal: Palpations: Abdomen is soft. Tenderness: There is abdominal tenderness. There is no guarding or rebound. Musculoskeletal: General: Normal range of motion. Cervical back: Normal range of motion and neck supple. No rigidity. Lymphadenopathy: Cervical: No cervical adenopathy. Skin: General: Skin is warm. Findings: No rash. Neurological: Mental Status: He is alert. {ASSESSMENT/PLAN: 1. Syncope, unspecified syncope type - ICD9: 780.2, ICD10: R55 -Patient syncopal episode. Referred to ED. Will be sent [facility]. Sam Fuller APRN.SIGNAL MANAGER History and Record Review Clinical information obtained from an independent historian. History obtained from or confirmed by: parent. External record(s) reviewed: prior outpatient record. Disposition The patient was discharged. Transfer to ED was considered. Reason for not transferring: Procedures Allergies As of Date: 05/02/2025 Noted Allergy Reaction PENICILLINS 05/24/2005 4 - Hives RANITIDINE 06/10/2005 4 - Hives Date Reviewed: 05/02/2025 Reviewed by: Tiny Friedman MA - Fully Assessed Reason for Visit: Abdominal Pain [1] Cmt: Generalized abd pain, vomiting, nausea, feeling full without eating much x3 days Primary Visit Diagnosis:Syncope, unspecified syncope type [R55] Problem List As Of Date 05/02/2025 Noted Resolved Cervical spine fracture (HCC) [S12.9XXA] 04/05/2014 Encounter for wellness examination [Z00.00] 03/01/2022 Depression [F32.A] 03/01/2022 Depressive disorder, not elsewhere classified [*10/31/2008 Level of Service: OFFICE/OUTPATIENT ESTABLISHED LOW MDM 20 MIN [70144] Encounter Status:Closed by SAM FULLER on 05/02/25 Normal [facility] Carbon dioxide, total [Moles /volume] in Central venous bloodOrdered By: Lewis Hendrickson on 05-02-2025 CO2 [Moles/Vol] 27.8 mmol/L 21.0-32.[address] [facility] Chloride assayOrdered By: Sb Hendrickson on 05-02-2025 Chloride [Moles/Vol] 105 mmol/L 98-108 [facility] Comprehensive Metabolic Prof ilon 05-02-2025 Albumin [Mass/Vol] 4.4 g/dL Normal 3.5-5.0 [facility] Comment on above: Performed By: #### L 100.0100, L500.4050, L501.2450 #### [facility] [address] [place], [address] Albumin/Globulin [Mass ratio] 1.7 {ratio} Normal 0.9-2.[address] [facility] Comment on above: Performed By: #### L 100.0100, L500.4050, L501.2450 #### [facility] [address] [place], [address] ALK PHOS 71 U/L Normal 40-[address] [facility] Comment on above: Performed By: #### L 100.0100, L500.4050, L501.2450 #### [facility] [address] [place], [address] ALT [Catalytic activity/Vol] 12 U/L Normal <=[address] [facility] Comment on above: Performed By: #### L 100.0100, L500.4050, L501.2450 #### [facility] [address] [place], [address] AST [Catalytic activity/Vol] 22 U/L Normal <=[address] [facility] Comment on above: Performed By: #### L 100.0100, L500.4050, L501.2450 #### [facility] [address] [place], [address] Bilirubin [Mass/Vol] 0.26 mg/dL Normal 0.00-1.30 [facility] Comment on above: Performed By: #### L 100.0100, L500.4050, L501.2450 #### [facility] [address] [place], [address] BUN/CRE 12.3 RATIO Normal 10-[address] [facility] Comment on above: Performed By: #### L 100.0100, L500.4050, L501.2450 #### [facility] [address] [place], [address] Calcium [Mass/Vol] 8.8 mg/dL Normal 7.6-11.0 [facility] Comment on above: Performed By: #### L 100.0100, L500.4050, L501.2450 #### [facility] [address] [place], [address] Chloride [Moles/Vol] 105 mmol/L Normal 98-108 [facility] Comment on above: Performed By: #### L 100.0100, L500.4050, L501.2450 #### [facility] [address] [place], [address] CO2 [Moles/Vol] 27.8 mmol/L Normal 21.0-32.[address] [facility] Comment on above: Performed By: #### L 100.0100, L500.4050, L501.2450 #### [facility] [address] [place], [address] Creatinine [Mass/Vol] 0.88 mg/dL Normal 0.70-1.20 [facility] Comment on above: Performed By: #### L 100.0100, L500.4050, L501.2450 #### [facility] [address] [place], [address] ECRCL 107.74 ml/min Normal 50-[address] [facility] Comment on above: Performed By: #### L 100.0100, L500.4050, L501.2450 #### [facility] [address] [place], [address] GAP 10 Normal 5-[address] [facility] Comment on above: Performed By: #### L 100.0100, L500.4050, L501.2450 #### [facility] [address] [place], [address] GFR/1.73 sq M.predicted among non-blacks MDRD (S/P/Bld) [Vol rate/Area] 117 mL/min/{1.73_m2} Normal >[address] [facility] Comment on above: Result Comment: mL/m in/1.73m2 CKD-EPI Creatinine Equation (2020) Performed By: #### L 100.0100, L500.4050, L501.2450 #### [facility] [address] [place], [address] Globulin (S) [Mass/Vol] 2.7 g/dL Normal 2.2-4.2 [facility] Comment on above: Performed By: #### L 100.0100, L500.4050, L501.2450 #### [facility] [address] [place], [address] Glucose [Mass/Vol] 85 mg/dL Normal 70-99 [facility] Comment on above: Performed By: #### L 100.0100, L500.4050, L501.2450 #### [facility] [address] [place], [address] Potassium [Moles/Vol] 3.7 mmol/L Normal 3.3-5.1 [facility] Comment on above: Performed By: #### L 100.0100, L500.4050, L501.2450 #### [facility] [address] [place], [address] Sodium [Moles/Vol] 143 mmol/L Normal 133-145 [facility] Comment on above: Performed By: #### L 100.0100, L500.4050, L501.2450 #### [facility] [address] [place], [address] T PROT 7.1 g/dL Normal 5.9-8.[address] [facility] Comment on above: Performed By: #### L 100.0100, L500.4050, L501.2450 #### [facility] [address] [place], [address] Urea nitrogen [Mass/Vol] 11 mg/dL Normal 4-[address] [facility] Comment on above: Performed By: #### L 100.0100, L500.4050, L501.2450 #### [facility] [address] [place], [address] Emergency Department Summary on 05-02-2025 Emergency Department Summary [facility] Medical Records Department [address] [place] [address] Emergency Department Summary 05/02/25 MR#: [id number] Acct: [id number] Name: ISMA URIBE Rep #: [id number] : 1990 35 From: Lewis Hendrickson MD PCP: Dr. Sam Olvera MD Status:REG ER Location: ED HPI HPI - GI History of Present Illness Chief Complaint: Abd Pain Narrative Narrative: 35-year-old male who denies significant past medical history presents with abdominal pain that he has had over the last 2 days. States his symptoms began on Tuesday, after going to 3. He had boneless wings. He started to feel nauseated and have diffuse abdominal pain. He stopped eating. Since then he has had few episodes of nausea and vomiting without hematemesis. He denies any diarrhea or problems with bowel movements. He complains of diffuse abdominal pain. No prior abdominal surgeries. He felt feverish but denies chills. No exacerbating or alleviating factors. He states he also feels lightheaded and he was sitting playing video games and was near syncopal. [facility] Medical History Alcohol abuse Depression Constipation Pancreatitis Smoker COVID-19 virus infection History of cervical fracture Fracture of middle phalanx of left index finger Family history of alcoholism Nicotine dependence Home Medications ???Medication ???Instructions ???Recorded ???Last Taken ???Type NK 05/02/25 Unknown History Allergy/AdvReac Type Severity Reaction Status Date / Time Penicillins Allergy Hives Verified 05/02/25 17:32 Social History household members: family and none current occupational status: employed current occupation: [employer] Smoking Status: Current every day smoker tobacco type: e-cigarettes alcohol intake: current alcohol intake frequency: a few times a week substance use type: does not use ROS ROS ED ROS Narrative Review of systems positive for diffuse abdominal pain in epigastrium and left lower quadrant mainly. Positive nausea and vomiting. Positive lightheadedness. Subjective fever. No exacerbating or alleviating factors. EXAM Physical Exam Narrative Exam Narrative: Afebrile. Vital signs noted. Nontoxic-appearing. Cardiovascular semination feels regular rate and rhythm. Lungs are clear to auscultation bilaterally. Abdomen is soft with diffuse tenderness to palpation in both epigastrium and left lower quadrant. Negative Greene sign. No rebound or guarding. Neurological examination nonfocal, nonlateralizing. Const Vital Signs: 05/02/25 17:31 05/02/25 19:31 Temperature 98.6 F 97.6 F L Temperature Source Oral Oral Pulse Rate 80 69 Respiratory Rate 18 17 Blood Pressure 146/74 H 121/56 H Blood Pressure Mean 98 77 Pulse Ox 98 100 Oxygen Delivery Method Room Air Room Air MDM MDM MDM Narrative Medical decision making narrative: Differential diagnosis includes but not limited to gastritis versus gastroenteritis versus pancreatitis versus diverticulitis versus nonspecific abdominal pain. I have low suspicion for any bowel obstruction because a history and physical does not support this. Patient administered normal saline as well as morphine and ondansetron for analgesia. CBC, CMP, and lipase obtained as well as CT imaging and UA. I reviewed his laboratory work and he has a normal white count of 10.3 with hemoglobin normal at 13.8, platelet count normal at 229. CMP is grossly unremarkable with normal sodium and potassium, glucose 85, BUN of 11 and creatinine 0.88. Lipase is normal at 33 so I doubt pancreatitis. LFTs are grossly normal. Urinalysis negative for ketones, nitrites, and leukocytes. Microanalysis is pending, but I feel this is most likely negative and he is not having dysuria and that antibiotics are not indicated. I reviewed his microanalysis and is negative for infection with 0-5 WBCs. I do not feel antibiotics are indicated. CT of the abdomen and pelvis radiology report reviewed there is no acute intra-abdominal pathology/abnormality. He does have dense stool consistent with constipation. His is at the bedside. I do not feel that further narcotic pain medication is indicated. Instead he was given Toradol. I do not think he should be given Bentyl as this would slow his gastric motility. He was told to start an [id number] stool softener and gentle laxative. His states that he only has a bowel movement every few days. He was told to increase the fiber in his diet as well. At this point in time, I do feel he can be discharged to follow-up. He will follow-up with his primary care provider, Dr. De Jesus. Return instructions to the emergency department were reviewed. Disposition is discharged home in stable (more content not included)... Normal [facility] Eosinophil percentageOrdered By: Lewis Hendrickson on 05-02-2025 Eosinophils/100 WBC (Bld) 1.1 % 0-[address] [facility] Erythrocyte distribution wid th ratioOrdered By: Lewis Hendrickson on 05-02-2025 Erythrocyte distribution width (RBC) [Ratio] 11.7 % 11.6-14.[address] [facility] Erythrocyte distribution wid th standard deviationOrdered By: Lewis Hendrickson on 05-02-2025 Erythrocyte distribution width (RBC) [Ratio] 34.8 fl Low 35.1-43.[address] [facility] Glomerular filtration rate ( GFR) estimation/1.73 sq m using serum, plasma, or whole bOrdered By: Lewis Hendrickson on 05-02-2025 GFR/1.73 sq M.predicted among non-blacks MDRD (S/P/Bld) [Vol rate/Area] 117 mL/min/{1.73_m2} >[address] [facility] Comment on above: mL/min/1.73m2 CKD-EP I Creatinine Equation (2020) Hematocrit Auto (Bld) [Volum e fraction]Ordered By: Lewis Hendrickson on 05-02-2025 Hematocrit (Bld) [Volume fraction] 39.1 % Low 40-[address] [facility] Hemoglobin measurementOrdere d By: Lewis Hendrickson on 05-02-2025 Hemoglobin (Bld) [Mass/Vol] 13.8 g/dL 13.0-16.[address] [facility] Immature granulocytes/100 WB C Auto (Bld)Ordered By: Lewis Hendrickson on 05-02-2025 Immature granulocytes/100 WBC (Bld) 0.300 % 0.0-0.[address] [facility] Comment on above: IG% - Immature Granu locytes (promyelocytes, myelocytes and metamyelocytes) > 1% indicates that a LEFT SHIFT is Present. Ketones Test strip Ql (U)Ord ered By: Lewis Hendrickson on 05-02-2025 Ketones Ql (U) Negative Negative [facility] - Chemistry and C hemistry - challengeOrdered By: Lewis Hendrickson on 05-02-2025 AST [Catalytic activity/Vol] 22 U/L <[address] [facility] Lipaseon 05-02-2025 Lipase [Catalytic activity/Vol] 33 U/L Normal 13-[address] [facility] Comment on above: Result Comment: Macarena jacob note: LIPASE revised reference range effective 22. New Lipase methodology. Expected to produce lower values than the previous assay method. NEW Reference Range: 13 - 75 U/L Performed By: #### L 100.0100, L500.4050, L501.2450 #### [facility] [address] [facility] [place], [address] Lipase measurementOrdered By : Lewis eHndrickson on 05-02-2025 Lipase [Catalytic activity/Vol] 33 U/L 13-[address] [facility] Comment on above: Please note:LIPASE r evised reference range effective 22. New Lipase methodology. Expected to produce lower values than the previous assay method. NEW Reference Range: 13 - 75 U/L MCV (mean corpuscular volume ) determinationOrdered By: Lewis Hendrickson on 05-02-2025 MCV (RBC) [Entitic vol] 81.8 fL 80-94 [facility] Mean corpuscular hemoglobin (MCH) determinationOrdered By: Lewis Hendrickson on 05-02-2025 MCH (RBC) [Entitic mass] 28.9 pg 27.0-32.[address] [facility] Mean corpuscular hemoglobin concentration (MCHC) determinationOrdered By: Lewis Hendrickson on 05-02-2025 MCHC (RBC) [Mass/Vol] 35.3 g/dL 32-36 [facility] Mean platelet volume determi nationOrdered By: Lewis Hendrickson on 05-02-2025 Platelet mean volume (Bld) [Entitic vol] 8.7 fL 6.2-12.[address] [facility] Microscopic analysis of urin e for red blood cells (RBC)Ordered By: Lewis Hendrickson on 05-02-2025 Microscopic analysis of urine for red blood cells (RBC) 0-5 SEEN /hpf 0-[address] [facility] Monocyte percentageOrdered B y: Lewis Hendrickson on 05-02-2025 Monocytes/100 WBC (Bld) 4.5 % 0-10 [facility] Mucus LM Ql (Urine sed)Order ed By: Lewis Hendrickson on 05-02-2025 Mucus Ql (Urine sed) 0 SEEN /hpf [facility] Neutrophil percentageOrdered By: Lewis Hendrickson on 05-02-2025 Neutrophils/100 WBC (Bld) 75.1 % High 47-[address] [facility] Nitrite Test strip Ql (U)Ord ered By: Lewis Hendrickson on 05-02-2025 Nitrite Ql (U) Negative Negative [facility] Nucleated red blood cell per centageOrdered By: Lewis Hendrickson on 05-02-2025 Nucleated RBC/100 WBC (Bld) [Ratio] 0 % 0-[address] [facility] Platelet countOrdered By: Sb Hendrickson on 05-02-2025 Platelets (Bld) [#/Vol] 229 10*3/uL 150-[address] [facility] Potassium measurement (mass/ volume)Ordered By: Lewis Hendrickson on 05-02-2025 Potassium (Unsp spec) [Mass/Vol] 3.7 mmol/L 3.3-5.[address] [facility] Protein Test strip Ql (U)Ord ered By: Lewis Hendrickson on 05-02-2025 Protein Ql (U) Negative Negative [facility] RBC Auto (Bld) [#/Vol]Ordere d By: Lewis Hendrickson on 05-02-2025 RBC (Bld) [#/Vol] 4.78 10*6/uL 4.6-6.2 [facility] Serum creatinine measurement (mass/volume)Ordered By: Lewis Hendrickson on 05-02-2025 Creatinine [Mass/Vol] 0.88 mg/dL 0.70-1.20 [facility] Serum globulin measurementOr dered By: Lewis Hendrickson on 05-02-2025 Globulin (S) [Mass/Vol] 2.7 g/dL 2.2-4.2 [facility] Serum glucose measurement (m ass/volume)Ordered By: Lewis Hendrickson on 05-02-2025 Glucose [Mass/Vol] 85 mg/dL 70-99 [facility] Serum or plasma alanine johnson otransferase (ALT) measurementOrdered By: Lewis Hendrickson on 05-02-2025 ALT [Catalytic activity/Vol] 12 U/L <[address] [facility] Serum or plasma albumin ofe urement (mass/volume)Ordered By: Lewis Hendrickson on 05-02-2025 Albumin [Mass/Vol] 4.4 g/dL 3.5-5.0 [facility] Serum or plasma albumin/glob ulin mass ratioOrdered By: Lewis Hendrickson on 05-02-2025 Albumin/Globulin [Mass ratio] 1.7 {ratio} 0.9-2.[address] [facility] Serum or plasma alkaline sumanth sphatase measurementOrdered By: Lewis Hendrickson on 05-02-2025 ALP [Catalytic activity/Vol] 71 U/L 40-[address] [facility] Serum or plasma calcium ofe urement (mass/volume)Ordered By: Lewis Hendrickson on 05-02-2025 Calcium [Mass/Vol] 8.8 mg/dL 7.6-11.0 [facility] Serum or plasma urea nitroge n measurement (mass/volume)Ordered By: Lewis Hendrickson on 05-02-2025 Urea nitrogen [Mass/Vol] 11 mg/dL 4-[address] [facility] Sodium levelOrdered By: Lewis Hendrickson on 05-02-2025 Sodium [Moles/Vol] 143 mmol/L 133-145 [facility] Squamous epithelial cells de tection in urine sediment by light microscopyOrdered By: Lewis Hendrickson on 05-02-2025 Epithelial cells.squamous LM Ql (Urine sed) 0-5 SEEN /hpf 0-[address] [facility] Total proteinOrdered By: Serena Hendrickson on 05-02-2025 Protein [Mass/Vol] 7.1 g/dL 5.9-8.4 [facility] Urinalysis, Completeon 05-02 EPI,SQUAMOUS 0-5 SEEN Normal 0-[address] [facility] Comment on above: Order Comment: CIARAN CTOR TO SPECIFY Performed By: #### L 400.0001 #### [facility] [address] [facility] [address] RBC 0-5 SEEN Normal 0-[address] [facility] Comment on above: Order Comment: CIARAN CTOR TO SPECIFY Performed By: #### L 400.0001 #### [facility] [address] [place], [address] WBC 0-5 SEEN Normal 0-[address] [facility] Comment on above: Order Comment: CIARAN CTOR TO SPECIFY Performed By: #### L 400.0001 #### [facility] [address] [place], [address] BACTERIA 0 SEEN Normal None Seen [facility] Comment on above: Order Comment: CIARAN CTOR TO SPECIFY Performed By: #### L 400.0001 #### [facility] [address] [place], [address] Mucus Ql (Urine sed) 0 SEEN Normal [facility] Comment on above: Order Comment: CIARAN CTOR TO SPECIFY Performed By: #### L 400.0001 #### [facility] [address] [facility] [address] Urine clarityOrdered By: Serena Hendrickson on 05-02-2025 Clarity (U) Clear Clear [facility] Urine color determinationOrd ered By: Lewis Hendrickson on 05-02-2025 Color (U) Yellow Yellow [facility] Urine glucose detectionOrder ed By: Lewis Hendrickson on 05-02-2025 Glucose Ql (U) Normal mg/dl Normal [facility] Urine leukocyte esterase det ection by dipstickOrdered By: Lewis Hendrickson on 05-02-2025 Leukocyte esterase Test strip Ql (U) Negative Negative [facility] Urine pHOrdered By: Lewis vann on 05-02-2025 pH (U) 7.0 [pH] 5.0 - 8.[address] [facility] Urine sediment bacteria coun t by microscopy (number/high power field)Ordered By: Lewis Hendrickson on 05-02-2025 Bacteria LM.HPF (Urine sed) [#/Area] 0 /[HPF] None Seen [facility] Urine specific gravity measu rementOrdered By: Lewis Hendrickson on 05-02-2025 Specific gravity (U) [Rel density] 1.010 1.002-1.[address] [facility] Urine urobilinogen measureme ntOrdered By: Lewis Hendrickson on 05-02-2025 Urobilinogen Ql (U) Normal mg/dl Normal [facility] White blood cell (WBC) count Ordered By: Lewis Hendrickson on 05-02-2025 WBC (Bld) [#/Vol] 10.3 10*3/uL 4.4-11.0 [facility] White blood cell countOrdere d By: Lewis Hendrickson on 05-02-2025 White blood cell count 0-5 SEEN /hpf 0-[address] [facility] CNOVon 01-02-2025 CNOV Office Visit ([facility] ) -------- ISMA URIBE ([id number]) 1990 M Date Time Provider Department 01/02/25 5:45 PM ROCKY SCHRADER [facility] During your visit today, we recorded the following information about you: Temperature Pulse Respiration Blood pressure 99.1 degrees 111/minute 20/minute 132/84 Weight 66.7 kg Rocky Schrader PA 01/02/2025 6:57 PM Signed [facility] Subjective Isma Uribe is a 34 year old male. Patient presents with: Pain: Left rib pain, fell at park HPI Left-Sided Rib Pain: - Acute onset of pain after falling onto a tree while playing on playground equipment with grandchildren today. - Pain localized to the left ribs and side, exacerbated by breathing. - Denies taking any analgesics for pain relief. Review of Systems Respiratory: (+) left-sided chest pain with respiration Musculoskeletal: (+) left rib pain Objective BP 132/84 Pulse 111 Temp 37.3 ?C (99.1 ?F) Resp 20 Wt 66.7 kg (147 lb 0.8 oz) SpO2 98% BMI 22.69 kg/m? Physical Exam Vitals and nursing note reviewed. Constitutional: General: He is not in acute distress. Appearance: Normal appearance. He is not toxic-appearing. HENT: Mouth/Throat: Mouth: Mucous membranes are moist. Cardiovascular: Rate and Rhythm: Normal rate and regular rhythm. Pulmonary: Effort: Pulmonary effort is normal. Breath sounds: Normal breath sounds. No wheezing, rhonchi or rales. Chest: Chest wall: Tenderness present. Comments: Tenderness over left anterior ribs with abrasion present. Mild tenderness over left lateral ribs as well. No bruising or deformity. No crepitation. Lungs clear. No abdominal tenderness or abdominal bruising. Abdominal: General: Abdomen is flat. There are no signs of injury. Palpations: Abdomen is soft. Tenderness: There is no abdominal tenderness. There is no guarding or rebound. Comments: No abdominal tenderness or bruising. Skin: General: Skin is warm and dry. Neurological: Mental Status: He is alert. {1. Rib pain on left side (R07.81) - Trauma from falling onto a tree while playing on playground equipment, resulting in left-sided rib pain. - Physical exam reveals tenderness along the left ribs and upper chest area; no abdominal tenderness noted. - Chest X-ray performed, no rib fractures identified. - Likely contusion; advised application of ice to the affected area. - Recommended analgesics: Acetaminophen and Ibuprofen as needed for pain management. - Instructed to seek emergency care if pain becomes unmanageable. Recording using [employer] software for draft documentation of the visit was discussed with the patient/authorized patient registration representative; all questions welcomed and answered. Patient/authorized patient registration representative agreed to proceed Differential Diagnoses - left rib pain is more likely for the following reason(s): suggested by HANDP - fracture is less likely for the following reason(s): no evidence on imaging - pnaumothorax is less likely for the following reason(s): no evidence on imaging Disposition The patient was discharged. OTC Medications were advised: Tylenol/motrin Procedures Allergies As of Date: 01/02/2025 Noted Allergy Reaction PENICILLINS 05/24/2005 4 - Hives RANITIDINE 06/10/2005 4 - Hives Date Reviewed: 01/02/2025 Reviewed by: Amina Squires MA - Fully Assessed Reason for Visit: Pain [78] Cmt: Left rib pain, fell at park Primary Visit Diagnosis:Rib pain on left side [R07.81] Order(s):XR RIBS/CHEST 3V AP RIB/OBLS/CXR LEFT [[id number]] Order #: [id number] FUTURE Problem List As Of Date 01/02/2025 Noted Resolved Cervical spine fracture (HCC) [S12.9XXA] 04/05/2014 Encounter for wellness examination [Z00.00] 03/01/2022 Depression [F32.A] 03/01/2022 Depressive disorder, not elsewhere classified [*10/31/2008 Encounter Status:Closed by ROCKY SCHRADER on 01/02/25 Normal [facility] XR RIB/CHST 3V AP RIB/OBL/CH ST Edis 01-02-2025 XR RIB/CHST 3V AP RIB/OBL/CHST L * * *Final Report* * * DATE OF EXAM: Jan 02 2025 6:03PM WOX [id number] - XR RIB/CHST 3V AP RIB/OBL/CHST L / PROCEDURE REASON: Rib pain on left side * * * * Physician Interpretation * * * * EXAMINATION: XR RIB/CHST 3V AP RIB/OBL/CHST L HISTORY: left mid anterior rib pain. Pt fell forward onto a hard object earlier today. Rib pain on left side . TECHNIQUE: XR RIB/CHST 3V AP RIB/OBL/CHST L Laterality: LEFT Number of different views (projections): 3 M: XB_1 COMPARISON: None RESULT/ IMPRESSION: No acute displaced rib fractures. Lungs are clear without consolidation. No pleural effusion or pneumothorax. Cardiomediastinal silhouette is normal. No other significant abnormality. Engineering Mathematician: [email or web address] Transcribe Date/Time: Jan 02 2025 6:41P Dictated by : DANETTE MURPHY MD This examination was interpreted and the report reviewed and electronically signed by: DANETTE MURPHY MD on Jan 02 2025 6:44PM EST [id number] Normal [facility] XR Ribs - left Views and Lisa st PAon 01-02-2025 IMPRESSION: No acute displaced rib fractures. Lungs are clear without consolidation. No pleural effusion or pneumothorax. Cardiomediastinal silhouette is normal. No other significant abnormality. Engineering Mathematician: [email or web address] Transcribe Date/Time: Jan 02 2025 6:41P Dictated by : DANETTE MURPHY MD This examination was interpreted and the report reviewed and electronically signed by: DANETTE MURPHY MD on Jan 02 2025 6:44PM EST DIVISION OF RADIOLOGY * * *Final Report* * * DATE OF EXAM: Jan 02 2025 6:03PM WOX [id number] - XR RIB/CHST 3V AP RIB/OBL/CHST L / PROCEDURE REASON: Rib pain on left side * * * * Physician Interpretation * * * * EXAMINATION: XR RIB/CHST 3V AP RIB/OBL/CHST L HISTORY: left mid anterior rib pain. Pt fell forward onto a hard object earlier today. Rib pain on left side . TECHNIQUE: XR RIB/CHST 3V AP RIB/OBL/CHST L Laterality: LEFT Number of different views (projections): 3 M: XB_1 COMPARISON: None RESULT/ DIVISION OF RADIOLOGY Provider, [facility] - 01/02/2025 * * *Final Report* * * DATE OF EXAM: Jan 02 2025 6:03PM WOX [id number] - XR RIB/CHST 3V AP RIB/OBL/CHST L / PROCEDURE REASON: Rib pain on left side * * * * Physician Interpretation * * * * EXAMINATION: XR RIB/CHST 3V AP RIB/OBL/CHST L HISTORY: left mid anterior rib pain. Pt fell forward onto a hard object earlier today. Rib pain on left side . TECHNIQUE: XR RIB/CHST 3V AP RIB/OBL/CHST L Laterality: LEFT Number of different views (projections): 3 M: XB_1 COMPARISON: None RESULT/ IMPRESSION IMPRESSION: No acute displaced rib fractures. Lungs are clear without consolidation. No pleural effusion or pneumothorax. Cardiomediastinal silhouette is normal. No other significant abnormality. Engineering Mathematician: TR Transcribe Date/Time: Jan 02 2025 6:41P Dictated by : DANETTE MURPHY MD This examination was interpreted and the report reviewed and electronically signed by: DANETTE MURPHY MD on Jan 02 2025 6:44PM EST [facility]iology Study observation (narrative) [facility] XR Ribs - left Views and Lisa st PAOrdered By: Ccf Provider on 01-02-2025 [facility] CBC W/Diff, Automatedon 11- Absolute Lymph 1.50 X10 3/uL Normal 0.83-4.[address] [facility] Comment on above: Performed By: #### L 100.0100, L500.4050 #### [facility] [address] [place], [address] Absolute Neut 5.6 X10 3/uL Normal 2.0-7.[address] [facility] Comment on above: Performed By: #### L 100.0100, L500.4050 #### [facility] [address] [place], [address] Basophils/100 WBC (Bld) 0.5 % Normal 0-1 [facility] Comment on above: Performed By: #### L 100.0100, L500.4050 #### [facility] [address] [place], [address] Eosinophils/100 WBC (Bld) 1.7 % Normal 0-[address] [facility] Comment on above: Performed By: #### L 100.0100, L500.4050 #### [facility] [address] [place], [address] Erythrocyte distribution width (RBC) [Ratio] 11.6 % Normal 11.6-14.[address] [facility] Comment on above: Performed By: #### L 100.0100, L500.4050 #### [facility] [address] [place], [address] Hematocrit (Bld) [Volume fraction] 39.2 % Low 40-[address] [facility] Comment on above: Performed By: #### L 100.0100, L500.4050 #### [facility] [address] [place], [address] Hemoglobin (Bld) [Mass/Vol] 13.8 g/dL Normal 13.0-16.[address] [facility] Comment on above: Performed By: #### L 100.0100, L500.4050 #### [facility] [address] [place], [address] IG% 0.200 Normal 0.0-0.[address] [facility] Comment on above: Result Comment: IG% - Immature Granulocytes (promyelocytes, myelocytes and metamyelocytes) > 1% indicates that a LEFT SHIFT is Present. Performed By: #### L 100.0100, L500.4050 #### [facility] [address] [place], [address] Lymphocytes/100 WBC (Bld) 18.5 % Low 19-[address] [facility] Comment on above: Performed By: #### L 100.0100, L500.4050 #### [facility] [address] [place], [address] MCH (RBC) [Entitic mass] 29.1 pg Normal 27.0-32.[address] [facility] Comment on above: Performed By: #### L 100.0100, L500.4050 #### [facility] [address] [place], [address] MCHC (RBC) [Mass/Vol] 35.2 g/dL Normal 32-36 [facility] Comment on above: Performed By: #### L 100.0100, L500.4050 #### [facility] [address] [place], [address] MCV (RBC) [Entitic vol] 82.7 fL Normal 80-94 [facility] Comment on above: Performed By: #### L 100.0100, L500.4050 #### [facility] [address] [place], [address] Monocytes/100 WBC (Bld) 10.2 % High 0-10 [facility] Comment on above: Performed By: #### L 100.0100, L500.4050 #### [facility] [address] [place], [address] Neutrophils/100 WBC (Bld) 68.9 % Normal 47-[address] [facility] Comment on above: Performed By: #### L 100.0100, L500.4050 #### [facility] [address] [place], [address] Nucleated RBC (Bld) [#/Vol] 0 10*3/uL Normal 0-[address] [facility] Comment on above: Performed By: #### L 100.0100, L500.4050 #### [facility] [address] [place], [address] Platelet mean volume (Bld) [Entitic vol] 8.6 fL Normal 6.2-12.[address] [facility] Comment on above: Performed By: #### L 100.0100, L500.4050 #### [facility] [address] [place], [address] Platelets (Bld) [#/Vol] 200 10*3/uL Normal 150-[address] [facility] Comment on above: Performed By: #### L 100.0100, L500.4050 #### [facility] [address] [place], [address] RBC (Bld) [#/Vol] 4.74 10*6/uL Normal 4.6-6.2 [facility] Comment on above: Performed By: #### L 100.0100, L500.4050 #### [facility] [address] [place], [address] RDW SD 35.4 fl Normal 35.1-43.[address] [facility] Comment on above: Performed By: #### L 100.0100, L500.4050 #### [facility] [address] [place], [address] WBC (Bld) [#/Vol] 8.1 10*3/uL Normal 4.4-11.0 [facility] Comment on above: Performed By: #### L 100.0100, L500.4050 #### [facility] [address] [place], [address] Comprehensive Metabolic Prof [facility] 06-12-2024 Albumin [Mass/Vol] 3.6 g/dL Normal 3.2-5.0 [facility] Comment on above: Performed By: #### L 100.0100, L500.4050 #### [facility] [address] [place], [address] Albumin/Globulin [Mass ratio] 1.0 {ratio} Normal 0.9-2.[address] [facility] Comment on above: Performed By: #### L 100.0100, L500.4050 #### [facility] [address] [place], [address] ALK P 64 U/L Normal 45-[address] [facility] Comment on above: Performed By: #### L 100.0100, L500.4050 #### [facility] [address] [place], [address] ALT [Catalytic activity/Vol] 13 U/L Low 16-[address] [facility] Comment on above: Performed By: #### L 100.0100, L500.4050 #### [facility] [address] [place], [address] AST [Catalytic activity/Vol] 14 U/L Low 15-[address] [facility] Comment on above: Result Comment: Slig ht Hemolysis, Result may be falsely increased. Performed By: #### L 100.0100, L500.4050 #### [facility] [address] [place], [address] Bilirubin [Mass/Vol] 0.30 mg/dL Normal 0.20-1.00 [facility] Comment on above: Result Comment: For patients on eltrombopag therapy, use of [employer] TBIL is not recommended. Performed By: #### L 100.0100, L500.4050 #### [facility] [address] [place], [address] BUN/CRE 15.9 RATIO Normal 10-[address] [facility] Comment on above: Performed By: #### L 100.0100, L500.4050 #### [facility] [address] [place], [address] CA,Total 8.7 mg/dL Normal 8.5-10.[address] [facility] Comment on above: Performed By: #### L 100.0100, L500.4050 #### [facility] [address] [place], [address] Chloride [Moles/Vol] 107 mmol/L Normal 98-107 [facility] Comment on above: Performed By: #### L 100.0100, L500.4050 #### [facility] [address] [place], [address] CO2 [Moles/Vol] 29.0 mmol/L Normal 21.0-32.[address] [facility] Comment on above: Performed By: #### L 100.0100, L500.4050 #### [facility] [address] [place], [address] Creatinine [Mass/Vol] 0.94 mg/dL Normal 0.70-1.30 [facility] Comment on above: Result Comment: The validity of the calculated GFR GFRAA in patients over 70 years has not been determined. Clinical correlation is essential. Performed By: #### L 100.0100, L500.4050 #### [facility] [address] [place], [address] ECRCL 101.81 ml/min Normal [facility] Comment on above: Performed By: #### L 100.0100, L500.4050 #### [facility] [address] [place], [address] EST GFR - AA 119 mL/min Normal >[address] [facility] Comment on above: Result Comment: Afri can [place] GFR Calc Performed By: #### L 100.0100, L500.4050 #### [facility] [address] [place], [address] GAP 3 Low 5-[address] [facility] Comment on above: Performed By: #### L 100.0100, L500.4050 #### [facility] [address] [place], [address] GFR/1.73 sq M.predicted among non-blacks MDRD (S/P/Bld) [Vol rate/Area] 99 mL/min/{1.73_m2} Normal >[address] [facility] Comment on above: Result Comment: Non- GFR Calc Performed By: #### L 100.0100, L500.4050 #### [facility] [address] [place], [address] Globulin (S) [Mass/Vol] 3.5 g/dL Normal 2.2-4.2 [facility] Comment on above: Performed By: #### L 100.0100, L500.4050 #### [facility] [address] [place], [address] Glucose [Mass/Vol] 117 mg/dL High 74-106 [facility] Comment on above: Result Comment: Fast ing Glucose result from 100 to 125 mg/dL suggests IMPAIRED HOMEOSTASIS per A.D.A. criteria. Performed By: #### L 100.0100, L500.4050 #### [facility] [address] [place], [address] Potassium [Moles/Vol] 4.0 mmol/L Normal 3.5-5.1 [facility] Comment on above: Result Comment: Slig ht Hemolysis, Result may be falsely increased. Performed By: #### L 100.0100, L500.4050 #### [facility] [address] [place], [address] Sodium [Moles/Vol] 138 mmol/L Normal 136-145 [facility] Comment on above: Performed By: #### L 100.0100, L500.4050 #### [facility] [address] [place], [address] T PROT 7.1 g/dL Normal 6.4-8.[address] [facility] Comment on above: Performed By: #### L 100.0100, L500.4050 #### [facility] [address] [place], [address] Urea nitrogen [Mass/Vol] 15 mg/dL Normal 7-[address] [facility] Comment on above: Performed By: #### L 100.0100, L500.4050 #### [facility] [address] [place], [address] Emergency Department Summary on 06-12-2024 Emergency Department Summary [facility] Medical Records Department [address] [place] [address] Emergency Department Summary 06/12/24 MR#: [id number] Acct: [id number] Name: ISMA URIBE Rep #: [id number] : 1990 34 From: Vincent Nazario DO PCP: Dr. Sam Olvera MD Status:DEP ER Location: ED HPI History of Present Illness Chief Complaint: GI Bleed Informant: patient and spouse/S.O. Narrative Narrative: Patient is a 34-year-old male who states that over the last 3 days he has had fatigue with lightheadedness and nausea. He reports today he developed bouts of vomiting as well as left-sided abdominal discomfort and had a bowel movement that was normal except for there was mixed in bright red blood. He states that he does not have a history of bleeding disorder nor does he take blood thinners. He denies any known sick contacts. He states there has been no recent travel outside the country livestock exposure or antibiotic use. He states that he feels ago symptoms have worsened and secondary to that comes in for evaluation [facility] Medical History Alcohol abuse Depression Constipation Pancreatitis Smoker COVID-19 virus infection History of cervical fracture Fracture of middle phalanx of left index finger Family history of alcoholism Nicotine dependence Home Medications ???Medication ???Instructions ???Recorded ???Last Taken ???Type dicyclomine 20 mg tablet 20 mg PO 4X/DAY PRN Abdominal 06/12/24 Unknown Rx pain/spasm #28 tabs ondansetron 4 mg disintegrating 4 mg PO TID PRN nausea and 06/12/24 Unknown Rx tablet vomiting #21 tabs Allergy/AdvReac Type Severity Reaction Status Date / Time Penicillins Allergy Hives Verified 06/12/24 20:11 Social History household members: family and none current occupational status: employed current occupation: [employer] Smoking Status: Current every day smoker tobacco type: e-cigarettes alcohol intake: current alcohol intake frequency: a few times a week substance use type: does not use ROS ROS ED Constitutional Constitutional ED: Denies chills or fever(s) ENT ENT ED: Denies sore throat Cardiovascular Cardiovascular: Denies chest pain Respiratory/Chest Respiratory/Chest: Denies cough or dyspnea Gastrointestinal Gastrointestinal: Reports abdominal pain, nausea, vomiting and other Details: Positive hematochezia ; Denies diarrhea Genitourinary Genitourinary ED: Denies dysuria or hematuria Musculoskeletal Musculoskeletal: Denies myalgias Integumentary Denies rash Neurologic Neurologic: Denies headache(s) Hematologic/Lymphatic Hematologic/Lymphatic: Denies easy bleeding or easy bruising EXAM Physical Exam Const Vital Signs: 06/12/24 20:09 06/12/24 21:30 06/12/24 22:00 Temperature 100 F H 98.3 F 98.5 F Temperature Source Oral Oral Oral Pulse Rate 94 82 70 Respiratory Rate 16 16 16 Blood Pressure 148/83 H 133/77 H 142/80 H Blood Pressure Mean 104 95 100 Pulse Ox 99 98 99 Oxygen Delivery Method Room Air Room Air Room Air 06/12/24 23:00 06/12/24 23:40 Temperature 98.4 F 98.4 F Temperature Source Oral Pulse Rate 89 67 Respiratory Rate 16 16 Blood Pressure 124/82 H 124/82 H Blood Pressure Mean 96 96 Pulse Ox 99 99 Oxygen Delivery Method Room Air Positive well nourished and well developed General Appearance ED: well developed; Negative for pallor HEENT Reports dry mucous membranes HEENT Narrative: Mucous membranes are dry and tacky No tongue or lip swelling no oral lesions no airway edema or compromise Mouth ED: Yes dry mucous membranes Mouth: dry mucous membranes Eyes PERRL and EOMs intact bilaterally General Eye ED: Negative for scleral icterus Neck supple Resp normal respiratory effort and clear to auscultation bilaterally Cardio regular rate and regular rhythm Rate: other Other Details: Regular rate and rhythm without murmurs rubs or gallops Radial and carotid pulses are equal and symmetric GI non-distended and no masses GI Narrative: Abdomen is soft and nondistended with hyperactive bowel sounds. There is pain on palpation along the left upper to mid abdomen without voluntary guarding or rigidity or pulsatile mass. Auscultation: hyperactive bowel sounds Palpation: soft Narrative: Patient deferred Back/Spine no CVA tenderness Extremity normal to inspection Neuro oriented x3, CN's II-XII intact bilaterally and no sensory deficits noted Sensorium / Orientation: alert Motor Exam: strength 5/5 throughout Psych mental status grossly normal Skin no rashes or lesions noted Skin Narrative: Skin turgor is slightly increased General Skin Exam: Ne (more content not included)... Normal [facility] Urinalysis, Completeon 06-12 WBC 0-5 SEEN Normal 0-[address] [facility] Comment on above: Order Comment: CIARAN CTOR TO SPECIFY Performed By: #### L 400.0001 #### [facility] [address] [place], [address] BACTERIA 0 SEEN Normal None Seen [facility] Comment on above: Order Comment: CIARAN CTOR TO SPECIFY Performed By: #### L 400.0001 #### [facility] [address] [place], [address] EPI,SQUAMOUS 0 SEEN Normal 0-[address] [facility] Comment on above: Order Comment: CIARAN CTOR TO SPECIFY Performed By: #### L 400.0001 #### [facility] [address] [place], [address] Mucus Ql (Urine sed) 0 SEEN Normal [facility] Comment on above: Order Comment: CIARAN CTOR TO SPECIFY Performed By: #### L 400.0001 #### [facility] [address] [place], [address] RBC 0 SEEN Normal 0-[address] [facility] Comment on above: Order Comment: CIARAN CTOR TO SPECIFY Performed By: #### L 400.0001 #### [facility] [address] [place], [address] CNOVon 06-11-2024 CNOV Office Visit (UCWSTR ) -------- ISMA URIBE ([id number]) 1990 M Date Time Provider Department 06/11/24 3:15 PM IKEOMAYRASAM [facility] During your visit today, we recorded the following information about you: Temperature Pulse Respiration Blood pressure 99.4 degrees 88/minute 16/minute 128/82 Weight 65 kg Sam Fuller, JOHN.SIGNAL MANAGER 06/11/2024 3:51 PM Signed Subjective HPI Nontoxic-appearing male presents urgent care chief complaint headache stomachache fever sore throat. Duration of symptoms 1 day. Associated symptoms listed above. Most prominent symptom today is fatigue. Unable to go to work today. Sick contacts over the weekend. Denies OTC medications. No vomiting high fevers chest pain shortness of breath. Past medical history prescription medications allergies reviewed. .Patient presents with: Headache: HULL, stomach hurts and congestion, fever x 1 day PAST MEDICAL HISTORY Diagnosis Date Depression Fracture of C6 vertebra, closed (HCC) 02/22/2014 Fracture of left knee region 02/22/2014 Nasal fracture 02/22/2014 PTSD (post-traumatic stress disorder) PAST SURGICAL HISTORY Procedure Laterality Date REPAIR NASAL SEPTAL FRACTURE 02/2014 ALLERGIES Penicillins and Ranitidine MEDICATIONS No prescriptions on file. FAMILY HISTORY Problem Relation Age of Onset No Known Problems Father Social History Tobacco Use Smoking status: Every Day Types: Cigarettes Smokeless tobacco: Never Tobacco comments: Father smokes outside Substance Use Topics Alcohol use: Yes Comment: social Drug use: Never BP 128/82 Pulse 88 Temp 37.4 ?C (99.4 ?F) (Tympanic) Resp 16 Wt 65 kg (143 lb 4.8 oz) SpO2 100% BMI 22.11 kg/m? ' Review of Systems Constitutional: Positive for fever and malaise/fatigue. Negative for chills. HENT: Positive for sore throat. Negative for congestion, ear discharge, ear pain and sinus pain. Eyes: Negative for blurred vision, pain, discharge and redness. Respiratory: Negative for cough, hemoptysis, sputum production, shortness of breath, wheezing and stridor. Cardiovascular: Negative for chest pain. Gastrointestinal: Positive for abdominal pain. Negative for diarrhea, nausea and vomiting. Musculoskeletal: Positive for myalgias. Skin: Negative for itching and rash. Neurological: Positive for headaches. Negative for dizziness. Objective Physical Exam Constitutional: General: He is not in acute distress. Appearance: He is not diaphoretic. HENT: Head: Normocephalic. Jaw: No trismus, tenderness, swelling or pain on movement. Mouth/Throat: Mouth: Mucous membranes are moist. Pharynx: Oropharynx is clear. Uvula midline. No pharyngeal swelling, oropharyngeal exudate, posterior oropharyngeal erythema or uvula swelling. Eyes: Conjunctiva/sclera: Conjunctivae normal. Pupils: Pupils are equal, round, and reactive to light. Cardiovascular: Rate and Rhythm: Normal rate and regular rhythm. Heart sounds: Normal heart sounds. Pulmonary: Effort: Pulmonary effort is normal. No tachypnea, accessory muscle usage or respiratory distress. Breath sounds: Normal breath sounds. No stridor. No wheezing, rhonchi or rales. Abdominal: General: There is no distension. Palpations: Abdomen is soft. Tenderness: There is generalized abdominal tenderness. There is no guarding or rebound. Musculoskeletal: Cervical back: Normal range of motion and neck supple. No edema, erythema, rigidity or tenderness. No pain with movement. Normal range of motion. Lymphadenopathy: Cervical: No cervical adenopathy. Skin: General: Skin is warm and dry. Neurological: Mental Status: He is alert and oriented to person, place, and time. ASSESSMENT/PLAN: 1. Pharyngitis, unspecified etiology - ICD9: 462, ICD10: J02.9 (primary diagnosis) - STREP A MOLECULAR (POC) 2. Generalized abdominal pain - ICD9: 789.07, ICD10: R10.84 Strep test negative. Diagnosed with generalized abdominal pain. Suspicious of viral illness. If abdominal pain worsens to be seen in ED. Patient was educated on supportive therapies. Patient will follow up with primary care provider as needed. Patient was instructed to immediately proceed to emergency room for any new, worsening, or symptoms lasting longer than anticipated. The patient's clinical presentation is otherwise unremarkable at this time. Based on exam and clinical finding, the patient is stable for discharge. Plan of care was discussed with patient. Patient verbalizes understanding and agrees to plan of care. This note was generated using Needcheck software. It may contain errors in wording, punctuation, or spelling. Sam Fuller APRN.HEBER Allergies As of Date: 06/11/2024 Noted Allergy Reaction PENICILLINS 05/24/2005 4 - Hives RANITIDINE 06/10/2005 4 - Hives Date Reviewed: 06/11/2024 Reviewed by: Sam Fuller APRN.C (more content not included)... Normal [facility] STREP A MOLECULAR (POC)on Procedural Control Valid [facility] Strep A (POCT) Negative Negative [facility] CNOVon 05-25-2024 CNOV Office Visit (UCWSTR ) -------- ISMA URIBE ([id number]) 1990 M Date Time Provider Department 05/25/24 9:30 AM ROCKY SCHRADER [facility] During your visit today, we recorded the following information about you: Temperature Pulse Respiration Blood pressure 97.5 degrees 74/minute 18/minute 120/73 Weight 66.4 kg Rocky Schrader PA 05/25/2024 10:47 AM Signed This note was created using [employer]. Subjective Isma Uribe is a 34 year old male. HPI 34-year-old male presents for right foot and ankle pain. Patient states he was taking down wallpaper 2 weeks ago lost his balance on a stepladder and stepped down and felt pain in his foot. He has been having pain since then. The main pain is on the top of the foot and front of the ankle. He also has a little bit of ankle pain. Able to ambulate. No numbness or tingling. He took Tylenol/Motrin with minimal improvement In symptoms. PAST MEDICAL HISTORY Diagnosis Date Depression Fracture of C6 vertebra, closed (HCC) 02/22/2014 Fracture of left knee region 02/22/2014 Nasal fracture 02/22/2014 PTSD (post-traumatic stress disorder) PAST SURGICAL HISTORY Procedure Laterality Date REPAIR NASAL SEPTAL FRACTURE 02/2014 ALLERGIES Penicillins and Ranitidine MEDICATIONS No prescriptions on file. FAMILY HISTORY Problem Relation Age of Onset No Known Problems Father Social History Tobacco Use Smoking status: Every Day Types: Cigarettes Smokeless tobacco: Never Tobacco comments: Father smokes outside Substance Use Topics Alcohol use: Yes Comment: social Drug use: Never Review of Systems Constitutional: Negative for chills and fever. HENT: Negative for congestion and sore throat. Respiratory: Negative for cough and shortness of breath. Gastrointestinal: Negative for diarrhea and vomiting. Musculoskeletal: Positive for arthralgias. Objective BP 120/73 Pulse 74 Temp 36.4 ?C (97.5 ?F) Resp 18 Wt 66.4 kg (146 lb 6.2 oz) SpO2 100% BMI 22.59 kg/m? Physical Exam Vitals and nursing note reviewed. Constitutional: General: He is not in acute distress. Appearance: Normal appearance. He is not toxic-appearing. Musculoskeletal: Right ankle: No swelling or deformity. Tenderness present. Normal range of motion. Normal pulse. Right Achilles Tendon: Normal. No tenderness. Grajeda's test negative. Right foot: Normal range of motion and normal capillary refill. Tenderness and bony tenderness present. No swelling or deformity. Normal pulse. Comments: Patient has tenderness over anterior ankle. Mild tenderness over medial and lateral malleolus. No deformities or swelling. Tenderness over proximal 2nd through 4th metatarsals. Nontender toes. Normal ROM of the toes. Normal sensation all toes. Achilles intact. Skin: General: Skin is warm and dry. Neurological: Mental Status: He is alert. Assessment and Plan ASSESSMENT/PLAN: 1. Foot pain, right - ICD9: 729.5, ICD10: M79.671 - XR FOOT GENERAL 3V AP/LAT/OBL RIGHT - XR ANKLE GENERAL 3V AP/LAT/OBL RIGHT -Radiology read is pending. I do not see any fractures on my review of the XR. Patient would like to leave and have us call him with the results. I did discuss if there is a fracture, he will need to return for appropriate splinting/crutches. He understands. He is ambulatory at this time. Injury x 2 weeks ago, has been walking on it. - Will call patient with result of XR. -Recommend rest, ice, elevation, Tylenol/Motrin for pain. Diagnosis and treatment plan were discussed and questions were answered to the patient's satisfaction. Pt acknowledged understanding of concepts and follow up plan. Specific signs and symptoms that would indicate the need for higher level of care were discussed in detail warranting prompt ER evaluation. RODERICK Vogel Krislyn P, PA 05/25/2024 10:12 AM Signed R.I.C.E. The general care of your injury includes the following: Resting, Icing, Compressing and Elevating the injured area. Remember this as RICE. REST: Limit the use of the injured body part. ICE: By applying ice to the affected area, swelling and pain can be reduced. Place some ice cubes in a re-sealable (Ziploc) bag and add some water. Put a thin washcloth between the bag and your skin. Apply the ice bag to the area for at least 20 minutes. Do this at least 4 times per day. Using the ice for longer times and more frequently is OK. NEVER APPLY ICE DIRECTLY TO THE SKIN. COMPRESS: Compression means to apply pressure around the injured area such as with a splint, cast or an candy bandage. Compression decreases swelling and improves comfort. Compression should be tight enough to relieve swelling but not so tight as to decrease circulation. Increasing pain, numbness, tingling, or change in skin color, are all signs of decreased circulation. ELEVATE: Elevate the injured p (more content not included)... Normal [facility] 05-25-2024 [facility] Telephone ([facility]) -------- ISMA URIBE ([id number]) 1990 M Date Time Provider Department 05/25/24 KAILA JEAN [facility] During your visit today, we recorded the following information about you: Kaila Jean APRN.SIGNAL MANAGER 05/25/2024 12:26 PM Signed Xray foot negative Xray ankle negative Continue treatment plan discussed at time of exam Follow up with ortho and or PCP for continued sx Please advise Brittany Yusuf MA 05/25/2024 12:46 PM Signed Patient notified of results, verbalizes understanding of instructions. Brittany Yusuf MA Allergies As of Date: 05/25/2024 Noted Allergy Reaction PENICILLINS 05/24/2005 4 - Hives RANITIDINE 06/10/2005 4 - Hives Date Reviewed: 05/25/2024 Reviewed by: Sruthi Rios LPN - Fully Assessed Reason for Visit: Results [95] Problem List As Of Date 05/25/2024 Noted Resolved Cervical spine fracture (HCC) [S12.9XXA] 04/05/2014 Encounter for wellness examination [Z00.00] 03/01/2022 Depression [F32.A] 03/01/2022 Depressive disorder, not elsewhere classified [*10/31/2008 Encounter Status:Closed by BRITTANY YUSUF on 05/25/24 Normal [facility] No Panel Informationon 05-25 IMPRESSION: No acute process is seen. Engineering Mathematician: PSCB Transcribe Date/Time: May 25 2024 12:13P Dictated by : DEDE SANDHU MD This examination was interpreted and the report reviewed and electronically signed by: DEDE SANDHU MD on May 25 2024 12:15PM [facility] DIVISION OF RADIOLOGY Radiology Study observation (narrative) [facility] No Panel InformationOrdered By: Ccf Provider on 05-25-2024 [facility] XR ANKLE 3V AP/LAT/OBL RTon 05-25-2024 XR ANKLE 3V AP/LAT/OBL RT * * *Final Report* * * DATE OF EXAM: May 25 2024 9:58AM WOX 5297 - XR ANKLE 3V AP/LAT/OBL RT / PROCEDURE REASON: Foot pain, right * * * * Physician Interpretation * * * * History: Right-sided ankle and foot pain FINDINGS: AP, lateral, and oblique views of the right ankle and foot have been obtained. Correlation is made with prior study of 03/05/2024. The bones are well-mineralized without evidence of acute fracture or dislocation. There are hammertoe deformities throughout. Joint spaces are maintained. No gross soft tissue abnormality is seen. IMPRESSION: No acute process is seen. Engineering Mathematician: TR Transcribe Date/Time: May 25 2024 12:13P Dictated by : DEDE SANDHU MD This examination was interpreted and the report reviewed and electronically signed by: DEDE SANDHU MD on May 25 2024 12:15PM EST [id number] Normal [facility] XR Ankle - right AP and Late ral and obliqueon 05-25-2024 * * *Final Report* * * DATE OF EXAM: May 25 2024 9:58AM WOX 5297 - XR ANKLE 3V AP/LAT/OBL RT / PROCEDURE REASON: Foot pain, right * * * * Physician Interpretation * * * * History: Right-sided ankle and foot pain FINDINGS: AP, lateral, and oblique views of the right ankle and foot have been obtained. Correlation is made with prior study of 03/05/2024. The bones are well-mineralized without evidence of acute fracture or dislocation. There are hammertoe deformities throughout. Joint spaces are maintained. No gross soft tissue abnormality is seen. DIVISION OF RADIOLOGY Provider, [facility] - 05/25/2024 * * *Final Report* * * DATE OF EXAM: May 25 2024 9:58AM WOX 5297 - XR ANKLE 3V AP/LAT/OBL RT / PROCEDURE REASON: Foot pain, right * * * * Physician Interpretation * * * * History: Right-sided ankle and foot pain FINDINGS: AP, lateral, and oblique views of the right ankle and foot have been obtained. Correlation is made with prior study of 03/05/2024. The bones are well-mineralized without evidence of acute fracture or dislocation. There are hammertoe deformities throughout. Joint spaces are maintained. No gross soft tissue abnormality is seen. IMPRESSION IMPRESSION: No acute process is seen. Engineering Mathematician: TR Transcribe Date/Time: May 25 2024 12:13P Dictated by : DEDE SANDHU MD This examination was interpreted and the report reviewed and electronically signed by: DEDE SANDHU MD on May 25 2024 12:15PM EST [facility] XR FOOT 3V AP/LAT/OBL RTon 1 07-25-2023 XR FOOT 3V AP/LAT/OBL RT * * *Final Report* * * DATE OF EXAM: May 25 2024 9:58AM WOX 5337 - XR FOOT 3V AP/LAT/OBL RT / PROCEDURE REASON: Foot pain, right * * * * Physician Interpretation * * * * History: Right-sided ankle and foot pain FINDINGS: AP, lateral, and oblique views of the right ankle and foot have been obtained. Correlation is made with prior study of 03/05/2024. The bones are well-mineralized without evidence of acute fracture or dislocation. There are hammertoe deformities throughout. Joint spaces are maintained. No gross soft tissue abnormality is seen. IMPRESSION: No acute process is seen. Engineering Mathematician: PSCB Transcribe Date/Time: May 25 2024 12:13P Dictated by : DEDE SANDHU MD This examination was interpreted and the report reviewed and electronically signed by: DEDE SANDHU MD on May 25 2024 12:15PM EST [id number] Normal [facility] XR Foot - right AP and Later al and obliqueon 05-25-2024 * * *Final Report* * * DATE OF EXAM: May 25 2024 9:58AM WOX 5337 - XR FOOT 3V AP/LAT/OBL RT / PROCEDURE REASON: Foot pain, right * * * * Physician Interpretation * * * * History: Right-sided ankle and foot pain FINDINGS: AP, lateral, and oblique views of the right ankle and foot have been obtained. Correlation is made with prior study of 03/05/2024. The bones are well-mineralized without evidence of acute fracture or dislocation. There are hammertoe deformities throughout. Joint spaces are maintained. No gross soft tissue abnormality is seen. DIVISION OF RADIOLOGY Provider, [facility] - 05/25/2024 * * *Final Report* * * DATE OF EXAM: May 25 2024 9:58AM WOX 5337 - XR FOOT 3V AP/LAT/OBL RT / PROCEDURE REASON: Foot pain, right * * * * Physician Interpretation * * * * History: Right-sided ankle and foot pain FINDINGS: AP, lateral, and oblique views of the right ankle and foot have been obtained. Correlation is made with prior study of 03/05/2024. The bones are well-mineralized without evidence of acute fracture or dislocation. There are hammertoe deformities throughout. Joint spaces are maintained. No gross soft tissue abnormality is seen. IMPRESSION IMPRESSION: No acute process is seen. Engineering Mathematician: TR Transcribe Date/Time: May 25 2024 12:13P Dictated by : DEDE SANDHU MD This examination was interpreted and the report reviewed and electronically signed by: DEDE SANDHU MD on May 25 2024 12:15PM EST [facility] No Panel Informationon 03-05 IMPRESSION: No acute process is seen. Engineering Mathematician: PSCB Transcribe Date/Time: Mar 05 2024 1:56P Dictated by : DEDE SANDHU MD This examination was interpreted and the report reviewed and electronically signed by: DEDE SANDHU MD on Mar 05 2024 1:58PM [facility] DIVISION OF RADIOLOGY Radiology Study observation (narrative) [facility] No Panel InformationOrdered By: Ccf Provider on 03-05-2024 [facility] XR Ankle - right AP and Late ral and obliqueon 03-05-2024 * * *Final Report* * * DATE OF EXAM: Mar 05 2024 1:54PM WOX 5297 - XR ANKLE 3V AP/LAT/OBL RT / PROCEDURE REASON: multiple diagnoses * * * * Physician Interpretation * * * * History: Acute right ankle pain FINDINGS: AP, lateral, and oblique views of the right ankle and foot have been obtained. The bones are well-mineralized. There is no acute fracture or dislocation. Joint spaces are maintained. No gross soft tissue abnormality is seen. Included AP views of the left ankle and foot demonstrate no acute process. [facility]Y [facility] * * *Final Report* * * DATE OF EXAM: Mar 05 2024 1:54PM WOX 5297 - XR ANKLE 3V AP/LAT/OBL RT / PROCEDURE REASON: multiple diagnoses * * * * Physician Interpretation * * * * History: Acute right ankle pain FINDINGS: AP, lateral, and oblique views of the right ankle and foot have been obtained. The bones are well-mineralized. There is no acute fracture or dislocation. Joint spaces are maintained. No gross soft tissue abnormality is seen. Included AP views of the left ankle and foot demonstrate no acute process. IMPRESSION IMPRESSION: No acute process is seen. Engineering Mathematician: TR Transcribe Date/Time: Mar 05 2024 1:56P Dictated by : DEDE SANDHU MD This examination was interpreted and the report reviewed and electronically signed by: DEDE SANDHU MD on Mar 05 2024 1:58PM [facility] XR Foot - right AP and Later al and obliqueon 03-05-2024 * * *Final Report* * * DATE OF EXAM: Mar 05 2024 1:54PM WOX 5337 - XR FOOT 3V AP/LAT/OBL RT / PROCEDURE REASON: multiple diagnoses * * * * Physician Interpretation * * * * History: Acute right ankle pain FINDINGS: AP, lateral, and oblique views of the right ankle and foot have been obtained. The bones are well-mineralized. There is no acute fracture or dislocation. Joint spaces are maintained. No gross soft tissue abnormality is seen. Included AP views of the left ankle and foot demonstrate no acute process. DIVISION OF RADIOLOGY Provider, [facility] - 03/05/2024 * * *Final Report* * * DATE OF EXAM: Mar 05 2024 1:54PM WOX 5337 - XR FOOT 3V AP/LAT/OBL RT / PROCEDURE REASON: multiple diagnoses * * * * Physician Interpretation * * * * History: Acute right ankle pain FINDINGS: AP, lateral, and oblique views of the right ankle and foot have been obtained. The bones are well-mineralized. There is no acute fracture or dislocation. Joint spaces are maintained. No gross soft tissue abnormality is seen. Included AP views of the left ankle and foot demonstrate no acute process. IMPRESSION IMPRESSION: No acute process is seen. Engineering Mathematician: TR Transcribe Date/Time: Mar 05 2024 1:56P Dictated by : DEDE SANDHU MD This examination was interpreted and the report reviewed and electronically signed by: DEDE SANDHU MD on Mar 05 2024 1:58PM [facility] Absolute lymphocyte countOrd ered By: Vincent Nazario on 09-23-2023 Lymphocytes Auto (Unsp spec) [#/Vol] 1.07 10*3/uL 0.83-4.[address] [facility] Automated lymphocyte count a s percentage of total leukocytesOrdered By: Vincent Nazario on 09-23-2023 Lymphocytes/100 WBC Auto (Unsp spec) 19.6 % 19-[address] [facility] Basophil percentageOrdered B y: Vincent Nazario on 09-23-2023 Basophil percentage < 2.0 ug/mL 10.0-30.0 [facility] Basophils/100 WBC (Bld) 0.5 % 0-1 [facility] Bilirubin [Mass/Vol] 0.30 mg/dL 0.20-1.00 [facility] Comment on above: For patients on eltr ombopag therapy, use of [employer] TBIL is not recommended. Chloride [Moles/Vol] 111 mmol/L 98-107 [facility] Eosinophils/100 WBC (Bld) 0.7 % 0-[address] [facility] Glucose [Mass/Vol] 109 mg/dL 74-106 [facility] Comment on above: Fasting Glucose resu lt from 100 to 125 mg/dL suggests IMPAIRED HOMEOSTASIS per A.D.A. criteria. Hemoglobin (Bld) [Mass/Vol] 12.7 g/dL 13.0-16.[address] [facility] Monocytes/100 WBC (Bld) 8.2 % 0-10 [facility] Neutrophils (Bld) [#/Vol] 3.9 10*3/uL 2.0-7.[address] [facility] Neutrophils/100 WBC (Bld) 70.6 % 47-[address] [facility] Potassium [Moles/Vol] 4.0 mmol/L 3.5-5.1 [facility] Protein [Mass/Vol] 6.8 g/dL 6.4-8.2 [facility] Sodium [Moles/Vol] 142 mmol/L 136-145 [facility] WBC (Bld) [#/Vol] 5.5 10*3/uL 4.4-11.0 [facility] COVID-19 virus antigen assay Ordered By: Vincent Nazario on 09-23-2023 SARS-CoV-2 (COVID-19) Ag IA.rapid Ql (Resp) [facility] SARS-CoV-2 (COVID-19) Ag IA.rapid Ql (Resp) [facility] Determination of erythrocyte mean corpuscular volume (MCV)Ordered By: Vincent Nazario on 09-23-2023 MCV (RBC) [Entitic vol] 84.7 fL 80-94 [facility] Erythrocyte distribution wid th ratioOrdered By: Vincent Nazario on 09-23-2023 Erythrocyte distribution width (RBC) [Ratio] 11.7 % 11.6-14.[address] [facility] Erythrocyte distribution wid th standard deviationOrdered By: Vincent Nazario on 09-23-2023 Erythrocyte distribution width (RBC) [Entitic vol] 35.8 fL 35.1-43.[address] [facility] Hematocrit Auto (Bld) [Volum e fraction]Ordered By: Vincent Nazario on 09-23-2023 Hematocrit (Bld) [Volume fraction] 37.0 % 40-[address] [facility] Immature granulocytes/100 WB C Auto (Bld)Ordered By: Vincent Nazario on 09-23-2023 Immature granulocytes/100 WBC (Bld) 0.400 % 0.0-0.[address] [facility] Comment on above: IG% - Immature Granu locytes (promyelocytes, myelocytes and metamyelocytes) > 1% indicates that a LEFT SHIFT is Present. Laboratory - Chemistry and C hemistry - challengeOrdered By: Vincent Nazario on 09-23-2023 Albumin/Globulin [Mass ratio] 1.1 {ratio} 0.9-2.[address] [facility] ALP [Catalytic activity/Vol] 67 U/L 45-[address] [facility] ALT [Catalytic activity/Vol] 16 U/L 16-[address] [facility] CO2 [Moles/Vol] 29.0 mmol/L 21.0-32.[address] [facility] Globulin (S) [Mass/Vol] 3.2 g/dL 2.2-4.2 [facility] Urea nitrogen/Creatinine [Mass ratio] 13.3 mg/mg 10-[address] [facility] Laboratory - Drug toxicology Ordered By: Vincent Nazario on 09-23-2023 Amphetamines Ql (U) Negative <1000 ng/mL [facility] Benzodiazepines Ql (U) Negative < 200 ng/mL [facility] Cannabinoids Screen Ql (U) Positive < 50 ng/mL [facility] Cocaine Ql (U) Negative < 300 ng/mL [facility] Opiates Ql (U) Negative < 300 ng/mL [facility] Laboratory - Hematology and Cell countsOrdered By: Vincent Nazario on 09-23-2023 MCH (RBC) [Entitic mass] 29.1 pg 27.0-32.[address] [facility] MCHC (RBC) [Mass/Vol] 34.3 g/dL 32-36 [facility] Nucleated RBC/100 WBC (Bld) [Ratio] 0 % 0-[address] [facility] Platelet mean volume (Bld) [Entitic vol] 8.7 fL 6.2-12.[address] [facility] Platelets (Bld) [#/Vol] 220 10*3/uL 150-[address] [facility] No Panel InformationOrdered By: Vincent Nazario on 09-23-2023 MDMA (Ecstasy) Screen Negative < 500 ng/mL [facility] Urine Barbiturates Screen Negative < 200 ng/mL [facility] Urine Drug Screen Comment [facility] Comment on above: CONFIRMATORY TESTING FOR ALL POSITIVE URINE DRUG SCREENRESULTS WILL ONLY BE SENT OUT UPON PHYSICIAN ORDER. VISTA Urine Drug Screen methods provide only preliminaryanalytical test results. A more specific alternate chemicalmethod must be used in order to obtain a confirmedanalytical result. Gas chromatography/mass spectrometery(GC/MS) is the preferred confirmatory method. Clinicalconsideration and professional judgement should be appliedto any drug of abuse test result, particularly whenpreliminary positive results are used. URINE TCA TESTING MUST BE ORDERED SEPARATELY. USE TESTMNEMONIC: [facility] Urine Methadone Screen Negative < 300 ng/mL [facility] Estimated Creatinine Clearance Calc 98.56 ml/min [facility] Estimated GFR (MDRD) Amer 115 mL/min >[address] [facility] Comment on above: GFR Calc Estimated GFR (MDRD) Non-Af Amer 95 mL/min >[address] [facility] Comment on above: Non- GFR Calc Ethyl Alcohol Level < 3.0 mg/dL [facility] Comment on above: The serum:whole bloo d ethanol ratio is approximately 1.14and varies slightly with hematocrit. Medical Alcohol reference interval and critical value innon-tolerant individuals; 50 - 100 Impairment 100 Intoxication 100 - 250 Severe Poisoning 250 - 400 Deep/possible fatal coma RBC Auto (Bld) [#/Vol]Ordere d By: Vincent Nazario on 09-23-2023 RBC (Bld) [#/Vol] 4.37 10*6/uL 4.6-6.2 [facility] Serum or plasma calcium ofe urement (mass/volume)Ordered By: Vincent Nazario on 09-23-2023 Calcium [Mass/Vol] 8.7 mg/dL 8.5-10.1 [facility] Serum or plasma creatinine m easurement (mass/volume)Ordered By: Vincent Nazario on 09-23-2023 Creatinine [Mass/Vol] 0.98 mg/dL 0.70-1.30 [facility] Comment on above: The validity of the calculated GFR & GFRAA in patients over 70 years has not been determined. Clinical correlation is essential. Serum or plasma salicylates measurement (mass/volume)Ordered By: Vincent Nazario on 09-23-2023 Salicylates [Mass/Vol] mg/dL 2.8-20.0 [facility] Serum or plasma urea nitroge n measurement (mass/volume)Ordered By: Vincent Nazario on 09-23-2023 Urea nitrogen [Mass/Vol] 13 mg/dL 7-[address] [facility] Thin prep Papanicolaou smear with manual screeningOrdered By: Vincent Nazario on 09-23-2023 Thin prep Papanicolaou smear with manual screening 3.6 g/dL 3.2-5.[address] [facility] Thin prep Papanicolaou smear with manual screening 13 U/L 15-[address] [facility] Thin prep Papanicolaou smear with manual screening 2 5-[address] [facility] Urine phencyclidine (PCP) de tectionOrdered By: Vincent Nazario on 09-23-2023 Phencyclidine Ql (U) Negative < 25 ng/mL [facility] CNPNon 06-30-2023 [facility] Telephone ([facility]) -------- JOJOISMA ([id number]) 1990 M Date Time Provider Department 06/30/23 NILSA GROVES During your visit today, we recorded the following information about you: NarcisociciOri kaiserMaria L 06/30/2023 11:28 AM Signed No Show Documentation Isma Jojo no showed for an appointment on 06/30/23 with Nilsa Groves APRN.SIGNAL MANAGER at 11:00 am. He was scheduled for [...] Is this the Third or Fourth No Show? No Maria L Daily June 30, 2023 11:24 AM Allergies As of Date: 06/30/2023 Noted Allergy Reaction PENICILLINS 05/24/2005 4 - Hives RANITIDINE 06/10/2005 4 - Hives Date Reviewed: 06/23/2023 Reviewed by: Tiny Friedman MA - Fully Assessed Reason for Visit: No Show [1558] Cmt: First no show in 365 days. Prescriptions as of 06/30/2023 - FLUoxetine (PROZAC) 40 mg capsule Take 1 capsule by mouth once daily. - FLUoxetine (PROZAC) 40 mg capsule Take 1 capsule by mouth once daily. - ondansetron orally disintegrating (ZOFRAN ODT) 8 mg disintegrating tablet Take 1 tablet by mouth every 8 hours as needed for nausea/vomiting. - polyethylene glycol 3350 (MIRALAX, GLYCOLAX) 17 gram packet DISSOLVE 1 (ONE) PACKET (17G) DIRECTED ONCE DAILY UNTIL SOFT FORMED BOWEL MOVEMENTS ON A DAILY BASIS Problem List As Of Date 06/30/2023 Noted Resolved Cervical spine fracture (HCC) [S12.9XXA] 04/05/2014 Encounter for wellness examination [Z00.00] 03/01/2022 Depression [F32.A] 03/01/2022 Depressive disorder, not elsewhere classified [*10/31/2008 Encounter Status:Closed by MARIA L DUENAS on 06/30/23 [facility] Absolute lymphocyte countOrd ered By: ED PROVIDER on 03-18-2023 Lymphocytes Auto (Unsp spec) [#/Vol] 2.90 10*3/uL 0.83-4.[address] [facility] Basophil percentageOrdered B y: ED PROVIDER on 03-18-2023 Basophils/100 WBC (Bld) 0.4 % 0-1 [facility] Eosinophils/100 WBC (Bld) 0.9 % 0-[address] [facility] Neutrophils (Bld) [#/Vol] 6.7 10*3/uL 2.0-7.[address] [facility] Neutrophils/100 WBC (Bld) 64.1 % 47-[address] [facility] WBC (Bld) [#/Vol] 10.4 10*3/uL 4.4-11.0 [facility] Basophil percentageOrdered B y: Lasha Rand on 03-18-2023 Chloride [Moles/Vol] 105 mmol/L 98-107 [facility] Glucose [Mass/Vol] 111 mg/dL 74-106 [facility] Comment on above: Fasting Glucose resu lt from 100 to 125 mg/dL suggests IMPAIRED HOMEOSTASIS per A.D.A. criteria. Potassium [Moles/Vol] 4.0 mmol/L 3.5-5.1 [facility] Sodium [Moles/Vol] 138 mmol/L 136-145 [facility] Blood erythrocytes count (nu mber/volume)Ordered By: ED PROVIDER on 03-18-2023 RBC (Bld) [#/Vol] 5.11 10*6/uL 4.6-6.2 [facility] Blood hemoglobin measurement (mass/volume)Ordered By: ED PROVIDER on 03-18-2023 Hemoglobin (Bld) [Mass/Vol] 15.4 g/dL 13.0-16.[address] [facility] Blood lymphocytes/100 leukoc ytesOrdered By: ED PROVIDER on 03-18-2023 Lymphocytes/100 WBC (Bld) 27.9 % 19-[address] [facility] Blood monocytes/100 leukocyt esOrdered By: ED PROVIDER on 03-18-2023 Monocytes/100 WBC (Bld) 6.5 % 0-10 [facility] Blood platelet mean volumeOr dered By: ED PROVIDER on 03-18-2023 Platelet mean volume (Bld) [Entitic vol] 8.6 fL 6.2-12.[address] [facility] Determination of erythrocyte mean corpuscular volume (MCV)Ordered By: ED PROVIDER on 03-18-2023 MCV (RBC) [Entitic vol] 83.6 fL 80-94 [facility] Hematocrit Auto (Bld) [Volum e fraction]Ordered By: ED PROVIDER on 03-18-2023 Hematocrit (Bld) [Volume fraction] 42.7 % 40-[address] [facility] Laboratory - Chemistry and C hemistry - challengeOrdered By: Lasha Rand on 03-18-2023 CO2 [Moles/Vol] 28.0 mmol/L 21.0-32.[address] [facility] Urea nitrogen/Creatinine [Mass ratio] 12.1 mg/mg 10-[address] [facility] Laboratory - Hematology and Cell countsOrdered By: ED PROVIDER on 03-18-2023 Erythrocyte distribution width (RBC) [Entitic vol] 35.3 fL 35.1-43.[address] [facility] Erythrocyte distribution width (RBC) [Ratio] 11.6 % 11.6-14.[address] [facility] Immature granulocytes/100 WBC (Bld) 0.200 % 0.0-0.[address] [facility] Comment on above: IG% - Immature Granu locytes (promyelocytes, myelocytes and metamyelocytes) > 1% indicates that a LEFT SHIFT is Present. MCH (RBC) [Entitic mass] 30.1 pg 27.0-32.[address] [facility] Nucleated RBC/100 WBC (Bld) [Ratio] 0 % 0-[address] [facility] MCHC Auto (RBC) [Mass/Vol]Or dered By: ED PROVIDER on 03-18-2023 MCHC (RBC) [Mass/Vol] 36.1 g/dL 32-36 [facility] No Panel InformationOrdered By: Lasha Rand on 03-18-2023 Estimated GFR (MDRD) Amer 94 mL/min >[address] [facility] Comment on above: GFR Calc Estimated GFR (MDRD) Non-Af Amer 78 mL/min >[address] [facility] Comment on above: Non- GFR Calc Troponin I High Sensitivity < 3 pg/mL 3.0-78.[address] [facility] Comment on above: Please Note: [place] t Units and Gender Specific Reference Ranges. For more information see Policy Stat Procedure [employer] High Sensitivity Troponin (TNIH) and attachments. Platelets bldOrdered By: ED PROVIDER on 03-18-2023 Platelets (Bld) [#/Vol] 287 10*3/uL 150-[address] [facility] Serum or plasma calcium ofe urement (mass/volume)Ordered By: Lasha Rand on 03-18-2023 Calcium [Mass/Vol] 10.0 mg/dL 8.5-10.1 [facility] Serum or plasma creatinine m easurement (mass/volume)Ordered By: Lasha Rand on 03-18-2023 Creatinine [Mass/Vol] 1.16 mg/dL 0.70-1.30 [facility] Comment on above: The validity of the calculated GFR & GFRAA in patients over 70 years has not been determined. Clinical correlation is essential. Serum or plasma urea nitroge n measurement (mass/volume)Ordered By: Lasha Rand on 03-18-2023 Urea nitrogen [Mass/Vol] 14 mg/dL 7-[address] [facility] Thin prep Papanicolaou smear with manual screeningOrdered By: Lasha Rand on 03-18-2023 Thin prep Papanicolaou smear with manual screening 5 5-[address] [facility] Absolute lymphocyte countOrd ered By: Vincent Nazario on 11-16-2022 Lymphocytes Auto (Unsp spec) [#/Vol] 1.47 10*3/uL 0.83-4.[address] [facility] Basophil percentageOrdered B y: Vincent Nazario on 11-16-2022 Basophils/100 WBC (Bld) 0.5 % 0-1 [facility] Bilirubin [Mass/Vol] 0.20 mg/dL 0.20-1.00 [facility] Comment on above: For patients on eltr ombopag therapy, use of [employer] TBIL is not recommended. Chloride [Moles/Vol] 107 mmol/L 98-107 [facility] Eosinophils/100 WBC (Bld) 2.4 % 0-[address] [facility] Glucose [Mass/Vol] 100 mg/dL 74-106 [facility] Comment on above: Fasting Glucose resu lt from 100 to 125 mg/dL suggests IMPAIRED HOMEOSTASIS per A.D.A. criteria. Neutrophils (Bld) [#/Vol] 4.1 10*3/uL 2.0-7.[address] [facility] Neutrophils/100 WBC (Bld) 64.4 % 47-[address] [facility] Potassium [Moles/Vol] 3.8 mmol/L 3.5-5.1 [facility] Protein [Mass/Vol] 6.9 g/dL 6.4-8.2 [facility] Sodium [Moles/Vol] 139 mmol/L 136-145 [facility] WBC (Bld) [#/Vol] 6.4 10*3/uL 4.4-11.0 [facility] Blood erythrocytes count (nu mber/volume)Ordered By: Vincent Nazario on 11-16-2022 RBC (Bld) [#/Vol] 5.01 10*6/uL 4.6-6.2 [facility] Blood hemoglobin measurement (mass/volume)Ordered By: Vincent Nazario on 11-16-2022 Hemoglobin (Bld) [Mass/Vol] 14.6 g/dL 13.0-16.[address] [facility] Blood lymphocytes/100 leukoc ytesOrdered By: Vincent Nazario on 11-16-2022 Lymphocytes/100 WBC (Bld) 23.1 % 19-[address] [facility] Blood monocytes/100 leukocyt esOrdered By: Vincent Nazario on 11-16-2022 Monocytes/100 WBC (Bld) 9.3 % 0-10 [facility] Blood platelet mean volumeOr dered By: Vincent Nazario on 11-16-2022 Platelet mean volume (Bld) [Entitic vol] 8.7 fL 6.2-12.[address] [facility] Determination of erythrocyte mean corpuscular volume (MCV)Ordered By: Vincent Nazario on 04-25-2023 MCV (RBC) [Entitic vol] 85.4 fL 80-94 [facility] Direct bilirubinOrdered By: Vincent Nazario on 11-16-2022 Bilirubin.direct [Mass/Vol] 0.09 mg/dL 0.00-0.[address] [facility] Hematocrit Auto (Bld) [Volum e fraction]Ordered By: Vincent Nazario on 11-16-2022 Hematocrit (Bld) [Volume fraction] 42.8 % 40-[address] [facility] Laboratory - Chemistry and C hemistry - challengeOrdered By: Vincent Nazario on 11-16-2022 ALP [Catalytic activity/Vol] 76 U/L 45-[address] [facility] ALT [Catalytic activity/Vol] 23 U/L 16-[address] [facility] CO2 [Moles/Vol] 29.0 mmol/L 21.0-32.[address] [facility] Globulin (S) [Mass/Vol] 3.3 g/dL 2.2-4.2 [facility] Lipase [Catalytic activity/Vol] 39 U/L 13-[address] [facility] Comment on above: Please note:LIPASE r evised reference range effective 22. New Lipase methodology. Expected to produce lower values than the previous assay method. NEW Reference Range: 13 - 75 U/L Urea nitrogen/Creatinine [Mass ratio] 9.8 mg/mg 10-[address] [facility] Laboratory - Hematology and Cell countsOrdered By: Vincent Nazario on 11-16-2022 Erythrocyte distribution width (RBC) [Entitic vol] 37.5 fL 35.1-43.[address] [facility] Erythrocyte distribution width (RBC) [Ratio] 12.0 % 11.6-14.[address] [facility] Immature granulocytes/100 WBC (Bld) 0.300 % 0.0-0.[address] [facility] Comment on above: IG% - Immature Granu locytes (promyelocytes, myelocytes and metamyelocytes) > 1% indicates that a LEFT SHIFT is Present. MCH (RBC) [Entitic mass] 29.1 pg 27.0-32.[address] [facility] Nucleated RBC/100 WBC (Bld) [Ratio] 0 % 0-[address] [facility] MCHC Auto (RBC) [Mass/Vol]Or dered By: Vincent Nazario on 11-16-2022 MCHC (RBC) [Mass/Vol] 34.1 g/dL 32-36 [facility] No Panel InformationOrdered By: Vincent Nazario on 11-16-2022 Estimated Creatinine Clearance Calc 103.62 ml/min [facility] Estimated GFR (MDRD) Amer 123 mL/min >[address] [facility] Comment on above: GFR Calc Estimated GFR (MDRD) Non-Af Amer 102 mL/min >[address] [facility] Comment on above: Non- GFR Calc Platelets bldOrdered By: Edilberto Nazario on 11-16-2022 Platelets (Bld) [#/Vol] 228 10*3/uL 150-[address] [facility] Serum or plasma albumin ofe urement (mass/volume)Ordered By: Vincent Nazario on 11-16-2022 Albumin [Mass/Vol] 3.6 g/dL 3.2-5.0 [facility] Serum or plasma calcium ofe urement (mass/volume)Ordered By: Vincent Nazario on 11-16-2022 Calcium [Mass/Vol] 8.6 mg/dL 8.5-10.1 [facility] Serum or plasma creatinine m easurement (mass/volume)Ordered By: Vincent Nazario on 11-16-2022 Creatinine [Mass/Vol] 0.92 mg/dL 0.70-1.30 [facility] Comment on above: The validity of the calculated GFR & GFRAA in patients over 70 years has not been determined. Clinical correlation is essential. Serum or plasma urea nitroge n measurement (mass/volume)Ordered By: Vincent Nazario on 11-16-2022 Urea nitrogen [Mass/Vol] 9 mg/dL 7-[address] [facility] Thin prep Papanicolaou smear with manual screeningOrdered By: Vincent Nazario on 11-16-2022 Thin prep Papanicolaou smear with manual screening 12 U/L 15-[address] [facility] Thin prep Papanicolaou smear with manual screening 3 5-[address] [facility] Influenza virus A and B RNA and SARS-CoV-2 (COVID-19) N gene panel PAKO+probe (Resp)on 07-29-2022 FLUAV RNA PAKO+probe Ql (Unsp spec) Negative Negative for Influenza A by RT-PCR [facility] FLUBV RNA PAKO+probe Ql (Unsp spec) Negative Negative for Influenza B by RT-PCR [facility] SARS-CoV-2 (COVID-19) RNA PAKO+probe Ql (Resp) SARS-CoV-2 (Agent of COVID-19) Detected by RT-PCR or equivalent method. Abnormal Not Detected [facility] STREP A MOLECULAR (POC)on Procedural Control Valid [facility] Strep A (POCT) Negative Negative [facility] Absolute lymphocyte counton 02-04-2022 Lymphocytes Auto (Unsp spec) [#/Vol] 1.51 10*3/uL 0.83-4.[address] [facility] Work Phone: [phone] Basophil percentageon 2021 Basophils/100 WBC (Bld) 0.4 % 0-1 [facility] Work Phone: Bilirubin [Mass/Vol] 0.60 mg/dL 0.20-1.00 [facility] Work Phone: Comment on above: For patients on eltr ombopag therapy, use of [employer] TBIL is not recommended. Chloride [Moles/Vol] 105 mmol/L 98-107 [facility] Work Phone: Eosinophils/100 WBC (Bld) 0.8 % 0-[address] [facility] Work Phone: Glucose [Mass/Vol] 117 mg/dL 74-106 [facility] Work Phone: Comment on above: Fasting Glucose resu lt from 100 to 125 mg/dL suggests IMPAIRED HOMEOSTASIS per A.D.A. criteria. Neutrophils (Bld) [#/Vol] 5.7 10*3/uL 2.0-7.[address] [facility] Work Phone: Neutrophils/100 WBC (Bld) 74.0 % 47-[address] [facility] Work Phone: Potassium [Moles/Vol] 3.8 mmol/L 3.5-5.1 [facility] Work Phone: Comment on above: Slight Hemolysis, Re sult may be falsely increased. Protein [Mass/Vol] 7.4 g/dL 6.4-8.2 [facility] Work Phone: [phone] Sodium [Moles/Vol] 139 mmol/L 136-145 [facility] Work Phone: WBC (Bld) [#/Vol] 7.8 10*3/uL 4.4-11.0 [facility] Work Phone: Blood erythrocytes count (nu mber/volume)on 02-04-2022 RBC (Bld) [#/Vol] 4.92 10*6/uL 4.6-6.[facility]: Blood hemoglobin measurement (mass/volume)on 02-04-2022 Hemoglobin (Bld) [Mass/Vol] 14.6 g/dL 13.0-16.[address] [facility] Work Phone: Blood lymphocytes/100 leukoc yteson 02-04-2022 Lymphocytes/100 WBC (Bld) 19.5 % 19-[address] [facility] Work Phone: Blood monocytes/100 leukocyt eson 02-04-2022 Monocytes/100 WBC (Bld) 4.9 % 0-10 [facility] Work Phone: Blood platelet mean volumeon 02-04-2022 Platelet mean volume (Bld) [Entitic vol] 8.9 fL 6.2-12.[address] [facility] Work Phone: Determination of erythrocyte mean corpuscular volume (MCV)on 02-04-2022 MCV (RBC) [Entitic vol] 83.1 fL 80-94 [facility] Work Phone: Hematocrit Auto (Bld) [Volum e fraction]on 02-04-2022 Hematocrit (Bld) [Volume fraction] 40.9 % 40-[address] [facility] Work Phone: Laboratory - Chemistry and C hemistry - challengeon 02-04-2022 ALP [Catalytic activity/Vol] 64 U/L 45-[address] [facility] Work Phone: ALT [Catalytic activity/Vol] 21 U/L 16-[address] [facility] Work Phone: CO2 [Moles/Vol] 30.0 mmol/L 21.0-32.[address] [facility] Work Phone: Globulin (S) [Mass/Vol] 3.4 g/dL 2.2-4.2 [facility] Work Phone: Lipase [Catalytic activity/Vol] 138 U/L 73-[address] [facility] Work Phone: Urea nitrogen/Creatinine [Mass ratio] 9.4 mg/mg 10-[address] [facility] Work Phone: Laboratory - Hematology and Cell countson 02-04-2022 Erythrocyte distribution width (RBC) [Entitic vol] 36.0 fL 35.1-43.[address] [facility] Work Phone: Erythrocyte distribution width (RBC) [Ratio] 11.9 % 11.6-14.[address] [facility] Work Phone: Immature granulocytes/100 WBC (Bld) 0.400 % 0.0-0.[address] [facility] Work Phone: Comment on above: IG% - Immature Granu locytes (promyelocytes, myelocytes and metamyelocytes) > 1% indicates that a LEFT SHIFT is Present. MCH (RBC) [Entitic mass] 29.7 pg 27.0-32.[address] [facility] Work Phone: Nucleated RBC/100 WBC (Bld) [Ratio] 0 % 0-[address] [facility] Work Phone: MCHC Auto (RBC) [Mass/Vol]on 02-04-2022 MCHC (RBC) [Mass/Vol] 35.7 g/dL 32-36 [facility] Work Phone: No Panel Informationon 02-04 Estimated Creatinine Clearance Calc 101.98 ml/min [facility] Work Phone: Estimated GFR (MDRD) Amer 118 mL/min >[address] [facility] Work Phone: Comment on above: GFR Calc Estimated GFR (MDRD) Non-Af Amer 98 mL/min >[address] [facility] Work Phone: Comment on above: Non- GFR Calc Platelets bldon 02-04-2022 Platelets (Bld) [#/Vol] 234 10*3/uL 150-[address] [facility] Work Phone: Serum or plasma albumin ofe urement (mass/volume)on 02-04-2022 Albumin [Mass/Vol] 4.0 g/dL 3.2-5.0 [facility] Work Phone: Serum or plasma albumin/glob ulin mass ratioon 02-04-2022 Albumin/Globulin [Mass ratio] 1.2 {ratio} 0.9-2.[address] [facility] Work Phone: Serum or plasma calcium ofe urement (mass/volume)on 02-04-2022 Calcium [Mass/Vol] 9.4 mg/dL 8.5-10.1 [facility] Work Phone: Serum or plasma creatinine m easurement (mass/volume)on 02-04-2022 Creatinine [Mass/Vol] 0.96 mg/dL 0.70-1.30 [facility] Work Phone: Comment on above: The validity of the calculated GFR & GFRAA in patients over 70 years has not been determined. Clinical correlation is essential. Serum or plasma urea nitroge n measurement (mass/volume)on 02-04-2022 Urea nitrogen [Mass/Vol] 9 mg/dL 7-[address] [facility] Work Phone: Thin prep Papanicolaou smear with manual screeningon 02-04-2022 Thin prep Papanicolaou smear with manual screening 21 U/L 15-[address] [facility] Work Phone: Comment on above: Slight Hemolysis, Re sult may be falsely increased. Thin prep Papanicolaou smear with manual screening 4 5-[address] [facility] Work Phone: Absolute lymphocyte counton 02-02-2022 Lymphocytes Auto (Unsp spec) [#/Vol] 1.79 10*3/uL 0.83-4.[address] [facility] Work Phone: Basophil percentageon 2021 Basophil percentage 3.8 mg/dL 2.5-4.9 [facility] Work [facility]: Basophils/100 WBC (Bld) 0.5 % 0-1 [facility] Work Phone: Bilirubin [Mass/Vol] 0.50 mg/dL 0.20-1.00 [facility] Work Phone: Comment on above: For patients on eltr ombopag therapy, use of [employer] TBIL is not recommended. Chloride [Moles/Vol] 106 mmol/L 98-107 [facility] Work Phone: Eosinophils/100 WBC (Bld) 1.6 % 0-[address] [facility] Work Phone: Glucose [Mass/Vol] 78 mg/dL 74-106 [facility] Work Phone: Neutrophils (Bld) [#/Vol] 3.3 10*3/uL 2.0-7.[address] [facility] Work Phone: Neutrophils/100 WBC (Bld) 58.5 % 47-[address] [facility] Work Phone: Potassium [Moles/Vol] 3.7 mmol/L 3.5-5.1 [facility] Work Phone: Protein [Mass/Vol] 5.6 g/dL 6.4-8.2 [facility] Work Phone: Sodium [Moles/Vol] 141 mmol/L 136-145 [facility] Work Phone: WBC (Bld) [#/Vol] 5.6 10*3/uL 4.4-11.0 [facility] Work Phone: Blood erythrocytes count (nu mber/volume)on 02-02-2022 RBC (Bld) [#/Vol] 4.58 10*6/uL 4.6-6.2 [facility] Work Phone: Blood hemoglobin measurement (mass/volume)on 02-02-2022 Hemoglobin (Bld) [Mass/Vol] 13.5 g/dL 13.0-16.[address] [facility] Work Phone: Blood lymphocytes/100 leukoc yteson 02-02-2022 Lymphocytes/100 WBC (Bld) 32.0 % 19-[address] [facility] Work Phone: Blood monocytes/100 leukocyt eson 02-02-2022 Monocytes/100 WBC (Bld) 7.0 % 0-10 [facility] Work Phone: Blood platelet mean volumeon 02-02-2022 Platelet mean volume (Bld) [Entitic vol] 8.6 fL 6.2-12.[address] [facility] Work Phone: Determination of erythrocyte mean corpuscular volume (MCV)on 02-02-2022 MCV (RBC) [Entitic vol] 85.6 fL 80-94 [facility] Work Phone: Hematocrit Auto (Bld) [Volum e fraction]on 02-02-2022 Hematocrit (Bld) [Volume fraction] 39.2 % 40-[address] [facility] Work Phone: Laboratory - Chemistry and C hemistry - challengeon 02-02-2022 ALP [Catalytic activity/Vol] 54 U/L 45-[address] [facility] Work Phone: ALT [Catalytic activity/Vol] 18 U/L 16-[address] [facility] Work Phone: CO2 [Moles/Vol] 29.0 mmol/L 21.0-32.[address] [facility] Work Phone: Globulin (S) [Mass/Vol] 2.5 g/dL 2.2-4.2 [facility] Work Phone: Magnesium [Mass/Vol] 1.9 mg/dL 1.6-2.6 [facility] Work Phone: Urea nitrogen/Creatinine [Mass ratio] 11.1 mg/mg 10-[address] [facility] Work Phone: Laboratory - Hematology and Cell countson 02-02-2022 Erythrocyte distribution width (RBC) [Entitic vol] 37.2 fL 35.1-43.[address] [facility] Work Phone: Erythrocyte distribution width (RBC) [Ratio] 11.9 % 11.6-14.[address] [facility] Work Phone: Immature granulocytes/100 WBC (Bld) 0.400 % 0.0-0.[address] [facility] Work Phone: Comment on above: IG% - Immature Granu locytes (promyelocytes, myelocytes and metamyelocytes) > 1% indicates that a LEFT SHIFT is Present. MCH (RBC) [Entitic mass] 29.5 pg 27.0-32.[address] [facility] Work Phone: Nucleated RBC/100 WBC (Bld) [Ratio] 0 % 0-[address] [facility] Work Phone: MCHC Auto (RBC) [Mass/Vol]on 02-02-2022 MCHC (RBC) [Mass/Vol] 34.4 g/dL 32-36 [facility] Work Phone: No Panel Informationon 02-02 Estimated Creatinine Clearance Calc 103.81 ml/min [facility] Work Phone: Estimated GFR (MDRD) Amer 127 mL/min >[address] [facility] Work Phone: Comment on above: GFR Calc Estimated GFR (MDRD) Non-Af Amer 105 mL/min >[address] [facility] Work Phone: Comment on above: Non- GFR Calc Thyroid Stimulating Hormone (TSH) 4.07 uIU/mL 0.358-3.[address] [facility] Work Phone: Platelets bldon 02-02-2022 Platelets (Bld) [#/Vol] 152 10*3/uL 150-[address] [facility] Work Phone: Serum or plasma albumin ofe urement (mass/volume)on 02-02-2022 Albumin [Mass/Vol] 3.1 g/dL 3.2-5.0 [facility] Work Phone: Serum or plasma albumin/glob ulin mass ratioon 02-02-2022 Albumin/Globulin [Mass ratio] 1.2 {ratio} 0.9-2.[address] [facility] Work Phone: Serum or plasma calcium ofe urement (mass/volume)on 02-02-2022 Calcium [Mass/Vol] 8.2 mg/dL 8.5-10.1 [facility] Work Phone: Serum or plasma creatinine m easurement (mass/volume)on 02-02-2022 Creatinine [Mass/Vol] 0.90 mg/dL 0.70-1.30 [facility] Work Phone: Comment on above: The validity of the calculated GFR & GFRAA in patients over 70 years has not been determined. Clinical correlation is essential. Serum or plasma urea nitroge n measurement (mass/volume)on 02-02-2022 Urea nitrogen [Mass/Vol] 10 mg/dL 7-[address] [facility] Work Phone: Thin prep Papanicolaou smear with manual screeningon 02-02-2022 Thin prep Papanicolaou smear with manual screening 14 U/L 15-[address] [facility] Work Phone: Thin prep Papanicolaou smear with manual screening 6 5-[address] [facility] Work Phone: Absolute lymphocyte counton 02-01-2022 Lymphocytes Auto (Unsp spec) [#/Vol] 1.67 10*3/uL 0.83-4.[address] [facility] Work Phone: Basophil percentageon 2021 Basophil percentage 0 SEEN /hpf 0-5 [facility] Work Phone: Basophils/100 WBC (Bld) 0.4 % 0-1 [facility] Work Phone: Bilirubin [Mass/Vol] 0.20 mg/dL 0.20-1.00 [facility] Work Phone: Comment on above: For patients on eltr ombopag therapy, use of [employer] TBIL is not recommended. Chloride [Moles/Vol] 110 mmol/L 98-107 [facility] Work Phone: Cholesterol [Mass/Vol] 139 mg/dL <200 [facility] Work Phone: Comment on above: <200 mg/dL Desirable 200-240 mg/dL Borderline >240 mg/dL High Risk Eosinophils/100 WBC (Bld) 1.4 % 0-[address] [facility] Work Phone: Glucose [Mass/Vol] 102 mg/dL 74-106 [facility] Work Phone: Comment on above: Fasting Glucose resu lt from 100 to 125 mg/dL suggests IMPAIRED HOMEOSTASIS per A.D.A. criteria. Neutrophils (Bld) [#/Vol] 5.0 10*3/uL 2.0-7.[address] [facility] Work Phone: Neutrophils/100 WBC (Bld) 69.0 % 47-[address] [facility] Work Phone: Potassium [Moles/Vol] 4.0 mmol/L 3.5-5.1 [facility] Work Phone: Protein [Mass/Vol] 6.4 g/dL 6.4-8.2 [facility] Work Phone: Sodium [Moles/Vol] 144 mmol/L 136-145 [facility] Work Phone: Triglyceride [Mass/Vol] 55 mg/dL <199 [facility] Work Phone: Comment on above: The drugs N-Acetylcy steine and Metamizole may falsely depress this assay.Serum Triglycerides Reference Interval Normal <150 mg/dL Borderline high 150 - 199 mg/dL High 200 - 499 mg/dL Very High > or = 500 mg/dL WBC (Bld) [#/Vol] 7.3 10*3/uL 4.4-11.0 [facility] Work Phone: Bilirubin Test strip Ql (U)o n 02-01-2022 Bilirubin Ql (U) Negative Negative [facility] Work Phone: Blood erythrocytes count (nu mber/volume)on 02-01-2022 RBC (Bld) [#/Vol] 4.58 10*6/uL 4.6-6.2 [facility] Work Phone: Blood hemoglobin measurement (mass/volume)on 02-01-2022 Hemoglobin (Bld) [Mass/Vol] 13.5 g/dL 13.0-16.[address] [facility] Work Phone: Blood lymphocytes/100 leukoc yteson 02-01-2022 Lymphocytes/100 WBC (Bld) 22.9 % 19-[address] [facility] Work Phone: Blood monocytes/100 leukocyt eson 02-01-2022 Monocytes/100 WBC (Bld) 6.0 % 0-10 [facility] Work Phone: Blood platelet mean volumeon 02-01-2022 Platelet mean volume (Bld) [Entitic vol] 8.8 fL 6.2-12.[address] [facility] Work Phone: Determination of erythrocyte mean corpuscular volume (MCV)on 02-01-2022 MCV (RBC) [Entitic vol] 87.1 fL 80-94 [facility] Work Phone: Direct bilirubinon 2 Bilirubin.direct [Mass/Vol] 0.08 mg/dL 0.00-0.[address] [facility] Work Phone: Hematocrit Auto (Bld) [Volum e fraction]on 02-01-2022 Hematocrit (Bld) [Volume fraction] 39.9 % 40-[address] [facility] Work Phone: Ketones Test strip Ql (U)on 02-01-2022 Ketones Ql (U) Negative Negative [facility] Work Phone: Laboratory - Chemistry and C hemistry - challengeon 02-01-2022 ALP [Catalytic activity/Vol] 53 U/L 45-[address] [facility] Work Phone: ALT [Catalytic activity/Vol] 20 U/L 16-[address] [facility] Work Phone: CO2 [Moles/Vol] 30.0 mmol/L 21.0-32.[address] [facility] Work Phone: Globulin (S) [Mass/Vol] 3.0 g/dL 2.2-4.2 [facility] Work Phone: Lipase [Catalytic activity/Vol] 1176 U/L 73-[address] [facility] Work Phone: Urea nitrogen/Creatinine [Mass ratio] 21.6 mg/mg 10-[address] [facility] Work Phone: Laboratory - Hematology and Cell countson 02-01-2022 Erythrocyte distribution width (RBC) [Entitic vol] 38.5 fL 35.1-43.[address] [facility] Work Phone: Erythrocyte distribution width (RBC) [Ratio] 12.1 % 11.6-14.[address] [facility] Work Phone: Immature granulocytes/100 WBC (Bld) 0.300 % 0.0-0.[address] [facility] Work Phone: Comment on above: IG% - Immature Granu locytes (promyelocytes, myelocytes and metamyelocytes) > 1% indicates that a LEFT SHIFT is Present. MCH (RBC) [Entitic mass] 29.5 pg 27.0-32.[address] [facility] Work Phone: Nucleated RBC/100 WBC (Bld) [Ratio] 0 % 0-[address] [facility] Work Phone: MCHC Auto (RBC) [Mass/Vol]on 02-01-2022 MCHC (RBC) [Mass/Vol] 33.8 g/dL 32-36 [facility] Work Phone: Mucus LM Ql (Urine sed)on Mucus Ql (Urine sed) 0 SEEN /hpf [facility] Work Phone: Nitrite Test strip Ql (U)on 02-01-2022 Nitrite Ql (U) Negative Negative [facility] Work Phone: No Panel Informationon 02-01 Estimated Creatinine Clearance Calc 120.60 ml/min [facility] Work Phone: Estimated GFR (MDRD) Amer 149 mL/min >[address] [facility] Work Phone: Comment on above: GFR Calc Estimated GFR (MDRD) Non-Af Amer 123 mL/min >[address] [facility] Work Phone: Comment on above: Non- GFR Calc Platelets bldon 02-01-2022 Platelets (Bld) [#/Vol] 206 10*3/uL 150-[address] [facility] Work Phone: Protein Test strip Ql (U)on 02-01-2022 Protein Ql (U) Negative Negative [facility] Work Phone: Serum or plasma albumin ofe urement (mass/volume)on 02-01-2022 Albumin [Mass/Vol] 3.4 g/dL 3.2-5.0 [facility] Work Phone: Serum or plasma calcium ofe urement (mass/volume)on 02-01-2022 Calcium [Mass/Vol] 8.6 mg/dL 8.5-10.1 [facility] Work Phone: Serum or plasma cholesterol in HDL measurement (mass/volume)on 02-01-2022 Cholesterol in HDL [Mass/Vol] 52 mg/dL >[address] [facility] Work Phone: Comment on above: The drugs N-Acetylcy steine and Metamizole may falsely depress this assay. Reference Range HDL <40 mg/dL Low HDL Cholesterol HDL >or= 60 mg/dL High HDL Cholesterol Serum or plasma cholesterol in VLDL measurement (mass/volume)on 02-01-2022 Cholesterol in VLDL [Mass/Vol] 11 mg/dL 5-[address] [facility] Work Phone: Serum or plasma creatinine m easurement (mass/volume)on 02-01-2022 Creatinine [Mass/Vol] 0.79 mg/dL 0.70-1.30 [facility] Work Phone: Comment on above: The validity of the calculated GFR & GFRAA in patients over 70 years has not been determined. Clinical correlation is essential. Serum or plasma low density lipoprotein (LDL) cholesterol measurement (mass/volume)on 02-01-2022 Cholesterol in LDL [Mass/Vol] 76 mg/dL 0-[address] [facility] Work Phone: Serum or plasma urea nitroge n measurement (mass/volume)on 02-01-2022 Urea nitrogen [Mass/Vol] 17 mg/dL 7-[address] [facility] Work Phone: Squamous epithelial cells de tection in urine sediment by light microscopyon 02-01-2022 Epithelial cells.squamous LM Ql (Urine sed) 0 SEEN /hpf 0-[address] [facility] Work Phone: Thin prep Papanicolaou smear with manual screeningon 02-01-2022 Thin prep Papanicolaou smear with manual screening 11 U/L 15-[address] [facility] Work Phone: Thin prep Papanicolaou smear with manual screening 4 5-[address] [facility] Work Phone: Urine blood detectionon 01-22 RBC Ql (U) Negative Negative [facility] Work Phone: RBC Ql (U) 0 SEEN /hpf 0-[address] [facility] Work Phone: Urine clarityon 02-01-2022 Clarity (U) Clear Clear [facility] Work Phone: Urine color determinationon 02-01-2022 Color (U) Yellow Yellow [facility] Work Phone: Urine glucose detectionon Glucose Ql (U) Normal mg/dl Normal [facility] Work Phone: Urine leukocyte esterase det ection by dipstickon 02-01-2022 Leukocyte esterase Test strip Ql (U) Negative Negative [facility] Work Phone: Urine pHon 02-01-2022 pH (U) 6.5 [pH] 5.0 - 8.[address] [facility] Work Phone: Urine sediment bacteria coun t by microscopy (number/high power field)on 02-01-2022 Bacteria LM.HPF (Urine sed) [#/Area] 1 /[HPF] None Seen [facility] Work Phone: Urine specific gravity measu rementon 02-01-2022 Specific gravity (U) [Rel density] 1.015 1.002-1.[address] [facility] Work Phone: Urobilinogen Auto test strip Ql (U)on 02-01-2022 Urobilinogen Ql (U) Normal mg/dl Normal [facility] Work Phone: Vital Signs Date Time Vital Sign Value Performing Clinician Facility 05-02-2025 21:00-0400 Body temperature 97.7 [degF] Dr. Sam Olvera MD Work Phone: [facility] 05-02-2025 21:00-0400 Diastolic blood pressure 48 mm[Hg] Dr. Sam Olvera MD Work Phone: [facility] 05-02-2025 21:00-0400 Heart rate 74 /min Dr. Sam Olvera MD Work Phone: [facility] 05-02-2025 21:00-0400 Respiratory rate 16 /min Dr. Sam Olvera MD Work Phone: [facility] 05-02-2025 21:00-0400 SaO2% (BldA) [Mass fraction] 99 % Dr. Sam Olvera MD Work Phone: [facility] 05-02-2025 21:00-0400 Systolic blood pressure 114 mm[Hg] Dr. Sam Olvera MD Work Phone: [facility] 05-02-2025 17:31-0400 Body height 167.[address] Sam Olvera MD Work Phone: [facility] 05-02-2025 17:31-0400 Body mass index (BMI) [Ratio] 25.2 kg/m2 Dr. Sam Olvera MD Work Phone: [facility] 05-02-2025 17:31-0400 Body weight 71.[address] Sam Olvera MD Work Phone: [facility] 01-02-2025 17:47-0400 Body mass index (BMI) [Ratio] 22.69 kg/m2 Krislyn Aberegg PA Work Phone: [facility] 01-02-2025 17:47-0400 Body temperature 99.1 [degF] Krislyn Aberegg PA Work Phone: [facility] 01-02-2025 17:47-0400 Body weight 66.7 kg Krislyn Aberegg PA Work Phone: [facility] 01-02-2025 17:47-0400 Diastolic blood pressure 84 mm[Hg] Krislyn Aberegg PA Work Phone: [facility] 01-02-2025 17:47-0400 Heart rate 111 /min Krislyn Aberegg PA Work Phone: [facility] 01-02-2025 17:47-0400 Respiratory rate 20 /min Krislyn Aberegg PA Work Phone: [facility] 01-02-2025 17:47-0400 SaO2% (BldA) [Mass fraction] 98 % Krislyn Aberegg PA Work Phone: [facility] 01-02-2025 17:47-0400 Systolic blood pressure 132 mm[Hg] Krislyn Aberegg PA Work Phone: [facility] 06-11-2024 14:31-0500 Body mass index (BMI) [Ratio] 22.11 kg/m2 Sam Fuller APRN.HEBER Work Phone: [facility] 06-11-2024 14:31-0500 Body temperature 99.39 [degF] Sam Pendlebury TELEPHONE SOLICITOR.SIGNAL MANAGER Work Phone: [facility] 06-11-2024 14:31-0500 Body weight 65 [facility] TELEPHONE SOLICITOR.SIGNAL MANAGER Work Phone: [facility] 06-11-2024 14:31-0500 Diastolic blood pressure 82 mm[Hg] [facility] TELEPHONE SOLICITOR.SIGNAL MANAGER Work Phone: [facility] 06-11-2024 14:31-0500 Heart rate 88 /min [facility] TELEPHONE SOLICITOR.SIGNAL MANAGER Work Phone: [facility] 06-11-2024 14:31-0500 Respiratory rate 16 /min [facility] TELEPHONE SOLICITOR.SIGNAL MANAGER Work Phone: [facility] 06-11-2024 14:31-0500 SaO2% (BldA) [Mass fraction] 100 % [facility] TELEPHONE SOLICITOR.SIGNAL MANAGER Work Phone: [facility] 06-11-2024 14:31-0500 Systolic blood pressure 128 mm[Hg] [facility] TELEPHONE SOLICITOR.SIGNAL MANAGER Work Phone: [facility] 05-25-2024 09:40-0400 Body mass index (BMI) [Ratio] 22.59 kg/m2 Krislyn Aberegg PA Work Phone: [facility] 05-25-2024 09:40-0400 Body temperature 97.5 [degF] Krislyn Aberegg PA Work Phone: [facility] 05-25-2024 09:40-0400 Body weight 66.4 kg Krislyn Aberegg PA Work Phone: [facility] 05-25-2024 09:40-0400 Diastolic blood pressure 73 mm[Hg] Krislyn Aberegg PA Work Phone: [facility] 05-25-2024 09:40-0400 Heart rate 74 /min Krislyn Aberegg PA Work Phone: [facility] 05-25-2024 09:40-0400 Respiratory rate 18 /min Krislyn Aberegg PA Work Phone: [facility] 05-25-2024 09:40-0400 SaO2% (BldA) [Mass fraction] 100 % Krislyn Aberegg PA Work Phone: [facility] 05-25-2024 09:40-0400 Systolic blood pressure 120 mm[Hg] Krislyn Aberegg PA Work Phone: [facility] 03-04-2024 14:47-0400 Body mass index (BMI) [Ratio] 21.4 kg/m2 Krislyn Aberegg PA Work Phone: [facility] 03-04-2024 14:47-0400 Body temperature 98.49 [degF] Krislyn Aberegg PA Work Phone: [facility] 03-04-2024 14:47-0400 Body weight 62.9 kg Krislyn Aberegg PA Work Phone: [facility] 03-04-2024 14:47-0400 Diastolic blood pressure 80 mm[Hg] Krislyn Aberegg PA Work Phone: [facility] 03-04-2024 14:47-0400 Heart rate 97 /min Krislyn Aberegg PA Work Phone: [facility] 03-04-2024 14:47-0400 Respiratory rate 16 /min Krislyn Aberegg PA Work Phone: [facility] 03-04-2024 14:47-0400 SaO2% (BldA) [Mass fraction] 98 % Krislyn Aberegg PA Work Phone: [facility] 03-04-2024 14:47-0400 Systolic blood pressure 124 mm[Hg] Krislyn Aberegg PA Work Phone: [facility] 02-13-2024 09:03-0400 Body mass index (BMI) [Ratio] 21.19 kg/m2 Suresh Cortes MD Work Phone: [facility] 02-13-2024 09:03-0400 Body temperature 97 [degF] Suresh Cortes MD Work Phone: [facility] 02-13-2024 09:03-0400 Body weight 62.3 kg Suresh Cortes MD Work Phone: [facility] 02-13-2024 09:03-0400 Diastolic blood pressure 60 mm[Hg] Suresh Cortes MD Work Phone: [facility] 02-13-2024 09:03-0400 Heart rate 90 /min Suresh Cortes MD Work Phone: [facility] 02-13-2024 09:03-0400 Respiratory rate 19 /min Suresh Cortes MD Work Phone: [facility] 02-13-2024 09:03-0400 SaO2% (BldA) [Mass fraction] 98 % Suresh Cortes MD Work Phone: [facility] 02-13-2024 09:03-0400 Systolic blood pressure 122 mm[Hg] Suresh Cortes MD Work Phone: [facility] 11-22-2023 19:47-0400 Body temperature 97.4 [degF] [facility] 11-22-2023 19:47-0400 Diastolic blood pressure 99 mm[Hg] [facility] 11-22-2023 19:47-0400 Heart rate 80 /min [facility] 11-22-2023 19:47-0400 Respiratory rate 16 /min [facility] 11-22-2023 19:47-0400 SaO2% (BldA) [Mass fraction] 100 % [facility] 11-22-2023 19:47-0400 Systolic blood pressure 135 mm[Hg] [facility] 11-22-2023 18:37-0400 Body height 167.64 cm [facility] 11-22-2023 18:37-0400 Body mass index (BMI) [Ratio] 22.7 kg/m2 [facility] 11-22-2023 18:37-0400 Body weight 64 kg [facility] 09-23-2023 06:31-0500 Diastolic blood pressure 63 mm[Hg] [facility] 09-23-2023 06:31-0500 Heart rate 81 /min [facility] 09-23-2023 06:31-0500 Respiratory rate 17 /min [facility] 09-23-2023 06:31-0500 SaO2% (BldA) [Mass fraction] 98 % [facility] 09-23-2023 06:31-0500 Systolic blood pressure 121 mm[Hg] [facility] 09-23-2023 01:31-0500 Body height 167.64 cm [facility] 09-23-2023 01:31-0500 Body mass index (BMI) [Ratio] 23.6 kg/m2 [facility] 09-23-2023 01:31-0500 Body temperature 99.2 [degF] [facility] 09-23-2023 01:31-0500 Body weight 66.3 kg [facility] 06-23-2023 14:59-0500 Body temperature 97.39 [degF] Kaila Jean TELEPHONE SOLICITOR.SIGNAL MANAGER Work Phone: [facility] 06-23-2023 14:59-0500 Body weight 64.05 kg Kaila Jean TELEPHONE SOLICITOR.SIGNAL MANAGER Work Phone: [facility] 06-23-2023 14:59-0500 Diastolic blood pressure 77 mm[Hg] Kaila Jean TELEPHONE SOLICITOR.SIGNAL MANAGER Work Phone: [facility] 06-23-2023 14:59-0500 Heart rate 110 /min Kaila Jean TELEPHONE SOLICITOR.SIGNAL MANAGER Work Phone: [facility] 06-23-2023 14:59-0500 Respiratory rate 18 /min Kaila Jean TELEPHONE SOLICITOR.SIGNAL MANAGER Work Phone: [facility] 06-23-2023 14:59-0500 SaO2% (BldA) [Mass fraction] 97 % Kaila Jean TELEPHONE SOLICITOR.SIGNAL MANAGER Work Phone: [facility] 06-23-2023 14:59-0500 Systolic blood pressure 121 mm[Hg] Kaila Alexis GARCIASIGNAL MANAGER Work Phone: [facility] 04-22-2023 07:59-0400 Body height 167.64 cm [facility] 04-22-2023 07:59-0400 Body mass index (BMI) [Ratio] 21.6 kg/m2 [facility] 04-22-2023 07:59-0400 Body temperature 98.1 [degF] [facility] 04-22-2023 07:59-0400 Body weight 60.78 kg [facility] 04-22-2023 07:59-0400 Diastolic blood pressure 76 mm[Hg] [facility] 04-22-2023 07:59-0400 Heart rate 85 /min [facility] 04-22-2023 07:59-0400 Respiratory rate 16 /min [facility] 04-22-2023 07:59-0400 SaO2% (BldA) [Mass fraction] 97 % [facility] 04-22-2023 07:59-0400 Systolic blood pressure 133 mm[Hg] [facility] 04-21-2023 13:54-0400 Body mass index (BMI) [Ratio] 22.6 kg/m2 [facility] 04-21-2023 13:54-0400 Body temperature 97.7 [degF] [facility] 04-21-2023 13:54-0400 Body weight 63.45 kg [facility] 04-21-2023 13:54-0400 Diastolic blood pressure 83 mm[Hg] [facility] 04-21-2023 13:54-0400 Heart rate 98 /min [facility] 04-21-2023 13:54-0400 Respiratory rate 18 /min [facility] 04-21-2023 13:54-0400 SaO2% (BldA) [Mass fraction] 96 % [facility] 04-21-2023 13:54-0400 Systolic blood pressure 148 mm[Hg] [facility] 03-18-2023 14:35-0400 Diastolic blood pressure 84 mm[Hg] [facility] 03-18-2023 14:35-0400 Heart rate 85 /min [facility] 03-18-2023 14:35-0400 Respiratory rate 16 /min [facility] 03-18-2023 14:35-0400 SaO2% (BldA) [Mass fraction] 99 % [facility] 03-18-2023 14:35-0400 Systolic blood pressure 141 mm[Hg] [facility] 03-18-2023 13:16-0400 Body height 167.64 cm [facility] 03-18-2023 13:16-0400 Body temperature 96.8 [degF] [facility] 02-11-2023 08:39-0400 Body mass index (BMI) [Ratio] 22.8 kg/m2 [facility] 02-11-2023 08:39-0400 Body temperature 98 [degF] [facility] 02-11-2023 08:39-0400 Body weight 64.3 kg [facility] 02-11-2023 08:39-0400 Diastolic blood pressure 75 mm[Hg] [facility] 02-11-2023 08:39-0400 Heart rate 77 /min [facility] 02-11-2023 08:39-0400 Respiratory rate 14 /min [facility] 02-11-2023 08:39-0400 SaO2% (BldA) [Mass fraction] 98 % [facility] 02-11-2023 08:39-0400 Systolic blood pressure 126 mm[Hg] [facility] 12-10-2022 11:38-0400 Body mass index (BMI) [Ratio] 22.8 kg/m2 [facility] 12-10-2022 11:38-0400 Body temperature 98.3 [degF] [facility] 12-10-2022 11:38-0400 Body weight 64.18 kg [facility] 12-10-2022 11:38-0400 Diastolic blood pressure 56 mm[Hg] [facility] 12-10-2022 11:38-0400 Heart rate 85 /min [facility] 12-10-2022 11:38-0400 Respiratory rate 16 /min [facility] 12-10-2022 11:38-0400 SaO2% (BldA) [Mass fraction] 98 % [facility] 12-10-2022 11:38-0400 Systolic blood pressure 116 mm[Hg] [facility] 11-16-2022 08:39-0400 Diastolic blood pressure 80 mm[Hg] [facility] 11-16-2022 08:39-0400 Heart rate 82 /min [facility] 11-16-2022 08:39-0400 Respiratory rate 16 /min [facility] 11-16-2022 08:39-0400 SaO2% (BldA) [Mass fraction] 100 % [facility] 11-16-2022 08:39-0400 Systolic blood pressure 127 mm[Hg] [facility] 11-16-2022 06:05-0400 Body height 167.64 cm [facility] 11-16-2022 06:05-0400 Body mass index (BMI) [Ratio] 22.1 kg/m2 [facility] 11-16-2022 06:05-0400 Body temperature 97.8 [degF] [facility] 11-16-2022 06:05-0400 Body weight 62.4 kg [facility] 11-13-2022 14:13-0400 Body temperature 97.2 [degF] Mary Federico TELEPHONE SOLICITOR.SIGNAL MANAGER Work Phone: [facility] 11-13-2022 14:13-0400 Body weight 62.23 kg Mary Federico TELEPHONE SOLICITOR.SIGNAL MANAGER Work Phone: [facility] 11-13-2022 14:13-0400 Diastolic blood pressure 82 mm[Hg] Mary Federico TELEPHONE SOLICITOR.SIGNAL MANAGER Work Phone: [facility] 11-13-2022 14:13-0400 Heart rate 64 /min Mary Federico TELEPHONE SOLICITOR.SIGNAL MANAGER Work Phone: [facility] 11-13-2022 14:13-0400 Respiratory rate 20 /min Mary Federico TELEPHONE SOLICITOR.SIGNAL MANAGER Work Phone: [facility] 11-13-2022 14:13-0400 SaO2% (BldA) [Mass fraction] 100 % Mary Federico TELEPHONE SOLICITOR.SIGNAL MANAGER Work Phone: [facility] 11-13-2022 14:13-0400 Systolic blood pressure 140 mm[Hg] Mary Federico TELEPHONE SOLICITOR.SIGNAL MANAGER Work Phone: [facility] 10-07-2022 13:28-0400 Body height 171.5 cm Nilsa Germain TELEPHONE SOLICITOR.SIGNAL MANAGER Work Phone: [facility] 10-07-2022 13:28-0400 Body temperature 98.2 [degF] Nilsa Germain TELEPHONE SOLICITOR.SIGNAL MANAGER Work Phone: [facility] 10-07-2022 13:28-0400 Body weight 61.69 kg Nilsa Germain TELEPHONE SOLICITOR.SIGNAL MANAGER Work Phone: [facility] 10-07-2022 13:28-0400 Diastolic blood pressure 66 mm[Hg] Nilsa Germain TELEPHONE SOLICITOR.SIGNAL MANAGER Work Phone: [facility] 10-07-2022 13:28-0400 Heart rate 75 /min Nilsa Germain TELEPHONE SOLICITOR.SIGNAL MANAGER Work Phone: [facility] 10-07-2022 13:28-0400 Respiratory rate 16 /min Nilsa Germain TELEPHONE SOLICITOR.SIGNAL MANAGER Work Phone: [facility] 10-07-2022 13:28-0400 SaO2% (BldA) [Mass fraction] 99 % Nilsa Germain TELEPHONE SOLICITOR.SIGNAL MANAGER Work Phone: [facility] 10-07-2022 13:28-0400 Systolic blood pressure 118 mm[Hg] Nilsa Germain TELEPHONE SOLICITOR.SIGNAL MANAGER Work Phone: [facility] 07-28-2022 15:01-0500 Body temperature 99.5 [degF] Sam Pendmarubury TELEPHONE SOLICITOR.SIGNAL MANAGER Work Phone: [facility] 07-28-2022 15:01-0500 Body weight 59.69 kg Sam Pendjuvenal TELEPHONE SOLICITOR.SIGNAL MANAGER Work Phone: [facility] 07-28-2022 15:01-0500 Diastolic blood pressure 72 mm[Hg] Sam Pendlebury TELEPHONE SOLICITOR.SIGNAL MANAGER Work Phone: [facility] 07-28-2022 15:01-0500 Heart rate 94 /min [facility] TELEPHONE SOLICITOR.SIGNAL MANAGER Work Phone: [facility] 07-28-2022 15:01-0500 Respiratory rate 18 /min [facility] TELEPHONE SOLICITOR.SIGNAL MANAGER Work Phone: [facility] 07-28-2022 15:01-0500 SaO2% (BldA) [Mass fraction] 98 % [facility] TELEPHONE SOLICITOR.SIGNAL MANAGER Work Phone: [facility] 07-28-2022 15:01-0500 Systolic blood pressure 120 mm[Hg] [facility] TELEPHONE SOLICITOR.SIGNAL MANAGER Work Phone: [facility] 04-21-2022 15:38-0400 Diastolic blood pressure 69 mm[Hg] No Primary Care Physician [facility] Work Phone: 04-21-2022 15:38-0400 Heart rate 71 /min No Primary Care Physician [facility] Work Phone: 04-21-2022 15:38-0400 Respiratory rate 15 /min No Primary Care Physician [facility] Work Phone: 04-21-2022 15:38-0400 SaO2% (BldA) [Mass fraction] 100 % No Primary Care Physician [facility] Work Phone: 04-21-2022 15:38-0400 Systolic blood pressure 123 mm[Hg] No Primary Care Physician [facility] Work Phone: 04-21-2022 14:18-0400 Body height 167.64 cm No Primary Care Physician [facility] Work Phone: 04-21-2022 14:18-0400 Body mass index (BMI) [Ratio] 22.8 kg/m2 No Primary Care Physician [facility] Work Phone: 04-21-2022 14:18-0400 Body temperature 97.2 [degF] No Primary Care Physician [facility] Work Phone: 04-21-2022 14:18-0400 Body weight 64.41 kg No Primary Care Physician [facility] Work Phone: 04-08-2022 13:09-0400 Body height 171.5 cm Nilsa Germain TELEPHONE SOLICITOR.SIGNAL MANAGER Work Phone: [facility] 04-08-2022 13:09-0400 Body temperature 98.2 [degF] Nilsa Germain TELEPHONE SOLICITOR.SIGNAL MANAGER Work Phone: [facility] 04-08-2022 13:09-0400 Body weight 60.42 kg Nilsa Germain TELEPHONE SOLICITOR.SIGNAL MANAGER Work Phone: [facility] 04-08-2022 13:09-0400 Diastolic blood pressure 70 mm[Hg] Nilsa Germain TELEPHONE SOLICITOR.SIGNAL MANAGER Work Phone: [facility] 04-08-2022 13:09-0400 Heart rate 69 /min Nilsa Germain TELEPHONE SOLICITOR.SIGNAL MANAGER Work Phone: [facility] 04-08-2022 13:09-0400 Respiratory rate 18 /min Nilsa Germain TELEPHONE SOLICITOR.SIGNAL MANAGER Work Phone: [facility] 04-08-2022 13:09-0400 SaO2% (BldA) [Mass fraction] 99 % Nilsa Germain TELEPHONE SOLICITOR.SIGNAL MANAGER Work Phone: [facility] 04-08-2022 13:09-0400 Systolic blood pressure 110 mm[Hg] Nilsa Germain TELEPHONE SOLICITOR.SIGNAL MANAGER Work Phone: [facility] 03-01-2022 14:50-0400 Body height 171.5 cm Nilsa Germain TELEPHONE SOLICITOR.SIGNAL MANAGER Work Phone: [facility] 03-01-2022 14:50-0400 Body temperature 97.2 [degF] Nilsa Germain TELEPHONE SOLICITOR.SIGNAL MANAGER Work Phone: [facility] 03-01-2022 14:50-0400 Body weight 60.06 kg Nilsa Germain TELEPHONE SOLICITOR.SIGNAL MANAGER Work Phone: [facility] 03-01-2022 14:50-0400 Diastolic blood pressure 70 mm[Hg] Nilsa Germain TELEPHONE SOLICITOR.SIGNAL MANAGER Work Phone: [facility] 03-01-2022 14:50-0400 Heart rate 80 /min Nilsa Germain TELEPHONE SOLICITOR.SIGNAL MANAGER Work Phone: [facility] 03-01-2022 14:50-0400 Respiratory rate 18 /min Nilsa Germain TELEPHONE SOLICITOR.SIGNAL MANAGER Work Phone: [facility] 03-01-2022 14:50-0400 SaO2% (BldA) [Mass fraction] 97 % Nilsa Germain TELEPHONE SOLICITOR.SIGNAL MANAGER Work Phone: [facility] 03-01-2022 14:50-0400 Systolic blood pressure 128 mm[Hg] Nilsa Germain TELEPHONE SOLICITOR.SIGNAL MANAGER Work Phone: [facility] 02-04-2022 13:55-0400 Heart rate 92 /min No Primary Care Physician [facility] Work Phone: 02-04-2022 13:55-0400 Respiratory rate 16 /min No Primary Care Physician [facility] Work Phone: 02-04-2022 13:55-0400 SaO2% (BldA) [Mass fraction] 97 % No Primary Care Physician [facility] Work Phone: 02-04-2022 13:05-0400 Diastolic blood pressure 73 mm[Hg] No Primary Care Physician [facility] Work Phone: 02-04-2022 13:05-0400 Systolic blood pressure 128 mm[Hg] No Primary Care Physician [facility] Work Phone: 02-04-2022 12:33-0400 Body height 167.64 cm No Primary Care Physician [facility] Work Phone: 02-04-2022 12:33-0400 Body mass index (BMI) [Ratio] 22.6 kg/m2 No Primary Care Physician [facility] Work Phone: 02-04-2022 12:33-0400 Body temperature 98.9 [degF] No Primary Care Physician [facility] Work Phone: 02-04-2022 12:33-0400 Body weight 63.5 kg No Primary Care Physician [facility] Work Phone: 02-02-2022 08:02-0400 Body temperature 98.4 [degF] No Primary Care Physician [facility] Work Phone: 02-02-2022 08:02-0400 Diastolic blood pressure 74 mm[Hg] No Primary Care Physician [facility] Work Phone: 02-02-2022 08:02-0400 Heart rate 71 /min No Primary Care Physician [facility] Work Phone: 02-02-2022 08:02-0400 Respiratory rate 16 /min No Primary Care Physician [facility] Work Phone: 02-02-2022 08:02-0400 SaO2% (BldA) [Mass fraction] 99 % No Primary Care Physician [facility] Work Phone: 02-02-2022 08:02-0400 Systolic blood pressure 135 mm[Hg] No Primary Care Physician [facility] Work Phone: 02-01-2022 08:31-0400 Body height 167.64 cm No Primary Care Physician [facility] Work Phone: 02-01-2022 08:31-0400 Body mass index (BMI) [Ratio] 21.5 kg/m2 No Primary Care Physician [facility] Work Phone: 02-01-2022 08:31-0400 Body weight 60.59 kg No Primary Care Physician [facility] Work Phone: 02-01-2022 07:36-0400 Body temperature 97.9 [degF] No Primary Care Physician [facility] Work Phone: 02-01-2022 07:36-0400 Diastolic blood pressure 79 mm[Hg] No Primary Care Physician [facility] Work Phone: 02-01-2022 07:36-0400 Heart rate 87 /min No Primary Care Physician [facility] Work Phone: 02-01-2022 07:36-0400 Respiratory rate 16 /min No Primary Care Physician [facility] Work Phone: 02-01-2022 07:36-0400 SaO2% (BldA) [Mass fraction] 100 % No Primary Care Physician [facility] Work Phone: 02-01-2022 07:36-0400 Systolic blood pressure 116 mm[Hg] No Primary Care Physician [facility] Work Phone: 02-01-2022 05:56-0400 Body height 167.64 cm No Primary Care Physician [facility] Work Phone: 02-01-2022 05:56-0400 Body mass index (BMI) [Ratio] 21.9 kg/m2 No Primary Care Physician [facility] Work Phone: 02-01-2022 05:56-0400 Body weight 61.8 kg No Primary Care Physician [facility] Work Phone: Encounters Encounter Date Encounter Type Care Provider Facility Start: 05-02-2025 End: 05-02-2025 Emergency department patient visit Lewis Hendrickson Facility:[facility] Start: 05-02-2025 End: 05-02-2025 ambulatory NILSA GROVES Facility:[facility] Start: 01-02-2025 End: 01-02-2025 Subsequent hospital visit by physician Kelly [facility] Work Phone: Radiology Comment on above: Rib pain on left tere e [R07.81] Start: 01-02-2025 End: 01-02-2025 Patient encounter procedure Rocky VAUGHN Work Phone: [facility] Comment on above: Rib pain on left tere e (Primary Dx) Start: 01-02-2025 End: 01-02-2025 ambulatory ROCKY SCHRADER Facility:[facility] Start: 06-13-2024 End: 06-13-2024 ambulatory Nilsaalicia Groves TELEPHONE SOLICITOR.SIGNAL MANAGER Work Phone: [facility] Start: 06-12-2024 End: 06-12-2024 Emergency department patient visit Vincent Nazario Facility:[facility] Start: 06-11-2024 End: 06-11-2024 ambulatory [facility] Facility:[facility] Start: 06-11-2024 End: 06-11-2024 Office outpatient visit 15 minutes Sam Fuller TELEPHONE SOLICITOR.SIGNAL MANAGER Work Phone: [facility] Comment on above: Pharyngitis, unspeci fied etiology (Primary Dx); Generalized abdominal pain Start: 05-25-2024 End: 05-25-2024 Telephone encounter Kaila Jean TELEPHONE SOLICITOR.SIGNAL MANAGER Work Phone: [facility] Comment on above: Results Start: 05-25-2024 End: 05-25-2024 Subsequent hospital visit by physician X[facility] Work Phone: Radiology Comment on above: Foot pain, right [M7 9.671] Start: 05-25-2024 End: 05-25-2024 ambulatory [facility] Facility:[facility] Start: 05-25-2024 End: 05-25-2024 Patient encounter procedure Rocky Schrader PA Work Phone: [facility] Comment on above: Foot pain, right (Pr imary Dx) Start: 03-05-2024 Telephone encounter Rokcy VAUGHN Work Phone: [facility] Comment on above: Results Start: 03-05-2024 End: 03-05-2024 Subsequent hospital visit by physician [facility] Work Phone: Radiology Comment on above: Acute right ankle pa in [M25.571] Start: 03-04-2024 End: 03-04-2024 Patient encounter procedure Rocky Schrader PA Work Phone: [facility] Comment on above: Acute right ankle pa in (Primary Dx); Foot pain, right Start: 02-14-2024 ambulatory Yana Giles [facility] Start: 02-13-2024 End: 02-13-2024 Patient encounter procedure Suresh Cortes MD Work Phone: [facility] Comment on above: Leg cramps (Primary Dx); Leg weakness, bilateral; Dizziness Start: 11-22-2023 End: 11-22-2023 Emergency department patient [facility] [facility] Work Phone: Start: 09-27-2023 ambulatory Peg Chandra LADONNA [facility] Comment on above: ED OUTREACH (ED OUTR EACH/[place]09/23/2023 ) Start: 09-23-2023 End: 09-23-2023 Emergency department patient visit [facility] Work Phone: Start: 06-30-2023 Telephone encounter Nilsa Groves APRN.SIGNAL MANAGER Work Phone: [facility] Comment on above: No Show (First no sh ow in 365 days.) Start: 06-23-2023 End: 06-23-2023 Patient encounter procedure Kaila Jean APRN.SIGNAL MANAGER Work Phone: [facility] Comment on above: Encounter for medica tion refill (Primary Dx) Start: 05-27-2023 Telephone encounter Leon aguilar DO Work Phone: [facility] Comment on above: Appointment Start: 04-22-2023 End: 04-22-2023 Emergency department patient visit [facility] Work Phone: Start: 04-21-2023 End: 04-21-2023 Emergency department patient visit [facility] Work Phone: Start: 04-21-2023 End: 04-21-2023 Patient encounter procedure Brian Brandon APRN.SIGNAL MANAGER Work Phone: [facility] Comment on above: SOB (shortness of br eath) (Primary Dx); Light headed; Rib pain on left side Start: 2023 ambulatory Tasha Menchaca MA [facility] Start: 03-18-2023 End: 03-18-2023 Emergency department patient visit [facility] Work Phone: Start: 02-14-2023 Telephone encounter Nilsa Groves APRN.SIGNAL MANAGER Work Phone: [facility] Comment on above: Received Outside [facility] Records ([facility] ER Summary 02/11/2023 Slipped and fell landed on right shoulder) Start: 02-11-2023 End: 02-11-2023 Emergency department patient visit [facility] Work Phone: Start: 12-10-2022 End: 12-10-2022 Emergency department patient visit [facility] Work Phone: Start: 11-22-2022 ambulatory Nilsa brooks TELEPHONE SOLICITOR.SIGNAL MANAGER Work Phone: [facility] Comment on above: ER F/U Start: 11-16-2022 End: 11-16-2022 Emergency department patient visit [facility] Start: 11-13-2022 End: 11-13-2022 Patient encounter procedure Mary Caballero APRN.SIGNAL MANAGER Work Phone: 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 Dx) Start: 03-12-2022 Telephone encounter Nilsa Groves APRN.HEBER Work Phone: [facility] Comment on above: Referral Request ([facility] ) Start: 03-01-2022 End: 03-01-2022 Patient encounter procedure Nilsa Groves APRN.SIGNAL MANAGER Work Phone: [facility] Comment on above: Encounter for wellne ss examination (Primary Dx); Severe episode of recurrent major depressive disorder, without psychotic features (HCC); Screening for lipid disorders; Encounter for hepatitis C screening test for low risk patient; Screening for HIV (human immunodeficiency virus); Encounter for screening for diabetes mellitus Start: 03-01-2022 End: 03-01-2022 Patient encounter status Nilsa Groves APRN.CNP Work Phone: [facility] Start: 02-04-2022 End: 02-04-2022 Emergency department patient visit No Primary Care Physician [facility]gency [facility] Start: 02-02-2022 Non-patient / Non-visit No [facility] Care Physician [facility] [facility] Start: 02-01-2022 Non-patient / Non-visit No [facility] Care Physician [facility] [facility] Start: 02-01-2022 End: 02-02-2022 Evaluation and management of inpatient No Primary Care Physician [facility]Medical Surgical 3 Procedures Date Procedure Procedure Detail Performing Clinician Start: 05-02-2025 Urnls dip stick/tabl et reagent auto microscopy Dr. Sam Olvera MD Work Phone: Start: 05-02-[address] Sam Olvera MD Work Phone: Start: 05-02-2025 Ct abdomen & pelvis w/contrast material Dr. Sam Olvera MD Work Phone: Start: 01-02-2025 Radex ribs uni w/pos teroant ch minimum 3 views Krislyn P Aberegg PA Work Phone: Start: 06-11-2024 STREP A MOLECULAR (POC) Sam Fuller APRN.SIGNAL MANAGER Work Phone: Start: 05-25-2024 Radex ankle complete minimum 3 views Krislyn P Aberegg PA Work Phone: Start: 03-05-2024 Radex ankle complete minimum 3 views Krislyn P Aberegg PA Work Phone: Start: 11-22-2023 Radiography of ankle Start: 09-23-2023 Viral antigen assay Start: 04-22-2023 X-ray of chest posteroanterior view Start: 03-18-2023 Plain chest X-ray Start: 02-11-2023 Plain x-ray of elbow Start: 02-11-2023 Plain X-ray of shoulder Start: 07-28-2022 COVID WITH FLUA+B, ROUTINE Sam Fuller APRN.SIGNAL MANAGER Work Phone: Start: 07-28-2022 STREP A MOLECULAR (POC) Sam Fuller APRN.SIGNAL MANAGER Work Phone: Start: 02-01-2022 Computed tomography of abdomen and pelvis with intravenous contrast No Primary Care Physician Plan of Treatment Date Care Activity Detail Author Start: 03-25-2025 Influenza vaccination Influenza Vaccine (Season Ended) [facility] Start: 03-25-2024 Covid-19 Vaccine ( season) Covid-19 Vaccine ( season) [facility] Start: 03-25-2024 Influenza vaccination Influenza Vaccine (#1) [facility] Start: 11-22-[address] [facility] Start: 10-08-2023 Urine microalbumin profile [facility] Comment on above: Postponed from 03/10/2019 (Declined at t his time) Start: 09-23-[address] [facility] Start: 03-25-2023 Covid-19 Vaccine ( season) Covid-19 Vaccine ( season) [facility] Start: 03-25-2023 Influenza vaccination [facility] Start: 03-18-[address] [facility] Start: 03-18-2023 End: 03-18-[address] [facility] Start: 03-01-2023 COVID-19 VACCINE (#1) COVID-19 VACCINE (#1) [facility] Comment on above: Postponed from 1992 (Declined at t his time) Start: 01-21-2023 Influenza vaccination INFLUENZA (#1) [facility] Comment on above: Postponed from 03/25/2022 (Declined at t his time) Start: 11-16-[address] [facility] Start: 10-07-2022 End: 12-07-2022 CBC panel - Blood by Automated count CBC Lab Routine Screening for deficiency anemia Expected: 10/07/2022, Expires: 12/07/2022 [facility] Work Phone: Comment on above: Expected: 10/07/2022, Expires: 3 Start: 10-07-2022 End: 12-07-2022 Comprehensive metabolic 2000 panel - Serum or Plasma COMP METABOLIC PANEL Lab Routine Encounter for screening for diabetes mellitus Expected: 10/07/2022, Expires: 12/07/2022 [facility] Work Phone: Comment on above: Expected: 10/07/2022, Expires: 3 Start: 10-07-2022 End: 12-07-2022 Hepatitis C virus Ab [Presence] in Serum HEP C AB IA W/CONF SCRN Lab Routine Encounter for hepatitis C screening test for low risk patient Expected: 10/07/2022, Expires: 12/07/2022 [facility] Work Phone: Comment on above: Expected: 10/07/2022, Expires: 3 Start: 10-07-2022 End: 12-07-2022 HIV 1+2 Ab [Presence] in Serum or Plasma by Immunoassay HIV 1 2 COMBO(AG/AB),WITH REFLEX TO DIFFERENTIATION Lab Routine Screening for HIV (human immunodeficiency virus) Expected: 10/07/2022, Expires: 12/07/2022 [facility] Work Phone: Comment on above: Expected: 10/07/2022, Expires: 3 Start: 10-07-2022 End: 12-07-2022 Lipid 1996 panel - Serum or Plasma LIPID PANEL BASIC Lab Routine Screening for lipid disorders Expected: 10/07/2022, Expires: 12/07/2022 [facility] Work Phone: Comment on above: Expected: 10/07/2022, Expires: 3 Start: 10-07-2022 End: 12-07-2022 Thyrotropin [Units/volume] in Serum or Plasma TSH BLD Lab Routine Screening for thyroid disorder Expected: 10/07/2022, Expires: 12/07/2022 [facility] Work Phone: Comment on above: Expected: 10/07/2022, Expires: 3 Start: 03-25-2022 Influenza vaccination INFLUENZA (#1) [facility] Start: 03-01-2022 End: 05-01-2022 Comprehensive metabolic 2000 panel - Serum or Plasma COMP METABOLIC PANEL Lab Routine Encounter for screening for diabetes mellitus Expected: 03/01/2022, Expires: 05/01/2022 [facility] Work Phone: Comment on above: Expected: 03/01/2022, Expires: 2 Start: 03-01-2022 End: 05-01-2022 Hepatitis C virus Ab [Presence] in Serum HEP C AB IA W/CONF SCRN Lab Routine Screening for HIV (human immunodeficiency virus) Expected: 03/01/2022, Expires: 05/01/2022 [facility] Work Phone: Comment on above: Expected: 03/01/2022, Expires: 2 Start: 03-01-2022 End: 05-01-2022 HIV 1+2 Ab [Presence] in Serum or Plasma by Immunoassay HIV 1 2 COMBO(AG/AB),WITH REFLEX TO DIFFERENTIATION Lab Routine Encounter for hepatitis C screening test for low risk patient Expected: 03/01/2022, Expires: 05/01/2022 [facility] Work Phone: Comment on above: Expected: 03/01/2022, Expires: 2 Start: 03-01-2022 End: 05-01-2022 Lipid 1996 panel - Serum or Plasma LIPID PANEL BASIC Lab Routine Screening for lipid disorders Expected: 03/01/2022, Expires: 05/01/2022 [facility] Work Phone: Comment on above: Expected: 03/01/2022, Expires: 2 Start: 02-02-[address] [facility] Work Phone: Start: 02-02-2022 Thyroid stimulating hormone measurement [facility] Work Phone: Start: 02-02-[address] [facility] Work Phone: Start: 02-01-2022 Following clinical pathway protocol [facility] Work Phone: Start: 02-01-2022 Assessment of risk of venous thromboembolism [facility] Work Phone: Start: 02-01-[address] [facility] Work Phone: Start: 02-01-2022 Insertion of catheter into peripheral vein [facility] Work Phone: Start: 02-01-2022 Providing care according to standard [facility] Work Phone: Start: 02-01-2022 Referral to service [facility] Work Phone: Start: 02-01-[address] [facility] Work Phone: Start: 02-01-[address] [facility] Work Phone: Start: 02-01-[address] [facility] Work Phone: Start: 03-10-2019 Urine microalbumin profile [facility] Start: 2011 Pneumococcal vaccination Pneumococcal Vaccine (1 of 2 - PCV) [facility] Start: 2010 Anxiety Screening Anxiety Screening [facility] Start: 2010 HEPATITIS C SCREENING HEPATITIS C SCREENING [facility] Start: 2010 Hepatitis C screening Hepatitis C Screening [facility] Start: 2010 HIV SCREENING HIV SCREENING [facility] Start: 2010 HIV screening HIV Screening [facility] Start: 1998 PNEUMOCOCCAL (1 - PCV) PNEUMOCOCCAL (1 - PCV) [facility] Start: 1998 [facility] Start: 1992 COVID-19 VACCINE (#1) COVID-19 VACCINE (#1) [facility] Alanine aminotransfe rase [Enzymatic activity/volume] in Serum or Plasma [facility] Work Phone: Albumin [Mass/volume ] in Serum or Plasma [facility] Work Phone: Alkaline phosphatase [Enzymatic activity/volume] in Serum or Plasma [facility] Work Phone: Anion gap measurement [facility] Work Phone: Aspartate aminotransferase [Enzymatic activity/volume] in Serum or Plasma [facility] Work Phone: Bilirubin measuremen t, urine [facility] Work Phone: Bilirubin, total measurement [facility] Work Phone: BUN/Creatinine ratio [facility] Work Phone: Calcium [Mass/volume ] in Serum or Plasma [facility] Work Phone: Carbon dioxide, tota l [Moles/volume] in Serum or Plasma [facility] Work Phone: Chloride [Moles/volu me] in Serum or Plasma [facility] Work Phone: Creatinine [Moles/vo lume] in Serum or Plasma [facility] Work Phone: Glucose [Mass/volume ] in Serum or Plasma [facility] Work Phone: Hematocrit [Volume Fraction] of Blood [facility] Work Phone: Hemoglobin [Mass/vol ume] in Blood [facility] Work Phone: Hemoglobin [Presence ] in Urine [facility] Work Phone: Leukocytes [#/volume ] in Blood [facility] Work Phone: Magnesium [Mass/volu me] in Serum or Plasma [facility] Work Phone: Mean corpuscular hemoglobin concentration determination [facility] Work Phone: Mean corpuscular hemoglobin determination [facility] Work Phone: Measurement of keton es in urine using dipstick [facility] Work Phone: Measurement of renal function [facility] Work Phone: Microscopic urinalysis [facility] Work Phone: Neutrophil count [facility] Work Phone: Neutrophil percent differential count [facility] Work Phone: Patient Education [facility] Work Phone: Patient referral [facility] Work Phone: pH of Urine [facility] Work Phone: Platelets [#/volume] in Blood [facility] Work Phone: Potassium [Moles/vol ume] in Serum or Plasma [facility] Work Phone: Red blood cell count [facility] Work Phone: Red cell distributio n width determination [facility] Work Phone: Sodium [Moles/volume ] in Serum or Plasma [facility] Work Phone: Specific gravity of Urine [facility] Work Phone: Thyroid stimulating hormone measurement [facility] Work Phone: Total protein measurement [facility] Work Phone: Urea nitrogen [Mass/volume] in Serum or Plasma [facility] Work Phone: Urinalysis, blood, qualitative [facility] Work Phone: Urine dipstick for glucose [facility] Work Phone: Urine dipstick for leukocyte esterase [facility] Work Phone: Urine dipstick for nitrite [facility] Work Phone: Urine dipstick for protein [facility] Work Phone: Urine examination [facility] Work Phone: Urine microscopy: epithelial cells [facility] Work Phone: Urine Microscopy: wh ite cells [facility] Work Phone: Urobilinogen [Presen ce] in Urine [facility] Work Phone: End: 04-03-2025 XR Ankle - right AP and Lateral and oblique XR ANKLE GENERAL 3V AP/LAT/OBL RIGHT Radiology STAT Acute right ankle pain Foot pain, right 1 Occurrences starting 03/04/2024 until 04/03/2025 [facility] Comment on above: 1 Occurrences starting 03/04/2024 until 04/03/2025 End: 04-03-2025 XR Foot - right AP and Lateral and oblique XR FOOT GENERAL 3V AP/LAT/OBL RIGHT Radiology STAT Acute right ankle pain Foot pain, right 1 Occurrences starting 03/04/2024 until 04/03/2025 [facility] Work Phone: Comment on above: 1 Occurrences starting 03/04/2024 until 04/03/2025 [facility] Immunizations Immunization Date Immunization Notes Care Provider Stacey nguyen 03-10-2009 meningococcal polysaccharide (groups A, C, Y and W-135) diphtheria toxoid conjugate vaccine (MCV4P) Nilsa Germain TELEPHONE SOLICITOR.SIGNAL MANAGER Work Phone: [facility] 03-10-2009 tetanus toxoid, redu eren diphtheria toxoid, and acellular pertussis vaccine, adsorbed Nilsa Germain TELEPHONE SOLICITOR.SIGNAL MANAGER Work Phone: [facility] 03-15-2005 measles, mumps and rubella virus vaccine Nilsa Germain TELEPHONE SOLICITOR.SIGNAL MANAGER Work Phone: [facility] 01-01-1997 diphtheria, tetanus toxoids and acellular pertussis vaccine, unspecified formulation Nilsa Germain TELEPHONE SOLICITOR.SIGNAL MANAGER Work Phone: [facility] 01-01-1997 trivalent poliovirus vaccine, live, oral Nilsa Germain TELEPHONE SOLICITOR.SIGNAL MANAGER Work Phone: [facility] 09-21-1993 diphtheria, tetanus toxoids and acellular pertussis vaccine, unspecified formulation Nilsa Germain TELEPHONE SOLICITOR.SIGNAL MANAGER Work Phone: [facility] 09-21-1993 trivalent poliovirus vaccine, live, oral Nilsa Germain TELEPHONE SOLICITOR.SIGNAL MANAGER Work Phone: [facility] 06-22-1993 haemophilus influenz ae type b vaccine, conjugate unspecified formulation Nilsa Germain TELEPHONE SOLICITOR.SIGNAL MANAGER Work Phone: [facility] 06-22-1993 measles, mumps and rubella virus vaccine Nilsa Germain TELEPHONE SOLICITOR.SIGNAL MANAGER Work Phone: [facility] 1992 hepatitis B vaccine, pediatric or pediatric/adolescent dosage Nilsa Germain TELEPHONE SOLICITOR.SIGNAL MANAGER Work Phone: [facility] 1992 diphtheria, tetanus toxoids and pertussis vaccine Nilsa Germain TELEPHONE SOLICITOR.SIGNAL MANAGER Work Phone: [facility] 1992 haemophilus influenz ae type b vaccine, conjugate unspecified formulation Nilsa Germain TELEPHONE SOLICITOR.SIGNAL MANAGER Work Phone: [facility] 1992 diphtheria, tetanus toxoids and pertussis vaccine Nilsa Germain TELEPHONE SOLICITOR.SIGNAL MANAGER Work Phone: [facility] 1992 haemophilus influenz ae type b vaccine, conjugate unspecified formulation Nilsa Germain TELEPHONE SOLICITOR.SIGNAL MANAGER Work Phone: [facility] 1992 trivalent poliovirus vaccine, live, oral Nilsa Germain TELEPHONE SOLICITOR.SIGNAL MANAGER Work Phone: [facility] 1992 diphtheria, tetanus toxoids and pertussis vaccine Nilsa Germain TELEPHONE SOLICITOR.SIGNAL MANAGER Work Phone: [facility] 1992 haemophilus influenz ae type b vaccine, conjugate unspecified formulation Nilsa Germain TELEPHONE SOLICITOR.SIGNAL MANAGER Work Phone: [facility] 1992 trivalent poliovirus vaccine, live, oral Nilsa Germain TELEPHONE SOLICITOR.SIGNAL MANAGER Work Phone: [facility] 1992 hepatitis B vaccine, pediatric or pediatric/adolescent dosage Nilsa Germain TELEPHONE SOLICITOR.SIGNAL MANAGER Work Phone: [facility] 1992 hepatitis B vaccine, pediatric or pediatric/adolescent dosage Nilsa Germain TELEPHONE SOLICITOR.SIGNAL MANAGER Work Phone: [facility] Payers Date Payer Category Payer Self-pay [id number] 2016 Medicaid [id number] 2014 Unknown [id number] 2014 [id number] Unknown [id number] Unknown [id number] Social History Date Type Detail Facility Start: 02-01-2022 End: 11-22-2023 Tobacco smoking status NHIS Unknown if ever smoked [facility] Start: 08-04-2019 None [facility] Start: 08-04-2019 With Family [facility] Start: 12-16-2014 Cigarettes [facility] Start: 1990 Sex Assigned At Male W [facility] Start: 02-09-2019 End: 07-28-2022 Tobacco smoking status NHIS Ex-smoker [facility] History of tobacco use Current smoker [facility] History of tobacco use Cigarette Smoker [facility] Start: 02-09-2019 End: 10-07-2022 Tobacco use and exposure Smokeless tobacco non-user [facility] Start: 03-04-2022 Alcohol intake Lifetime non-d teri (finding) [facility] Start: 1990 Sex Assigned At Not on file [facility] Start: 02-19-2022 End: 04-08-2022 Exposure to SARS-CoV-2 (event) Not sure [facility] Start: 04-08-2022 End: 06-11-2024 Alcohol intake Current drinker of alcohol (finding) [facility] Start: 04-08-2022 History SDOH Alcohol Comment social [facility] Start: 07-28-2022 Tobacco Comment Father smokes outsid e [facility] Start: 10-07-2022 End: 05-02-2025 Tobacco smoking status NHIS Smokes tobacco daily [facility] Start: 11-13-2022 End: 06-30-2023 History of Social function [facility] Start: 11-13-2022 End: 06-30-2023 Tobacco use panel [facility] Adult Depression Screening Assessment 5 [facility] Goals Date Patient Goal Desired Activity /State Functional Status Date Assessment Result Facility 02-02-2022 Functional status Up ad tawny [facility] Work Phone: 05-31-2014 Are you deaf, or do you have serious difficulty hearing No 05/31/2014 11:39 AM Suni Jones RN No [facility] 05-31-2014 Are you blind, or do you have serious difficulty seeing, even when wearing glasses No 05/31/2014 11:39 AM Suni Jones RN No [facility] 05-31-2014 Do you have serious difficulty walking or climbing stairs No 05/31/2014 11:39 AM Suni Jones RN No [facility] 05-31-2014 Do you have difficul ty dressing or bathing No 05/31/2014 11:39 AM Suni Jones RN [facility] 05-31-2014 Because of a physica l, mental, or emotional condition, do you have difficulty doing errands alone such as visiting a physician's office or shopping No 05/31/2014 11:39 AM Suni Jones RN No [facility] Mental Status Date Assessment Result Facility 03-18-2023 Cognitive function Level Of Cons ciousness Awake;Alert;Appropriate;Fol lows Commands [facility] Work Phone: 12-10-2022 Cognitive function Voice/Name [facility] Work Phone: 02-02-2022 Cognitive function Voice/Name [facility] Work Phone: 05-31-2014 Because of a physica l, mental, or emotional condition, do you have serious difficulty concentrating, remembering, or making decisions No 05/31/2014 11:39 AM Suni Jones RN No [facility] Clinical Notes 03-01-2022 to 05-02-2025 Note Date & Type Note Facility 05-02-[address] [facility] 05-02-2025 Radiology Diagnostic study note [facility] [address] [place] [address] Abdomen/Pelvis W IV Cont ONLY MR#: [id number] Acct: [id number] Name: ISMA URIBE Rep #: [id number] : 1990 M 35 From: Rubén Ramirez MD PCP: Dr. Sam Olvera MD Status: REG ER Study:Abdomen/Pelvis W IV Cont ONLY Date of E xam: 05/02/25 Exam# [id number] Ordering Dr: Lewis Hendrickson MD PROCEDURE: ABDOMEN/PELVIS W IV CONT ONLY 05/02/2025 REASON FOR EXAM: PAIN, NAUSEA AND VOMITING TECHNIQUE: Procedure Code: [id number] Modality: CT Procedure: ABDOMEN/PELVIS W IV CONT ONLY Coronal and Sagittal reconstruction series were provided. One or more dose reduction techniques were used (e.g., Automated exposure control, adjustment of the mA and/or kV according to patient size, use of iterative reconstruction technique. FINDINGS: Lung bases are clear. Liver, gallbladder, spleen, pancreas, and adrenal glands are unremarkable. Kidneys demonstrate no hydronephrosis, calculi, or focal lesions. Abdominal aorta is normal in caliber. No free air or free fluid. Bowel loops are nondilated with no wall thickening or inflammatory change. Appendix is normal. No lymphadenopathy. Urinary bladder is unremarkable. Pelvic organs are within normal limits. Moderate dense colonic stool is present, suspicious for constipation. Osseous structures demonstrate mild degenerative changes without acute abnormality. CT/Abdomen/Pelvis W IV Cont ONLY IMPRESSION: No acute intra-abdominal or pelvic abnormality. Dense colonic stool suspicious for constipation. Reading Location: [address] CC: Dr. Lewis Hendrickson MD; Dr. Sam Olvera MD ~ Engineering Mathematician: Signed [facility] 05-02-2025 Note HNO ID: [id number] Author: SAM FULLER APRN.SIGNAL MANAGER Service: ? Author Type: Nurse Practitioner Type: Progress Notes Filed: 05/02/2025 17:20 Note Text: URGENT CARE [facility] Isma Uribe is a 35 year old male. Patient presents with: Abdominal Pain: Generalized abd pain, vomiting, nausea, feeling full without eating much x3 days HPI Nontoxic-appearing 35-year-old male presents urgent care chief complaint abdominal pain and syncopal episode. States has had episodic abdominal pain and vomiting for 3 days. Has had multiple episodes of syncope. Episodes lasting 5 to to 20 minutes of syncope. States has had a headache and dizziness. Denies any other concerns Review of Systems Constitutional: Negative for chills, diaphoresis, fatigue and fever. HENT: Negative for congestion, ear discharge, ear pain, rhinorrhea, sinus pressure, sinus pain, sneezing and sore throat. Eyes: Negative for pain, discharge, redness, itching and visual disturbance. Respiratory: Negative for cough, chest tightness, shortness of breath and wheezing. Cardiovascular: Negative for chest pain. Gastrointestinal: Positive for abdominal pain and vomiting. Negative for constipation, diarrhea and nausea. Musculoskeletal: Negative for joint swelling, neck pain and neck stiffness. Skin: Negative for rash. Neurological: Positive for dizziness and syncope. Negative for weakness and headaches. Objective BP 120/73 Pulse 78 Temp 36.2 ?C (97.2 ?F) Resp 18 Wt 69.2 kg (152 lb 8.9 oz) SpO2 99% BMI 23.54 kg/m? Physical Exam Constitutional: Appearance: Normal appearance. HENT: Head: Normocephalic. Nose: Nose normal. No congestion or rhinorrhea. Mouth/Throat: Mouth: Mucous membranes are moist. Pharynx: Oropharynx is clear. Uvula midline. No pharyngeal swelling, oropharyngeal exudate, posterior oropharyngeal erythema or uvula swelling. Eyes: Conjunctiva/sclera: Conjunctivae normal. Cardiovascular: Rate and Rhythm: Normal rate. Pulmonary: Effort: Pulmonary effort is normal. Breath sounds: Normal breath sounds. No wheezing, rhonchi or rales. Abdominal: Palpations: Abdomen is soft. Tenderness: There is abdominal tenderness. There is no guarding or rebound. Musculoskeletal: General: Normal range of motion. Cervical back: Normal range of motion and neck supple. No rigidity. Lymphadenopathy: Cervical: No cervical adenopathy. Skin: General: Skin is warm. Findings: No rash. Neurological: Mental Status: He is alert. {ASSESSMENT/PLAN: 1. Syncope, unspecified syncope type - ICD9: 780.2, ICD10: R55 -Patient syncopal episode. Referred to ED. Will be sent [facility]. Sam Fuller APRN.SIGNAL MANAGER History and Record Review Clinical information obtained from an independent historian. History obtained from or confirmed by: parent. External record(s) reviewed: prior outpatient record. Disposition The patient was discharged. Transfer to ED was considered. Reason for not transferring: Procedures [facility] 05-02-2025 Discharge summary Note Date/Time May 02, 2025 9:45pm [facility] Medical Records Department [address] [place] [address] Emergency Department Summary 05/02/25 MR#: [id number] Acct: [id number] Name: ISMA URIBE Rep #:[id number] : 1990 35 From: Lewis Hendrickson MD PCP: Dr. Sam Olvera MD Status:REG ER Location: ED HPI HPI - GI History of Present Illness Chief Complaint: Abd Pain Narrative Narrative: 35-year-old male who denies significant past medical history presents with abdominal pain that he has had over the last 2 days. States his symptoms began on Tuesday, after going to 3. He had boneless wings. He started to feel nauseated and have diffuse abdominal pain. He stopped eating. Since then he has had few episodes of nausea and vomiting without hematemesis. He denies any diarrhea or problems with bowel movements. He complains of diffuse abdominal pain. No prior abdominal surgeries. He felt feverish but denies chills. No exacerbating or alleviating factors. He states he also feels lightheaded and hewas sitting playing video games and was near syncopal. [facility] Medical History Alcohol abuse Depression Constipation Pancreatitis Smoker COVID-19 virus infection History of cervical fracture Fracture of middle phalanx of left index finger Family history of alcoholism Nicotine dependence Home Medications ?Medication ?Instructions ?Recorded ?Last Taken ?Type NK 05/02/25 Unknown History Allergy/AdvReac Type Severity Reaction Status Date / Time Penicillins Allergy Hives Verified 05/02/25 17:32 Social History household members: family and none current occupational status: employed current occupation: [employer] Smoking Status: Current every day smoker tobacco type: e-cigarettes alcohol intake: current alcohol intake frequency: a few times a week substance use type: does not use ROS ROS ED ROS Narrative Review of systems positive for diffuse abdominal pain in epigastrium and left lower quadrant mainly. Positive nausea and vomiting. Positive lightheadedness. Subjective fever. No exacerbating or alleviating factors. EXAM Physical Exam Narrative Exam Narrative: Afebrile. Vital signs noted. Nontoxic-appearing. Cardiovascular semination feels regular rate and rhythm. Lungs are clear to auscultation bilaterally. Abdomen is soft with diffuse tenderness to palpation in both epigastrium and left lower quadrant. Negative Greene sign. No rebound or guarding. Neurological examination nonfocal, nonlateralizing. Const Vital Signs: 05/02/25 17:31 05/02/25 19:31 Temperature 98.6 F 97.6 F L Temperature Source Oral Oral Pulse Rate 80 69 Respiratory Rate 18 17 Blood Pressure 146/74 H 121/56 H Blood Pressure Mean 98 77 Pulse Ox 98 100 Oxygen Delivery Method Room Air Room Air MDM MDM MDM Narrative Medical decision making narrative: Differential diagnosis includes but not limited to gastritis versus gastroenteritis versus pancreatitis versus diverticulitis versus nonspecific abdominal pain. I have low suspicion for any bowel obstruction because a history and physical does not support this. Patient administered normal saline as well as morphine and ondansetron for analgesia. CBC, CMP, and lipase obtained as well as CT imaging and UA. I reviewed his laboratory work and he has a normal white count of 10.3 with hemoglobin normal at 13.8, platelet count normal at 229. CMP is grossly unremarkable with normal sodium and potassium, glucose 85, BUN of 11 and creatinine 0.88. Lipase is normal at 33 so I doubt pancreatitis. LFTs are grossly normal. Urinalysis negative for ketones, nitrites, and leukocytes. Microanalysis is pending, but I feel this is most likely negative and he is not having dysuria and that antibiotics are not indicated. I reviewed his microanalysis and is negative for infection with 0-5 WBCs. I do not feel antibiotics are indicated. CT of the abdomen and pelvis radiology report reviewed there is no acute intra-abdominal pathology/abnormality. He does have dense stool consistent with constipation. His is at the bedside. I do not feel that further narcotic pain medication is indicated. Instead he was given Toradol. I do not think he should be given Bentyl as this would slow his gastric motility. He was told to start an gnee-uce-neakqno stool softener and gentle laxative. His states that he only has a bowel movement every few days. He was told to increase the fiber in his diet as well. At this point in time, I do feel he can be discharged to follow-up. He will follow-up with his primary care provider, Dr. De Jesus. Return instructions to the emergency department were reviewed. Disposition is discharged home in stable condition. History & Record Review Discussion w/independent historian: Patient Additional record(s) reviewed:: Prior ED visit (Last ED visit in 2023) Lab Data Attestation: I reviewed the patient's lab results. Labs: Laboratory Results - last 24 hr 05/02/25 05/02/25 18:14 19:19 WBC 10.3 RBC 4.78 Hgb 13.8 Hct 39.1 L MCV 81.8 MCH 28.9 MCHC 35.3 RDW Std Deviation 34.8 L RDW Coeff of [place] 11.7 Plt Count 229 MPV 8.7 Immature Gran % (Auto) 0.300 Neut % (Auto) 75.1 H Lymph % (Auto) 18.4 L [place] % (Auto) 4.5 Eos % (Auto) 1.1 Baso % (Auto) 0.6 Absolute Neuts (auto) 7.8 H Absolute Lymphs (auto) 1.90 Nucleated RBC % 0 Sodium 143 Potassium 3.7 Chloride 105 Carbon Dioxide 27.8 Anion Gap 10 BUN 11 Creatinine 0.88 Estim Creat Clear Calc 107.74 Est GFR (MDRD) Non-Af 117 BUN/Creatinine Ratio 12.3 Glucose 85 Calcium 8.8 Total Bilirubin 0.26 AST 22 ALT 12 Alkaline Phosphatase 71 Total Protein 7.1 Albumin 4.4 Globulin 2.7 Albumin/Globulin Ratio 1.7 Lipase 33 Urine Color Yellow Urine Clarity Clear Urine pH 7.0 Ur Specific [place] 1.010 Urine Protein Negative Urine Glucose (UA) Normal Urine Ketones Negative Urine Occult Blood Negative Urine Nitrite Negative Urine Bilirubin Negative Urine Urobilinogen Normal Ur Leukocyte Esterase Negative Urine RBC 0-5 SEEN Urine WBC 0-5 SEEN Ur Squamous Epith Cells 0-5 SEEN Urine Bacteria 0 SEEN Urine Mucus 0 SEEN Radiography Diagnostic Testing: Clinical Impression(s) from Imaging Studies Abdomen/Pelvis CT 05/02/25 17:39 IMPRESSION: No acute intra-abdominal or pelvic abnormality. Dense colonic stool suspicious for constipation. Reading Location: [address] Discharge Plan Triage Chief Complaint: Abd Pain ED Provider: Lewis Hendrickson Dx/Rx/DC Orders Clinical Impression: Abdominal pain, Near syncope, Constipation Instructions: ED Constipation (Adult), ED Near-Fainting, Uncertain Cause, ED Abdominal Pain Unkn Cause Male... Prescriptions: No Action NK Primary Care Provider: Sam Olvera Referrals: Sam Olvera MD [Primary Care Provider, Family Practice] Activity Restrictions/Additional Instructions: Follow-up with your primary care provider. You may want to start an zpgi-wme-yoazitn gentle laxative like MiraLAX daily. Start a stool softener. Follow-up with your primary care provider. Return with increased pain, fever, new or worsening symptoms. Print Language: Turkmen Disposition Disposition: Home, Self Care What to do if you have Problems For any increased pain, shortness of breath, bleeding, nausea or vomiting, chestpain, or any unexpected problems, contact your Primary Care Provider. Call [facility] ([phone]) or report to the closest Emergency Room. Call 911 if necessary. 05/02/252144 <Electronically signed by Lewis Hendrickson MD> Cosigner Signature (if applicable): CC: Dr. Sam Olvera MD ~ Signed [facility] Work Phone: [phone] 871-579906-11-2025 History of Present illness Narrative* Spring AvitiaAdam hawk - 01/02/2025 6:00 PM EDT Radiology Service Progress Note PATIENT NAME: Isma Uribe DATE OF SERVICE: January 02, 2025 TIME: 5:54 PM PATIENT IDENTITY VERIFICATION COMPLETED USING TWO (2) IDENTIFIERS: Name and Date of confirmedby patient verbally. FALL SCREENING: Has the patient had 2 falls in the last year or 1 fall with injury or currently using an Ambulatory Assistive Device (Walker, Cane, Wheelchair, Crutches, etc.)? No PATIENT GENDER DATA: Assigned male at PATIENT RELEVANT IMPLANT DATA REVIEWED: Not Applicable PATIENT PRESENTS WITH AN IMPLANTABLE OR ATTACHED HOME VISITOR HOME BASE HEAD START: No RADIOLOGY DEPARTMENT: General X-ray: Exam(s) Completed: Rib X-Ray: Left PERIPHERAL IV DATA: Not applicable SIGNED BY: Adam Cardona January 02, 2025 5:54 PM documented in this encounterPremier Health06-11-2025 NoteHNO ID: [id number] Author: MASHA AVITIA Tech Service: ? Author Type: Technologist Type: Progress Notes Filed: 01/02/2025 18:04 Note Text: Radiology Service Progress Note PATIENT NAME: Isma Uribe DATE OF SERVICE: January 02, 2025 TIME: 5:54 PM PATIENT IDENTITY VERIFICATION COMPLETED USING TWO (2) IDENTIFIERS: Name and Date of confirmed by patient verbally. FALL SCREENING: Has the patient had 2 falls in the last year or 1 fall with injury or currently using an Ambulatory Assistive Device (Walker, Cane, Wheelchair, Crutches, etc.)? No PATIENT GENDER DATA: Assigned male at PATIENT RELEVANT IMPLANT DATA REVIEWED: Not Applicable PATIENT PRESENTS WITH AN IMPLANTABLE OR ATTACHED HOME VISITOR HOME BASE HEAD START: No RADIOLOGY DEPARTMENT: General X-ray: Exam(s) Completed: Rib X-Ray: Left PERIPHERAL IV DATA: Not applicable SIGNED BY: Adam Cardona January 02, 2025 5:54 PMCHocking Valley [facility]06-11-[facility]25 NoteHNO ID: [id number] Author: ROCKY SCHRADER PA Service: ? Author Type: Physician Emergency Management Consultant Type: Progress Notes Filed: 01/02/2025 18:57 Note Text: [facility] Subjective Isma Uribe is a 34 year old male. Patient presents with: Pain: Left rib pain, fell at park HPI Left-Sided Rib Pain: - Acute onset of pain after falling onto a tree while playing on playground equipment with grandchildren today. - Pain localized to the left ribs and side, exacerbated by breathing. - Denies taking any analgesics for pain relief. Review of Systems Respiratory: (+) left-sided chest pain with respiration Musculoskeletal: (+) left rib pain Objective BP 132/84 Pulse 111 Temp 37.3 ?C (99.1 ?F) Resp 20 Wt 66.7 kg (147 lb 0.8 oz) SpO2 98% BMI 22.69 kg/m? Physical Exam Vitals and nursing note reviewed. Constitutional: General: He is not in acute distress. Appearance: Normal appearance. He is not toxic-appearing. HENT: Mouth/Throat: Mouth: Mucous membranes are moist. Cardiovascular: Rate and Rhythm: Normal rate and regular rhythm. Pulmonary: Effort: Pulmonary effort is normal. Breath sounds: Normal breath sounds. No wheezing, rhonchi or rales. Chest: Chest wall: Tenderness present. Comments: Tenderness over left anterior ribs with abrasion present. Mild tenderness over left lateral ribs as well. No bruising or deformity. No crepitation. Lungs clear. No abdominal tenderness or abdominal bruising. Abdominal: General: Abdomen is flat. There are no signs of injury. Palpations: Abdomen is soft. Tenderness: There is no abdominal tenderness. There is no guarding or rebound. Comments: No abdominal tenderness or bruising. Skin: General: Skin is warm and dry. Neurological: Mental Status: He is alert. {1. Rib pain on left side (R07.81) - Trauma from falling onto a tree while playing on playground equipment, resulting in left-sided rib pain. - Physical exam reveals tenderness along the left ribs and upper chest area; no abdominal tenderness noted. - Chest X-ray performed, no rib fractures identified. - Likely contusion; advised application of ice to the affected area. - Recommended analgesics: Acetaminophen and Ibuprofen as needed for pain management. - Instructed to seek emergency care if pain becomes unmanageable. Recording using Endymed software for draft documentation of the visit was discussed with the patient/authorized patient registration representative; all questions welcomed and answered. Patient/authorized patient registration representative agreed to proceed Differential Diagnoses - left rib pain is more likely for the following reason(s): suggested by HANDP - fracture is less likely for the following reason(s): no evidence on imaging - pnaumothorax is less likely for the following reason(s): no evidence on imaging Disposition The patient was discharged. OTC Medications were advised: Tylenol/motrin [facility] History of Present illness Narrative* Rocky Schrader PA - 01/02/2025 5:52 PM EDT Images from the original note were not included. [facility] Subjective Isma Uribe is a 34 year old male. Patient presents with: Pain: Left rib pain, fell at park HPI Left-Sided Rib Pain: - Acute onset of pain after falling onto a tree while playing on playground equipment with grandchildren today. - Pain localized to the left ribs and side, exacerbated by breathing. - Denies taking any analgesics for pain relief. Review of Systems Respiratory: (+) left-sided chest pain with respiration Musculoskeletal: (+) left rib pain Objective BP 132/84 Pulse 111 Temp 37.3 C (99.1 F) Resp 20 Wt 66.7 kg (147 lb 0.8 oz) SpO2 98% BMI 22.69 kg/m Physical Exam Vitals and nursing note reviewed. Constitutional: General: He is not in acute distress. Appearance: Normal appearance. He is not toxic-appearing. HENT: Mouth/Throat: Mouth: Mucous membranes are moist. Cardiovascular: Rate and Rhythm: Normal rate and regular rhythm. Pulmonary: Effort: Pulmonary effort is normal. Breath sounds: Normal breath sounds. No wheezing, rhonchi or rales. Chest: Chest wall: Tenderness present. Comments: Tenderness over left anterior ribs with abrasion present. Mild tenderness over left lateral ribs as well. No bruising or deformity. No crepitation. Lungs clear. No abdominal tenderness or abdominal bruising. Abdominal: General: Abdomen is flat. There are no signs of injury. Palpations: Abdomen is soft. Tenderness: There is no abdominal tenderness. There is no guarding or rebound. Comments: No abdominal tenderness or bruising. Skin: General: Skin is warm and dry. Neurological: Mental Status: He is alert. {1. Rib pain on left side (R07.81) - Trauma from falling onto a tree while playing on playground equipment, resulting in left-sided rib pain. - Physical exam reveals tenderness along the left ribs and upper chest area; no abdominal tenderness noted. - Chest X-ray performed, no rib fractures identified. - Likely contusion; advised application of ice to the affected area. - Recommended analgesics: Acetaminophen and Ibuprofen as needed for pain management. - Instructed to seek emergency care if pain becomes unmanageable. Recording using Endymed software for draft documentation of the visit was discussed with the patient/authorized patient registration representative; all questions welcomed and answered. Patient/authorized patient registration representative agreed to proceed Differential Diagnoses - left rib pain is more likely for the following reason(s): suggested by H&P - fracture is less likely for the following reason(s): no evidence on imaging - pnaumothorax is less likely for the following reason(s): no evidence on imaging Disposition The patient was discharged. OTC Medications were advised: Tylenol/motrin Procedures documented in this encounterPremier Health11-20-2024 History of Present illness Narrative* Yana Giles LPN - 06/13/2024 1:45 PM EST ED Follow Up: Patient discharged from [facility] ED on 06/12/2024. 1. How are you feeling since your ED visit? Left message for pt to call office. Have your symptoms improved or resolved? Left message for pt to call office. 2. Were you prescribed any medications while in the ED or advised to stop any medication? Left message for pt to call office. - If yes, were you able to fill your prescriptions? Left message for pt to call office. -if stopped medication, what was the medication? Left message for pt to call office. 3. Were you advised to schedule a follow up appointment with your provider? Left message for pt to call office. - If no, Do you feel like you need an appointment scheduled? Left message for pt to call office. - If yes, Do you need this scheduled now or has this already been scheduled? Left message for pt tocall office. 4. Were you able to contact the office or administration manager provider prior to your ED visit? Left message forpt to call office. 5. Is there anything else I can do for you today? Left message for pt to call office. documented in this encounterPremier Health11-20-2024 NoteHNO ID: [id number] Author: YANA GILES LPN Service: ? Author Type: LICENSED NURSE Type: Progress Notes Filed: 06/13/2024 13:46 Note Text: ED Follow Up: Patient discharged from [facility] ED on 06/12/2024. 1. How are you feeling since your ED visit? Left message for pt to call office. Have your symptoms improved or resolved? Left message for pt to call office. 2. Were you prescribed any medications while in the ED or advised to stop any medication? Left message for pt to call office. - If yes, were you able to fill your prescriptions? Left message for pt to call office. -if stopped medication, what was the medication? Left message for pt to call office. 3. Were you advised to schedule a follow up appointment with your provider? Left message for pt to call office. - If no, Do you feel like you need an appointment scheduled? Left message for pt to call office. - If yes, Do you need this scheduled now or has this already been scheduled? Left message for pt to call office. 4. Were you able to contact the office or administration manager provider prior to your ED visit? Left message for pt to call office. 5. Is there anything else I can do for you today? Left message for pt to call office.[facility]11-20-20[facility] NotePatient Outreach (AGINTMLW) ISMA URIBE ([id number]) 1990 Date Time Provider Department 06/13/24 NILSA GROVESINTMLHariret During your visit today, we recorded the following information about you: Yana Giles LPN 06/13/2024 1:46 PM Signed ED Follow Up: Patient discharged from [facility] ED on 06/12/2024. 1. How are you feeling since your ED visit? Left message for pt to call office. Have your symptoms improved or resolved? Left message for pt to call office. 2. Were you prescribed any medications while in the ED or advised to stop any medication? Left message for pt to call office. - If yes, were you able to fill your prescriptions? Left message for pt to call office. -if stopped medication, what was the medication? Left message for pt to call office. 3. Were you advised to schedule a follow up appointment with your provider? Left message for pt to call office. - If no, Do you feel like you need an appointment scheduled? Left message for pt to call office. - If yes, Do you need this scheduled now or has this already been scheduled? Left message for pt to call office. 4. Were you able to contact the office or administration manager provider prior to your ED visit? Left message for pt to call office. 5. Is there anything else I can do for you today? Left message for pt to call office. Allergies As of Date: 06/13/2024 Noted Allergy Reaction PENICILLINS 05/24/2005 4 - Hives RANITIDINE 06/10/2005 4 - Hives Date Reviewed: 06/11/2024 Reviewed by: Sam Fuller APRN.SIGNAL MANAGER - Fully Assessed Problem List As Of Date 06/13/2024 Noted Resolved Cervical spine fracture (HCC) [S12.9XXA] 04/05/2014 Encounter for wellness examination [Z00.00] 03/01/2022 Depression [F32.A] 03/01/2022 Depressive disorder, not elsewhere classified [*10/31/2008 Encounter Status:Closed by YANA GILES on 06/13/24[facility] 06-11-2024 NoteHNO ID: [id number] Author: SAM FULLER APRN.SIGNAL MANAGER Service: ? Author Type: Nurse Practitioner Type: Progress Notes Filed: 06/11/2024 15:51 Note Text: Subjective HPI Nontoxic-appearing male presents urgent care chief complaint headache stomachache fever sore throat. Duration of symptoms 1 day. Associated symptoms listed above. Most prominent symptom today is fatigue. Unable to go to work today. Sick contacts over the weekend. Denies OTC medications. No vomiting high fevers chest pain shortness of breath. Past medical history prescription medications allergies reviewed. .Patient presents with: Headache: HULL, stomach hurts and congestion, fever x 1 day PAST MEDICAL HISTORY Diagnosis Date Depression Fracture of C6 vertebra, closed (HCC) 02/22/2014 Fracture of left knee region 02/22/2014 Nasal fracture 02/22/2014 PTSD (post-traumatic stress disorder) PAST SURGICAL HISTORY Procedure Laterality Date REPAIR NASAL SEPTAL FRACTURE 02/2014 ALLERGIES Penicillins and Ranitidine MEDICATIONS No prescriptions on file. FAMILY HISTORY Problem Relation Age of Onset No Known Problems Father Social History Tobacco Use Smoking status: Every Day Types: Cigarettes Smokeless tobacco: Never Tobacco comments: Father smokes outside Substance Use Topics Alcohol use: Yes Comment: social Drug use: Never BP 128/82 Pulse 88 Temp 37.4 ?C (99.4 ?F) (Tympanic) Resp 16 Wt 65 kg (143 lb 4.8 oz) SpO2 100% BMI 22.11 kg/m? ' Review of Systems Constitutional: Positive for fever and malaise/fatigue. Negative for chills. HENT: Positive for sore throat. Negative for congestion, ear discharge, ear pain and sinus pain. Eyes: Negative for blurred vision, pain, discharge and redness. Respiratory: Negative for cough, hemoptysis, sputum production, shortness of breath, wheezing and stridor. Cardiovascular: Negative for chest pain. Gastrointestinal: Positive for abdominal pain. Negative for diarrhea, nausea and vomiting. Musculoskeletal: Positive for myalgias. Skin: Negative for itching and rash. Neurological: Positive for headaches. Negative for dizziness. Objective Physical Exam Constitutional: General: He is not in acute distress. Appearance: He is not diaphoretic. HENT: Head: Normocephalic. Jaw: No trismus, tenderness, swelling or pain on movement. Mouth/Throat: Mouth: Mucous membranes are moist. Pharynx: Oropharynx is clear. Uvula midline. No pharyngeal swelling, oropharyngeal exudate, posterior oropharyngeal erythema or uvula swelling. Eyes: Conjunctiva/sclera: Conjunctivae normal. Pupils: Pupils are equal, round, and reactive to light. Cardiovascular: Rate and Rhythm: Normal rate and regular rhythm. Heart sounds: Normal heart sounds. Pulmonary: Effort: Pulmonary effort is normal. No tachypnea, accessory muscle usage or respiratory distress. Breath sounds: Normal breath sounds. No stridor. No wheezing, rhonchi or rales. Abdominal: General: There is no distension. Palpations: Abdomen is soft. Tenderness: There is generalized abdominal tenderness. There is no guarding or rebound. Musculoskeletal: Cervical back: Normal range of motion and neck supple. No edema, erythema, rigidity or tenderness. No pain with movement. Normal range of motion. Lymphadenopathy: Cervical: No cervical adenopathy. Skin: General: Skin is warm and dry. Neurological: Mental Status: He is alert and oriented to person, place, and time. ASSESSMENT/PLAN: 1. Pharyngitis, unspecified etiology - ICD9: 462, ICD10: J02.9 (primary diagnosis) - STREP A MOLECULAR (POC) 2. Generalized abdominal pain - ICD9: 789.07, ICD10: R10.84 Strep test negative. Diagnosed with generalized abdominal pain. Suspicious of viral illness. If abdominal pain worsens to be seen in ED. Patient was educated on supportive therapies. Patient will follow up with primary care provider as needed. Patient was instructed to immediately proceed to emergency room for any new, worsening, or symptoms lasting longer than anticipated. The patient's clinical presentation is otherwise unremarkable at this time. Based on exam and clinical finding, the patient is stable for discharge. Plan of care was discussed with patient. Patient verbalizes understanding and agrees to plan of care. This note was generated using Needcheck software. It may contain errors in wording, punctuation, or spelling. Sam Fuller APRN.[facility]11-18-2024 History of Present illness Narrative* Sam Fuller APRN.SIGNAL MANAGER - 06/11/2024 2:37 PM EST Subjective HPI Nontoxic-appearing male presents urgent care chief complaint headache stomachache fever sore throat. Duration of symptoms 1 day. Associated symptoms listed above. Most prominent symptom today is fatigue. Unable to go to work today. Sick contacts over the weekend. Denies OTC medications. No vomitinghigh fevers chest pain shortness of breath. Past medical history prescription medications allergiesreviewed. .Patient presents with: Headache: HULL, stomach hurts and congestion, fever x 1 day PAST MEDICAL HISTORY Diagnosis Date Depression Fracture of C6 vertebra, closed (HCC) 02/22/2014 Fracture of left knee region 02/22/2014 Nasal fracture 02/22/2014 PTSD (post-traumatic stress disorder) PAST SURGICAL HISTORY Procedure Laterality Date REPAIR NASAL SEPTAL FRACTURE 02/2014 ALLERGIES Penicillins and Ranitidine MEDICATIONS No prescriptions on file. FAMILY HISTORY Problem Relation Age of Onset No Known Problems Father Social History Tobacco Use Smoking status: Every Day Types: Cigarettes Smokeless tobacco: Never Tobacco comments: Father smokes outside Substance Use Topics Alcohol use: Yes Comment: social Drug use: Never BP 128/82 Pulse 88 Temp 37.4 C (99.4 F) (Tympanic) Resp 16 Wt 65 kg (143 lb 4.8 oz) SpO2 100% BMI 22.11 kg/m ' Review of Systems Constitutional: Positive for fever and malaise/fatigue. Negative for chills. HENT: Positive for sore throat. Negative for congestion, ear discharge, ear pain and sinus pain. Eyes: Negative for blurred vision, pain, discharge and redness. Respiratory: Negative for cough, hemoptysis, sputum production, shortness of breath, wheezing and stridor. Cardiovascular: Negative for chest pain. Gastrointestinal: Positive for abdominal pain. Negative for diarrhea, nausea and vomiting. Musculoskeletal: Positive for myalgias. Skin: Negative for itching and rash. Neurological: Positive for headaches. Negative for dizziness. Objective Physical Exam Constitutional: General: He is not in acute distress. Appearance: He is not diaphoretic. HENT: Head: Normocephalic. Jaw: No trismus, tenderness, swelling or pain on movement. Mouth/Throat: Mouth: Mucous membranes are moist. Pharynx: Oropharynx is clear. Uvula midline. No pharyngeal swelling, oropharyngeal exudate, posterior oropharyngeal erythema or uvula swelling. Eyes: Conjunctiva/sclera: Conjunctivae normal. Pupils: Pupils are equal, round, and reactive to light. Cardiovascular: Rate and Rhythm: Normal rate and regular rhythm. Heart sounds: Normal heart sounds. Pulmonary: Effort: Pulmonary effort is normal. No tachypnea, accessory muscle usage or respiratory distress. Breath sounds: Normal breath sounds. No stridor. No wheezing, rhonchi or rales. Abdominal: General: There is no distension. Palpations: Abdomen is soft. Tenderness: There is generalized abdominal tenderness. There is no guarding or rebound. Musculoskeletal: Cervical back: Normal range of motion and neck supple. No edema, erythema, rigidity or tenderness. No pain with movement. Normal range of motion. Lymphadenopathy: Cervical: No cervical adenopathy. Skin: General: Skin is warm and dry. Neurological: Mental Status: He is alert and oriented to person, place, and time. ASSESSMENT/PLAN: 1. Pharyngitis, unspecified etiology - ICD9: 462, ICD10: J02.9 (primary diagnosis) - STREP A MOLECULAR (POC) 2. Generalized abdominal pain - ICD9: 789.07, ICD10: R10.84 Strep test negative. Diagnosed with generalized abdominal pain. Suspicious of viral illness. If abdominal pain worsens to be seen in ED. Patient was educated on supportive therapies. Patient will follow up with primary care provider as needed. Patient was instructed to immediately proceed to emergency room for any new, worsening, or symptoms lasting longer than anticipated. The patient's clinical presentation is otherwise unremarkable at this time. Based on exam and clinical finding, the patient is stable for discharge. Plan of care was discussed with patient. Patient verbalizes understanding and agrees to plan of care. This note was generated using Needcheck software. It may contain errors in wording, punctuation, or spelling. Sam Fuller APRN.CNP documented in this encounterPrem[facility]11-01-2024 Telephone encounter Note * Telephone Encounter - Brittany Yusuf MA - 05/25/2024 12:46 PM EDT Patient notified of results, verbalizes understanding of instructions. Brittany Yusuf MA [facility]11-01-2024 Miscellaneous Notes* Telephone Encounter - Brittany Yusuf MA - 05/25/2024 12:46 PM EDT Patient notified of results, verbalizes understanding of instructions. Brittany Yusuf MA * Telephone Encounter - Kaila Jean APRN.CNP - 05/25/2024 12:25 PM EDT Xray foot negative Xray ankle negative Continue treatment plan discussed at time of exam Follow up with ortho and or PCP for continued sx Please advise documented in this encounterPrem[facility]11-01-2024 Telephone encounter Note * Telephone Encounter - Kaila Jean APRN.CNP - 05/25/2024 12:25 PM EDT Xray foot negative Xray ankle negative Continue treatment plan discussed at time of exam Follow up with ortho and or PCP for continued sx Please advise [facility] Work Phone: 1(321) 133-295311-01-2024 Instructions* Patient Instructions* Rocky Schrader PA - 05/25/2024 10:12 AM EDT R.I.C.E. The general care of your injury includes the following: Resting, Icing, Compressing and Elevating the injured area. Remember this as RICE. REST: Limit the use of the injured body part. ICE: By applying ice to the affected area, swelling and pain can be reduced. Place some ice cubes in a re-sealable (Ziploc) bag and add some water. Put a thin washcloth between the bag and your skin.Apply the ice bag to the area for at least 20 minutes. Do this at least 4 times per day. Using the ice for longer times and more frequently is OK. NEVER APPLY ICE DIRECTLY TO THE SKIN. COMPRESS: Compression means to apply pressure around the injured area such as with a splint, cast or an candy bandage. Compression decreases swelling and improves comfort. Compression should be tight enough to relieve swelling but not so tight as to decrease circulation. Increasing pain, numbness, tingling, or change in skin color, are all signs of decreased circulation. ELEVATE: Elevate the injured part. For example, elevate your foot by placing it on a chair while sitting, or propping it up on pillows when lying down. documented in this encounterPremier Health11-01-2024 History of Present illness Narrative* Steven Molina RT(Juancho) - 05/25/2024 9:50 AM EDT Radiology Service Progress Note PATIENT NAME: Isma Uribe DATE OF SERVICE: May 25, 2024 TIME: 9:45 AM PATIENT IDENTITY VERIFICATION COMPLETED USING TWO (2) IDENTIFIERS: Name and Date of confirmedby patient verbally. FALL SCREENING: Has the patient had 2 falls in the last year or 1 fall with injury or currently using an Ambulatory Assistive Device (Walker, Cane, Wheelchair, Crutches, etc.)? No PATIENT GENDER DATA: Male PATIENT RELEVANT IMPLANT DATA REVIEWED: Not Applicable PATIENT PRESENTS WITH AN IMPLANTABLE OR ATTACHED HOME VISITOR HOME BASE HEAD START: No RADIOLOGY DEPARTMENT: General X-ray: Exam(s) Completed: Lower Extremity X- Ray(s): Ankle, Right and Foot, Right PERIPHERAL IV DATA: Not applicable SIGNED BY: RT Steff(Juancho) May 25, 2024 9:45 AM documented in this encounterPremier Health11-01-2024 NoteHNO ID: [id number] Author: STEVEN MOLINA RT(R) Service: Radiology Author Type: Technologist Type: Progress Notes Filed: 05/25/2024 09:57 Note Text: Radiology Service Progress Note PATIENT NAME: Isma Uribe DATE OF SERVICE: May 25, 2024 TIME: 9:45 AM PATIENT IDENTITY VERIFICATION COMPLETED USING TWO (2) IDENTIFIERS: Name and Date of confirmed by patient verbally. FALL SCREENING: Has the patient had 2 falls in the last year or 1 fall with injury or currently using an Ambulatory Assistive Device (Walker, Cane, Wheelchair, Crutches, etc.)? No PATIENT GENDER DATA: Male PATIENT RELEVANT IMPLANT DATA REVIEWED: Not Applicable PATIENT PRESENTS WITH AN IMPLANTABLE OR ATTACHED HOME VISITOR HOME BASE HEAD START: No RADIOLOGY DEPARTMENT: General X-ray: Exam(s) Completed: Lower Extremity X-Ray(s): Ankle, Right and Foot, Right PERIPHERAL IV DATA: Not applicable SIGNED BY: RT Steff(R) May 25, 2024 9:45 [facility]11-01-2024 NoteHNO ID: [id number] Author: ROCKY SCHRADER PA Service: ? Author Type: Physician Emergency Management Consultant Type: Progress Notes Filed: 05/25/2024 10:47 Note Text: This note was created using RASILIENT SYSTEMSriter. Subjective Isma Uribe is a 34 year old male. HPI 34-year-old male presents for right foot and ankle pain. Patient states he was taking down wallpaper 2 weeks ago lost his balance on a stepladder and stepped down and felt pain in his foot. He has been having pain since then. The main pain is on the top of the foot and front of the ankle. He also has a little bit of ankle pain. Able to ambulate. No numbness or tingling. He took Tylenol/Motrin with minimal improvement In symptoms. PAST MEDICAL HISTORY Diagnosis Date Depression Fracture of C6 vertebra, closed (HCC) 02/22/2014 Fracture of left knee region 02/22/2014 Nasal fracture 02/22/2014 PTSD (post-traumatic stress disorder) PAST SURGICAL HISTORY Procedure Laterality Date REPAIR NASAL SEPTAL FRACTURE 02/2014 ALLERGIES Penicillins and Ranitidine MEDICATIONS No prescriptions on file. FAMILY HISTORY Problem Relation Age of Onset No Known Problems Father Social History Tobacco Use Smoking status: Every Day Types: Cigarettes Smokeless tobacco: Never Tobacco comments: Father smokes outside Substance Use Topics Alcohol use: Yes Comment: social Drug use: Never Review of Systems Constitutional: Negative for chills and fever. HENT: Negative for congestion and sore throat. Respiratory: Negative for cough and shortness of breath. Gastrointestinal: Negative for diarrhea and vomiting. Musculoskeletal: Positive for arthralgias. Objective BP 120/73 Pulse 74 Temp 36.4 ?C (97.5 ?F) Resp 18 Wt 66.4 kg (146 lb 6.2 oz) SpO2 100% BMI 22.59 kg/m? Physical Exam Vitals and nursing note reviewed. Constitutional: General: He is not in acute distress. Appearance: Normal appearance. He is not toxic-appearing. Musculoskeletal: Right ankle: No swelling or deformity. Tenderness present. Normal range of motion. Normal pulse. Right Achilles Tendon: Normal. No tenderness. Grajeda's test negative. Right foot: Normal range of motion and normal capillary refill. Tenderness and bony tenderness present. No swelling or deformity. Normal pulse. Comments: Patient has tenderness over anterior ankle. Mild tenderness over medial and lateral malleolus. No deformities or swelling. Tenderness over proximal 2nd through 4th metatarsals. Nontender toes. Normal ROM of the toes. Normal sensation all toes. Achilles intact. Skin: General: Skin is warm and dry. Neurological: Mental Status: He is alert. Assessment and Plan ASSESSMENT/PLAN: 1. Foot pain, right - ICD9: 729.5, ICD10: M79.671 - XR FOOT GENERAL 3V AP/LAT/OBL RIGHT - XR ANKLE GENERAL 3V AP/LAT/OBL RIGHT -Radiology read is pending. I do not see any fractures on my review of the XR. Patient would like to leave and have us call him with the results. I did discuss if there is a fracture, he will need to return for appropriate splinting/crutches. He understands. He is ambulatory at this time. Injury x 2 weeks ago, has been walking on it. - Will call patient with result of XR. -Recommend rest, ice, elevation, Tylenol/Motrin for pain. Diagnosis and treatment plan were discussed and questions were answered to the patient's satisfaction. Pt acknowledged understanding of concepts and follow up plan. Specific signs and symptoms that would indicate the need for higher level of care were discussed in detail warranting prompt ER evaluation. Rcoky Schrader [facility]11-01-2024 History of Present illness Narrative* Rocky Schrader, PA - 05/25/2024 9:44 AM EDT This note was created using RASILIENT SYSTEMSriter. Subjective Isma Uribe is a 34 year old male. HPI 34-year-old male presents for right foot and ankle pain. Patient states he was taking down wallpaper 2 weeks ago lost his balance on a stepladder and stepped down and felt pain in his foot. He has been having pain since then. The main pain is on the top of the foot and front of the ankle. He also has a little bit of ankle pain. Able to ambulate. No numbness or tingling. He took Tylenol/Motrinwith minimal improvement In symptoms. PAST MEDICAL HISTORY Diagnosis Date Depression Fracture of C6 vertebra, closed (HCC) 02/22/2014 Fracture of left knee region 02/22/2014 Nasal fracture 02/22/2014 PTSD (post-traumatic stress disorder) PAST SURGICAL HISTORY Procedure Laterality Date REPAIR NASAL SEPTAL FRACTURE 02/2014 ALLERGIES Penicillins and Ranitidine MEDICATIONS No prescriptions on file. FAMILY HISTORY Problem Relation Age of Onset No Known Problems Father Social History Tobacco Use Smoking status: Every Day Types: Cigarettes Smokeless tobacco: Never Tobacco comments: Father smokes outside Substance Use Topics Alcohol use: Yes Comment: social Drug use: Never Review of Systems Constitutional: Negative for chills and fever. HENT: Negative for congestion and sore throat. Respiratory: Negative for cough and shortness of breath. Gastrointestinal: Negative for diarrhea and vomiting. Musculoskeletal: Positive for arthralgias. Objective BP 120/73 Pulse 74 Temp 36.4 C (97.5 F) Resp 18 Wt 66.4 kg (146 lb 6.2 oz) SpO2 100% BMI 22.59 kg/m Physical Exam Vitals and nursing note reviewed. Constitutional: General: He is not in acute distress. Appearance: Normal appearance. He is not toxic-appearing. Musculoskeletal: Right ankle: No swelling or deformity. Tenderness present. Normal range of motion. Normal pulse. Right Achilles Tendon: Normal. No tenderness. Grajeda's test negative. Right foot: Normal range of motion and normal capillary refill. Tenderness and bony tenderness present. No swelling or deformity. Normal pulse. Comments: Patient has tenderness over anterior ankle. Mild tenderness over medial and lateral malleolus. No deformities or swelling. Tenderness over proximal 2nd through 4th metatarsals. Nontender toes. Normal ROM of the toes. Normal sensation all toes. Achilles intact. Skin: General: Skin is warm and dry. Neurological: Mental Status: He is alert. Assessment and Plan ASSESSMENT/PLAN: 1. Foot pain, right - ICD9: 729.5, ICD10: M79.671 - XR FOOT GENERAL 3V AP/LAT/OBL RIGHT - XR ANKLE GENERAL 3V AP/LAT/OBL RIGHT -Radiology read is pending. I do not see any fractures on my review of the XR. Patient would like to leave and have us call him with the results. I did discuss if there is a fracture, he will need toreturn for appropriate splinting/crutches. He understands. He is ambulatory at this time. Injury x 2 weeks ago, has been walking on it. - Will call patient with result of XR. -Recommend rest, ice, elevation, Tylenol/Motrin for pain. Diagnosis and treatment plan were discussed and questions were answered to the patient's satisfaction. Pt acknowledged understanding of concepts and follow up plan. Specific signs and symptoms that would indicate the need for higher level of care were discussed in detail warranting prompt ER evaluation. RODERICK Vogel documented in this encounterPremier Health08-12-2024 Telephone encounter Note * Telephone Encounter - Agustina Kirby RN - 03/05/2024 2:30 PM EDT Patient calls and notified of results and providers instructions. Patient verbalizes understanding with no further questions. Agustina Kirby RN [facility]08-12-2024 Miscellaneous Notes* Telephone Encounter - Agustina Kirby RN - 03/05/2024 2:30 PM EDT Patient calls and notified of results and providers instructions. Patient verbalizes understanding with no further questions. Agustina Kirby RN * Telephone Encounter - Mariana Emmanuel MA - 03/05/2024 2:22 PM EDT Left message for patient to return call. Mariana Emmanuel MA * Telephone Encounter - Rocky Schrader PA - 03/05/2024 2:07 PM EDT Please let patient know that x-ray of foot and ankle were normal. No fracture. documented in this encounterPremier Health08-12-2024 Telephone encounter Note * Telephone Encounter - Mariana Emmanuel MA - 03/05/2024 2:22 PM EDT Left message for patient to return call. Mariana Emmanuel MA [facility]08-12-2024 Telephone encounter Note* Telephone Encounter - Rocky Schrader PA - 03/05/2024 2:07 PM EDT Please let patient know that x-ray of foot and ankle were normal. No fracture. [facility] Work Phone: 1(425) 509-636908-12-2024 History of Present illness Narrative* Poli Nguyen RT(R) - 03/05/2024 1:50 PM EDT Radiology Service Progress Note PATIENT NAME: Isma Uribe DATE OF SERVICE: March 05, 2024 TIME: 1:45 PM PATIENT IDENTITY VERIFICATION COMPLETED USING TWO (2) IDENTIFIERS: Name and Date of confirmedby patient verbally. FALL SCREENING: Has the patient had 2 falls in the last year or 1 fall with injury or currently using an Ambulatory Assistive Device (Walker, Cane, Wheelchair, Crutches, etc.)? No PATIENT GENDER DATA: Male PATIENT RELEVANT IMPLANT DATA REVIEWED: Not Applicable PATIENT PRESENTS WITH AN IMPLANTABLE OR ATTACHED HOME VISITOR HOME BASE HEAD START: No RADIOLOGY DEPARTMENT: General X-ray: Exam(s) Completed: Lower Extremity X- Ray(s): Ankle, Right and Wt. Bearing and Foot, Right and Wt. Bearing PERIPHERAL IV DATA: Not applicable SIGNED BY: RT Carrie(R) March 05, 2024 1:45 PM documented in this encounterPremier Health08-11-2024 History of Present illness Narrative* Rocky Schrader PA - 03/04/2024 2:49 PM EDT This note was created using NoteWriter. Subjective Isma Uribe is a 33 year old male. HPI 33-year-old male presents for right foot/ankle pain. Pain started 2 days ago. Pain is worse with movement and walking. He denies any injury or fall. States he was just standing when he started getting a sharp pain in his foot. Denies ever having this pain in the past. No history of injury to this ankle or foot. He is still able to ambulate. He has not take anything for the pain. No numbness or tingling in the foot. No other complaint. PAST MEDICAL HISTORY No date: Depression 02/22/2014: Fracture of C6 vertebra, closed (HCC) 02/22/2014: Fracture of left knee region 02/22/2014: Nasal fracture No date: PTSD (post-traumatic stress disorder) PAST SURGICAL HISTORY 02/2014: REPAIR NASAL SEPTAL FRACTURE ALLERGIES Penicillins and Ranitidine MEDICATIONS FLUoxetine (PROZAC) 40 mg capsule Take 1 capsule by mouth once daily. (Patient not taking: Reportedon 03/04/2024) FAMILY HISTORY Problem Relation Age of Onset No Known Problems Father Social History Tobacco Use Smoking status: Every Day Types: Cigarettes Smokeless tobacco: Never Tobacco comments: Father smokes outside Substance Use Topics Alcohol use: Yes Comment: social Drug use: Never Review of Systems Constitutional: Negative for chills and fever. HENT: Negative for congestion and sore throat. Respiratory: Negative for cough and shortness of breath. Gastrointestinal: Negative for diarrhea and vomiting. Musculoskeletal: Positive for arthralgias. Objective BP 124/80 Pulse 97 Temp 36.9 C (98.5 F) (Tympanic) Resp 16 Wt 62.9 kg (138 lb 10.7 oz) SpO2 98% BMI 21.40 kg/m Physical Exam Vitals and nursing note reviewed. Constitutional: General: He is not in acute distress. Appearance: Normal appearance. He is not toxic-appearing. Musculoskeletal: Right ankle: No swelling. Tenderness present. Normal range of motion. Right foot: Normal range of motion and normal capillary refill. Tenderness and bony tenderness present. No swelling or deformity. Normal pulse. Comments: Tenderness over dorsum of right foot and anterior ankle. Normal ROM of ankle and foot. Normal ROM of toes. Nontender Achilles. Achilles intact. Nontender medial and lateral malleolus. Normal sensation right lower extremity. Normal strength. Able to ambulate. Skin: General: Skin is warm and dry. Neurological: Mental Status: He is alert. Assessment and Plan ASSESSMENT/PLAN: 1. Acute right ankle pain - ICD9: 719.47, 338.19, ICD10: M25.571 (primary diagnosis) -No XR available at time of exam. Patient will return tomorrow for XR. -Recommend rest, ice, elevation, Tylenol/Motrin as needed for pain. -Able to ambulate, declines crutches. - XR FOOT GENERAL 3V AP/LAT/OBL RIGHT - XR ANKLE GENERAL 3V AP/LAT/OBL RIGHT 2. Foot pain, right - ICD9: 729.5, ICD10: M79.671 - XR FOOT GENERAL 3V AP/LAT/OBL RIGHT - XR ANKLE GENERAL 3V AP/LAT/OBL RIGHT Diagnosis and treatment plan were discussed and questions were answered to the patient's satisfaction. Pt acknowledged understanding of concepts and follow up plan. Specific signs and symptoms that would indicate the need for higher level of care were discussed in detail warranting prompt ER evaluation. RODERICK Vogel documented in this encounterPremier Health07-23-2024 NoteHNO ID: [id number] Author: YANA GILES LPN Service: ? Author Type: LICENSED NURSE Type: Progress Notes Filed: 02/14/2024 09:58 Note Text: ED Follow Up: Patient discharged from [facility] ED on 02/13/2024. 1. How are you feeling since your ED visit? Left message for pt to call office. Have your symptoms improved or resolved? Left message for pt to call office. 2. Were you prescribed any medications while in the ED or advised to stop any medication? Left message for pt to call office. - If yes, were you able to fill your prescriptions? Left message for pt to call office. -if stopped medication, what was the medication? Left message for pt to call office. 3. Were you advised to schedule a follow up appointment with your provider? Left message for pt to call office. - If no, Do you feel like you need an appointment scheduled? Left message for pt to call office. - If yes, Do you need this scheduled now or has this already been scheduled? Left message for pt to call office. 4. Were you able to contact the office or administration manager provider prior to your ED visit? Left message for pt to call office. 5. Is there anything else I can do for you today? Left message for pt to call office.[facility]07-23-2024 History of Present illness Narrative* Yana Giles LPN - 02/14/2024 9:55 AM EDT ED Follow Up: Patient discharged from [facility] ED on 02/13/2024. 1. How are you feeling since your ED visit? Left message for pt to call office. Have your symptoms improved or resolved? Left message for pt to call office. 2. Were you prescribed any medications while in the ED or advised to stop any medication? Left message for pt to call office. - If yes, were you able to fill your prescriptions? Left message for pt to call office. -if stopped medication, what was the medication? Left message for pt to call office. 3. Were you advised to schedule a follow up appointment with your provider? Left message for pt to call office. - If no, Do you feel like you need an appointment scheduled? Left message for pt to call office. - If yes, Do you need this scheduled now or has this already been scheduled? Left message for pt tocall office. 4. Were you able to contact the office or administration manager provider prior to your ED visit? Left message forpt to call office. 5. Is there anything else I can do for you today? Left message for pt to call office. documented in this encounterPremier Health07-23-2024 NotePatient Outreach (JUNIORFAMPMARU) ISMA URIBE ([id number]) 1990 M Date Time Provider Department 02/14/24 CHAN, YANA AGFAMPLE During your visit today, we recorded the following information about you: Yana Giles LPN 02/14/2024 9:58 AM Signed ED Follow Up: Patient discharged from [facility] ED on 02/13/2024. 1. How are you feeling since your ED visit? Left message for pt to call office. Have your symptoms improved or resolved? Left message for pt to call office. 2. Were you prescribed any medications while in the ED or advised to stop any medication? Left message for pt to call office. - If yes, were you able to fill your prescriptions? Left message for pt to call office. -if stopped medication, what was the medication? Left message for pt to call office. 3. Were you advised to schedule a follow up appointment with your provider? Left message for pt to call office. - If no, Do you feel like you need an appointment scheduled? Left message for pt to call office. - If yes, Do you need this scheduled now or has this already been scheduled? Left message for pt to call office. 4. Were you able to contact the office or administration manager provider prior to your ED visit? Left message for pt to call office. 5. Is there anything else I can do for you today? Left message for pt to call office. Allergies As of Date: 02/14/2024 Noted Allergy Reaction PENICILLINS 05/24/2005 4 - Hives RANITIDINE 06/10/2005 4 - Hives Date Reviewed: 02/13/2024 Reviewed by: Sam Fuller APRN.SIGNAL MANAGER - Fully Assessed Prescriptions as of 02/14/2024 - FLUoxetine (PROZAC) 40 mg capsule Take 1 capsule by mouth once daily. Problem List As Of Date 02/14/2024 Noted Resolved Cervical spine fracture (HCC) [S12.9XXA] 04/05/2014 Encounter for wellness examination [Z00.00] 03/01/2022 Depression [F32.A] 03/01/2022 Depressive disorder, not elsewhere classified [*10/31/2008 Encounter Status:Closed by YANA GILES on 02/14/24[facility] 02-13-2024 History of Present illness Narrative* Suresh Cortes MD - 02/13/2024 9:14 AM EDT Patient presents with: Leg Cramps: Bilateral leg cramping x 2 days HPI: Leg pain: Duration: started 2 days ago Location: bilateral thighs Character: cramping, intermittent Radiation: hard to say, maybe lower legs Aggravating: had been at a festival all weekend Associated: both legs have been weak since this weekend, feeling dizzy Pertinent negatives: numbness PAST MEDICAL HISTORY Diagnosis Date Depression Fracture of C6 vertebra, closed (HCC) 02/22/2014 Fracture of left knee region 02/22/2014 Nasal fracture 02/22/2014 PTSD (post-traumatic stress disorder) MEDICATIONS: FLUoxetine (PROZAC) 40 mg capsule Take 1 capsule by mouth once daily. ALLERGIES: ALLERGIES Allergen Reactions Penicillins Hives Ranitidine Hives VITALS: BP 122/60 Pulse 90 Temp 36.1 C (97 F) Resp 19 Wt 62.3 kg (137 lb 5.6 oz) SpO2 98% BMI 21.19 kg/m PHYSICAL EXAM: GEN: alert, no acute distress, accompanied by his significant other GAIT: uses assistance (holds hand) for get up and go and ambulation ASSESSMENT/PLAN: 1. Leg cramps - ICD9: 729.82, ICD10: R25.2 (primary diagnosis) 2. Leg weakness, bilateral - ICD9: 729.89, ICD10: R29.898 3. Dizziness - ICD9: 780.4, ICD10: R42 Suspect dehydration. Further evaluation and treatment in the ER recommended because of persistent leg weakness and dizziness. Suresh Cortes MD documented in this encounterPremier Health04-30-2024 Discharge summary Author Abelardo Beverly [facility] November 22, 2023 7:44pm Note Date/Time November 22, 2023 7:4 4pm [facility] Medical Records Department [address] [place] [address] Emergency Department Summary 11/22/23 MR#: [id number] Acct: [id number] Name: ISMA URIBE Rep #:[id number] : 1990 33 From: Abelardo Beverly MD PCP: Dr. Sam Olvera MD Status:REG ER Location: ED HPI History of Present Illness Chief Complaint: Lower Extremity Injury Detail of Chief Complaint: Injury to right ankle Informant: patient Onset/Context/Timing Onset: Days (2 days ago) Context: Sudden Onset Timing: Continuous Quality of Pain: Throbbing Location: Lateral right ankle Current Severity: Mild Maximum Severity: Moderate Worsened by: Movement and weightbearing Relieved by: Nothing Associated Symptoms Associated Symptoms: Negative for Parasthesia, Weakness or Loss of Funtion Narrative Narrative: Patient is a 33-year-old male had a plantar inversion mechanism injury 2 days ago. States this occurred at work. He denies paresthesia, anesthesia medics. Denies prior history of trauma. Prior similar symptoms: No Recent Illness/Hospitalization: No PFSH PFSH Medical History Alcohol abuse Constipation COVID-19 virus infection Depression Family history of alcoholism Fracture of middle phalanx of left index finger History of cervical fracture Nicotine dependence Pancreatitis Smoker Home Medications fluoxetine 20 mg capsule 20 mg PO DAILY 04/21/22 [History Last Taken Unknown] famotidine 20 mg tablet (Pepcid) 20 mg PO BID #60 tabs 11/16/22 [Rx Last Taken Unknown] promethazine 25 mg tablet 25 mg PO TID PRN nausea and vomiting #21 tabs 11/16/22[Rx Last Taken Unknown] sucralfate 1 gram tablet (Carafate) 1 g PO TID 10 days #30 tabs 11/16/22 [Rx Last Taken Unknown] cyclobenzaprine 10 mg tablet 10 mg PO TID PRN Muscle Spasm #20 TABLETS 02/11/23 [Rx Last Taken Unknown] naproxen 500 mg tablet (Naprosyn) 500 mg PO BID PRN pain #14 tabs 03/18/23 [Rx Last Taken Unknown] Allergy/AdvReac Type Severity Reaction Status Date / Time Penicillins Allergy Hives Verified 11/22/23 18:38 Social History household members: family and none current occupational status: employed current occupation: [employer] Smoking Status: Current some day smoker tobacco type: e-cigarettes alcohol intake: current alcohol intake frequency: a few times a week substance use type: does not use ROS ROS ED Musculoskeletal Musculoskeletal: Denies arthralgias or myalgias Neurologic Neurologic: Denies paresthesias or weakness Hematologic/Lymphatic Hematologic/Lymphatic: Denies easy bleeding or easy bruising EXAM Physical Exam Const Vital Signs: 11/22/23 18:37 Temperature 97 F L Temperature Source Temporal Pulse Rate 109 H Respiratory Rate 18 Blood Pressure 130/83 H Blood Pressure Mean 98 Pulse Ox 96 Oxygen Delivery Method Room Air Positive well nourished and well developed General Appearance ED: well developed and NAD HEENT normocephalic and atraumatic Resp normal respiratory effort Cardio regular rate and regular rhythm Extremity full ROM; Negative for normal to inspection Extremity Narrative: Patient has pain outpatient with the anterior talofibular wound with mild swelling. There is minimal discomfort of the lateral malleolus. Is no pain posterior lateral malleolus. There is no pain to palpation over the medial malleolus. No pain to palpation over the base of the fifth metatarsal. There is no laxity with drawer testing. DP pulses palpable. Neuro oriented x3 and CN's II-XII intact bilaterally Sensorium / Orientation: alert Psych mental status grossly normal Skin no wounds Lesions: no lesions Rashes: no rashes MDM MDM MDM Narrative Medical decision making narrative: X-ray per nurse protocol was obtained. Differential is sprain versus fracture. Radiography Chest X-Ray - ED: Read by ED Physician (Three-view x-ray of the right ankle reveals no fracture, subluxation dislocation. There is no soft tissue swelling. There is no widening of the mortise. This is a medically reviewed interpreted by me.) Diagnostic Testing: Clinical Impression(s) from Imaging Studies Ankle X-Ray 11/22/23 18:53 IMPRESSION: Normal x-ray examination of the ankle. Electronically Signed: Suresh Oliver MD at 19:13 EDT , Discharge Plan Triage Chief Complaint: Lower Extremity Injury ED Provider: Abelardo Beverly Dx/Rx/DC Orders Clinical Impression: Sprain of anterior talofibular ligament of right ankle Instructions: ED Ankle Sprain (Adult) Prescriptions: No Action fluoxetine 20 mg capsule 20 mg PO DAILY promethazine 25 mg tablet 25 mg PO TID PRN (Reason: nausea and vomiting) Qty: 21 0RF famotidine [Pepcid] 20 mg tablet 20 mg PO BID Qty: 60 0RF sucralfate [Carafate] 1 gram tablet 1 g PO TID 10 Days Qty: 30 0RF cyclobenzaprine 10 mg tablet 10 mg PO TID PRN (Reason: Muscle Spasm) Qty: 20 0RF naproxen [Naprosyn] 500 mg tablet 500 mg PO BID PRN (Reason: pain) Qty: 14 0RF Primary Care Provider: Sam Olvera Referrals: Sam Olvera MD [Primary Care Provider] - 1 Week if not improving Activity Restrictions/Additional Instructions: 1. Apply ice 6-10 times a day to your right ankle 2. Draw the alphabet with your foot 4-6 times a day. 3. Take either ibuprofen or Aleve for your pain Disposition Disposition: Home, Self Care What to do if you have Problems For any increased pain, shortness of breath, bleeding, nausea or vomiting, chestpain, or any unexpected problems, contact your Primary Care Provider. Call [facility] ([phone]) or report to the closest Emergency Room. Call 911 if necessary. 11/22/231943 <Electronically signed by Abelardo Beverly MD> Cosigner Signature (if applicable): CC: Dr. Sam Olvera MD ~ Signed [facility] Work Phone: 1(600) 998-180304-30-2024 Hospital Discharge instructions Additional Instructions 1. Apply ice 6-10 times a day to your right ankle 2. Draw the alphabet with your foot 4-6 times a day. 3. Take either ibuprofen or Aleve for [facility] Work Phone: 1(165) 748-941003-05-2024 NoteHNO ID: [id number] Author: PEG CHANDRA MA Service: ? Author Type: Hydraulic Lift Operator Type: Progress Notes Filed: 09/27/2023 08:09 Note Text: ED Follow Up: Patient discharged from [facility] ED on 09/23/2023. 1. How are you feeling since your ED visit? BETTER Have your symptoms improved or resolved? Yes 2. Were you prescribed any medications while in the ED or advised to stop any medication? No - If yes, were you able to fill your prescriptions? Not applicable -if stopped medication, what was the medication? NA 3. Were you advised to schedule a follow up appointment with your provider? No - If no, Do you feel like you need an appointment scheduled? No - If yes, Do you need this scheduled now or has this already been scheduled? No 4. Were you able to contact the office or administration manager provider prior to your ED visit? Not applicable 5. Is there anything else I can do for you today? No Patient states he is at work and really can't talk at this time. He declined appointment. Peg Chandra [facility]-2024 History of Present illness Narrative* Peg Chandra MA - 09/27/2023 8:07 AM EST ED Follow Up: Patient discharged from [facility] ED on 09/23/2023. 1. How are you feeling since your ED visit? BETTER Have your symptoms improved or resolved? Yes 2. Were you prescribed any medications while in the ED or advised to stop any medication? No - If yes, were you able to fill your prescriptions? Not applicable -if stopped medication, what was the medication? NA 3. Were you advised to schedule a follow up appointment with your provider? No - If no, Do you feel like you need an appointment scheduled? No - If yes, Do you need this scheduled now or has this already been scheduled? No 4. Were you able to contact the office or administration manager provider prior to your ED visit? Not applicable 5. Is there anything else I can do for you today? No Patient states he is at work and really can't talk at this time. He declined appointment. Peg Chandra MA documented in this encounterPremier Health03-05-2024 NotePatient Outreach (AGFAMPLE) ISMA URIBE ([id number]) 1990 M Date Time Provider Department 09/27/23 PEG CHANDRA During your visit today, we recorded the following information about you: Peg Chandra MA 09/27/2023 8:09 AM Signed ED Follow Up: Patient discharged from [facility] ED on 09/23/2023. 1. How are you feeling since your ED visit? BETTER Have your symptoms improved or resolved? Yes 2. Were you prescribed any medications while in the ED or advised to stop any medication? No - If yes, were you able to fill your prescriptions? Not applicable -if stopped medication, what was the medication? NA 3. Were you advised to schedule a follow up appointment with your provider? No - If no, Do you feel like you need an appointment scheduled? No - If yes, Do you need this scheduled now or has this already been scheduled? No 4. Were you able to contact the office or administration manager provider prior to your ED visit? Not applicable 5. Is there anything else I can do for you today? No Patient states he is at work and really can't talk at this time. He declined appointment. Peg Chandra MA Allergies As of Date: 09/27/2023 Noted Allergy Reaction PENICILLINS 05/24/2005 4 - Hives RANITIDINE 06/10/2005 4 - Hives Date Reviewed: 06/23/2023 Reviewed by: Tiny Friedman MA - Fully Assessed Reason for Visit: ED OUTREACH [Other] Cmt: ED OUTREACH [place] 09/23/2023 Prescriptions as of 09/27/2023 - FLUoxetine (PROZAC) 40 mg capsule Take 1 capsule by mouth once daily. - FLUoxetine (PROZAC) 40 mg capsule Take 1 capsule by mouth once daily. - ondansetron orally disintegrating (ZOFRAN ODT) 8 mg disintegrating tablet Take 1 tablet by mouth every 8 hours as needed for nausea/vomiting. - polyethylene glycol 3350 (MIRALAX, GLYCOLAX) 17 gram packet DISSOLVE 1 (ONE) PACKET (17G) DIRECTED ONCE DAILY UNTIL SOFT FORMED BOWEL MOVEMENTS ON A DAILY BASIS Problem List As Of Date 09/27/2023 Noted Resolved Cervical spine fracture (HCC) [S12.9XXA] 04/05/2014 Encounter for wellness examination [Z00.00] 03/01/2022 Depression [F32.A] 03/01/2022 Depressive disorder, not elsewhere classified [*10/31/2008 Encounter Status:Closed by PEG CHANDRA on 09/27/23[facility] 09-23-2023 Discharge summary Author Vincent Nazario [facility] September 23, 2023 6:29am Note Date/Time September 23, 2023 2:14 am [facility] Medical Records Department [address] [place] [address] Emergency Department Summary 09/23/23 MR#: [id number] Acct: [id number] Name: ISMA URIBE Rep #:[id number] : 1990 33 From: Vincent Nazario DO PCP: Dr. Sam Olvera MD Status:REG ER Location: ED HPI History of Present Illness Chief Complaint: Mental Health Narrative Narrative: Patient is a 33-year-old male with reported past medical history of anxiety/depression. He states that he stopped taking his mental health medications quite a while ago. This evening he reports that he was hearing things around his apartment and secondary to this he called 911. According to EMS he had called 911 multiple times and secondary to the recurrent call she wasbrought in for evaluation. The patient denies any alcohol or illicit drug use. He denies any homicidal or suicidal ideations. PFSH PFSH Medical History Alcohol abuse Constipation COVID-19 virus infection Depression Family history of alcoholism Fracture of middle phalanx of left index finger History of cervical fracture Nicotine dependence Pancreatitis Smoker Home Medications fluoxetine 20 mg capsule 20 mg PO DAILY 04/21/22 [History Last Taken Unknown] famotidine 20 mg tablet (Pepcid) 20 mg PO BID #60 tabs 11/16/22 [Rx Last Taken Unknown] promethazine 25 mg tablet 25 mg PO TID PRN nausea and vomiting #21 tabs 11/16/22[Rx Last Taken Unknown] sucralfate 1 gram tablet (Carafate) 1 g PO TID 10 days #30 tabs 11/16/22 [Rx Last Taken Unknown] cyclobenzaprine 10 mg tablet 10 mg PO TID PRN Muscle Spasm #20 TABLETS 02/11/23 [Rx Last Taken Unknown] naproxen 500 mg tablet (Naprosyn) 500 mg PO BID PRN pain #14 tabs 03/18/23 [Rx Last Taken Unknown] Allergy/AdvReac Type Severity Reaction Status Date / Time Penicillins Allergy Hives Verified 09/23/23 01:31 Social History household members: family and none current occupational status: employed current occupation: [employer] Smoking Status: Current some day smoker tobacco type: e-cigarettes alcohol intake: current alcohol intake frequency: a few times a week substance use type: does not use ROS ROS ED Constitutional Constitutional ED: Denies chills or fever(s) Eyes Eyes: Denies change in vision ENT ENT ED: Denies sore throat Cardiovascular Cardiovascular: Denies chest pain Respiratory/Chest Respiratory/Chest: Denies cough or dyspnea Gastrointestinal Gastrointestinal: Denies abdominal pain, diarrhea, nausea or vomiting Genitourinary Genitourinary ED: Denies dysuria Musculoskeletal Musculoskeletal: Denies myalgias Integumentary Denies rash Neurologic Neurologic: Denies headache(s) Psychiatric Psychiatric: Denies suicidal ideation or suicidal thoughts Hematologic/Lymphatic Hematologic/Lymphatic: Denies easy bleeding or easy bruising EXAM Physical Exam Const Vital Signs: 09/23/23 01:31 09/23/23 03:31 Temperature 99.2 F H Temperature Source Temporal Pulse Rate 97 Respiratory Rate 15 15 Blood Pressure 143/79 H Blood Pressure Mean 100 Pulse Ox 100 Oxygen Delivery Method Room Air Positive well nourished and well developed General Appearance ED: well developed; Negative for pallor HEENT Reports moist mucous membranes HEENT Narrative: No signs of infection noted in the posterior pharynx No airway edema or compromise No signs of depressed or basilar skull fracture Eyes EOMs intact bilaterally Eyes Narrative: Pupils are dilated and sluggish to respond to light Neck supple Neck Narrative: No nuchal rigidity or meningeal signs Resp normal respiratory effort and clear to auscultation bilaterally Cardio regular rate and regular rhythm GI normal to inspection, nondistended, normoactive bowel sounds, non-tender, non-distended and no masses Auscultation: normoactive bowel sounds Palpation: soft Extremity normal to inspection Neuro oriented x3 and CN's II-XII intact bilaterally Sensorium / Orientation: alert Psych Psych Narrative: Patient has a depressed/flat affect but denies homicidal or suicidal ideation Skin no rashes or lesions noted General Skin Exam: Negative for jaundice or pallor MDM MDM MDM Narrative Medical decision making narrative: Patient arrived to the ER overall with stable vitals. He reported hearing noises at his apartment which reportedly were not there according to EMS. Basedon his paranoia/delusions and dilated pupils there is concern for alcohol use/abuse versus drug ingestion as a cause. A basic workup was obtained that showed his alcohol level was normal but that his toxin is positive for marijuana/THC. His paranoia and dilated pupils and flat affect can definitely be related to THC use or toxicity. As he is not homicidal or suicidal I did notfeel there was emergent need to contact crisis center. Patient was watched in the ER for multiple hours and on repeat evaluation he has had improvement in hismental status and at this time he does acknowledge that he used a gummy last night. Therefore his paranoia and hallucinations dilated pupils and slowness torespond to questions all correlate with THC overdose. As the THC is now metabolized throughout his system and he has had improvement in his mental status and he is not homicidal or suicidal and his paranoia/delusions have resolved I do not feel the need to contact crisis center or admit the patient and he otherwise safe for discharge History & Record Review Discussion w/independent historian: EMS personnel and Patient Lab Data Attestation: I reviewed the patient's lab results. Labs: Laboratory Results - last 24 hr 09/23/23 09/23/23 01:55 02:57 WBC 5.5 RBC 4.37 L Hgb 12.7 L Hct 37.0 L MCV 84.7 MCH 29.1 MCHC 34.3 RDW Std Deviation 35.8 RDW Coeff of [place] 11.7 Plt Count 220 MPV 8.7 Immature Gran % (Auto) 0.400 Neut % (Auto) 70.6 H Lymph % (Auto) 19.6 [place] % (Auto) 8.2 Eos % (Auto) 0.7 Baso % (Auto) 0.5 Absolute Neuts (auto) 3.9 Absolute Lymphs (auto) 1.07 Nucleated RBC % 0 Sodium 142 Potassium 4.0 Chloride 111 H Carbon Dioxide 29.0 Anion Gap 2 L BUN 13 Creatinine 0.98 Estim Creat Clear Calc 98.56 Est GFR (MDRD) Af Amer 115 Est GFR (MDRD) Non-Af 95 BUN/Creatinine Ratio 13.3 Glucose 109 H Calcium 8.7 Total Bilirubin 0.30 AST 13 L ALT 16 Alkaline Phosphatase 67 Total Protein 6.8 Albumin 3.6 Globulin 3.2 Albumin/Globulin Ratio 1.1 Salicylates < 1.7 L Urine Opiates Screen NEGATIVE Urine Methadone Screen NEGATIVE Acetaminophen < 2.0 L Ur Barbiturates Screen NEGATIVE Ur Phencyclidine Scrn NEGATIVE Ur Amphetamines Screen NEGATIVE MDMA (Ecstasy) Screen NEGATIVE U Benzodiazepines Scrn NEGATIVE Urine Cocaine Screen NEGATIVE U Cannabinoids Screen POSITIVE H Ur Drug Screen Comment Ethyl Alcohol < 3.0 Discharge Plan Triage Chief Complaint: Mental Health ED Provider: Vincent Nazario Dx/Rx/DC Orders Clinical Impression: Accidental marijuana overdose Instructions: Understanding Synthetic Marijuana, ED Marijuana Abuse Prescriptions: No Action fluoxetine 20 mg capsule 20 mg PO DAILY promethazine 25 mg tablet 25 mg PO TID PRN (Reason: nausea and vomiting) Qty: 21 0RF famotidine [Pepcid] 20 mg tablet 20 mg PO BID Qty: 60 0RF sucralfate [Carafate] 1 gram tablet 1 g PO TID 10 Days Qty: 30 0RF cyclobenzaprine 10 mg tablet 10 mg PO TID PRN (Reason: Muscle Spasm) Qty: 20 0RF naproxen [Naprosyn] 500 mg tablet 500 mg PO BID PRN (Reason: pain) Qty: 14 0RF Primary Care Provider: Sam Olvera Referrals: Sam Olvera MD [Primary Care Provider] - Disposition Disposition: Home, Self Care What to do if you have Problems For any increased pain, shortness of breath, bleeding, nausea or vomiting, chestpain, or any unexpected problems, contact your Primary Care Provider. Call [facility] ([phone]) or report to the closest Emergency Room. Call 911 if necessary. 09/23/23628 <Electronically signed by Vincent Nazario DO> Cosigner Signature (if applicable): CC: Dr. Sam Olvera MD ~ Signed [facility] Work Phone: 1(297) 922-709712-07-2023 Miscellaneous Notes* Telephone Encounter - Narcisociciawilda Maria L - 06/30/2023 11:24 AM EST No Show Documentation Isma Uribe no showed for an appointment on 06/30/23 with Nilsa Groves APRN.SIGNAL MANAGER at 11:00 am. He was scheduled for [...] Is this the Third or Fourth No Show? No Maria L Duenas June 30, 2023 11:24 AM documented in this encounterPremier Health11-30-2023 History of Present illness Narrative* Kaila Jean APRN.CNP - 06/23/2023 3:05 PM EST This note was created using [employer]. Subjective Isma Uribe is a 33 year [...] history is provided by the patient. No speech language pathology assistant was used. PAST MEDICAL HISTORY Diagnosis Date [...] to pharmacy, but they state no refill CODING SPECIALIST Germain oversees his medicines X 90 day refill provided Follow up with PCP Kaila Jean APRN.SIGNAL MANAGER documented in this encounterPremier Health11-03-2023 Miscellaneous Notes* Telephone Encounter - Rosalind Nava - 05/27/2023 11:19 AM EDT Spoke with pt to schedule a rnp appt. Gave pt date and time of new appt . Pt agreed documented in this encounterPremier Health09-28-2023 History of Present illness Narrative* Brian Brandon APRN.CNP - 04/21/2023 1:54 PM EDT Patient triaged at [facility]. Here today with worsening left cp/rib pain, lightheaded, and sob since left rib injury few weeks ago. I will refer to ER. Patient in no visible distress at time of triage. documented in this encounterPremier Health08-29-2023 History of Present illness Narrative* Tasha Menchaca MA - 2023 10:48 AM EDT ED Follow Up: Patient discharged from [facility] ED on 03/18/23. 1. How are you [...] you able to contact the office or administration manager provider prior to your ED visit? No 5. Is there anything else I can do for you today? No documented in this encounterPremier Health08-25-2023 Discharge summary Author Lasha Rand [facility] March 18, 2023 2:18pm Note Date/Time March 18, 2023 2: 17pm [facility] Medical Records Department [address] [address] Emergency Department Summary 03/18/23 MR#: [id number] Acct: [id number] Name: ISMA URIBE CALEB Rep #:[id number] : 1990 32 From: Lasha Rand MD PCP: Dr. Sam Olvera MD Status:REG ER Location: ED HPI History of Present Illness Chief Complaint: Chest Pain Informant: patient Narrative Narrative: 32-year-old male presenting with left lower rib cage pain mostly anteriorly thatstarted yesterday gradually, much worse today hurts to move and breathe. Deniesany coughing or tierney dyspnea. He states yesterday it started when he was chasing a bat out of his apartment. He states he may have bumped into somethingis really not quite sure, but pain was not severe suddenly, it really became worse today. No history of DVT or PE, no leg pain or swelling or recent travel out of the area or long immobilization, no recent surgery or hospitalization. PFSH PFSH Medical History Alcohol abuse Constipation COVID-19 virus infection Depression Family history of alcoholism Fracture of middle phalanx of left index finger History of cervical fracture Nicotine dependence Pancreatitis Smoker Home Medications fluoxetine 20 mg capsule 20 mg PO DAILY 04/21/22 [History Last Taken Unknown] famotidine 20 mg tablet (Pepcid) 20 mg PO BID #60 tabs 11/16/22 [Rx Last Taken Unknown] promethazine 25 mg tablet 25 mg PO TID PRN nausea and vomiting #21 tabs 11/16/22[Rx Last Taken Unknown] sucralfate 1 gram tablet (Carafate) 1 g PO TID 10 days #30 tabs 11/16/22 [Rx Last Taken Unknown] cyclobenzaprine 10 mg tablet 10 mg PO TID PRN Muscle Spasm #20 TABLETS 02/11/23 [Rx Last Taken Unknown] naproxen 500 mg tablet (Naprosyn) 500 mg PO BID PRN pain #14 tabs 03/18/23 [Rx Last Taken Unknown] Allergy/AdvReac Type Severity Reaction Status Date / Time Penicillins Allergy Hives Verified 02/11/23 08:39 Social History household members: family and none current occupational status: employed current occupation: [employer] Smoking Status: Current some day smoker tobacco type: e-cigarettes alcohol intake: current alcohol intake frequency: a few times a week substance use type: does not use ROS ROS ED Constitutional Constitutional ED: Denies chills or fever(s) Eyes Eyes: Denies change in vision or diplopia ENT ENT ED: Denies rhinorrhea or sore throat Cardiovascular Cardiovascular: Reports as per HPI and chest pain; Denies palpitations Respiratory/Chest Respiratory/Chest: Denies cough or dyspnea Gastrointestinal Gastrointestinal: Denies abdominal pain, diarrhea, nausea or vomiting Genitourinary Genitourinary ED: Denies dysuria or hematuria Musculoskeletal Musculoskeletal: Denies back pain or neck pain Integumentary Denies abscess or rash Neurologic Neurologic: Denies headache(s), paresthesias or weakness Psychiatric Psychiatric: Denies suicidal ideation or suicidal thoughts EXAM Physical Exam Const Vital Signs: 03/18/23 13:16 Temperature 96.8 F L Temperature Source Temporal Pulse Rate 99 Respiratory Rate 22 H Blood Pressure 122/84 H Blood Pressure Mean 96 Pulse Ox 99 Oxygen Delivery Method Room Air Positive well nourished and well developed General Appearance ED: well developed and NAD HEENT Reports moist mucous membranes normocephalic and atraumatic Eyes PERRL and EOMs intact bilaterally Neck full ROM and supple Chest Wall inspection of chest normal Chest Narrative: Tender throughout left lower anterior chest wall, and into the left upper quadrant superficially. The area of tenderness includes the lower 5 palpable ribs, and intercostal spaces, including a patch of chest wall that is approximately 6 inches in diameter. No crepitance, subcutaneous emphysema, or flail or any other abnormal palpation. Resp normal respiratory effort and clear to auscultation bilaterally Cardio regular rate, regular rhythm and no murmurs GI non-tender and non-distended Auscultation: normoactive bowel sounds Palpation: soft Back/Spine no CVA tenderness General Back: other FROM Extremity normal to inspection General Extremety ED: Negative for edema, pulses abnormal or tenderness General Extremity: Negative for edema or pulses abnormal Neuro oriented x3, CN's II-XII intact bilaterally and no sensory deficits noted Sensorium / Orientation: awake and alert Motor Exam: strength 5/5 throughout Psych Mood & Affect: anxious and tearful Skin no rashes or lesions noted and no wounds Heart Score History: Slightly/Non-Suspicious ECG: Normal Age: </= 45 years Risk Factors: 1 or 2 Risk Factors (vaping) Troponin: </= Normal Limit Score: 1 MDM MDM MDM Narrative Medical decision making narrative: This is clearly chest wall pain. He is oxygenation is excellent, he is not tachycardic, and I do not think he needs further work-up for pulmonary embolus. I can reproduce all of his symptoms with light palpation and he is extremely anxious about it. We will place him on NSAIDs so that he can continue to work, which is where he came from today for the evaluation of this. He also wants to make sure he gets a work note. Chest x-ray 1 view on my interpretation shows nosigns of pneumothorax or rib fracture in the ribs that are visualized which is almost all of them, except for the lower posterior ones. Radiology interpretation noted. His EKG is normal, his troponin is normal, and he is stable for discharge. Lab Data Attestation: I reviewed the patient's lab results. Labs: Laboratory Results - last 24 hr 03/18/23 13:29 WBC 10.4 RBC 5.11 Hgb 15.4 Hct 42.7 MCV 83.6 MCH 30.1 MCHC 36.1 H RDW Std Deviation 35.3 RDW Coeff of [place] 11.6 Plt Count 287 MPV 8.6 Immature Gran % (Auto) 0.200 Neut % (Auto) 64.1 Lymph % (Auto) 27.9 [place] % (Auto) 6.5 Eos % (Auto) 0.9 Baso % (Auto) 0.4 Absolute Neuts (auto) 6.7 Absolute Lymphs (auto) 2.90 Nucleated RBC % 0 Sodium 138 Potassium 4.0 Chloride 105 Carbon Dioxide 28.0 Anion Gap 5 BUN 14 Creatinine 1.16 Est GFR (MDRD) Af Amer 94 Est GFR (MDRD) Non-Af 78 BUN/Creatinine Ratio 12.1 Glucose 111 H Calcium 10.0 Troponin I High Sens < 3 L Radiography Diagnostic Testing: Clinical Impression(s) from Imaging Studies Chest X-Ray 03/18/23 13:18 IMPRESSION: No interval change. Normal chest. Electronically Signed: Alejo Torres MD at 14:01 EDT , Rhythm Strip Rhythm Strip: Sinus Rhythm Rate: 90 Ectopy: None EKG Initial EKG: Attestation: I personally reviewed and interpreted this EKG as follows: Interpretation: Sinus Rhythm and No Acute Injury Pattern Comments: nml EKG Discharge Plan Triage Chief Complaint: Chest Pain ED Provider: Lasha Rand Dx/Rx/DC Orders Clinical Impression: Chest wall muscle strain Instructions: ED Chest Wall Strain Prescriptions: Continued fluoxetine 20 mg capsule 20 mg PO DAILY promethazine 25 mg tablet 25 mg PO TID PRN (Reason: nausea and vomiting) Qty: 21 0RF famotidine [Pepcid] 20 mg tablet 20 mg PO BID Qty: 60 0RF sucralfate [Carafate] 1 gram tablet 1 g PO TID 10 Days Qty: 30 0RF cyclobenzaprine 10 mg tablet 10 mg PO TID PRN (Reason: Muscle Spasm) Qty: 20 0RF naproxen [Naprosyn] 500 mg tablet 500 mg PO BID PRN (Reason: pain) Qty: 14 0RF Stand Alone Forms: Work / School Excuse Primary Care Provider: Sam Olvera Referrals: Sam Olvera MD [Primary Care Provider] - 3-5 Days if not improving Disposition Disposition: Home, Self Care What to do if you have Problems For any increased pain, shortness of breath, bleeding, nausea or vomiting, chestpain, or any unexpected problems, contact your Primary Care Provider. Call [facility] ([phone]) or report to the closest Emergency Room. Call 911 if necessary. 03/18/23 1418 <Electronically signed by Lasha Rand MD> Cosigner Signature (if applicable): CC: Dr. Sam Olvera MD ~ Signed [facility] Work Phone: 1(643) 341-116307-24-2023 Miscellaneous Notes* Telephone Encounter - Ines Regan LPN - 02/14/2023 10:40 AM EDT Received 02/11/2023 from [facility]. Placed in provider's inbox for review. Route to [place] for scanning. Impression Mechanical fall Right shoulder contusion Right elbow contusion Elbow x-ray No acute abnormality or erosive changes of the right elbow. Right shoulder No acute abnormality or erosive changes Shoulder sprain Cyclobenzaprine 10 mg TID PRN Discharge home documented in this encounterPremier Health05-01-2023 History of Present illness Narrative* Sofía Min MA - 11/22/2022 3:57 PM EDT ED Follow Up: Patient discharged from [facility] ED on 11/16/22. 1. How are you [...] you able to contact the office or administration manager provider prior to your ED visit? left message 5. Is there anything else I can do for you today? Left message Sofía Min MA documented in this encounterPremier Health04-25-2023 Discharge summary Author Vincent Nazario [facility] November 16, 2022 7:06am Note Date/Time November 16, 2022 6:4 1am [facility] Medical Records Department [address] [place] [id number] Emergency Department Summary 11/16/22 MR#: [id number] Acct: [id number] Name: ISMA URIBE Rep #:[id number] : 1990 32 From: Vincent Nazario DO PCP: Dr. Sam Olvera MD Status:REG ER Location: ED HPI History of Present Illness Chief Complaint: Abd Pain Informant: patient Narrative Narrative: Patient is a 32-year-old male with remote history of pancreatitis secondary to alcohol abuse. He states that beginning Tuesday he developed upper abdominal pain with bouts of nausea vomiting and loose stool/diarrhea. He denies any known sick contacts. He states he has remote history of pancreatitis but otherwise denies any history of intestinal disorder such as ulcerative colitis Crohn's disease or IBS. He states he was evaluated in urgent care where he was placed on Zofran which has helped reduce his nausea and vomiting. However he was advised that if symptoms persist he should go to an ER for further evaluation. Patient states that symptoms have improved but not completely resolved and he will have intermittent bouts of upper abdominal pain and secondary to this comes in for evaluation. Patient states that there has been no recent drinking episodes that could have led to a possible pancreatitis PFSH PFSH Medical History Alcohol abuse Constipation COVID-19 virus infection Depression Family history of alcoholism Fracture of middle phalanx of left index finger History of cervical fracture Nicotine dependence Pancreatitis Smoker Home Medications fluoxetine 20 mg capsule 20 mg PO DAILY 04/21/22 [History Last Taken Unknown] famotidine 20 mg tablet (Pepcid) 20 mg PO BID #60 tabs 11/16/22 [Rx Last Taken Unknown] promethazine 25 mg tablet 25 mg PO TID PRN nausea and vomiting #21 tabs 11/16/22[Rx Last Taken Unknown] sucralfate 1 gram tablet (Carafate) 1 g PO TID 10 days #30 tabs 11/16/22 [Rx Last Taken Unknown] Allergy/AdvReac Type Severity Reaction Status Date / Time Penicillins Allergy Hives Verified 04/21/22 14:24 Social History household members: family and none current occupational status: employed current occupation: [employer] Smoking Status: Current some day smoker tobacco type: e-cigarettes alcohol intake: current alcohol intake frequency: a few times a week substance use type: does not use ROS ROS ED Constitutional Constitutional ED: Denies chills or fever(s) ENT ENT ED: Denies sore throat Cardiovascular Cardiovascular: Denies chest pain Respiratory/Chest Respiratory/Chest: Denies cough or dyspnea Gastrointestinal Gastrointestinal: Reports abdominal pain, diarrhea, nausea and vomiting Genitourinary Genitourinary ED: Denies dysuria or hematuria Musculoskeletal Musculoskeletal: Denies myalgias Integumentary Denies rash Neurologic Neurologic: Denies headache(s) Hematologic/Lymphatic Hematologic/Lymphatic: Denies easy bleeding or easy bruising EXAM Physical Exam Const Vital Signs: 11/16/22 06:05 Temperature 97.8 F Temperature Source Temporal Pulse Rate 83 Respiratory Rate 18 Blood Pressure 132/63 H Blood Pressure Mean 86 Pulse Ox 96 Oxygen Delivery Method Room Air Positive well nourished and well developed General Appearance ED: well developed HEENT Reports moist mucous membranes HEENT Narrative: No signs of infection noted in the posterior pharynx Eyes PERRL and EOMs intact bilaterally General Eye ED: Negative for scleral icterus Neck supple Resp normal respiratory effort and clear to auscultation bilaterally Cardio regular rate and regular rhythm Rate: other Other Details: Radial pulses are plus 2 out of 4 bilaterally are equal and symmetric GI non-distended GI Narrative: Abdomen is soft and nondistended with hyperactive bowel sounds. There is pain with palpation in the midepigastric and right upper quadrant region. No voluntary guarding or rigidity. No pulsatile mass. No fluid wave. Negative Greene sign. No hernia palpated Auscultation: hyperactive bowel sounds Palpation: soft Extremity normal to inspection Neuro oriented x3 and CN's II-XII intact bilaterally Sensorium / Orientation: alert Psych Psych Narrative: Patient has a nervous/anxious affect Skin no rashes or lesions noted General Skin Exam: Negative for jaundice MDM MDM MDM Narrative Medical decision making narrative: Patient presented to the ER with stable vitals and a soft nonsurgical abdomen. Therefore I felt no need for emergent imaging studies. Differential includes viral gastroenteritis pancreatitis biliary colic or infectious versus inflammatory colitis. With the location of his pain being greatest in the midepigastric region there is concern he could have repeat pancreatitis however patient denies any recent alcohol use which could have exacerbated his symptoms. There is also pain present over the right upper quadrant but he is not jaundiced there is no scleral icterus and the pain is randomly intermittent and does not correlate with food ingestion going against possible biliary colic. Basic blood work will be obtained looking for elevated lipase or liver enzymes or electrolyte derangement. Patient be given a liter of fluid IV Zofran and Pepcid and a GI cocktail. The patient reported resolution of symptoms with treatment and since work-up is negative he is otherwise safe for discharge History & Record Review Discussion w/independent historian: Patient Lab Data Attestation: I reviewed the patient's lab results. Labs: Laboratory Results - last 24 hr 11/16/22 11/16/22 06:10 06:10 WBC 6.4 RBC 5.01 Hgb 14.6 Hct 42.8 MCV 85.4 MCH 29.1 MCHC 34.1 RDW Std Deviation 37.5 RDW Coeff of [place] 12.0 Plt Count 228 MPV 8.7 Immature Gran % (Auto) 0.300 Neut % (Auto) 64.4 Lymph % (Auto) 23.1 [place] % (Auto) 9.3 Eos % (Auto) 2.4 Baso % (Auto) 0.5 Absolute Neuts (auto) 4.1 Absolute Lymphs (auto) 1.47 Nucleated RBC % 0 Sodium 139 Potassium 3.8 Chloride 107 Carbon Dioxide 29.0 Anion Gap 3 L BUN 9 Creatinine 0.92 Estim Creat Clear Calc 103.62 Est GFR (MDRD) Af Amer 123 Est GFR (MDRD) Non-Af 102 BUN/Creatinine Ratio 9.8 L Glucose 100 Calcium 8.6 Total Bilirubin 0.20 Direct Bilirubin 0.09 AST 12 L ALT 23 Alkaline Phosphatase 76 Total Protein 6.9 Albumin 3.6 Globulin 3.3 Lipase 39 Discharge Plan Triage Chief Complaint: Abd Pain ED Provider: Vincent Nazario Dx/Rx/DC Orders Clinical Impression: Nausea vomiting and diarrhea, Gastritis Instructions: ED Gastritis (Adult), ED Gastroenteritis, Viral (Adult) Prescriptions: New promethazine 25 mg tablet 25 mg PO TID PRN (Reason: nausea and vomiting) Qty: 21 0RF famotidine [Pepcid] 20 mg tablet 20 mg PO BID Qty: 60 0RF sucralfate [Carafate] 1 gram tablet 1 g PO TID 10 Days Qty: 30 0RF No Action fluoxetine 20 mg capsule 20 mg PO DAILY Stand Alone Forms: ED Work / School Excuse Primary Care Provider: Sam Olvera Referrals: Sam Olvera MD [Primary Care Provider] - Activity Restrictions/Additional Instructions: Please keep yourself well-hydrated. Your history and exam indicates that you have a viral stomach infection which will last on average 3 days and this is ledto increased stomach acid causing increased intermittent bouts of abdominal pain. Take the medication as directed to help control your symptoms and return to the ER should you have any further concerns Disposition Disposition: Home, Self Care What to do if you have Problems For any increased pain, shortness of breath, bleeding, nausea or vomiting, chestpain, or any unexpected problems, contact your Primary Care Provider. Call [facility] ([phone]) or report to the closest Emergency Room. Call 911 if necessary. 11/16/22 0706 <Electronically signed by Vincent Nazario DO> Cosigner Signature (if applicable): CC: Dr. Sam Olvera MD ~ Signed [facility] Work Phone: 1(733) 631-816804-22-2023 Instructions* Patient Instructions* Mary Caballero APRN.CNP - 11/13/2022 2:24 PM EDT Zofran 8 [...] or dark tarry stools. documented in this encounterPremier Health04-22-2023 History of Present illness Narrative* Mary Caballero APRN.CNP - 11/13/2022 2:15 PM EDT Subjective The history is provided by the patient. No speech language pathology assistant was used. HPI Isma Uribe is a [...] have confirmed and edited as necessary, the [facility] Review of Systems Constitutional: Negative for chills, [...] for higher level of care were discussed indetail warranting prompt ER evaluation. Mary Caballero APRN.HEBER documented in this encounterPremier Health03-16-2023 History of Present illness Narrative* Nilsa Groves APRN.HEBER - 10/07/2022 1:44 PM EDT This note was created using [employer]. Subjective Isma Uribe is a 32 year old male here today for follow up on his depression and anxiety. Patient denies changes in health since last office visit. Reports feeling well. Denies concerns or complaints today. Depression and anxiety: He was started on prozac 10 mg 03/01/22 and was increased to 20 mg at last ovon 04/08/22. He reports he has been feeling [...] F) Resp 16 Ht 171.5 cm (5' 7.5) Wt 61.7 kg (136 lb) SpO2 99% [...] C AB IA W/CONF SCRN Nilsa Groves APRN.SIGNAL MANAGER documented in this encounterPremier Health01-05-2023 Miscellaneous Notes* Telephone Encounter - Vincent Middleton RN - 07/29/2022 12:37 PM EST Faxed covid results to patient's employer- [employer], per patient request. documented in this encounterPremier Health01-04-2023 Instructions* Patient Instructions* Sam Fuller APRN.SIGNAL MANAGER - 07/28/2022 3:15 PM EST How to Manage Common Symptoms Associated with COVID for Adults Fever- Fever is a temperature over 100.4 F and can occur when the body is fighting an infection. Tohelp treat a fever: Drink plenty of fluids and stay well hydrated. Eat small amounts of easy to digest food. Rest. Your body needs rest to recover, but getting up and moving around the house frequently is a good idea. You should try to continue doing your normal daily activities (bathing, toileting, grooming, cooking), though you will probably feel tired, and need to rest often. Avoid any heavy activity or exercise, as this will increase your body temperature. Dress in light clothing and stay covered in a light sheet. Keep the room temperature cool. Take a slightly warm (not cold or cool) bath, or apply damp washcloths to the forehead and wrists. Cough- Cough is a common symptom associated with COVID and can be bothersome. To help treat a cough: Stay well hydrated. Try warm water or tea with lemon and/or honey to help soothe the cough. Use a humidifier to add moisture to the air. Try a product with menthol, like a cough drop or a rub for your chest such as Vicks, which can helpreduce cough. Try cough drops. Avoid smoking and other strong odors or perfumes. Try breathing exercises to keep your lungs open and clear. Take a big deep breath through your noseand hold for 5 seconds before slowly releasing. Repeat frequently, while you are awake. Congestion- Runny nose or nasal congestion can occur with COVID. Treatment can help relieve symptoms: Try OTC nasal saline spray, or nasal saline rinse to relieve mucus congestion. Nasal strips can help keep nasal passages open, to increase airflow. Elevating your head with an extra pillow in bed can help reduce congestion. Using a humidifier can increase moisture in the air, and make breathing easier. Sore Throat- Another common symptom with COVID, can be managed at home by: Stay well hydrated. Gargle with salt water - mix teaspoon salt with 1 cup of warm water and gargle. This helps to loosen mucus in the back of the throat and may reduce discomfort. Try ice chips, popsicles or lozenges to soothe the throat. Nausea/Vomiting/Diarrhea- These are common symptoms, and staying hydrated is most important. If you are nauseous or vomiting, start with small sips of water every 10-15 minutes and increase astolerated. You can try sucking an ice cube too. If tolerating, you can try pedialyte or Gatorade, or flat sprite or marga-serena. Start slowly and increase as you are able to. Instead of meals, try smaller, more frequent snacks. Try eating bland foods like crackers, toast, rice, and applesauce. Avoid spicy, greasy or fried foods and dairy containing foods. Even if you aren't feeling hungry due to lack of smell or taste, it is important to try to take in some food when you are able. After drinking and eating, rest in an upright position for up to two hours as needed to help decrease nauseous feelings. Try closing your eyes, avoid moving and watching TV. Avoid strong odors that can make you feel more nauseated. When to seek emergency medical attention Look for emergency warning signs for COVID-19. If having any of these symptoms, seek emergency medical care immediately: Trouble breathing Persistent pain or pressure in the chest New confusion Inability to wake or stay awake Bluish lips or face *This list is not all possible symptoms. Please call your medical provider for any other symptoms that are severe or concerning to you. documented in this encounterPremier Health01-04-2023 History of Present illness Narrative* Sam Fuller APRN.CNP - 07/28/2022 3:05 PM EST Subjective HPI Nontoxic-appearing male presents urgent care chief complaint sore throat headache vomiting. Duration of symptom 1 day. Associated symptoms listed above. Patient states he did recently develop a low-grade temperature. Sick contacts at work similar signs symptoms. Has not use any OTC medications. Worse symptom today sore throat. Has any high fevers productive cough chest pain hemoptysis nausea vomiting abdominal pain difficulty swallowing difficulty confusion decreased range of motion neck blood in vomit or stool or rashes. Past medical history prescription medication use allergies reviewed. .Patient presents with: Sore Throat: HULL, vomiting x1 day PAST MEDICAL HISTORY Diagnosis Date Depression Fracture of C6 vertebra, closed (HCC) 02/22/2014 Fracture of left knee region 02/22/2014 Nasal fracture 02/22/2014 PTSD (post-traumatic stress disorder) PAST SURGICAL HISTORY Procedure Laterality Date REPAIR NASAL SEPTAL FRACTURE 02/2014 ALLERGIES Penicillins and Ranitidine MEDICATIONS FLUoxetine (PROZAC) 20 mg capsule Take 1 capsule by mouth once daily. polyethylene glycol 3350 (MIRALAX, GLYCOLAX) 17 gram packet DISSOLVE 1 (ONE) PACKET (17G) DIRECTED ONCE DAILY UNTIL SOFT FORMED BOWEL MOVEMENTS ON A DAILY BASIS methocarbamol (ROBAXIN) 500 mg tablet Take 1 tablet by mouth every 6 hours as needed. predniSONE (DELTASONE) 20 mg tablet Take 1 tablet by mouth once daily. (Patient not taking: Reported on 03/01/2022) FAMILY HISTORY Problem Relation Age of Onset No Known Problems Father Social History Tobacco Use Smoking status: Former Types: Cigarettes Smokeless tobacco: Never Tobacco comments: Father smokes outside Substance Use Topics Alcohol use: Yes Comment: social Drug use: Never BP 120/72 Pulse 94 Temp 37.5 C (99.5 F) Resp 18 Wt 59.7 kg (131 lb 9.6 oz) SpO2 98% BMI20.31 kg/m Review of Systems Constitutional: Positive for chills, fever and malaise/fatigue. HENT: Positive for sore throat. Negative for congestion, ear discharge, ear pain and sinus pain. Eyes: Negative for blurred vision, pain, discharge and redness. Respiratory: Negative for cough, hemoptysis, sputum production, shortness of breath, wheezing and stridor. Cardiovascular: Negative for chest pain. Gastrointestinal: Positive for nausea and vomiting. Negative for abdominal pain and diarrhea. Musculoskeletal: Positive for myalgias. Skin: Negative for itching and rash. Neurological: Positive for headaches. Negative for dizziness. Objective Physical Exam Vitals and nursing note reviewed. Constitutional: General: He is not in acute distress. Appearance: He is not diaphoretic. HENT: Head: Normocephalic and atraumatic. Jaw: No trismus, tenderness, swelling or pain on movement. Right Ear: Hearing, tympanic membrane, ear canal and external ear normal. No decreased hearing noted. No drainage, swelling or tenderness. Tympanic membrane is not perforated, erythematous or bulging. Left Ear: Hearing, tympanic membrane, ear canal and external ear normal. No decreased hearing noted. No drainage, swelling or tenderness. Tympanic membrane is not perforated, erythematous or bulging. Nose: Congestion present. Mouth/Throat: Lips: [place]. Mouth: Mucous membranes are moist. Pharynx: Uvula midline. No pharyngeal swelling, oropharyngeal exudate, posterior oropharyngeal erythema or uvula swelling. Eyes: General: Right eye: No discharge. Left eye: No discharge. Conjunctiva/sclera: Conjunctivae normal. Pupils: Pupils are equal, round, and reactive to light. Cardiovascular: Rate and Rhythm: Normal rate and regular rhythm. Heart sounds: Normal heart sounds. Pulmonary: Effort: Pulmonary effort is normal. No respiratory distress. Breath sounds: Normal breath sounds. No stridor. No wheezing, rhonchi or rales. Abdominal: Palpations: Abdomen is soft. Tenderness: There is no abdominal tenderness. Musculoskeletal: General: No tenderness. Normal range of motion. Cervical back: Normal range of motion and neck supple. Lymphadenopathy: Head: Right side of head: No submental, submandibular, tonsillar, preauricular, posterior auricular or occipital adenopathy. Left side of head: No submental, submandibular, tonsillar, preauricular, posterior auricular or occipital adenopathy. Cervical: No cervical adenopathy. Right cervical: No superficial or posterior cervical adenopathy. Left cervical: No superficial or posterior cervical adenopathy. Skin: General: Skin is warm and dry. Findings: No rash. Neurological: Mental Status: He is alert and oriented to person, place, and time. ASSESSMENT/PLAN: 1. Pharyngitis, unspecified etiology - ICD9: 462, ICD10: J02.9 (primary diagnosis) - STREP A MOLECULAR (POC) - COVID WITH FLUA+B, ROUTINE 2. Viral illness - ICD9: 079.99, ICD10: B34.9 - Discussed viral etiology and rationale for treatment. - Symptomatic treatment with prn analgesia - Supportive care with fluids and rest - COVID WITH FLUA+B, ROUTINE Strep test negative. Red flags for prompt reevaluation discussed. Patient will follow up with primary care provider as needed. Patient was instructed to immediately proceed to emergency room for any new, worsening, or symptoms lasting longer than anticipated. The patient's clinical presentation is o therwise unremarkable at this time. Based on exam and clinical finding, the patient is stable for discharge. Plan of care was discussed with patient. Patient verbalizes understanding and agrees to plan of care. This note was generated using Need[employer] software. It may contain errors in wording, punctuation, or spelling. Sam Fuller APRN.HEBER documented in this encounterPremier Health10-07-2022 History of Present illness Narrative* Sofía Min MA - 04/30/2022 3:56 PM EDT ED Follow Up: Patient discharged from [facility] ED on 04/21/22. 1. How are you feeling since your ED visit? States he is doing good Have your symptoms improved or resolved? Yes [...] this already been scheduled? No and declined visit at this time 4. Were you able to contact the office or administration manager provider prior to your ED visit? Not applicable 5. Is there anything else I can do for you today? No Sofía Min MA documented in this encounterPremier Health09-15-2022 History of Present illness Narrative* Nilsa Groves, JOHN.SIGNAL MANAGER - 04/08/2022 12:58 PM EDT This note was created using [employer]. Subjective Isma Uribe is a 32 year old male here today for follow up on depression. He was startd on prozac 10 mg at last ov on 03/01/22. Pt was new to me at last ov. He came to me with concerns about depression. Anxiety and depression: reports being dx years ago as a child. Reports last week his symptoms were real bad. Reports last week he had suicidal thoughts. Reports he always has these thoughts and have been on and off for the past 8 yrs. He was started on prozac 10 mg on 03/01/22. Pt reports improvementin his symptoms reports feeling less depressed. Reports thoughts of suicide have lessoned as well. R eports friends have noticed improvement in him as well. He does feel he could use an increase sincehe still feels depressed. ALLERGIES Allergen Reactions Penicillins Hives Ranitidine Hives Current Outpatient Medications Medication Sig Dispense Refill polyethylene glycol 3350 (MIRALAX, GLYCOLAX) 17 gram packet DISSOLVE 1 (ONE) PACKET (17G) DIRECTED ONCE DAILY UNTIL SOFT FORMED BOWEL MOVEMENTS ON A DAILY BASIS FLUoxetine (PROZAC) 10 mg capsule Take 1 capsule by mouth once daily. 30 capsule 2 methocarbamol (ROBAXIN) 500 mg tablet Take 1 tablet by mouth every 6 hours as needed. predniSONE (DELTASONE) 20 mg tablet Take 1 tablet by mouth once daily. (Patient not taking: Reported on 03/01/2022) 5 tablet 0 No current facility-administered medications for this visit. ACTIVE PROBLEM LIST Cervical Spine Fracture (Hcc) Encounter for Wellness Examination Depression PAST MEDICAL HISTORY Diagnosis Date Depression Fracture of C6 vertebra, closed (HCC) 02/22/2014 Fracture of left knee region 02/22/2014 Nasal fracture 02/22/2014 PTSD (post-traumatic stress disorder) PAST SURGICAL HISTORY Procedure Laterality Date REPAIR NASAL SEPTAL FRACTURE 02/2014 Social History Tobacco Use Smoking status: Former Types: Cigarettes Smokeless tobacco: Never Tobacco comments: Father smokes outside Substance Use Topics Alcohol use: Yes Comment: social Drug use: Never Family History Problem Relation Age of Onset No Known Problems Father Feeling nervous, anxious, or on edge 0 Not at all sure Not being able to stop or control worrying 0 Not at all sure Worrying too much about different things 1 Several days Trouble relaxing 0 Not at all sure Being so restless that it's hard to sit still 0 Not at all sure Being easily annoyed or irritable 1 Several days Feeling afraid as if something awful might happen 0 Not at all sure [id number] Anxiety Score 2 THE LAST 2 WEEKS, HAVE YOU BEEN BOTHERED BY ANY OF THE FOLLOWING? - Little interest or pleasure in doing things 1 SEVERAL DAYS Feeling down, depressed, or hopeless 2 Trouble falling or staying asleep, or sleeping too much 3 Feeling tired or having little energy 2 Poor appetite or overeating 1 Feeling bad yourself-you are a failure or have let yourself or others 0 Trouble concentrating, like reading the paper or watching TV 0 Moving/speaking slowly (others notice) OR being more fidgety/restless 1 Thoughts that you would be better off or of hurting yourself 0 PHQ TOTAL SCORE = 10 PHQ problems effect on difficulty of work, home, and social activity: 1 - NOT DIFFICULT AT ALL Review of Systems Constitutional: Negative for activity change, appetite change, chills, diaphoresis, fatigue, fever and unexpected weight change. Respiratory: Negative for cough, chest tightness, shortness of breath and wheezing. Cardiovascular: Negative for chest pain. Neurological: Negative for dizziness and headaches. Psychiatric/Behavioral: Positive for dysphoric mood. Negative for behavioral problems, confusion, decreased concentration, hallucinations, self-injury, sleep disturbance and suicidal ideas. The patient is nervous/anxious. The patient is not hyperactive. Objective 04/08/22 1309 BP: 110/70 BP Site: Left Arm BP Position: Sitting BP Cuff Size: Regular Adult Pulse: 69 Resp: 18 Temp: 36.8 C (98.2 F) TempSrc: Oral SpO2: 99% Weight: 60.4 kg (133 lb 3.2 oz) Height: 171.5 cm (5' 7.5) Physical Exam Vitals and nursing note reviewed. Constitutional: Appearance: Normal appearance. HENT: Head: Normocephalic and atraumatic. Cardiovascular: Rate and Rhythm: Normal rate and regular rhythm. Pulses: Normal pulses. Heart sounds: Normal heart sounds. Skin: General: Skin is warm and dry. Neurological: Mental Status: He is alert and oriented to person, place, and time. Psychiatric: Attention and Perception: Attention and perception normal. Mood and Affect: Mood is depressed. Affect is flat. Speech: Speech normal. Behavior: Behavior normal. Behavior is cooperative. Thought Content: Thought content normal. Cognition and Memory: Cognition and memory normal. Judgment: Judgment normal. ASSESSMENT/PLAN: 1. Moderate episode of recurrent major depressive disorder (HCC) - ICD9: 296.32, ICD10: F33.1 - Chronic, noted improvement in his symptoms since starting prozac. Continues depressed but no thoughts of suicide. Will increase prozac 20 mg daily. - call if persists or worsens or thoughts of suicide. - FLUOXETINE 20 MG CAPSULE Nilsa Groves APRN.SIGNAL MANAGER documented in this encounterPremier Health08-19-2022 Miscellaneous Notes* Telephone Encounter - Maria L Duenas - 03/12/2022 12:11 PM EDT Images from the original note were not included. Please note that the patient informed our [facility] rehabilitation aide/scheduler that he will contact them when he isready to schedule. Maria L Duenas documented in this encounterPremier Health08-08-2022 Instructions* Patient Instructions* Nilsa Groves APRN.CNP - 03/01/2022 3:44 PM EDT ASSESSMENT/PLAN: 1. Encounter for wellness examination - ICD9: V70.0, ICD10: Z00.00 (primary diagnosis) - Counseled on healthy diet and regular exercise - Smoking cessation encouraged; discussed risks to health and quitting strategies. Patient is encouraged to consider stopping vaping - Counseled on limiting alcohol intake to 2 drinks per day - Depression screening tool completed and reviewed with patient. Based on score and interview, patient is already diagnosed with depression and recommended counseling/psychology referral and startingmedication. - Discussed safe sex practices and avoidance of STIs - Follow up for annual exam in one year 2. Severe episode of recurrent major depressive disorder, without psychotic features (HCC) - ICD9: 296.33, ICD10: F33.2 - chronic not controlled. Will start prozac 10 mg daily. If symptoms are stable, no worsening or thoughts of suicide may increase to 20 mg daily. Call if feels needs increase and will send in new prescription. Call immediately if thoughts of suicide worsen. - reviewed side effects and risks including increase risk of suicide. Pt is aware of risks and willtalk with his family - FLUOXETINE 10 MG CAPSULE 3. Screening for lipid disorders - ICD9: V77.91, ICD10: Z13.220 - LIPID PANEL BASIC 4. Encounter for hepatitis C screening test for low risk patient - ICD9: V73.89, ICD10: Z11.59 - HIV 1 2 COMBO(AG/AB),WITH REFLEX TO DIFFERENTIATION 5. Screening for HIV (human immunodeficiency virus) - ICD9: V73.89, ICD10: Z11.4 - HEP C AB IA W/CONF SCRN 6. Encounter for screening for diabetes mellitus - ICD9: V77.1, ICD10: Z13.1 - COMP METABOLIC PANEL Nilsa Groves APRN.SIGNAL MANAGER documented in this encounterPremier Health08-08-2022 History of Present illness Narrative* Nilsa Groves APRN.[facility] - 03/01/2022 2:14 PM EDT This note was created using [employer]. Subjective Isma Uribe is a 31 year old male here today for WAE and concerns for anxiety. PMH anxiety, PTSD. Pt is new to me. No previous PCP. I reviewed her past medical, surgical, social, and family histories today and updated chart. Allergies, chronic medications, and supplements were also reviewed and her list is now up to date. Anxiety and depression: reports being dx years ago as a child. Reports last week his symptoms were real bad. Reports last week he had suicidal thoughts. Reports he always has these thoughts and have been on and off for the past 8 yrs. Reports he has attempted suicide several times when he was younger. Last time >12 yrs. Ago. Denies plan. States he does feel he would ever act on it. Reports he has too much support and family. Reports he has a great girlfriend and family that are supportive. States he is just tired of feeling like this. Reports he has thoughts in his head but states he does not want to harm his self. Denies pl an. Denies currently feeling depressed. Reports he does feel depressed at times. Reports this comes andgoes. Reports he will listen to music which helps him. Reports he also has a [place] which is a vape. To help with smoking cessation that he inhales. Reports it stops him from wanting to smoke. He has not smoked x4-5 yrs. This helps his anxiety as well. Reports he does have anxiety but feels his depression is much worse than his anxiety. He works at [employer] and denies his depression or anxiety interferes with his ability to work. Reports being dx with pancreatitis 02/02/22 at [facility]. States he was having sharp pains inhis abdomen. Reports he was inpatient for 3 days. He reports he stopped drinking. Reports this was 2nd episode. Reports first episode severe in 2014-. Reports he use to drink bottles of liquor daily. After his first episode he cut back and would only drinking a couple beers occasionally. This episode he had one beer and woke up with the pain. Reports not alcohol since 02/02/22. Preventative: declines COVID vaccines. ALLERGIES Allergen Reactions Penicillins Hives Ranitidine Hives Current Outpatient Medications Medication Sig Dispense Refill polyethylene glycol 3350 (MIRALAX, GLYCOLAX) 17 gram packet DISSOLVE 1 (ONE) PACKET (17G) DIRECTED ONCE DAILY UNTIL SOFT FORMED BOWEL MOVEMENTS ON A DAILY BASIS methocarbamol (ROBAXIN) 500 mg tablet Take 1 tablet by mouth every 6 hours as needed. (Patient not taking: Reported on 03/01/2022) predniSONE (DELTASONE) 20 mg tablet Take 1 tablet by mouth once daily. (Patient not taking: Reported on 03/01/2022) 5 tablet 0 No current facility-administered medications for this visit. ACTIVE PROBLEM LIST Cervical Spine Fracture (Hcc) Encounter for Wellness Examination Depression PAST MEDICAL HISTORY Diagnosis Date Depression Fracture of C6 vertebra, closed ([facility]) 02/22/2014 Fracture of left knee region 02/22/2014 Nasal fracture 02/22/2014 PTSD (post-traumatic stress disorder) PAST SURGICAL HISTORY Procedure Laterality Date REPAIR NASAL SEPTAL FRACTURE 02/2014 Social History Tobacco Use Smoking status: Former Types: Cigarettes Smokeless tobacco: Never Tobacco comments: Father smokes outside Substance Use Topics Alcohol use: Never Drug use: Never Family History Family history unknown: Yes Review of Systems Constitutional: Negative for activity change, appetite change, chills, diaphoresis, fatigue, fever and unexpected weight change. HENT: Negative. Negative for congestion, ear pain, sinus pressure, sinus pain, sore throat and tinnitus. Eyes: Negative for visual disturbance. Respiratory: Negative for cough, choking, chest tightness, shortness of breath and wheezing. Cardiovascular: Negative for chest pain, palpitations and leg swelling. Gastrointestinal: Negative for abdominal distention, abdominal pain, blood in stool, constipation, diarrhea, nausea and rectal pain. Endocrine: Negative. Genitourinary: Negative. Negative for difficulty urinating. Musculoskeletal: Negative. Skin: Negative. Neurological: Positive for headaches. Negative for dizziness, tremors, light- headedness and numbness. Hematological: Does not bruise/bleed easily. Psychiatric/Behavioral: Positive for dysphoric mood and suicidal ideas. Negative for agitation, behavioral problems, confusion, decreased concentration, hallucinations, self-injury and sleep disturbance. The patient is not nervous/anxious. Objective 03/01/22 1450 BP: 128/70 BP Site: Right Arm BP Position: Sitting BP Cuff Size: Regular Adult Pulse: 80 Resp: 18 Temp: 36.2 C (97.2 F) SpO2: 97% Weight: 60.1 kg (132 lb 6.4 oz) Height: 171.5 cm (5' 7.5) Physical Exam Vitals and nursing note reviewed. Constitutional: General: He is not in acute distress. Appearance: Normal appearance. He is not ill-appearing or diaphoretic. HENT: Head: Normocephalic and atraumatic. Right Ear: External ear normal. Left Ear: External ear normal. Nose: Nose normal. No congestion or rhinorrhea. Mouth/Throat: Pharynx: No oropharyngeal exudate. Eyes: General: Lids are normal. No scleral icterus. Right eye: No discharge. Left eye: No discharge. Conjunctiva/sclera: Conjunctivae normal. Pupils: Pupils are equal, round, and reactive to light. Neck: Vascular: Normal carotid pulses. No carotid bruit. Cardiovascular: Rate and Rhythm: Normal rate and regular rhythm. Pulses: Normal pulses. Heart sounds: Normal heart sounds, S1 normal and S2 normal. No murmur heard. No friction rub. No gallop. Pulmonary: Effort: Pulmonary effort is normal. No accessory muscle usage or respiratory distress. Breath sounds: Normal breath sounds. No decreased breath sounds, wheezing, rhonchi or rales. Chest: Chest wall: No tenderness. Abdominal: General: Bowel sounds are normal. There is no distension. Palpations: Abdomen is soft. Tenderness: There is no abdominal tenderness. Musculoskeletal: General: No tenderness. Normal range of motion. Cervical back: Normal range of motion and neck supple. Right lower leg: No edema. Left lower leg: No edema. Skin: General: Skin is warm and dry. Coloration: Skin is not pale. Findings: No erythema or rash. Nails: There is no clubbing. Neurological: General: No focal deficit present. Mental Status: He is alert and oriented to person, place, and time. Motor: No abnormal muscle tone. Coordination: Coordination normal. Deep Tendon Reflexes: Reflexes are normal and symmetric. Psychiatric: Attention and Perception: Attention and perception normal. Mood and Affect: Mood normal. Affect is flat. Speech: Speech is delayed. Behavior: Behavior normal. Behavior is cooperative. Thought Content: Thought content normal. Cognition and Memory: Cognition and memory normal. Judgment: Judgment normal. ASSESSMENT/PLAN: 1. Encounter for wellness examination - ICD9: V70.0, ICD10: Z00.00 (primary diagnosis) - Counseled on healthy diet and regular exercise - Smoking cessation encouraged; discussed risks to health and quitting strategies. Patient is not ready to quit - Counseled on limiting alcohol intake to 2 drinks per day - Depression screening tool completed and reviewed with patient. Based on score and interview, patient is already diagnosed with depression and recommended counseling/psychology referral, psychiatry referral, and starting medication. - Discussed safe sex practices and avoidance of STIs - Follow up for annual exam in one year 2. Severe episode of recurrent major depressive disorder, without psychotic features (HCC) - ICD9: 296.33, ICD10: F33.2 - chronic not controlled. He does have suicidal thoughts that are not new. He does not appear suicidal at this time. Support provided. Will start Prozac. Reviewed side effects including worsening of symptoms and increase thoughts of suicide. Instructed to stop medication and call immediately if thoughts of suicide worsen. Referral to Psychiatry for evaluation and management - FLUOXETINE 10 MG CAPSULE - CONSULT TO PSYCHIATRY 3. Screening for lipid disorders - ICD9: V77.91, ICD10: Z13.220 - LIPID PANEL BASIC 4. Encounter for hepatitis C screening test for low risk patient - ICD9: V73.89, ICD10: Z11.59 - HIV 1 2 COMBO(AG/AB),WITH REFLEX TO DIFFERENTIATION 5. Screening for HIV (human immunodeficiency virus) - ICD9: V73.89, ICD10: Z11.4 - HEP C AB IA W/CONF SCRN 6. Encounter for screening for diabetes mellitus - ICD9: V77.1, ICD10: Z13.1 - COMP METABOLIC PANEL Nilsa Groves APRN.HEBER documented in this encounterHutchinson ClinicEvaluation note* Diagnosis Onset Date Resolution Status Abdominal pain acute Acute pancreatitis acute Constipation acute Hematemesis acute Nausea & vomiting acute Nicotine dependence [facility] Work Phone: Evaluation note* Diagnosis Encounter for wellness examination- Primary Severe episode of recurrent major depressive disorder, without psychotic features (HCC) Screening for lipid disorders Encounter for hepatitis C screening test for low risk patient Screening for HIV (human immunodeficiency virus) Special screening examination for other specified viral diseases Encounter for screening for diabetes mellitus Screening for diabetes mellitus [facility]* Diagnosis Moderate episode of recurrent major depressive disorder (HCC)- Primary documented in this encounter [facility]* Diagnosis Onset Date Resolution Status Abdominal pain resolved Acute pancreatitis resolved Hematemesis resolved Nausea & vomiting resolved [facility] Work Phone: evaluation note* Diagnosis Pharyngitis, unspecified etiology- Primary Viral illness Unspecified viral infection, in conditions classified elsewhere and of unspecified site documented in this encounter [facility] note* Diagnosis Moderate episode of recurrent major [...] low risk patient documented in this encounter [facility]* Diagnosis Nausea and vomiting, unspecified vomiting type- Primary documented in this encounter [facility] noteNo assessment information availableWThe [facility] Work Phone: evaluation note* Diagnosis SOB (shortness of breath)- Primary Shortness of breath Light headed Dizziness and giddiness Rib pain on left side Chest pain, unspecified [facility]* Diagnosis Encounter for medication refill- Primary Issue of repeat prescriptions documented in this encounter [facility]* Diagnosis Leg cramps- Primary Cramp of limb Leg weakness, bilateral Other musculoskeletal symptoms referable to limbs Dizziness Dizziness and giddiness [facility]* Diagnosis Acute right ankle pain- Primary Foot pain, right Pain in limb documented [facility] this encounter [facility]* Diagnosis Acute right ankle pain Foot pain, right Pain in limb [facility]* Diagnosis Foot pain, right- Primary Pain in limb Foot pain, right Pain in limb [facility] Diagnosis Foot pain, right Pain in limb documented in this encounter [facility]* Diagnosis Pharyngitis, unspecified etiology- Primary Generalized abdominal pain Abdominal pain, generalized documented in this encounter [facility]* Diagnosis Rib pain on left side- Primary Chest pain, unspecified Rib pain on left side Chest pain, unspecified [facility]* Diagnosis Rib pain on left side Chest pain, unspecified [facility]charge instructions Additional Instructions Take Tylenol ibuprofen as needed and follow-up with your primary care doctor [facility] Work Phone: Hospital Discharge instructions Additional Instructions Please keep yourself well-hydrated. Your history and exam indicates that you have a viral stomach infection which will last on average 3 days and this is led to increased stomach acid causing increased intermittent bouts of abdominal pain. Take the medication as directed to help control your symptoms and return to the ER should you have any further [facility]WThe [facility] Work Phone: Hospital Discharge instructionsAdditional Instructions Follow-up with your primary care provider. You may want to start an vfen-qlv-yjidgka gentle laxative like MiraLAX daily. Start a stool softener. Follow-up with your primary care provider. Return with increased pain, fever, new or worsening symptoms.[facility] Work Phone: Reason for referral (narrative)* Diagnostic Procedure Only (Urgent) - New Request Specialty Diagnoses / Procedures Referred By Jhon beverly Referred To Contact XR IMAGING Diagnoses Acute right ankle pain Foot pain, right Procedures XR ANKLE GENERAL 3V AP/LAT/OBL RIGHT RADEX ANKLE COMPLETE MINIMUM 3 VIEWS Rocky Schrader PA [address] [place] [address] Xr Imaging [id number] Referral ID Status Reason Start Date Expiration Date Visits Requested Visits Authorized [id number] New Request Auto-Generat ed Referral 03/04/2024 04/03/2025 1 1 * Diagnostic Procedure Only (Urgent) - New Request Specialty Diagnoses / Procedures Referred By Jhon beverly Referred To Contact XR IMAGING Diagnoses Acute right ankle pain Foot pain, right Procedures XR FOOT GENERAL 3V AP/LAT/OBL RIGHT RADEX FOOT COMPLETE MINIMUM 3 VIEWS Rocky Schrader PA [address] [place] [address] [place] [address] Referral ID Status Reason Start Date Expiration Date Visits Requested Visits Authorized [id number] New Request Auto-Generat ed Referral 03/04/2024 04/03/2025 1 1 [facility] for referral (narrative)* Diagnostic Procedure Only (Urgent) - Closed Specialty Diagnoses / Procedures Referred By Contac t Referred To Contact XR IMAGING Diagnoses Acute right ankle pain Foot pain, right Procedures XR ANKLE GENERAL 3V AP/LAT/OBL RIGHT RADEX ANKLE COMPLETE MINIMUM 3 VIEWS Rocky Schrader PA [address] [place] [address] [place] [address] Referral ID Status Reason Start Date Expiration Date V isits Requested Visits Authorized [id number] Closed Auto-Generate d Referral 03/04/2024 04/03/2025 1 1 * Diagnostic Procedure Only (Urgent) - Closed Specialty Diagnoses / Procedures Referred By Contac t Referred To Contact XR IMAGING Diagnoses Acute right ankle pain Foot pain, right Procedures XR FOOT GENERAL 3V AP/LAT/OBL RIGHT RADEX FOOT COMPLETE MINIMUM 3 VIEWS Rocky Schrader PA [address] [place] [address] [place] [address] Referral ID Status Reason Start Date Expiration Date V isits Requested Visits Authorized [id number] Closed Auto-Generate d Referral 03/04/2024 04/03/2025 1 1 [facility] for referral (narrative)* Diagnostic Procedure Only (Urgent) - Pending Review Specialty Diagnoses / Procedures Referred By Contac t Referred To Contact XR IMAGING Diagnoses Foot pain, right Procedures XR ANKLE GENERAL 3V AP/LAT/OBL RIGHT RADEX ANKLE COMPLETE MINIMUM 3 VIEWS Rocky Schrader PA [address] [place] [address] [place] [address] Referral ID Status Reason Start Date Expiration Date Visits Requested Visits Authorized [id number] Pending Review Auto-Generat ed Referral 05/25/2024 06/24/2025 1 1 * Diagnostic Procedure Only (Urgent) - Pending Review Specialty Diagnoses / Procedures Referred By Contac t Referred To Contact XR IMAGING Diagnoses Foot pain, right Procedures XR FOOT GENERAL 3V AP/LAT/OBL RIGHT RADEX FOOT COMPLETE MINIMUM 3 VIEWS Rocky Schrader PA [address] [place] [address] [place] [address] Referral ID Status Reason Start Date Expiration Date Visits Requested Visits Authorized [id number] Pending Review Auto-Generat ed Referral 05/25/2024 06/24/2025 1 1 [facility] for referral (narrative)* Diagnostic Procedure Only (Urgent) - Pending Review Specialty Diagnoses / Procedures Referred By Contac t Referred To Contact XR IMAGING Diagnoses Foot pain, right Procedures XR ANKLE GENERAL 3V AP/LAT/OBL RIGHT RADEX ANKLE COMPLETE MINIMUM 3 VIEWS Rocky Schrader PA [address] [place] [address] [place] [address] Referral ID Status Reason Start Date Expiration Date Visits Requested Visits Authorized [id number] Pending Review Auto-Generat ed Referral 05/25/2024 06/24/2025 1 1 * Diagnostic Procedure Only (Urgent) - Pending Review Specialty Diagnoses / Procedures Referred By Contac t Referred To Contact XR IMAGING Diagnoses Foot pain, right Procedures XR FOOT GENERAL 3V AP/LAT/OBL RIGHT RADEX FOOT COMPLETE MINIMUM 3 VIEWS Rocky Schrader PA [address] [place] [address] [place] [address] Referral ID Status Reason Start Date Expiration Date Visits Requested Visits Authorized [id number] Pending Review Auto-Generat ed Referral 05/25/2024 06/24/2025 1 1 [facility] for referral (narrative)No reason for referral information availableWThe [facility] Work Phone: Reason for visit Narrative* Diagnostic Procedure Only (Urgent) - Closed Specialty Diagnoses / Procedures Referred By Contac t Referred To Contact XR IMAGING Diagnoses Acute right ankle pain Foot pain, right Procedures XR ANKLE GENERAL 3V AP/LAT/OBL RIGHT RADEX ANKLE COMPLETE MINIMUM 3 VIEWS Rocky Schrader PA [address] [place] [address] [place] [address] Referral ID Status Reason Start Date Expiration Date V isits Requested Visits Authorized [id number] Closed Auto-Generate d Referral 03/04/2024 04/03/2025 1 1 [facility] for visit Narrative* Diagnostic Procedure Only (Urgent) - Pending Review Specialty Diagnoses / Procedures Referred By Contac t Referred To Contact XR IMAGING Diagnoses Foot pain, right Procedures XR ANKLE GENERAL 3V AP/LAT/OBL RIGHT RADEX ANKLE COMPLETE MINIMUM 3 VIEWS Rocky Schrader PA [address] [place] [address] [place] [address] Referral ID Status Reason Start Date Expiration Date Visits Requested Visits Authorized [id number] Pending Review Auto-Generat ed Referral 05/25/2024 06/24/2025 1 1 [facility] for visit Narrative* Diagnostic Procedure Only (Urgent) - Pending Review Specialty Diagnoses / Procedures Referred By Contac t Referred To Contact XR IMAGING Diagnoses Rib pain on left side Procedures XR RIBS/CHEST 3V AP RIB/OBLS/CXR LEFT RADEX RIBS UNI W/POSTEROANT CH MINIMUM 3 VIEWS Rocky Schrader PA [address] [place] [address] Phone: tel: fax: [place] [address] Referral ID Status Reason Start Date Expiration Date Visits Requested Visits Authorized [id number] Pending Review Auto-Generat ed Referral 01/02/2025 02/01/2026 1 1 [facility] Chief Complaint and Reason for Visit Chief Complaint PANCREATITIS PANCREATITIS Reason for Visit Abdominal pain Acute pancreatitis Constipation Hematemesis Nausea & vomiting Nicotine dependence Chief Complaint PANCREATITIS PANCREATITIS PANCREATITIS Reason for Visit Abdominal pain Acute pancreatitis Constipation Hematemesis Nausea & vomiting Nicotine dependence Chief Complaint PANCREATITIS PANCREATITIS PANCREATITIS abd Reason for Visit Abdominal pain Acute pancreatitis Constipation Hematemesis Nausea & vomiting Nicotine dependence Chief Complaint PANCREATITIS PANCREATITIS PANCREATITIS abd anxiety Reason for Visit Abdominal pain Acute pancreatitis Hematemesis Nausea & vomiting Chief Complaint abd pain Chief Complaint CHEST OTHER ARM CHEST PAIN Chief Complaint ARM CHEST PAIN rib pain LEFT RIB PAIN Chief Complaint MANIC Chief Complaint MANIC R Ankle Pain Chief Complaint Admit Date abd pain May 02, 2025 5: 30pm Family History Relationship Condition Age at Onset Recorded Date/T jesus Unknown Family History?- Unknown December 16 4:35am Family History?- Unknown June 3:46pm Relationship Condition Age at Onset Recorded Date/T jesus Unknown Family History?- Unknown December 16 3:35am Family History?- Unknown June 2:46pm Advance Directives Advance Directive Response Recorded Date/ Time Advance Directives No June 28, 2019 3:46pm Living Will No February 01, 2022 6:06am Power of Energy Conservation Engineer No February 01 6:06am Advance Directive Response Recorded Date/ Time Advance Directives No June 28, 2019 3:46pm Living Will No February 01, 2022 8:31am Power of Energy Conservation Engineer No February 01 8:31am Advance Directive Response Recorded Date/ Time Advance Directives No June 28, 2019 3:46pm Living Will No February 04, 2022 1:04pm Power of Energy Conservation Engineer No February 04 2 1:04pm Advance Directive Response Recorded Date/ Time Advance Directives No June 28, 2019 3:46pm Living Will No April 21, 2022 2:22pm Power of Energy Conservation Engineer No March 2:22pm Advance Directive Response Recorded Date/ Time Advance Directives No June 28, 2019 3:46pm Living Will No November 16, 2022 6:08am Power of Energy Conservation Engineer No November 16 6:08am Advance Directive Response Recorded Date/ Time Advance Directives No June 28, 2019 3:46pm Living Will No March 18 2:21pm Power of Energy Conservation Engineer No March 18, 023 2:21pm Advance Directive Response Recorded Date/ Time Advance Directives No June 28, 2019 3:46pm Living Will No April 22, 2023 8:55am Power of Energy Conservation Engineer No March 8:55am Advance Directive Response Recorded Date/ Time Advance Directives No June 28, 2019 2:46pm Living Will No September 23, 2023 1:31am Power of Energy Conservation Engineer No September 22 1:31am Advance Directive Response Recorded Date/ Time Advance Directives No June 28, 2019 3:46pm Living Will No November 22, 2023 7:07pm Power of Energy Conservation Engineer No November 21 7:07pm Advance Directive Response Recorded Date/ Time Do you have a Healthcare Power of Energy Conservation Engineer? No May 02, 2025 5:40pm Advance Directives No June 28, 2019 3:46pm Reason for Referral Specialty Diagnoses / Procedures Referred By Contac t Referred To Contact Diagnoses Severe episode of recurrent major depressive disorder, without psychotic features (HCC) Procedures CONSULT TO PSYCHIATRY OFFICE/OUTPATIENT [facility] 60-74 MINUTES Nilsa Groves APRN.SIGNAL MANAGER [address] [place] [address] Referral ID Status Reason Start Date Expiration Date Visits Requested Visits Authorized [id number] Pending Review PCP Requested Referral 03/01/2022 03/01/2023 1 1 Specialty Diagnoses / Procedures Referred By Contac t Referred To Contact Diagnoses Severe episode of recurrent major depressive disorder, without psychotic features (HCC) Nilsa Groves APRN.SIGNAL MANAGER [address] [place] [address] Referral ID Status Reason Start Date Expiration Date Visits Re quested Visits Authorized [id number] Closed 1 1 Specialty Diagnoses / Procedures Referred By Contac t Referred To Contact Diagnoses Moderate episode of recurrent major depressive disorder (HCC) Nilsa Groves APRN.HEBER [address] [place] [address] Referral ID Status Reason Start Date Expiration Date V isits Requested Visits Authorized [id number] Pending Review 1 1 Health Concerns Infection Onset Date Last Indicated Resolved Time COVID-19 Rule-Out 07/28/2022 07/28/2022 07/29/2022 2:43 AM EST Infection Onset Date Last Indicated Resolved Time COVID-19 Rule-Out 07/28/2022 07/28/2022 07/29/2022 2:43 AM EST COVID-19 Confirmed 07/28/2022 07/28/2022 Summary Purpose Additional Source Comments Goals (unrecognized section and content) Goals may be documented in a n alternate sectionGoals may be documented in an alternate sectionGoals may be documented in an alternate sectionGoals may be documented in an alternate sectionGoals may be documented in an alternate sectionGoals may be documented in an alternate sectionGoals may be documented in an alternate section Source Comments (unrecognize d section and content) In the event this informatio n is protected by the Federal Confidentiality of Alcohol and Drug Abuse Patient Records regulations: The Federal rules restrict any use of the information to criminally investigate or prosecute any alcohol or drug abuse patient.[facility] event this information is protected by the Federal Confidentiality of Alcohol and Drug Abuse Patient Records regulations: The Federal rules restrict any use of the information to criminally investigate or prosecute any alcohol or drug abuse patient.[facility] the event this information is protected by the Federal Confidentiality of Alcohol and Drug Abuse Patient Records regulations: The Federal rules restrict any use of the information to criminally investigate or prosecute any alcohol or drug abuse patient.[facility] the event this information is protected by the Federal Confidentiality of Alcohol and Drug Abuse Patient Records regulations: The Federal rules restrict any use of the information to criminally investigate or prosecute any alcohol or drug abuse patient.[facility] the event this information is protected by the Federal Confidentiality of Alcohol and Drug Abuse Patient Records regulations: The Federal rules restrict any use of the information to criminally investigate or prosecute any alcohol or drug abuse patient.[facility] the event this information is protected by the Federal Confidentiality of Alcohol and Drug Abuse Patient Records regulations: The Federal rules restrict any use of the information to criminally investigate or prosecute any alcohol or drug abuse patient.[facility] the event this information is protected by the Federal Confidentiality of Alcohol and Drug Abuse Patient Records regulations: The Federal rules restrict any use of the information to criminally investigate or prosecute any alcohol or drug abuse patient.[facility] the event this information is protected by the Federal Confidentiality of Alcohol and Drug Abuse Patient Records regulations: The Federal rules restrict any use of the information to criminally investigate or prosecute any alcohol or drug abuse patient.[facility] event this information is protected by the Federal Confidentiality of Alcohol and Drug Abuse Patient Records regulations: The Federal rules restrict any use of the information to criminally investigate or prosecute any alcohol or drug abuse patient.[facility] event this information is protected by the Federal Confidentiality of Alcohol and Drug Abuse Patient Records regulations: The Federal rules restrict any use of the information to criminally investigate or prosecute any alcohol or drug abuse patient.[facility] the event this information is protected by the Federal Confidentiality of Alcohol and Drug Abuse Patient Records regulations: The Federal rules restrict any use of the information to criminally investigate or prosecute any alcohol or drug abuse patient.[facility] the event this information is protected by the Federal Confidentiality of Alcohol and Drug Abuse Patient Records regulations: The Federal rules restrict any use of the information to criminally investigate or prosecute any alcohol or drug abuse patient.[facility] the event this information is protected by the Federal Confidentiality of Alcohol and Drug Abuse Patient Records regulations: The Federal rules restrict any use of the information to criminally investigate or prosecute any alcohol or drug abuse patient.[facility] the event this information is protected by the Federal Confidentiality of Alcohol and Drug Abuse Patient Records regulations: The Federal rules restrict any use of the information to criminally investigate or prosecute any alcohol or drug abuse patient.[facility] the event this information is protected by the Federal Confidentiality of Alcohol and Drug Abuse Patient Records regulations: The Federal rules restrict any use of the information to criminally investigate or prosecute any alcohol or drug abuse patient.[facility] the event this information is protected by the Federal Confidentiality of Alcohol and Drug Abuse Patient Records regulations: The Federal rules restrict any use of the information to criminally investigate or prosecute any alcohol or drug abuse patient.[facility] the event this information is protected by the Federal Confidentiality of Alcohol and Drug Abuse Patient Records regulations: The Federal rules restrict any use of the information to criminally investigate or prosecute any alcohol or drug abuse patient.[facility] the event this information is protected by the Federal Confidentiality of Alcohol and Drug Abuse Patient Records regulations: The Federal rules restrict any use of the information to criminally investigate or prosecute any alcohol or drug abuse patient.[facility] the event this information is protected by the Federal Confidentiality of Alcohol and Drug Abuse Patient Records regulations: The Federal rules restrict any use of the information to criminally investigate or prosecute any alcohol or drug abuse patient.[facility] the event this information is protected by the Federal Confidentiality of Alcohol and Drug Abuse Patient Records regulations: The Federal rules restrict any use of the information to criminally investigate or prosecute any alcohol or drug abuse patient.[facility] the event this information is protected by the Federal Confidentiality of Alcohol and Drug Abuse Patient Records regulations: The Federal rules restrict any use of the information to criminally investigate or prosecute any alcohol or drug abuse patient.[facility] the event this information is protected by the Federal Confidentiality of Alcohol and Drug Abuse Patient Records regulations: The Federal rules restrict any use of the information to criminally investigate or prosecute any alcohol or drug abuse patient.[facility] the event this information is protected by the Federal Confidentiality of Alcohol and Drug Abuse Patient Records regulations: The Federal rules restrict any use of the information to criminally investigate or prosecute any alcohol or drug abuse patient.[facility] the event this information is protected by the Federal Confidentiality of Alcohol and Drug Abuse Patient Records regulations: The Federal rules restrict any use of the information to criminally investigate or prosecute any alcohol or drug abuse patient.[facility] the event this information is protected by the Federal Confidentiality of Alcohol and Drug Abuse Patient Records regulations: The Federal rules restrict any use of the information to criminally investigate or prosecute any alcohol or drug abuse patient.[facility] the event this information is protected by the Federal Confidentiality of Alcohol and Drug Abuse Patient Records regulations: The Federal rules restrict any use of the information to criminally investigate or prosecute any alcohol or drug abuse patient.[facility] the event this information is protected by the Federal Confidentiality of Alcohol and Drug Abuse Patient Records regulations: The Federal rules restrict any use of the information to criminally investigate or prosecute any alcohol or drug abuse patient.[facility] the event this information is protected by the Federal Confidentiality of Alcohol and Drug Abuse Patient Records regulations: The Federal rules restrict any use of the information to criminally investigate or prosecute any alcohol or drug abuse patient.[facility] Reason for Visit (unrecogniz ed section and content) Reason Comments Establish Care Anxiety Reason Comments Referral Request Behavioral Health Reason Onset Date Comments ER F/U 04/30/2022 Reason Comments Sore Throat HULL, vomiting x1 day Reason Comments Faxed results Reason Comments F/U 6 Month Depression and anxie ty Reason Comments Vomiting Fever x 1 day Reason Onset Date Comments ER F/U 11/22/2022 Reason Comments Received Outside Medical Records [facility] ER Summary 02/11/2023 Slipped and fell landed on right shoulder Reason Comments Appointment Reason Comments Medication Request Prozac 40mg Reason Comments No Show First no show in 365 days. Reason Onset Date Comments ED OUTRE[facility] [place] [facility] Reason Comments Leg Cramps Bilateral leg crampi ng x 2 days Reason Comments right ankle pain X 3 days-cannot reca ll an injury Reason Comments Results Reason Comments Pain (foot) Stepped off ladder w thomas, Right foot top of foot pain x 2 weeks Specialty Diagnoses / Procedures Referred By Jhon t Referred To Contact [facility] Diagnoses Right foot injury Procedures EST SAME DAY [facility] [address] [place] [address] Referral ID Status Reason Start Date Expiration Date Visits Requested Visits Authorized [id number] New Request Financial Clearance Required - Self Pay 05/25/2024 08/23/2024 1 1 Reason Comments Headache HULL, stomach hurts an d congestion, fever x 1 day Reason Comments Pain Left rib pain, [place] Care Teams (unrecognized sec tion and content) 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 Start Date End Date Nilsa Groves, TELEPHONE SOLICITOR.SIGNAL MANAGER [address] [place] [address] PCP - General Internal Medicine 03/01/22 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 Specialty Start Date End Date Nilsa Groves, TELEPHONE SOLICITOR.SIGNAL MANAGER [address] [place] [address] PCP - General Internal Medicine 03/01/22 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 Specialty Start Date End Date Nilsa Groves, TELEPHONE SOLICITOR.SIGNAL MANAGER [address] [place] [address] PCP - General Internal Medicine 03/01/22 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 Specialty Start Date End Date Nilsa Groves, TELEPHONE SOLICITOR.SIGNAL MANAGER [address] [place] [address] PCP - General Internal Medicine 03/01/22 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 Specialty Start Date End Date Nilsa Groves, TELEPHONE SOLICITOR.SIGNAL MANAGER [address] [place], [place] [id number] PCP - General Internal Medicine 03/01/22 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 Specialty Start Date End Date Nilsa Groves TELEPHONE SOLICITOR.SIGNAL MANAGER [address] [place] [address] PCP - General Internal Medicine 03/01/22 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 Specialty Start Date End Date Nilsa Groves, TELEPHONE SOLICITOR.SIGNAL MANAGER [address] [place] [address] PCP - General Internal Medicine 03/01/22 Team Status: Active Member Role Status Dates Dr. Sam Olvera MD Family Provider Active Dr. Sam Olvera MD Primary Care Provider Active Team Status: Inactive Member Role Status Dates Dr. Vincent Nazario DO Emergency Provider Active Dr. 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 Sam Olvera MD Primary Care Provider Active Lewis Hendrickson MD Attending Provider, Emergency Provid er Active Team Status: Inactive Member Role Status Dates Dr. Sam Olvera MD Primary Care Provider Active Dr. Tony Blum DO Attending Provider, Emergency Provider Active Team Status: Inactive Member Role Status Dates Dr. Sam Olvera MD Primary Care Provider Active Dr. Lasha Rand MD Emergency Provider Active 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 Specialty Start Date End Date Nilsa Groves, TELEPHONE SOLICITOR.SIGNAL MANAGER [address] [facility] [place] [id number] PCP - General Internal Medicine 03/01/22 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 Specialty Start Date End Date Nilsa Groves, TELEPHONE SOLICITOR.SIGNAL MANAGER [address] [place], [place] [id number] PCP - General Internal Medicine 03/01/22 Team Status: Inactive Member Role Status Dates Dr. Sam Olvera MD Primary Care Provider Active Ed Physician Provider Emergency Provider Active Team Status: Inactive Member Role Status Dates Dr. Sam Olvera MD Primary Care Provider Active Dr. Lasha Rand MD Attending Provider, Emergency Provider Active 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 Specialty Start Date End Date Nilsa Groves, TELEPHONE SOLICITOR.SIGNAL MANAGER [address] [place] [address] PCP - General Internal Medicine 03/01/22 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 Specialty Start Date End Date Nilsa Groves, TELEPHONE SOLICITOR.SIGNAL MANAGER [address] [place], [place] [id number] PCP - General Internal Medicine 03/01/22 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 Specialty Start Date End Date Nilsa Groves, TELEPHONE SOLICITOR.SIGNAL MANAGER [address] [place] [address] PCP - General Internal Medicine 03/01/22 Team Status: Inactive Member Role Status Dates Dr. Sam Olvera MD Primary Care Provider Active Dr. Vincent Nazario DO Emergency Provider Active Team Status: Inactive Member Role Status Dates Dr. Sam Olvera MD Primary Care Provider Active Dr. Vincent Nazario DO Attending Provider, Emergency Pr ovider Active Team Status: Inactive Member Role Status Dates Dr. Sam Olvera MD Primary Care Provider Active Dr. Abelardo Beverly MD Emergency Provider Active 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 Specialty Start Date End Date Nilsa Groves, TELEPHONE SOLICITOR.SIGNAL MANAGER [address] [place] [address] PCP - General Internal Medicine 03/01/22 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 Specialty Start Date End Date Nilsa Groves, TELEPHONE SOLICITOR.SIGNAL MANAGER [address] [place] [address] PCP - General Internal Medicine 03/01/22 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 Specialty Start Date End Date Nilsa Groves, TELEPHONE SOLICITOR.SIGNAL MANAGER [address] [place] [address] PCP - General Internal Medicine 03/01/22 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 Specialty Start Date End Date Nilsa Groves, TELEPHONE SOLICITOR.SIGNAL MANAGER [address] [place] [address] PCP - General Internal Medicine 03/01/22 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 Specialty Start Date End Date Nilsa Groves, TELEPHONE SOLICITOR.SIGNAL MANAGER [address] [place] [address] PCP - General Internal Medicine 03/01/22 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 Specialty Start Date End Date Nilsa Groves, TELEPHONE SOLICITOR.SIGNAL MANAGER [address] [place] [address] PCP - General Internal Medicine 03/01/22 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 Specialty Start Date End Date Nilsa Groves, TELEPHONE SOLICITOR.SIGNAL MANAGER [address] [place] [address] PCP - General Internal Medicine 03/01/22 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 Specialty Start Date End Date Nilsa Groves, TELEPHONE SOLICITOR.SIGNAL MANAGER [address] [place] [address] PCP - General Internal Medicine 03/01/22 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 Specialty Start Date End Date Nilsa Groves, TELEPHONE SOLICITOR.SIGNAL MANAGER [address] [place] [address] PCP - General Internal Medicine 03/01/22 Team Status: Active Member Role/Relationship Status Dates Dr. Sam Olvera MD Primary care physician Active Team Status: Inactive Member Role/Relationship Status Dates Dr. Sam Olvera MD Primary care physician Active Start: May 02, 2025 End: May 02, 2025 Lewis Hendrickson MD Attending physician Active Sta rt: May 02, 2025 End: May 02, 2025 Lewis Hendrickson MD Emergency Department Physician Active Start: May 02, 2025 End: May 02, 2025 (unrecognized sect ion and content) No Status Records FoundNo Status Records FoundNo Status Records Found INFORMATION SOURCE (unrecogn ized section and content) DATE CREATED AUTHOR 06/16/2024 [facility] DATE CREATED AUTHOR AUTHOR'S ORGANIZ ATION 05/05/2025 [facility] DATE CREATED AUTHOR AUTHOR'S ORGANIZ ATION 05/11/2025 [facility] FOR RECORDS PERTAINING TO PATIENTS WHO ARE [...] BE BASED ON THE PRIMARY CLINICAL RECORDS. [employer] provides no warranty or guarantee of the accuracy or completeness of information in this document.
[2025-07-08 21:01] VITALS: BP 147/85; PULSE 61; RESP 15; TEMP 36.5; O2SAT 100
== END 2025-07-08 21:07 | disposition home or self-care (01) ==
PROVIDERS: Emergency Provider Emergency Medicine; Visit Provider Emergency Medicine
DX: S09.90XA Unspecified injury of head, initial encounter (principal); S01.101A Unspecified open wound of right eyelid and periocular area, initial encounter; R29.700 NIHSS score 0; S05.31XA Ocular laceration without prolapse or loss of intraocular tissue, right eye, initial encounter; F17.290 Nicotine dependence, other tobacco product, uncomplicated; W26.8XXA Contact with other sharp object(s), not elsewhere classified, initial encounter
CPT/HCPCS: 99282